=== PATIENT | female | born 1955 | race Caucasian/White ===

== ENCOUNTER 2016-12-01 09:25 | Inpatient (IN) | payer MEDICARE, MEDICAID, OTHER ==
[2016-12-01] MEDS ORDERED: Lactated Ringers 1,000 ML IV ONE ×2 (09:27→13:30)
--- NOTE | 2016-12-01 09:33 | EDM.PDOC ---
ED HISTORY OF PRESENT ILLNESS - General Chief Complaint: Respiratory Problem Stated Complaint: COPD/EMPHYSEMA Time Seen by Provider: 12/01/16 09:25 Source: Reports: EMS, RN notes reviewed History Limitations: Reports: Respiratory distress - History of Present Illness INITIAL COMMENTS - FREE TEXT/NARRATIVE: 61-year-old female brought in by EMS in respiratory distress with pending failure severely hypoxic report by EMS has a known history of chronic obstructive pulmonary disease has been hypoxic through most of the night, EMS services called to her home this morning initial evaluation showed she was hypoxic in the 80s did respond to nebulizer treatments and oxygen was transported to the ED for further evaluation she is somnolent but arousable I can only speak in single word sentences - Related Data Allergies/ADRs: Allergies Allergy/AdvReac Type Severity Reaction Status Date / Time No Known Allergies Allergy Verified 12/01/16 10:55 Home Meds: Home Meds Albuterol Sulfate [Proair Respiclick] 90 mcg IH Q4HR 12/01/16 [History] Budesonide/Formoterol [Symbicort 160-4.5 MCG] 2 puff INH BID 12/01/16 [History] Buprenorphine HCl [Buprenorphine] 12 mg SL ACBREAKFAST 12/01/16 [History] Citalopram [Celexa] 10 mg PO DAILY 12/01/16 [History] Ibuprofen 400 mg PO Q6HR PRN 12/01/16 [History] LORazepam 1 mg PO BEDTIME PRN 12/01/16 [History] Prednisone [IJD: Prednisone] 20 mg PO ASDIRECTED 12/01/16 [History] Pregabalin [Lyrica] 100 mg PO TID 12/01/16 [History] Pregabalin [Lyrica] 100 mg PO TID 12/01/16 [History] Simvastatin [Zocor] 80 mg PO BEDTIME 12/01/16 [History] Tiotropium [Spiriva] 1 puff INH DAILY 12/01/16 [History] metFORMIN [Glucophage] 1,000 mg PO BIDMEALS 12/01/16 [History] Past Medical History Cardiovascular History: Reports: High cholesterol, Hypertension Respiratory History: Reports: Asthma, COPD, Intubation, previous Musculoskeletal History: Reports: Back pain, chronic Psychiatric History: Reports: Depression Endocrine/Metabolic History: Reports: Diabetes, type II Social & Family History - Tobacco Use Smoking Status *Q: Current Every Day Smoker ED ROS GENERAL - Review of Systems Review Of Systems: Unable To Obtain (Respiratory distress) ED EXAM, GENERAL - Physical Exam Exam: See Below Exam Limited By: Respiratory distress General Appearance: obtunded, severe distress Head: atraumatic, normocephalic Neck: normal inspection, supple, non-tender, full range of motion Respiratory/Chest: respiratory distress, decreased breath sounds, rhonchi, wheezing Cardiovascular: regular rate, rhythm, no murmur GI/Abdominal: soft, non tender Course - Vital Signs Last Recorded V/S: Last Vital Signs Temp 98.8 F 12/01/16 09:57 Pulse 123 H 12/01/16 13:03 Resp 20 12/01/16 13:03 BP 109/66 12/01/16 13:03 Pulse Ox 97 12/01/16 13:03 - Orders/Labs/Meds Orders: Active Orders 24 hr Category Date Time Status EKG Documentation Completion [RC] ASDIRECTED Care 12/01/16 09:28 Active Ang Chest [CT] Stat Exams 12/01/16 10:30 Taken Chest 1V Frontal [CR] Urgent Exams 12/01/16 09:27 Taken CULTURE BLOOD [BC] Urgent Lab 12/01/16 09:35 Received CULTURE BLOOD [BC] Urgent Lab 12/01/16 09:45 Received CULTURE RESPIRATORY + SMEAR [RM] Urgent Lab 12/01/16 09:27 Uncollected Azithromycin [Zithromax] 500 mg Med 12/01/16 13:39 Ordered Sodium Chloride 0.9% [Normal Saline] 250 ml IV ONETIME Iopamidol [Isovue-370 (76%)] Med 12/01/16 10:45 Active 100 ml IV . DIRECTED Lactated Ringers [Ringers, Lactated] 1,000 ml Med 12/01/16 13:30 Active IV BOLUS cefTRIAXone [Rocephin] 2 gm Med 12/01/16 13:38 Ordered Sodium Chloride 0.9% [Normal Saline] 50 ml IV ONETIME Blood Culture x2 Reflex Set [OM.PC] Urgent Oth 12/01/16 09:29 Ordered EKG 12 Lead [EK] Urgent Ther 12/01/16 09:27 Ordered Medication Orders Lactated Ringer's (Ringers, Lactated) 1,000 mls @ 500 mls/hr IV BOLUS ONE Stop: 12/01/16 15:29 Last Admin: 12/01/16 13:36 Dose: 500 mls/hr Azithromycin 500 mg/ Sodium (Chloride) 250 mls @ 250 mls/hr IV ONETIME ONE Stop: 12/01/16 14:38 Ceftriaxone Sodium 2 gm/ (Sodium Chloride) 50 mls @ 100 mls/hr IV ONETIME ONE Stop: 12/01/16 14:07 Iopamidol (Isovue-370 (76%)) 100 ml IV . DIRECTED DALTON Last Admin: 12/01/16 12:56 Dose: 100 ml Labs: Laboratory Tests 12/01/16 12/01/16 12/01/16 Range/Units 09:26 09:45 09:45 WBC 11.6 H (4.5-11.0) K/uL RBC 3.79 (3.30-5.50) M/uL Hgb 11.6 L (12.0-15.0) g/dL Hct 37.7 (36.0-48.0) % MCV 100 H (80-98) fL MCH 31 (27-31) pg MCHC 31 L (32-36) % Plt Count 268 (150-400) K/uL Neut % (Auto) 85 H (36-66) % Lymph % (Auto) 7 L (24-44) % Elk % (Auto) 7 H (2-6) % Eos % (Auto) 0 L (2-4) % Baso % (Auto) 0 (0-1) % PT 10.1 (9.5-12.0) sec INR 0.95 (0.80-1.20) APTT 24.4 L (27.0-36.0) sec Puncture Site Rt radial ABG pH 7.159 L* (7.350-7.450) ABG pCO2 120.0 H* (35.0-42.0) mmHg ABG pO2 98.7 (75.0-100.0) mmHg ABG HCO3 40.9 H (22.0-26.0) mmol/L ABG Total CO2 39.6 H (21.0-25.0) mmol/L ABG O2 Saturation 95.8 (95.0-98.0) % ABG O2 Content 14.9 L (15.0-23.0) %vol ABG Base Excess 8.6 mm/L ABG Hemoglobin 11.3 L (12.0-16.0) g/dL ABG Oxyhemoglobin 92.8 % ABG Carboxyhemoglobin 2.4 H (0.0-1.6) % ABG Methemoglobin 0.7 % Srikanth Test Passed O2 Delivery Device Non rebr mask Oxygen Flow Rate L Sodium (140-148) mmol/L Potassium (3.6-5.2) mmol/L Chloride (100-108) mmol/L Carbon Dioxide (21-32) mmol/L Anion Gap (5.0-14.0) mmol/L BUN (7-18) mg/dL Creatinine (0.6-1.0) mg/dL Est Cr Clr Drug Dosing Estimated GFR (MDRD) (>60) Glucose (74-106) mg/dL Lactic Acid (0.4-2.0) mmol/L Calcium (8.5-10.1) mg/dL Total Bilirubin (0.2-1.0) mg/dL AST (15-37) U/L ALT (12-78) U/L Alkaline Phosphatase (46-116) U/L Troponin I (0.000-0.056) ng/mL Total Protein (6.4-8.2) g/dL Albumin (3.4-5.0) g/dL Globulin (2.3-3.5) g/dL Albumin/Globulin Ratio (1.2-2.2) Urine Color Urine Appearance Urine pH (4.5-8.0) Ur Specific [place] (1.008-1.030) Urine Protein (NEGATIVE) mg/dL Urine Glucose (UA) (NEGATIVE) mg/dL Urine Ketones (NEGATIVE) mg/dL Urine Occult Blood (NEGATIVE) Urine Nitrite (NEGATIVE) Urine Bilirubin (NEGATIVE) Urine Urobilinogen (NORMAL) mg/dL Ur Leukocyte Esterase (NEGATIVE) Urine RBC (0-5) Urine WBC (0-5) Ur Epithelial Cells Amorphous Sediment Urine Bacteria Urine Mucus Urine Opiates Screen (NEGATIVE) Ur Oxycodone Screen (NEGATIVE) Urine Methadone Screen (NEGATIVE) Ur Propoxyphene Screen (NEGATIVE) Ur Barbiturates Screen (NEGATIVE) Ur Tricyclics Screen (NEGATIVE) Ur Phencyclidine Scrn (NEGATIVE) Ur Amphetamine Screen (NEGATIVE) U Methamphetamines Scrn (NEGATIVE) Urine MDMA Screen (NEGATIVE) U Benzodiazepines Scrn (NEGATIVE) U Cocaine Metab Screen (NEGATIVE) U Marijuana (THC) Screen (NEGATIVE) 12/01/16 12/01/16 12/01/16 Range/Units 09:45 09:45 09:45 WBC (4.5-11.0) K/uL RBC (3.30-5.50) M/uL Hgb (12.0-15.0) g/dL Hct (36.0-48.0) % MCV (80-98) fL MCH (27-31) pg MCHC (32-36) % Plt Count (150-400) K/uL Neut % (Auto) (36-66) % Lymph % (Auto) (24-44) % Elk % (Auto) (2-6) % Eos % (Auto) (2-4) % Baso % (Auto) (0-1) % PT (9.5-12.0) sec INR (0.80-1.20) APTT (27.0-36.0) sec Puncture Site ABG pH (7.350-7.450) ABG pCO2 (35.0-42.0) mmHg ABG pO2 (75.0-100.0) mmHg ABG HCO3 (22.0-26.0) mmol/L ABG Total CO2 (21.0-25.0) mmol/L ABG O2 Saturation (95.0-98.0) % ABG O2 Content (15.0-23.0) %vol ABG Base Excess mm/L ABG Hemoglobin (12.0-16.0) g/dL ABG Oxyhemoglobin % ABG Carboxyhemoglobin (0.0-1.6) % ABG Methemoglobin % Srikanth Test O2 Delivery Device Oxygen Flow Rate L Sodium 142 (140-148) mmol/L Potassium 4.5 (3.6-5.2) mmol/L Chloride 98 L (100-108) mmol/L Carbon Dioxide 43 H (21-32) mmol/L Anion Gap 5.5 (5.0-14.0) mmol/L BUN 16 (7-18) mg/dL Creatinine 0.5 L (0.6-1.0) mg/dL Est Cr Clr Drug Dosing TNP Estimated GFR (MDRD) > 60 (>60) Glucose 295 H (74-106) mg/dL Lactic Acid 0.5 (0.4-2.0) mmol/L Calcium 8.6 (8.5-10.1) mg/dL Total Bilirubin 0.6 (0.2-1.0) mg/dL AST 35 (15-37) U/L ALT 35 (12-78) U/L Alkaline Phosphatase 95 (46-116) U/L Troponin I 0.051 (0.000-0.056) ng/mL Total Protein 6.7 (6.4-8.2) g/dL Albumin 3.0 L (3.4-5.0) g/dL Globulin 3.7 H (2.3-3.5) g/dL Albumin/Globulin Ratio 0.8 L (1.2-2.2) Urine Color Urine Appearance Urine pH (4.5-8.0) Ur Specific [place] (1.008-1.030) Urine Protein (NEGATIVE) mg/dL Urine Glucose (UA) (NEGATIVE) mg/dL Urine Ketones (NEGATIVE) mg/dL Urine Occult Blood (NEGATIVE) Urine Nitrite (NEGATIVE) Urine Bilirubin (NEGATIVE) Urine Urobilinogen (NORMAL) mg/dL Ur Leukocyte Esterase (NEGATIVE) Urine RBC (0-5) Urine WBC (0-5) Ur Epithelial Cells Amorphous Sediment Urine Bacteria Urine Mucus Urine Opiates Screen (NEGATIVE) Ur Oxycodone Screen (NEGATIVE) Urine Methadone Screen (NEGATIVE) Ur Propoxyphene Screen (NEGATIVE) Ur Barbiturates Screen (NEGATIVE) Ur Tricyclics Screen (NEGATIVE) Ur Phencyclidine Scrn (NEGATIVE) Ur Amphetamine Screen (NEGATIVE) U Methamphetamines Scrn (NEGATIVE) Urine MDMA Screen (NEGATIVE) U Benzodiazepines Scrn (NEGATIVE) U Cocaine Metab Screen (NEGATIVE) U Marijuana (THC) Screen (NEGATIVE) 12/01/16 12/01/16 12/01/16 Range/Units 10:30 10:30 12:07 WBC (4.5-11.0) K/uL RBC (3.30-5.50) M/uL Hgb (12.0-15.0) g/dL Hct (36.0-48.0) % MCV (80-98) fL MCH (27-31) pg MCHC (32-36) % Plt Count (150-400) K/uL Neut % (Auto) (36-66) % Lymph % (Auto) (24-44) % Elk % (Auto) (2-6) % Eos % (Auto) (2-4) % Baso % (Auto) (0-1) % PT (9.5-12.0) sec INR (0.80-1.20) APTT (27.0-36.0) sec Puncture Site Lt radial ABG pH 7.201 L* (7.350-7.450) ABG pCO2 110.0 H* (35.0-42.0) mmHg ABG pO2 62.5 L (75.0-100.0) mmHg ABG HCO3 41.5 H (22.0-26.0) mmol/L ABG Total CO2 40.2 H (21.0-25.0) mmol/L ABG O2 Saturation 87.3 L (95.0-98.0) % ABG O2 Content 12.5 L (15.0-23.0) %vol ABG Base Excess 10.6 mm/L ABG Hemoglobin 10.5 L (12.0-16.0) g/dL ABG Oxyhemoglobin 84.7 % ABG Carboxyhemoglobin 2.3 H (0.0-1.6) % ABG Methemoglobin 0.7 % Srikanth Test Passed O2 Delivery Device Bipap Oxygen Flow Rate L Sodium (140-148) mmol/L Potassium (3.6-5.2) mmol/L Chloride (100-108) mmol/L Carbon Dioxide (21-32) mmol/L Anion Gap (5.0-14.0) mmol/L BUN (7-18) mg/dL Creatinine (0.6-1.0) mg/dL Est Cr Clr Drug Dosing Estimated GFR (MDRD) (>60) Glucose (74-106) mg/dL Lactic Acid (0.4-2.0) mmol/L Calcium (8.5-10.1) mg/dL Total Bilirubin (0.2-1.0) mg/dL AST (15-37) U/L ALT (12-78) U/L Alkaline Phosphatase (46-116) U/L Troponin I (0.000-0.056) ng/mL Total Protein (6.4-8.2) g/dL Albumin (3.4-5.0) g/dL Globulin (2.3-3.5) g/dL Albumin/Globulin Ratio (1.2-2.2) Urine Color Yellow Urine Appearance Clear Urine pH 6.0 (4.5-8.0) Ur Specific [place] 1.025 (1.008-1.030) Urine Protein Negative (NEGATIVE) mg/dL Urine Glucose (UA) 1000 H (NEGATIVE) mg/dL Urine Ketones Negative (NEGATIVE) mg/dL Urine Occult Blood Negative (NEGATIVE) Urine Nitrite Negative (NEGATIVE) Urine Bilirubin Negative (NEGATIVE) Urine Urobilinogen Normal (NORMAL) mg/dL Ur Leukocyte Esterase Negative (NEGATIVE) Urine RBC 0-5 (0-5) Urine WBC 0-5 (0-5) Ur Epithelial Cells Rare Amorphous Sediment Not seen Urine Bacteria Not seen Urine Mucus Not seen Urine Opiates Screen Negative (NEGATIVE) Ur Oxycodone Screen Negative (NEGATIVE) Urine Methadone Screen Negative (NEGATIVE) Ur Propoxyphene Screen Negative (NEGATIVE) Ur Barbiturates Screen Negative (NEGATIVE) Ur Tricyclics Screen Negative (NEGATIVE) Ur Phencyclidine Scrn Negative (NEGATIVE) Ur Amphetamine Screen Negative (NEGATIVE) U Methamphetamines Scrn Negative (NEGATIVE) Urine MDMA Screen Negative (NEGATIVE) U Benzodiazepines Scrn Negative (NEGATIVE) U Cocaine Metab Screen Negative (NEGATIVE) U Marijuana (THC) Screen Negative (NEGATIVE) Meds: Medications Generic Name Dose Route Start Last Admin Trade Name Freq PRN Reason Stop Dose Admin Lactated Ringer's 1,000 mls @ 500 mls/hr 12/01/16 13:30 12/01/16 13:36 Ringers, Lactated IV 12/01/16 15:29 500 mls/hr BOLUS ONE Administration Azithromycin 500 mg/ Sodium 250 mls @ 250 mls/hr 12/01/16 13:39 Chloride IV 12/01/16 14:38 ONETIME ONE Ceftriaxone Sodium 2 gm/ 50 mls @ 100 mls/hr 12/01/16 13:38 Sodium Chloride IV 12/01/16 14:07 ONETIME ONE Iopamidol 100 ml 12/01/16 10:45 12/01/16 12:56 Isovue-370 (76%) IV 100 ml . DIRECTED DALTON Administration Discontinued Medications Generic Name Dose Route Start Last Admin Trade Name Freq PRN Reason Stop Dose Admin Lactated Ringer's 1,000 mls @ 500 mls/hr 12/01/16 09:27 12/01/16 10:30 Ringers, Lactated IV 12/01/16 11:26 500 mls/hr ASDIRECTED ONE Administration Sodium Chloride 70 mls @ 3 mls/sec 12/01/16 10:36 Normal Saline IV 12/01/16 10:37 ASDIRECTED ONE Methylprednisolone Sodium Succinate 125 mg 12/01/16 13:24 12/01/16 13:37 Solu-Medrol IVPUSH 12/01/16 13:25 125 mg ONETIME ONE Administration Sodium Chloride 10 ml 12/01/16 10:36 12/01/16 12:56 Saline Flush FLUSH 12/01/16 10:37 10 ml . DIRECTED PRN Administration [id number] EXAM Departure - Departure Time of Disposition: 13:46 Disposition: Admitted As Inpatient 64 Condition: poor Clinical Impression: Respiratory failure with hypoxia Qualifiers: Chronicity: acute on chronic Qualified Code(s): J96.21 - Acute and chronic respiratory failure with hypoxia Forms: ED Department Discharge - My Orders Last 24 Hours: My Active Orders 12/01/16 09:27 Chest 1V Frontal [CR] Urgent CULTURE RESPIRATORY + SMEAR [RM] Urgent EKG 12 Lead [EK] Urgent 12/01/16 09:28 EKG Documentation Completion [RC] ASDIRECTED 12/01/16 09:29 Blood Culture x2 Reflex Set [OM.PC] Urgent 12/01/16 09:35 CULTURE BLOOD [BC] Urgent 12/01/16 09:45 CULTURE BLOOD [BC] Urgent 12/01/16 10:30 Ang Chest [CT] Stat 12/01/16 10:45 Iopamidol [Isovue-370 (76%)] 100 ml IV . DIRECTED 12/01/16 13:30 Lactated Ringers [Ringers, Lactated] 1,000 ml IV BOLUS 12/01/16 13:38 cefTRIAXone [Rocephin] 2 gm Sodium Chloride 0.9% [Normal Saline] 50 ml IV ONETIME 12/01/16 13:39 Azithromycin [Zithromax] 500 mg Sodium Chloride 0.9% [Normal Saline] 250 ml IV ONETIME - Assessment/Plan Last 24 Hours: My Active Orders 12/01/16 09:27 Chest 1V Frontal [CR] Urgent CULTURE RESPIRATORY + SMEAR [RM] Urgent EKG 12 Lead [EK] Urgent 12/01/16 09:28 EKG Documentation Completion [RC] ASDIRECTED 12/01/16 09:29 Blood Culture x2 Reflex Set [OM.PC] Urgent 12/01/16 09:35 CULTURE BLOOD [BC] Urgent 12/01/16 09:45 CULTURE BLOOD [BC] Urgent 12/01/16 10:30 Ang Chest [CT] Stat 12/01/16 10:45 Iopamidol [Isovue-370 (76%)] 100 ml IV . DIRECTED 12/01/16 13:30 Lactated Ringers [Ringers, Lactated] 1,000 ml IV BOLUS 12/01/16 13:38 cefTRIAXone [Rocephin] 2 gm Sodium Chloride 0.9% [Normal Saline] 50 ml IV ONETIME 12/01/16 13:39 Azithromycin [Zithromax] 500 mg Sodium Chloride 0.9% [Normal Saline] 250 ml IV ONETIME Plan: Assessment Acuity = acute Site and laterality = respiratory failure secondary to chronic obstructive pulmonary disease Etiology = unclear etiology possible infectious Manifestations = hypoxic, somnolent and obtunded Location of injury = home Lab values = WBC elevated 1.6 consistent leukocytosis hemoglobin low at 0.6 this is the macro chromic anemia INR normal at 0.95 pH 7.15 PCO2 120 PO2 98.7 bicarbonate 40.9 consistent with a respiratory acidosis albumin low at 2.0 consistent hypoalbuminemia chest x-ray shows an infiltrative process on the left side CT scan is confirmatory Plan discuss case with hospitalist workers compensation analyst he agreed to come and evaluate the patient the ED for admission she was given IV Solu-Medrol, placed on BiPAP while in the ED and antibiotics Rocephin and azithromycin initiated This note was dictated using [employer] voice recognition software please call with any questions.
[2016-12-01] MEDS ORDERED: Sodium Chloride 0.9% 10 ML Syringe FLUSH PRN (10:36)
[2016-12-01] MEDS ORDERED: Iopamidol 755 Mg/ML 100 ML Bottle IV SCH (10:45)
[2016-12-01] MEDS ORDERED: methylPREDNISolone Sodium Succinate 125 MG/2 ML SDV IVPUSH ONE (13:24)
[2016-12-01] MEDS ORDERED: cefTRIAXone 2 GM in Sodium Chloride 0.9% 50 ML IV ONE (13:38)
[2016-12-01] MEDS ORDERED: Azithromycin 500 MG in Sodium Chloride 0.9% 250 ML IV ONE (13:39)
[2016-12-01] MEDS ORDERED: Heparin Sodium 5,000 UNITS in Sodium Chloride 0.9% 500 ML IV SCH (14:45)
--- NOTE | 2016-12-01 15:02 | PCM.HP ---
H&P History of Present Illness - General Date of Service: 12/01/16 Admit Problem/Dx: Admission Diagnosis/Problem Admission Diagnosis/Problem Pneumonia Source of Information: Provider. No: Patient History Limitations: Reports: Altered mental status (Obtunded) - History of Present Illness Initial Comments - Free Text/Narative: Una presents to the emergency room from her son's house with progressive respiratory decline. At this time she is obtunded and not able to provide any history. Per her son's report she was recently hospitalized in [facility] for bronchitis and COPD exacerbation. She had been discharged and had come up to visit him. She has been coughing and short of breath for several days with things getting worse. She has been weak and not getting around well. He is not sure she's been having any fevers. She hasn't been complaining of any chest pain that he recalls. Since arrival to the emergency room she has been started on noninvasive ventilation after blood gases revealed significant acidosis and CO2 retention. Chest x-ray was concerning for atypical pneumonia and a CT scan did confirm patchy diffuse bilateral interstitial infiltrates most likely infectious. She has been receiving IV fluids, cultures have been obtained and antibiotics have been initiated. She will be admitted to the intensive care unit for management of hypoxic and hypercapnic respiratory failure. - Related Data Allergies/Adverse Reactions: Allergies Allergy/AdvReac Type Severity Reaction Status Date / Time No Known Allergies Allergy Verified 12/01/16 10:55 Home Medications: Home Meds Albuterol Sulfate [Proair Respiclick] 90 mcg IH Q4HR 12/01/16 [History] Budesonide/Formoterol [Symbicort 160-4.5 MCG] 2 puff INH BID 12/01/16 [History] Buprenorphine HCl [Buprenorphine] 12 mg SL ACBREAKFAST 12/01/16 [History] Citalopram [Celexa] 10 mg PO DAILY 12/01/16 [History] Ibuprofen 400 mg PO Q6HR PRN 12/01/16 [History] LORazepam 1 mg PO BEDTIME PRN 12/01/16 [History] Prednisone [IJD: Prednisone] 20 mg PO ASDIRECTED 12/01/16 [History] Pregabalin [Lyrica] 100 mg PO TID 12/01/16 [History] Pregabalin [Lyrica] 100 mg PO TID 12/01/16 [History] Simvastatin [Zocor] 80 mg PO BEDTIME 12/01/16 [History] Tiotropium [Spiriva] 1 puff INH DAILY 12/01/16 [History] metFORMIN [Glucophage] 1,000 mg PO BIDMEALS 12/01/16 [History] Past Medical History Cardiovascular History: Reports: High cholesterol, Hypertension Other Cardiovascular History: enlarged right Respiratory History: Reports: Asthma, COPD, Intubation, previous Genitourinary History: Reports: UTI, recurrent SCI[employer] History: Reports: Musculoskeletal History: Reports: Back pain, chronic Other Musculoskeletal History: uses w/c at home and walker Psychiatric History: Reports: Depression Endocrine/Metabolic History: Reports: Diabetes, type II - Past Surgical History Female Surgical History: Reports: Hysterectomy Social & Family History - Family History Family Medical History: Unobtainable (Patient obtunded, family not available) - Tobacco Use Smoking Status *Q: Current Every Day Smoker Years of Tobacco use: 40 Packs/Tins Daily: 0.5 - Caffeine Use Caffeine Use: Reports: Coffee - Alcohol Use Alcohol Use History: No - Recreational Drug Use Recreational Drug Use: Yes Recreational Drug Type: Reports: Oxycodone H&P Review of Systems - Review of Systems: Review Of Systems: Unable To Obtain (Patient obtunded) Exam - Exam Exam: See Below - Vital Signs Vital Signs: Last Vital Signs Temp 37.1 C 12/01/16 09:57 Pulse 118 H 12/01/16 13:56 Resp 20 12/01/16 13:56 BP 116/66 12/01/16 13:56 Pulse Ox 93 L 12/01/16 13:56 Weight: 68.946 kg - Exam Quality Assessment: supplemental oxygen, urinary catheter General: obtunded. No: alert, mild distress HEENT: Conjunctiva clear, Pupils equal. No: Mucosa moist & pink (dry), Scleral icterus Neck: supple, trachea midline. No: lymphadenopathy, thyromegaly Lungs: Normal respiratory effort, Decreased breath sounds (Throughout), Crackles (Few left lung base), Wheezing (Significant expiratory wheezing throughout). No: Clear to auscultation Cardiovascular: regular rhythm, tachycardia. No: systolic murmur Abdomen: normal bowel sounds, soft. No: distention, tenderness Extremities: normal inspection. No: cyanosis, edema Peripheral Pulses: 2+: dorsalis pedis (L), dorsalis pedis (R) Skin: warm, dry, intact Neuro Extensive - Mental Status: withdraws to pain. No: alert, oriented x3 Neuro Extensive - Motor, Sensory, Reflexes: No: facial palsy (R), facial palsy ( L), tremor Psychiatric: No: alert, anxious, agitated - Patient Data Lab Results last 24 hrs: Laboratory Results - last 24 hr 12/01/16 12/01/16 12/01/16 Range/Units 09:26 09:45 09:45 WBC 11.6 H (4.5-11.0) K/uL RBC 3.79 (3.30-5.50) M/uL Hgb 11.6 L (12.0-15.0) g/dL Hct 37.7 (36.0-48.0) % MCV 100 H (80-98) fL MCH 31 (27-31) pg MCHC 31 L (32-36) % Plt Count 268 (150-400) K/uL Neut % (Auto) 85 H (36-66) % Lymph % (Auto) 7 L (24-44) % Hill % (Auto) 7 H (2-6) % Eos % (Auto) 0 L (2-4) % Baso % (Auto) 0 (0-1) % PT 10.1 (9.5-12.0) sec INR 0.95 (0.80-1.20) APTT 24.4 L (27.0-36.0) sec Puncture Site Rt radial ABG pH 7.159 L* (7.350-7.450) ABG pCO2 120.0 H* (35.0-42.0) mmHg ABG pO2 98.7 (75.0-100.0) mmHg ABG HCO3 40.9 H (22.0-26.0) mmol/L ABG Total CO2 39.6 H (21.0-25.0) mmol/L ABG O2 Saturation 95.8 (95.0-98.0) % ABG O2 Content 14.9 L (15.0-23.0) %vol ABG Base Excess 8.6 mm/L ABG Hemoglobin 11.3 L (12.0-16.0) g/dL ABG Oxyhemoglobin 92.8 % ABG Carboxyhemoglobin 2.4 H (0.0-1.6) % ABG Methemoglobin 0.7 % Srikanth Test Passed O2 Delivery Device Non rebr mask Oxygen Flow Rate L Sodium (140-148) mmol/L Potassium (3.6-5.2) mmol/L Chloride (100-108) mmol/L Carbon Dioxide (21-32) mmol/L Anion Gap (5.0-14.0) mmol/L BUN (7-18) mg/dL Creatinine (0.6-1.0) mg/dL Est Cr Clr Drug Dosing Estimated GFR (MDRD) (>60) Glucose (74-106) mg/dL Lactic Acid (0.4-2.0) mmol/L Calcium (8.5-10.1) mg/dL Total Bilirubin (0.2-1.0) mg/dL AST (15-37) U/L ALT (12-78) U/L Alkaline Phosphatase (46-116) U/L Troponin I (0.000-0.056) ng/mL Total Protein (6.4-8.2) g/dL Albumin (3.4-5.0) g/dL Globulin (2.3-3.5) g/dL Albumin/Globulin Ratio (1.2-2.2) Urine Color Urine Appearance Urine pH (4.5-8.0) Ur Specific Pinch (1.008-1.030) Urine Protein (NEGATIVE) mg/dL Urine Glucose (UA) (NEGATIVE) mg/dL Urine Ketones (NEGATIVE) mg/dL Urine Occult Blood (NEGATIVE) Urine Nitrite (NEGATIVE) Urine Bilirubin (NEGATIVE) Urine Urobilinogen (NORMAL) mg/dL Ur Leukocyte Esterase (NEGATIVE) Urine RBC (0-5) Urine WBC (0-5) Ur Epithelial Cells Amorphous Sediment Urine Bacteria Urine Mucus Urine Opiates Screen (NEGATIVE) Ur Oxycodone Screen (NEGATIVE) Urine Methadone Screen (NEGATIVE) Ur Propoxyphene Screen (NEGATIVE) Ur Barbiturates Screen (NEGATIVE) Ur Tricyclics Screen (NEGATIVE) Ur Phencyclidine Scrn (NEGATIVE) Ur Amphetamine Screen (NEGATIVE) U Methamphetamines Scrn (NEGATIVE) Urine MDMA Screen (NEGATIVE) U Benzodiazepines Scrn (NEGATIVE) U Cocaine Metab Screen (NEGATIVE) U Marijuana (THC) Screen (NEGATIVE) 12/01/16 12/01/16 12/01/16 Range/Units 09:45 09:45 09:45 WBC (4.5-11.0) K/uL RBC (3.30-5.50) M/uL Hgb (12.0-15.0) g/dL Hct (36.0-48.0) % MCV (80-98) fL MCH (27-31) pg MCHC (32-36) % Plt Count (150-400) K/uL Neut % (Auto) (36-66) % Lymph % (Auto) (24-44) % Hill % (Auto) (2-6) % Eos % (Auto) (2-4) % Baso % (Auto) (0-1) % PT (9.5-12.0) sec INR (0.80-1.20) APTT (27.0-36.0) sec Puncture Site ABG pH (7.350-7.450) ABG pCO2 (35.0-42.0) mmHg ABG pO2 (75.0-100.0) mmHg ABG HCO3 (22.0-26.0) mmol/L ABG Total CO2 (21.0-25.0) mmol/L ABG O2 Saturation (95.0-98.0) % ABG O2 Content (15.0-23.0) %vol ABG Base Excess mm/L ABG Hemoglobin (12.0-16.0) g/dL ABG Oxyhemoglobin % ABG Carboxyhemoglobin (0.0-1.6) % ABG Methemoglobin % Srikanth Test O2 Delivery Device Oxygen Flow Rate L Sodium 142 (140-148) mmol/L Potassium 4.5 (3.6-5.2) mmol/L Chloride 98 L (100-108) mmol/L Carbon Dioxide 43 H (21-32) mmol/L Anion Gap 5.5 (5.0-14.0) mmol/L BUN 16 (7-18) mg/dL Creatinine 0.5 L (0.6-1.0) mg/dL Est Cr Clr Drug Dosing TNP Estimated GFR (MDRD) > 60 (>60) Glucose 295 H (74-106) mg/dL Lactic Acid 0.5 (0.4-2.0) mmol/L Calcium 8.6 (8.5-10.1) mg/dL Total Bilirubin 0.6 (0.2-1.0) mg/dL AST 35 (15-37) U/L ALT 35 (12-78) U/L Alkaline Phosphatase 95 (46-116) U/L Troponin I 0.051 (0.000-0.056) ng/mL Total Protein 6.7 (6.4-8.2) g/dL Albumin 3.0 L (3.4-5.0) g/dL Globulin 3.7 H (2.3-3.5) g/dL Albumin/Globulin Ratio 0.8 L (1.2-2.2) Urine Color Urine Appearance Urine pH (4.5-8.0) Ur Specific Pinch (1.008-1.030) Urine Protein (NEGATIVE) mg/dL Urine Glucose (UA) (NEGATIVE) mg/dL Urine Ketones (NEGATIVE) mg/dL Urine Occult Blood (NEGATIVE) Urine Nitrite (NEGATIVE) Urine Bilirubin (NEGATIVE) Urine Urobilinogen (NORMAL) mg/dL Ur Leukocyte Esterase (NEGATIVE) Urine RBC (0-5) Urine WBC (0-5) Ur Epithelial Cells Amorphous Sediment Urine Bacteria Urine Mucus Urine Opiates Screen (NEGATIVE) Ur Oxycodone Screen (NEGATIVE) Urine Methadone Screen (NEGATIVE) Ur Propoxyphene Screen (NEGATIVE) Ur Barbiturates Screen (NEGATIVE) Ur Tricyclics Screen (NEGATIVE) Ur Phencyclidine Scrn (NEGATIVE) Ur Amphetamine Screen (NEGATIVE) U Methamphetamines Scrn (NEGATIVE) Urine MDMA Screen (NEGATIVE) U Benzodiazepines Scrn (NEGATIVE) U Cocaine Metab Screen (NEGATIVE) U Marijuana (THC) Screen (NEGATIVE) 12/01/16 12/01/16 12/01/16 Range/Units 10:30 10:30 12:07 WBC (4.5-11.0) K/uL RBC (3.30-5.50) M/uL Hgb (12.0-15.0) g/dL Hct (36.0-48.0) % MCV (80-98) fL MCH (27-31) pg MCHC (32-36) % Plt Count (150-400) K/uL Neut % (Auto) (36-66) % Lymph % (Auto) (24-44) % Hill % (Auto) (2-6) % Eos % (Auto) (2-4) % Baso % (Auto) (0-1) % PT (9.5-12.0) sec INR (0.80-1.20) APTT (27.0-36.0) sec Puncture Site Lt radial ABG pH 7.201 L* (7.350-7.450) ABG pCO2 110.0 H* (35.0-42.0) mmHg ABG pO2 62.5 L (75.0-100.0) mmHg ABG HCO3 41.5 H (22.0-26.0) mmol/L ABG Total CO2 40.2 H (21.0-25.0) mmol/L ABG O2 Saturation 87.3 L (95.0-98.0) % ABG O2 Content 12.5 L (15.0-23.0) %vol ABG Base Excess 10.6 mm/L ABG Hemoglobin 10.5 L (12.0-16.0) g/dL ABG Oxyhemoglobin 84.7 % ABG Carboxyhemoglobin 2.3 H (0.0-1.6) % ABG Methemoglobin 0.7 % Srikanth Test Passed O2 Delivery Device Bipap Oxygen Flow Rate L Sodium (140-148) mmol/L Potassium (3.6-5.2) mmol/L Chloride (100-108) mmol/L Carbon Dioxide (21-32) mmol/L Anion Gap (5.0-14.0) mmol/L BUN (7-18) mg/dL Creatinine (0.6-1.0) mg/dL Est Cr Clr Drug Dosing Estimated GFR (MDRD) (>60) Glucose (74-106) mg/dL Lactic Acid (0.4-2.0) mmol/L Calcium (8.5-10.1) mg/dL Total Bilirubin (0.2-1.0) mg/dL AST (15-37) U/L ALT (12-78) U/L Alkaline Phosphatase (46-116) U/L Troponin I (0.000-0.056) ng/mL Total Protein (6.4-8.2) g/dL Albumin (3.4-5.0) g/dL Globulin (2.3-3.5) g/dL Albumin/Globulin Ratio (1.2-2.2) Urine Color Yellow Urine Appearance Clear Urine pH 6.0 (4.5-8.0) Ur Specific Pinch 1.025 (1.008-1.030) Urine Protein Negative (NEGATIVE) mg/dL Urine Glucose (UA) 1000 H (NEGATIVE) mg/dL Urine Ketones Negative (NEGATIVE) mg/dL Urine Occult Blood Negative (NEGATIVE) Urine Nitrite Negative (NEGATIVE) Urine Bilirubin Negative (NEGATIVE) Urine Urobilinogen Normal (NORMAL) mg/dL Ur Leukocyte Esterase Negative (NEGATIVE) Urine RBC 0-5 (0-5) Urine WBC 0-5 (0-5) Ur Epithelial Cells Rare Amorphous Sediment Not seen Urine Bacteria Not seen Urine Mucus Not seen Urine Opiates Screen Negative (NEGATIVE) Ur Oxycodone Screen Negative (NEGATIVE) Urine Methadone Screen Negative (NEGATIVE) Ur Propoxyphene Screen Negative (NEGATIVE) Ur Barbiturates Screen Negative (NEGATIVE) Ur Tricyclics Screen Negative (NEGATIVE) Ur Phencyclidine Scrn Negative (NEGATIVE) Ur Amphetamine Screen Negative (NEGATIVE) U Methamphetamines Scrn Negative (NEGATIVE) Urine MDMA Screen Negative (NEGATIVE) U Benzodiazepines Scrn Negative (NEGATIVE) U Cocaine Metab Screen Negative (NEGATIVE) U Marijuana (THC) Screen Negative (NEGATIVE) Result Diagrams: 12/01/16 09:45 12/01/16 09:45 Alfonso Results last 24 hrs: Microbiology 12/01/16 10:11 Influenza Type A Antigen Screen - Final Nasopharyngeal Swab - Nare, Right NEGATIVE INFLUENZA A VIRUS AG Influenza Type B Antigen Screen - Final NEGATIVE INFLUENZA B VIRUS AG Imaging Impressions last 24 hrs: Chest x-ray - images personally reviewed - there appears to be a subtle left lung infiltrate near the left heart border. No definite mass. Heart size is normal. CT of the chest - images also personally reviewed - there are patchy groundglass opacities throughout both lungs that could be infectious or inflammatory. No evidence for pulmonary embolism or mass. *Q Meaningful Use (ADM) - VTE *Q VTE Criteria *Q: - Stroke *Q Stroke Criteria *Q: - AMI *Q AMI Criteria *Q: - Problem List (1) Bilateral pneumonia SNOMED Code(s): 909340406 ICD Code: J18.9 - PNEUMONIA, UNSPECIFIED ORGANISM Status: Acute Current Visit: Yes Qualifiers: Pneumonia type: due to unspecified organism Lung location: unspecified part of lung Qualified Code(s): J18.9 - Pneumonia, unspecified organism (2) Acute respiratory failure with hypoxia and hypercapnia SNOMED Code(s): 96700123, 956071795 ICD Code: J96.01 - ACUTE RESPIRATORY FAILURE WITH HYPOXIA; J96.02 - ACUTE RESPIRATORY FAILURE WITH HYPERCAPNIA Status: Acute Current Visit: Yes (3) Acute exacerbation of chronic obstructive pulmonary disease (COPD) SNOMED Code(s): 647656035 ICD Code: J44.1 - CHRONIC OBSTRUCTIVE PULMONARY DISEASE W (ACUTE) EXACERBATION Status: Acute Current Visit: Yes Problem List Initiated/Reviewed/Updated: Yes Orders Last 24hrs: Active Orders 24 hr Category Date Time Status Patient Status Manage Transfer [TRANSFER] Routine ADT 12/01/16 14:44 Ordered EKG Documentation Completion [RC] ASDIRECTED Care 12/01/16 09:28 Active Ang Chest [CT] Stat Exams 12/01/16 10:30 Taken Chest 1V Frontal [CR] Urgent Exams 12/01/16 09:27 Taken ABG [BLOOD GAS ARTERIAL] [BG] Timed Lab 12/01/16 15:00 Ordered CULTURE BLOOD [BC] Urgent Lab 12/01/16 09:35 Received CULTURE BLOOD [BC] Urgent Lab 12/01/16 09:45 Received CULTURE RESPIRATORY + SMEAR [RM] Urgent Lab 12/01/16 09:27 Uncollected Heparin Sodium 5,000 units Med 12/01/16 14:45 Active Sodium Chloride 0.9% [Normal Saline] 500 ml IV ASDIRECTED Iopamidol [Isovue-370 (76%)] Med 12/01/16 10:45 Active 100 ml IV . DIRECTED Lactated Ringers [Ringers, Lactated] 1,000 ml Med 12/01/16 13:30 Active IV BOLUS Blood Culture x2 Reflex Set [OM.PC] Urgent Oth 12/01/16 09:29 Ordered Resuscitation Status Routine Resus Stat 12/01/16 14:45 Ordered EKG 12 Lead [EK] Urgent Ther 12/01/16 09:27 Ordered Medication Orders Lactated Ringer's (Ringers, Lactated) 1,000 mls @ 500 mls/hr IV BOLUS ONE Stop: 12/01/16 15:29 Last Admin: 12/01/16 13:36 Dose: 500 mls/hr Heparin Sodium (Porcine) 5,000 (units/ Sodium Chloride) 501 mls @ 5 mls/sec IV ASDIRECTED [facility]ALTON Last Admin: 12/01/16 14:43 Dose: 5 mls/sec Iopamidol (Isovue-370 (76%)) 100 ml IV . DIRECTED [facility] Last Admin: 12/01/16 12:56 Dose: 100 ml Assessment/Plan Comment:: Assessment and plan - Bilateral pneumonia with acute hypoxic and hypercapnic respiratory failure - history of COPD and multiple hospitalizations for COPD exacerbations. Recent treatment with Bactrim for an upper respiratory tract infection and she had been on steroids as well. Chest x-ray shows atypical appearing bilateral pneumonia. She has impressive wheezing as well as a significant respiratory acidosis and CO2 retention. She does appear to be slowly improving with noninvasive ventilation. There is no evidence for pulmonary embolism. -Admit to the intensive care unit -Continue noninvasive ventilation -Serial blood gases to ensure improvement -Antibiotic coverage with ceftriaxone and azithromycin -Steroids -Sputum culture if able -Consider trial of intubation if condition does not continue to improve Acute exacerbation of COPD - Secondary to pneumonia as above. -Management as above -restart chronic management medications as able when mental status improves Chronic opiate dependence - Patient normally takes buprenorphine every day. This will be on hold until her mental status improves. -Pain control with IV medications for the night Maintenance issues - - DVT prophylaxis - SCDs - GI prophylaxis - PPI - Nutrition - n.p.o. for now - Dixon catheter - placed in the emergency room CODE STATUS - full code Admission justification - This patient will be admitted for inpatient services and is medically appropriate meeting medical necessity for inpatient admission as outlined in my documentation. I reasonably expect the patient will require inpatient services that span a period time over 2 midnights. I reasonably expect this patient to be discharged or transferred within 96 hours [facility] Disposition - anticipate discharge home after the hospital stay Primary care physician - no local primary care Donald Dominguez M.D.
[2016-12-01] MEDS ORDERED: LORazepam 2 MG/ML MDV IVPUSH PRN (15:35)
[2016-12-01] MEDS ORDERED: Acetaminophen 325 MG Tab PO PRN (15:35)
[2016-12-01] MEDS ORDERED: Acetaminophen 650 MG Supp RECTAL PRN (15:35)
[2016-12-01] MEDS ORDERED: Pantoprazole 40 MG Vial IV ONE (15:35)
[2016-12-01] MEDS ORDERED: Ondansetron 4 MG/2 ML SDV IV PRN (15:35)
[2016-12-01] MEDS ORDERED: Ondansetron 4 MG Tab.DIS PO PRN (15:35)
[2016-12-01] MEDS ORDERED: HYDROmorphone 0.5 MG/0.5 ML Syringe IVPUSH PRN (15:35)
[2016-12-01] MEDS ORDERED: Polyethylene Glycol 3350 Powder 17 GM Packet PO PRN (15:35)
[2016-12-01] MEDS: Sodium Chloride 0.9% 1,000 ML IV SCH ×2 (15:56→23:58)
[2016-12-01] MEDS: Albuterol/Ipratropium 3.0-0.5 MG/3 ML Neb Soln NEB SCH ×2 (16:35→22:29)
[2016-12-01] MEDS: Insulin Aspart 100 Units/ML 3 ML Pen SUBCUT SCH ×2 (16:36→22:29)
[2016-12-01] MEDS: Magnesium Sulfate/Water 2 GM in Premix Bag 1 BAG IV SCH ×2 (17:46→22:29)
[2016-12-01] MEDS: methylPREDNISolone Sodium Succinate 125 MG/2 ML SDV IVPUSH SCH (20:45)
--- NOTE | 2016-12-01 21:01 | ANES ---
DATE OF SERVICE: 12/01/2016 TIME: 1430. I was called to the emergency room department to evaluate Ms. Lauren for an arterial line. She is on the BiPAP and has severe COPD and has some acute respiratory depression/failure. I tried discussing with her the risks and benefits, but she did not quite understand. I found it would be prudent to go ahead and do the arterial line. I did put a 20-gauge radial art line into the right radial artery. I did prep her site with Betadine and used 1% lidocaine for skin local. The arterial line went in with ease and there was good waveform and blood return. It was then sutured with 2-0 Prolene. It was then secured with Tegaderm and tape. Trevor Gerardo CRNA /[id number]
[2016-12-02] MEDS: methylPREDNISolone Sodium Succinate 125 MG/2 ML SDV IVPUSH SCH ×4 (02:44→19:39)
[2016-12-02] MEDS: Insulin Aspart 100 Units/ML 3 ML Pen SUBCUT SCH ×4 (04:33→22:06)
[2016-12-02] MEDS: Albuterol/Ipratropium 3.0-0.5 MG/3 ML Neb Soln NEB SCH ×4 (05:36→22:05)
[2016-12-02] MEDS: Magnesium Sulfate/Water 2 GM in Premix Bag 1 BAG IV SCH ×3 (05:36→18:37)
[2016-12-02] MEDS: Sodium Chloride 0.9% 1,000 ML IV SCH (07:35)
--- NOTE | 2016-12-02 08:51 | PCM.PN ---
- General Info Date of Service: 12/02/16 Functional Status: Reports: pain controlled, urinating. Denies: ambulating - Review of Systems General: Reports: Weakness. Denies: Fever Pulmonary: Reports: shortness of breath Gastrointestinal: Denies: Abdominal pain Systems Review Comment:: No acute events overnight. Blood gases have shown some slow improvement throughout the night with decreasing PCO2 levels and slowly rising PTH. She is able to answer some questions this morning but falls back to sleep fairly quickly. She does report that she feels short of breath but does not endorse chest pain. No complaints of abdominal pain. She seems to be tolerating her current antibiotics as well as the steroids. Tolerating the noninvasive ventilation quite well. She has been dependent on the noninvasive ventilation since the time of emergency room presentation. Cultures are pending. - Patient Data Vitals - most recent: Last Vital Signs Temp 35.6 C 12/02/16 04:00 Pulse 102 H 12/02/16 07:16 Resp 18 12/02/16 07:16 BP 123/61 12/02/16 07:16 Pulse Ox 96 12/02/16 07:16 Weight - most recent: 71.577 kg I&O - last 24 hours: Intake & Output 12/01/16 12/02/16 12/02/16 22:59 06:59 14:59 Intake Total 3275 1593 Output Total 450 625 Balance 2825 968 Lab Results last 24 hrs: Laboratory Results - last 24 hr 12/01/16 12/01/16 12/01/16 Range/Units 15:35 18:00 23:00 WBC (4.5-11.0) K/uL RBC (3.30-5.50) M/uL Hgb (12.0-15.0) g/dL Hct (36.0-48.0) % MCV (80-98) fL MCH (27-31) pg MCHC (32-36) % Plt Count (150-400) K/uL Puncture Site Line A-line ABG pH 7.203 L* 7.200 L* (7.350-7.450) ABG pCO2 98.0 H* 105.0 H* (35.0-42.0) mmHg ABG pO2 71.3 L 85.8 (75.0-100.0) mmHg ABG HCO3 37.1 H 39.6 H (22.0-26.0) mmol/L ABG Total CO2 35.8 H 38.1 H (21.0-25.0) mmol/L ABG O2 Saturation 92.4 L 95.2 (95.0-98.0) % ABG O2 Content 13.6 L 14.4 L (15.0-23.0) %vol ABG Base Excess 6.7 8.7 mm/L ABG Hemoglobin 10.7 L 10.9 L (12.0-16.0) g/dL ABG Oxyhemoglobin 89.8 92.7 % ABG Carboxyhemoglobin 2.2 H 1.9 H (0.0-1.6) % ABG Methemoglobin 0.6 0.7 % Srikanth Test TNP A-line O2 Delivery Device Bipap Bipap Oxygen Flow Rate 50 L Sodium (140-148) mmol/L Potassium (3.6-5.2) mmol/L Chloride (100-108) mmol/L Carbon Dioxide (21-32) mmol/L Anion Gap (5.0-14.0) mmol/L BUN (7-18) mg/dL Creatinine (0.6-1.0) mg/dL Est Cr Clr Drug Dosing mL/min Estimated GFR (MDRD) (>60) Glucose (74-106) mg/dL Calcium (8.5-10.1) mg/dL Magnesium 1.1 L (1.8-2.4) mg/dL 12/02/16 12/02/16 12/02/16 Range/Units 01:30 05:15 05:15 WBC 4.7 (4.5-11.0) K/uL RBC 3.41 (3.30-5.50) M/uL Hgb 10.5 L (12.0-15.0) g/dL Hct 34.0 L (36.0-48.0) % MCV 100 H (80-98) fL MCH 31 (27-31) pg MCHC 31 L (32-36) % Plt Count 213 (150-400) K/uL Puncture Site A-line ABG pH 7.216 L (7.350-7.450) ABG pCO2 99.4 H* (35.0-42.0) mmHg ABG pO2 69.6 L (75.0-100.0) mmHg ABG HCO3 38.8 H (22.0-26.0) mmol/L ABG Total CO2 37.4 H (21.0-25.0) mmol/L ABG O2 Saturation 92.1 L (95.0-98.0) % ABG O2 Content 13.2 L (15.0-23.0) %vol ABG Base Excess 8.6 mm/L ABG Hemoglobin 10.4 L (12.0-16.0) g/dL ABG Oxyhemoglobin 89.7 % ABG Carboxyhemoglobin 2.1 H (0.0-1.6) % ABG Methemoglobin 0.5 % Srikanth Test A-line O2 Delivery Device Bipap Oxygen Flow Rate L Sodium 146 (140-148) mmol/L Potassium 4.0 (3.6-5.2) mmol/L Chloride 104 (100-108) mmol/L Carbon Dioxide 39 H (21-32) mmol/L Anion Gap 7.0 (5.0-14.0) mmol/L BUN 14 (7-18) mg/dL Creatinine 0.3 L (0.6-1.0) mg/dL Est Cr Clr Drug Dosing 150.49 mL/min Estimated GFR (MDRD) > 60 (>60) Glucose 177 H (74-106) mg/dL Calcium 7.6 L (8.5-10.1) mg/dL Magnesium (1.8-2.4) mg/dL 12/02/16 Range/Units 05:15 WBC (4.5-11.0) K/uL RBC (3.30-5.50) M/uL Hgb (12.0-15.0) g/dL Hct (36.0-48.0) % MCV (80-98) fL MCH (27-31) pg MCHC (32-36) % Plt Count (150-400) K/uL Puncture Site Edel ABG pH 7.276 L (7.350-7.450) ABG pCO2 80.5 H* (35.0-42.0) mmHg ABG pO2 75.8 (75.0-100.0) mmHg ABG HCO3 36.3 H (22.0-26.0) mmol/L ABG Total CO2 34.5 H (21.0-25.0) mmol/L ABG O2 Saturation 94.8 L (95.0-98.0) % ABG O2 Content 13.3 L (15.0-23.0) %vol ABG Base Excess 7.8 mm/L ABG Hemoglobin 10.3 L (12.0-16.0) g/dL ABG Oxyhemoglobin 91.5 % ABG Carboxyhemoglobin 2.8 H (0.0-1.6) % ABG Methemoglobin 0.7 % Srikanth Test A-line O2 Delivery Device Bipap Oxygen Flow Rate L Sodium (140-148) mmol/L Potassium (3.6-5.2) mmol/L Chloride (100-108) mmol/L Carbon Dioxide (21-32) mmol/L Anion Gap (5.0-14.0) mmol/L BUN (7-18) mg/dL Creatinine (0.6-1.0) mg/dL Est Cr Clr Drug Dosing mL/min Estimated GFR (MDRD) (>60) Glucose (74-106) mg/dL Calcium (8.5-10.1) mg/dL Magnesium (1.8-2.4) mg/dL Med Orders - Current: Current Medications Acetaminophen (Tylenol) 650 mg PO Q4H PRN PRN Reason: Pain (Mild 1-3)/fever Acetaminophen (Tylenol) 650 mg RECTAL Q4H PRN PRN Reason: Mild pain/fever Albuterol (Proventil Neb Soln) 2.5 mg NEB Q4H PRN PRN Reason: Shortness Of Breath/wheezing Albuterol/Ipratropium (Duoneb 3.0-0.5 Mg/3 Ml) 3 ml NEB QIDRT [facility] Hydromorphone HCl (Dilaudid) 0.5 - 1 mg IVPUSH Q2H PRN PRN Reason: Pain (severe 7-10) Heparin Sodium (Porcine) 5,000 (units/ Sodium Chloride) 501 mls @ 5 mls/sec IV ASDIRECTED [facility] Last Admin: 12/01/16 14:43 Dose: 5 mls/sec Sodium Chloride (Normal Saline) 1,000 mls @ 125 mls/hr IV ASDIRECTED [facility] Last Admin: 12/02/16 07:35 Dose: 125 mls/hr Ceftriaxone Sodium 2 gm/ (Sodium Chloride) 50 mls @ 100 mls/hr IV Q24H [facility] Magnesium Sulfate 2 gm/ Premix 50 mls @ 12.5 mls/hr IV Q6H [facility] Stop: 12/02/16 21:29 Last Admin: 12/02/16 05:36 Dose: 12.5 mls/hr Azithromycin 500 mg/ Sodium (Chloride) 250 mls @ 250 mls/hr IV Q24H [facility] Insulin Aspart (Novolog) 0 unit SUBCUT Q6H [facility] PRN Reason: Protocol Last Admin: 12/02/16 04:33 Dose: 2 units Lorazepam (Ativan) 0.5 - 1 mg IVPUSH Q4H PRN PRN Reason: Nausea/Vomiting Methylprednisolone Sodium Succinate (Solu-Medrol) 62.5 mg IVPUSH Q6H [facility] Last Admin: 12/02/16 08:18 Dose: 62.5 mg Ondansetron HCl (Zofran Odt) 4 mg PO Q6H PRN PRN Reason: Nausea able to take PO Ondansetron HCl (Zofran) 4 mg IV Q6H PRN PRN Reason: Nausea/Vomiting Polyethylene Glycol (Miralax) 17 gm PO DAILY PRN PRN Reason: Constipation Discontinued Medications Albuterol/Ipratropium (Duoneb 3.0-0.5 Mg/3 Ml) 3 ml NEB QID [facility] Last Admin: 12/02/16 05:36 Dose: 3 ml Lactated Ringer's (Ringers, Lactated) 1,000 mls @ 500 mls/hr IV ASDIRECTED ONE Stop: 12/01/16 11:26 Last Admin: 12/01/16 10:30 Dose: 500 mls/hr Sodium Chloride (Normal Saline) 70 mls @ 3 mls/sec IV ASDIRECTED ONE Stop: 12/01/16 10:37 Last Admin: 12/01/16 14:37 Dose: Not Given Lactated Ringer's (Ringers, Lactated) 1,000 mls @ 500 mls/hr IV BOLUS ONE Stop: 12/01/16 15:29 Last Admin: 12/01/16 13:36 Dose: 500 mls/hr Azithromycin 500 mg/ Sodium (Chloride) 250 mls @ 250 mls/hr IV ONETIME ONE Stop: 12/01/16 14:38 Last Admin: 12/01/16 14:26 Dose: 250 mls/hr Ceftriaxone Sodium 2 gm/ (Sodium Chloride) 50 mls @ 100 mls/hr IV ONETIME ONE Stop: 12/01/16 14:07 Last Admin: 12/01/16 14:22 Dose: 100 mls/hr Azithromycin 500 mg/ Sodium (Chloride) 250 mls @ 250 mls/hr IV Q24H [facility] Iopamidol (Isovue-370 (76%)) 100 ml IV . DIRECTED [facility] Last Admin: 12/01/16 12:56 Dose: 100 ml Methylprednisolone Sodium Succinate (Solu-Medrol) 125 mg IVPUSH ONETIME ONE Stop: 12/01/16 13:25 Last Admin: 12/01/16 13:37 Dose: 125 mg Pantoprazole Sodium (Protonix Iv) 40 mg IV ONETIME ONE Stop: 12/01/16 15:36 Last Admin: 12/01/16 16:35 Dose: 40 mg Sodium Chloride (Saline Flush) 10 ml FLUSH . DIRECTED PRN PRN Reason: [id number] EXAM Stop: 12/01/16 10:37 Last Admin: 12/01/16 12:56 Dose: 10 ml - Exam Quality Assessment: supplemental oxygen, urine catheter General: alert, cooperative, no acute distress Neck: supple Lungs: Normal respiratory effort, Wheezing (moderate exp wheezing). No: Crackles Cardiovascular: Regular Rate, Tachycardia Abdomen: bowel sounds present, soft, no tenderness, no distension Extremities: no cyanosis, edema (mild left ankle edema) Skin: warm, dry Psy/Mental Status: alert, normal affect - Problem List & Annotations (1) Bilateral pneumonia SNOMED Code(s): 732718883 Code(s): J18.9 - PNEUMONIA, UNSPECIFIED ORGANISM Status: Acute Current Visit: Yes Qualifiers: Pneumonia type: due to unspecified organism Lung location: unspecified part of lung Qualified Code(s): J18.9 - Pneumonia, unspecified organism (2) Acute respiratory failure with hypoxia and hypercapnia SNOMED Code(s): 42858890, 759660196 Code(s): J96.01 - ACUTE RESPIRATORY FAILURE WITH HYPOXIA; J96.02 - ACUTE RESPIRATORY FAILURE WITH HYPERCAPNIA Status: Acute Current Visit: Yes (3) Acute exacerbation of chronic obstructive pulmonary disease (COPD) SNOMED Code(s): 149473960 Code(s): J44.1 - CHRONIC OBSTRUCTIVE PULMONARY DISEASE W (ACUTE) EXACERBATION Status: Acute Current Visit: Yes - Problem List Review Problem List Initiated/Reviewed/Updated: Yes - My Orders Last 24 Hours: My Active Orders 12/01/16 17:30 Magnesium Sulfate/Water [Magnesium Sulfate 2 GM in Water 50 ML] 2 gm Premix Bag 1 bag IV Q6H 12/02/16 09:00 Buprenorphine [Subutex] 12 mg SL ACBREAKFAST Citalopram [Celexa] 10 mg PO DAILY Pregabalin [Lyrica] 100 mg PO TID Tiotropium [Spiriva HandiHaler] 1 puff INH DAILY 12/02/16 11:00 Albuterol/Ipratropium [DuoNeb 3.0-0.5 MG/3 ML] 3 ml NEB QIDRT 12/02/16 12:00 ABG [BLOOD GAS ARTERIAL] [BG] Timed 12/02/16 14:00 Azithromycin [Zithromax] 500 mg Sodium Chloride 0.9% [Normal Saline] 250 ml IV Q24H 12/02/16 Lunch Advance Diet Instructions [DIET] 12/03/16 05:00 BASIC METABOLIC PANEL,BMP [CHEM] Timed BLOOD GAS ARTERIAL [BG] Timed CBC W/O DIFF,HEMOGRAM [HEME] Timed (1) - Plan Plan:: Assessment and plan - Bilateral pneumonia with acute hypoxic and hypercapnic respiratory failure - history of COPD and multiple hospitalizations for COPD exacerbations. PH and PCO2 levels are slowly improving and increasing the pressure on the noninvasive ventilation seem to help. Still severe respiratory compromise but seems to be more alert and interactive today. Tolerating antibiotics and cultures are pending. -Continue noninvasive ventilation -Serial blood gases to ensure improvement -Antibiotic coverage with ceftriaxone and azithromycin -Steroids -Sputum culture if able -Consider trial of intubation if condition does not continue to improve Acute exacerbation of COPD - Secondary to pneumonia as above. -Management as above -restart chronic management medications as able when mental status improves Chronic opiate dependence - Patient normally takes buprenorphine every day. This will be on hold until her mental status improves. -Pain control with IV medications for the night -Restart Suboxone today Maintenance issues - - DVT prophylaxis - SCDs - GI prophylaxis - PPI - Nutrition - clear liquids, advance as tolerated - Dixon catheter - placed in the emergency room Disposition - anticipate discharge home after the hospital stay Doanld Dominguez M.D.
[2016-12-02] MEDS: BUPRENORPHINE PO SCH (09:38)
[2016-12-02] MEDS: Citalopram 10 MG Tab PO SCH (09:38)
[2016-12-02] MEDS: Pregabalin 100 MG Cap PO SCH ×4 (09:40→20:45)
[2016-12-02] MEDS: Tiotropium Inhaler 18 MCG Inhalation Powder Cap Kit of 5 INH SCH (11:25)
[2016-12-02] MEDS ORDERED: Azithromycin 500 MG in Sodium Chloride 0.9% 250 ML IV SCH (13:00)
[2016-12-02] MEDS: cefTRIAXone 2 GM in Sodium Chloride 0.9% 50 ML IV SCH (13:29)
[2016-12-02] MEDS: Azithromycin 500 MG in Sodium Chloride 0.9% 250 ML IV SCH (13:50)
[2016-12-02] MEDS ORDERED: Pregabalin 100 MG Cap ONE (14:30)
[2016-12-03] MEDS: Sodium Chloride 0.9% 1,000 ML IV SCH ×2 (00:10→07:39)
[2016-12-03] MEDS: methylPREDNISolone Sodium Succinate 125 MG/2 ML SDV IVPUSH SCH ×2 (01:37→07:34)
[2016-12-03] MEDS: Insulin Aspart 100 Units/ML 3 ML Pen SUBCUT SCH ×4 (04:10→22:00)
[2016-12-03] MEDS: Albuterol/Ipratropium 3.0-0.5 MG/3 ML Neb Soln NEB SCH ×4 (07:40→20:41)
[2016-12-03] MEDS: BUPRENORPHINE PO SCH ×2 (07:42→10:57)
[2016-12-03] MEDS: Tiotropium Inhaler 18 MCG Inhalation Powder Cap Kit of 5 INH SCH (08:04)
--- NOTE | 2016-12-03 09:00 | CR ---
Heart size upper limits of normal. Mild diffuse interstitial thickening. Correlate for mild intersti tial edema.
--- NOTE | 2016-12-03 09:44 | PCM.PN ---
- General Info Date of Service: 12/03/16 - Review of Systems General: Reports: Weakness. Denies: Fever, Chills Pulmonary: Reports: shortness of breath, cough, wheezing. Denies: sputum, hemoptysis Cardiovascular: Reports: Dyspnea on Exertion. Denies: Chest Pain, Palpitations , Orthopnea, PND, Edema Gastrointestinal: Reports: No symptoms Psychiatric: Reports: confusion Systems Review Comment:: This patient has improved over the past 2 days of hospitalization. Continues to require support with noninvasive ventilation to maintain adequate oxygen saturations. She has been relatively confused when the BiPAP was taken off, and saturations dropped significantly without the respiratory assistance. - Patient Data Vitals - most recent: Last Vital Signs Temp 95.9 F 12/03/16 08:00 Pulse 113 H 12/03/16 08:04 Resp 20 12/03/16 08:00 BP 110/58 L 12/03/16 08:00 Pulse Ox 89 L 12/03/16 08:04 Weight - most recent: 163 lb 11.2 oz I&O - last 24 hours: Intake & Output 12/02/16 12/03/16 12/03/16 22:59 06:59 14:59 Intake Total 1675 1722 Output Total 800 450 Balance 875 1272 Lab Results last 24 hrs: Laboratory Results - last 24 hr 12/02/16 12/02/16 12/03/16 Range/Units 12:00 21:00 00:15 WBC (4.5-11.0) K/uL RBC (3.30-5.50) M/uL Hgb (12.0-15.0) g/dL Hct (36.0-48.0) % MCV (80-98) fL MCH (27-31) pg MCHC (32-36) % Plt Count (150-400) K/uL Puncture Site A-line Line Line ABG pH 7.203 L* 7.162 L* 7.231 L (7.350-7.450) ABG pCO2 86.3 H* 93.6 H* 78.8 H* (35.0-42.0) mmHg ABG pO2 101.0 H 82.0 98.4 (75.0-100.0) mmHg ABG HCO3 32.6 H 32.2 H 31.9 H (22.0-26.0) mmol/L ABG Total CO2 31.7 H 31.5 H 30.9 H (21.0-25.0) mmol/L ABG O2 Saturation 97.0 94.1 L 97.5 (95.0-98.0) % ABG O2 Content 13.8 L 13.5 L 12.8 L (15.0-23.0) %vol ABG Base Excess 3.1 1.8 3.3 mm/L ABG Hemoglobin 10.2 L 10.4 L 9.5 L (12.0-16.0) g/dL ABG Oxyhemoglobin 95.1 92.1 94.5 % ABG Carboxyhemoglobin 1.5 1.4 2.5 H (0.0-1.6) % ABG Methemoglobin 0.5 0.7 0.6 % Srikanth Test A-line TNP O2 Delivery Device Bipap Bipap Bipap Oxygen Flow Rate 40 L Sodium (140-148) mmol/L Potassium (3.6-5.2) mmol/L Chloride (100-108) mmol/L Carbon Dioxide (21-32) mmol/L Anion Gap (5.0-14.0) mmol/L BUN (7-18) mg/dL Creatinine (0.6-1.0) mg/dL Est Cr Clr Drug Dosing mL/min Estimated GFR (MDRD) (>60) Glucose (74-106) mg/dL Calcium (8.5-10.1) mg/dL 12/03/16 12/03/16 12/03/16 Range/Units 05:40 05:40 05:40 WBC 4.5 (4.5-11.0) K/uL RBC 3.10 L (3.30-5.50) M/uL Hgb 9.1 L (12.0-15.0) g/dL Hct 30.8 L (36.0-48.0) % MCV 99 H (80-98) fL MCH 29 (27-31) pg MCHC 30 L (32-36) % Plt Count 246 (150-400) K/uL Puncture Site Line ABG pH 7.294 L (7.350-7.450) ABG pCO2 70.6 H* (35.0-42.0) mmHg ABG pO2 111.0 H (75.0-100.0) mmHg ABG HCO3 33.2 H (22.0-26.0) mmol/L ABG Total CO2 31.8 H (21.0-25.0) mmol/L ABG O2 Saturation 98.5 H (95.0-98.0) % ABG O2 Content 12.7 L (15.0-23.0) %vol ABG Base Excess 5.8 mm/L ABG Hemoglobin 9.3 L (12.0-16.0) g/dL ABG Oxyhemoglobin 95.2 % ABG Carboxyhemoglobin 2.8 H (0.0-1.6) % ABG Methemoglobin 0.6 % Srikanth Test O2 Delivery Device Bipap Oxygen Flow Rate L Sodium 146 (140-148) mmol/L Potassium 3.6 (3.6-5.2) mmol/L Chloride 106 (100-108) mmol/L Carbon Dioxide 35 H (21-32) mmol/L Anion Gap 8.6 (5.0-14.0) mmol/L BUN 14 (7-18) mg/dL Creatinine 0.4 L (0.6-1.0) mg/dL Est Cr Clr Drug Dosing 112.87 mL/min Estimated GFR (MDRD) > 60 (>60) Glucose 157 H (74-106) mg/dL Calcium 7.0 L (8.5-10.1) mg/dL Med Orders - Current: Current Medications Acetaminophen (Tylenol) 650 mg PO Q4H PRN PRN Reason: Pain (Mild 1-3)/fever Acetaminophen (Tylenol) 650 mg RECTAL Q4H PRN PRN Reason: Mild pain/fever Albuterol (Proventil Neb Soln) 2.5 mg NEB Q4H PRN PRN Reason: Shortness Of Breath/wheezing Albuterol/Ipratropium (Duoneb 3.0-0.5 Mg/3 Ml) 3 ml NEB QIDRT [facility] Last Admin: 12/03/16 07:40 Dose: 3 ml Citalopram Hydrobromide (Celexa) 10 mg PO DAILY [facility] Last Admin: 12/02/16 09:38 Dose: 10 mg Hydromorphone HCl (Dilaudid) 0.5 - 1 mg IVPUSH Q2H PRN PRN Reason: Pain (severe 7-10) Heparin Sodium (Porcine) 5,000 (units/ Sodium Chloride) 501 mls @ 5 mls/sec IV ASDIRECTED [facility] Last Admin: 12/01/16 14:43 Dose: 5 mls/sec Ceftriaxone Sodium 2 gm/ (Sodium Chloride) 50 mls @ 100 mls/hr IV Q24H [facility] Last Admin: 12/02/16 13:29 Dose: 100 mls/hr Azithromycin 500 mg/ Sodium (Chloride) 250 mls @ 250 mls/hr IV Q24H [facility] Last Admin: 12/02/16 13:50 Dose: 250 mls/hr Sodium Chloride (Normal Saline) 1,000 mls @ 50 mls/hr IV ASDIRECTED [facility] Insulin Aspart (Novolog) 0 unit SUBCUT Q6H [facility] PRN Reason: Protocol Last Admin: 12/03/16 04:10 Dose: 2 units Lorazepam (Ativan) 0.5 - 1 mg IVPUSH Q4H PRN PRN Reason: Nausea/Vomiting Last Admin: 12/02/16 20:20 Dose: 1 mg Methylprednisolone Sodium Succinate (Solu-Medrol) 40 mg IVPUSH Q8H [facility] Ondansetron HCl (Zofran Odt) 4 mg PO Q6H PRN PRN Reason: Nausea able to take PO Ondansetron HCl (Zofran) 4 mg IV Q6H PRN PRN Reason: Nausea/Vomiting Buprenorphine 12mg ( 2 X 2mg + 1 X 8mg) Pom 0 each PO ACBREAKFAST [facility] Last Admin: 12/02/16 09:38 Dose: 1 each Polyethylene Glycol (Miralax) 17 gm PO DAILY PRN PRN Reason: Constipation Pregabalin (Lyrica) 100 mg PO TID [facility] Last Admin: 12/02/16 20:45 Dose: Not Given Tiotropium [place] (Spiriva Handihaler) 18 mcg INH DAILY [facility] Last Admin: 12/03/16 08:04 Dose: 18 mcg Discontinued Medications Albuterol/Ipratropium (Duoneb 3.0-0.5 Mg/3 Ml) 3 ml NEB QID [facility] Last Admin: 12/02/16 05:36 Dose: 3 ml Lactated Ringer's (Ringers, Lactated) 1,000 mls @ 500 mls/hr IV ASDIRECTED ONE Stop: 12/01/16 11:26 Last Admin: 12/01/16 10:30 Dose: 500 mls/hr Sodium Chloride (Normal Saline) 70 mls @ 3 mls/sec IV ASDIRECTED ONE Stop: 12/01/16 10:37 Last Admin: 12/01/16 14:37 Dose: Not Given Lactated Ringer's (Ringers, Lactated) 1,000 mls @ 500 mls/hr IV BOLUS ONE Stop: 12/01/16 15:29 Last Admin: 12/01/16 13:36 Dose: 500 mls/hr Azithromycin 500 mg/ Sodium (Chloride) 250 mls @ 250 mls/hr IV ONETIME ONE Stop: 12/01/16 14:38 Last Admin: 12/01/16 14:26 Dose: 250 mls/hr Ceftriaxone Sodium 2 gm/ (Sodium Chloride) 50 mls @ 100 mls/hr IV ONETIME ONE Stop: 12/01/16 14:07 Last Admin: 12/01/16 14:22 Dose: 100 mls/hr Azithromycin 500 mg/ Sodium (Chloride) 250 mls @ 250 mls/hr IV Q24H [facility] Sodium Chloride (Normal Saline) 1,000 mls @ 125 mls/hr IV ASDIRECTED [facility] Last Admin: 12/03/16 07:39 Dose: 125 mls/hr Magnesium Sulfate 2 gm/ Premix 50 mls @ 12.5 mls/hr IV Q6H [facility] Stop: 12/02/16 21:29 Last Admin: 12/02/16 18:37 Dose: 12.5 mls/hr Iopamidol (Isovue-370 (76%)) 100 ml IV . DIRECTED [facility] Last Admin: 12/01/16 12:56 Dose: 100 ml Methylprednisolone Sodium Succinate (Solu-Medrol) 125 mg IVPUSH ONETIME ONE Stop: 12/01/16 13:25 Last Admin: 12/01/16 13:37 Dose: 125 mg Methylprednisolone Sodium Succinate (Solu-Medrol) 62.5 mg IVPUSH Q6H [facility] Last Admin: 12/03/16 07:34 Dose: 62.5 mg Pantoprazole Sodium (Protonix Iv) 40 mg IV ONETIME ONE Stop: 12/01/16 15:36 Last Admin: 12/01/16 16:35 Dose: 40 mg Pregabalin (Lyrica) Confirm Administered Dose 100 mg .ROUTE .STK-MED ONE Stop: 12/02/16 14:31 Last Admin: 12/02/16 15:02 Dose: Not Given Sodium Chloride (Saline Flush) 10 ml FLUSH . DIRECTED PRN PRN Reason: [id number] EXAM Stop: 12/01/16 10:37 Last Admin: 12/01/16 12:56 Dose: 10 ml - Exam Lungs: Normal respiratory effort, Decreased breath sounds, Wheezing. No: Rales , Rhonchi Cardiovascular: Regular Rhythm, Tachycardia Abdomen: bowel sounds present, soft, no tenderness, no distension Extremities: no edema Skin: warm, dry, intact - Problem List Review Problem List Initiated/Reviewed/Updated: Yes - My Orders Last 24 Hours: My Active Orders 12/03/16 09:45 Sodium Chloride 0.9% @ 50 MLS/HR(1000ml) Sodium Chloride 0.9% [Normal Saline] 1 ,000 ml IV ASDIRECTED methylPREDNISolone Sod Succ [Solu-MEDROL] 40 mg IVPUSH Q8H 12/04/16 05:00 BASIC METABOLIC PANEL,BMP [CHEM] Timed BLOOD GAS ARTERIAL [BG] Timed CBC WITH AUTO DIFF [HEME] Timed - Plan Plan:: Assessment and plan - Bilateral pneumonia with acute hypoxic and hypercapnic respiratory failure - history of COPD and multiple hospitalizations for COPD exacerbations. PH and PCO2 levels are slowly improving and increasing the pressure on the noninvasive ventilation seem to help. Respiratory status has improved but she continues to require use of the noninvasive ventilation to maintain adequate saturations. More confused today than she has been over the past few days. -Continue noninvasive ventilation -Serial blood gases to ensure improvement -Antibiotic coverage with ceftriaxone and azithromycin -Steroids -Sputum culture if able -Consider trial of intubation if condition does not continue to improve Acute exacerbation of COPD - Secondary to pneumonia as above. -Management as above -restart chronic management medications as able when mental status improves Chronic opiate dependence - Patient normally takes buprenorphine every day. This will be on hold until her mental status improves. -Pain control with IV medications for the night -Restart Suboxone today Maintenance issues - - DVT prophylaxis - SCDs - GI prophylaxis - PPI - Nutrition - clear liquids, advance as tolerated - Dixon catheter - placed in the emergency room Disposition - anticipate discharge home after the hospital stay
[2016-12-03] MEDS ORDERED: Sodium Chloride 0.9% 1,000 ML IV SCH (09:45)
[2016-12-03] MEDS ORDERED: methylPREDNISolone Sodium Succinate 125 MG/2 ML SDV IVPUSH SCH (09:45)
[2016-12-03] MEDS: Citalopram 10 MG Tab PO SCH (10:58)
[2016-12-03] MEDS: Pregabalin 100 MG Cap PO SCH ×3 (10:58→20:41)
[2016-12-03] MEDS: cefTRIAXone 2 GM in Sodium Chloride 0.9% 50 ML IV SCH (13:06)
[2016-12-03] MEDS: Azithromycin 500 MG in Sodium Chloride 0.9% 250 ML IV SCH (13:07)
[2016-12-03] MEDS: methylPREDNISolone Sodium Succinate 40 MG/1 ML SDV IVPUSH SCH (16:56)
[2016-12-03] MEDS: Melatonin 3 MG Tab PO SCH (20:41)
[2016-12-04] MEDS: methylPREDNISolone Sodium Succinate 40 MG/1 ML SDV IVPUSH SCH ×4 (00:14→23:30)
[2016-12-04] MEDS: Albuterol 0.083% 2.5 MG/3 ML Neb Soln NEB PRN (03:10)
[2016-12-04] MEDS: Insulin Aspart 100 Units/ML 3 ML Pen SUBCUT SCH ×5 (03:47→20:38)
[2016-12-04] MEDS: Albuterol/Ipratropium 3.0-0.5 MG/3 ML Neb Soln NEB SCH ×4 (07:11→20:24)
[2016-12-04] MEDS: Tiotropium Inhaler 18 MCG Inhalation Powder Cap Kit of 5 INH SCH (08:17)
[2016-12-04] MEDS: Pregabalin 100 MG Cap PO SCH ×3 (08:46→20:23)
[2016-12-04] MEDS: Citalopram 10 MG Tab PO SCH (08:46)
[2016-12-04] MEDS: BUPRENORPHINE PO SCH (08:46)
--- NOTE | 2016-12-04 11:15 | PCM.PN ---
- General Info Date of Service: 12/04/16 - Review of Systems General: Reports: Weakness. Denies: Fever, Chills Pulmonary: Reports: shortness of breath, cough, wheezing. Denies: pleuritic chest pain, sputum, hemoptysis Cardiovascular: Reports: Dyspnea on Exertion. Denies: Chest Pain, Palpitations , Orthopnea, PND, Edema, Lightheadedness Gastrointestinal: Reports: No symptoms Systems Review Comment:: This patient has improved significantly over the past 24 hours, hypercapnia has improved further and oxygenation is better, she is now off of BiPAP. Vital signs have been stable and she has remained afebrile. - Patient Data Vitals - most recent: Last Vital Signs Temp 100.4 F 12/04/16 08:00 Pulse 118 H 12/04/16 11:02 Resp 20 12/04/16 10:00 BP 146/69 H 12/04/16 10:00 Pulse Ox 94 L 12/04/16 10:00 Weight - most recent: 172 lb 1.6 oz I&O - last 24 hours: Intake & Output 12/03/16 12/04/16 12/04/16 22:59 06:59 14:59 Intake Total 1120 847 200 Output Total 300 650 Balance 820 197 200 Lab Results last 24 hrs: Laboratory Results - last 24 hr 12/04/16 12/04/16 12/04/16 Range/Units 04:30 04:54 05:00 WBC 6.5 (4.5-11.0) K/uL RBC 3.35 (3.30-5.50) M/uL Hgb 10.1 L (12.0-15.0) g/dL Hct 32.9 L (36.0-48.0) % MCV 98 (80-98) fL MCH 30 (27-31) pg MCHC 31 L (32-36) % Plt Count 281 (150-400) K/uL Neut % (Auto) 83 H (36-66) % Lymph % (Auto) 10 L (24-44) % [place] % (Auto) 5 (2-6) % Eos % (Auto) 0 L (2-4) % Baso % (Auto) 2 H (0-1) % Puncture Site Line ABG pH 7.341 L (7.350-7.450) ABG pCO2 61.3 H (35.0-42.0) mmHg ABG pO2 85.5 (75.0-100.0) mmHg ABG HCO3 32.2 H (22.0-26.0) mmol/L ABG Total CO2 30.3 H (21.0-25.0) mmol/L ABG O2 Saturation 97.0 (95.0-98.0) % ABG O2 Content 13.5 L (15.0-23.0) %vol ABG Base Excess 5.7 mm/L ABG Hemoglobin 10.1 L (12.0-16.0) g/dL ABG Oxyhemoglobin 94.0 % ABG Carboxyhemoglobin 2.4 H (0.0-1.6) % ABG Methemoglobin 0.7 % O2 Delivery Device Bipap Oxygen Flow Rate 2 L Sodium 146 (140-148) mmol/L Potassium 3.6 (3.6-5.2) mmol/L Chloride 105 (100-108) mmol/L Carbon Dioxide 35 H (21-32) mmol/L Anion Gap 9.6 (5.0-14.0) mmol/L BUN 16 (7-18) mg/dL Creatinine 0.5 L (0.6-1.0) mg/dL Est Cr Clr Drug Dosing 91.08 mL/min Estimated GFR (MDRD) > 60 (>60) Glucose 212 H (74-106) mg/dL Calcium 7.6 L (8.5-10.1) mg/dL Med Orders - Current: Current Medications Acetaminophen (Tylenol) 650 mg PO Q4H PRN PRN Reason: Pain (Mild 1-3)/fever Acetaminophen (Tylenol) 650 mg RECTAL Q4H PRN PRN Reason: Mild pain/fever Albuterol (Proventil Neb Soln) 2.5 mg NEB Q4H PRN PRN Reason: Shortness Of Breath/wheezing Last Admin: 12/04/16 03:10 Dose: 2.5 mg Albuterol/Ipratropium (Duoneb 3.0-0.5 Mg/3 Ml) 3 ml NEB QIDRT [facility] Last Admin: 12/04/16 11:01 Dose: 3 ml Citalopram Hydrobromide (Celexa) 10 mg PO DAILY [facility] Last Admin: 12/04/16 08:46 Dose: 10 mg Hydromorphone HCl (Dilaudid) 0.5 - 1 mg IVPUSH Q2H PRN PRN Reason: Pain (severe 7-10) Ceftriaxone Sodium 2 gm/ (Sodium Chloride) 50 mls @ 100 mls/hr IV Q24H [facility] Last Admin: 12/03/16 13:06 Dose: 100 mls/hr Azithromycin 500 mg/ Sodium (Chloride) 250 mls @ 250 mls/hr IV Q24H [facility] Last Admin: 12/03/16 13:07 Dose: 250 mls/hr Insulin Aspart (Novolog) 0 unit SUBCUT WITHMEALSANDBED [facility] PRN Reason: Protocol Lorazepam (Ativan) 0.5 - 1 mg IVPUSH Q4H PRN PRN Reason: Nausea/Vomiting Last Admin: 12/02/16 20:20 Dose: 1 mg Melatonin (Melatonin) 9 mg PO BEDTIME [facility] Last Admin: 12/03/16 20:41 Dose: 9 mg Methylprednisolone Sodium Succinate (Solu-Medrol) 40 mg IVPUSH Q8H [facility] Last Admin: 12/04/16 08:46 Dose: 40 mg Ondansetron HCl (Zofran Odt) 4 mg PO Q6H PRN PRN Reason: Nausea able to take PO Ondansetron HCl (Zofran) 4 mg IV Q6H PRN PRN Reason: Nausea/Vomiting Buprenorphine 12mg ( 2 X 2mg + 1 X 8mg) Pom 0 each PO ACBREAKFAST [facility] Last Admin: 12/04/16 08:46 Dose: 1 each Polyethylene Glycol (Miralax) 17 gm PO DAILY PRN PRN Reason: Constipation Pregabalin (Lyrica) 100 mg PO TID [facility] Last Admin: 12/04/16 08:46 Dose: 100 mg Tiotropium [place] (Spiriva Handihaler) 18 mcg INH DAILY [facility] Last Admin: 12/04/16 08:17 Dose: 18 mcg Discontinued Medications Albuterol/Ipratropium (Duoneb 3.0-0.5 Mg/3 Ml) 3 ml NEB QID [facility] Last Admin: 12/02/16 05:36 Dose: 3 ml Lactated Ringer's (Ringers, Lactated) 1,000 mls @ 500 mls/hr IV ASDIRECTED ONE Stop: 12/01/16 11:26 Last Admin: 12/01/16 10:30 Dose: 500 mls/hr Sodium Chloride (Normal Saline) 70 mls @ 3 mls/sec IV ASDIRECTED ONE Stop: 12/01/16 10:37 Last Admin: 12/01/16 14:37 Dose: Not Given Lactated Ringer's (Ringers, Lactated) 1,000 mls @ 500 mls/hr IV BOLUS ONE Stop: 12/01/16 15:29 Last Admin: 12/01/16 13:36 Dose: 500 mls/hr Azithromycin 500 mg/ Sodium (Chloride) 250 mls @ 250 mls/hr IV ONETIME ONE Stop: 12/01/16 14:38 Last Admin: 12/01/16 14:26 Dose: 250 mls/hr Ceftriaxone Sodium 2 gm/ (Sodium Chloride) 50 mls @ 100 mls/hr IV ONETIME ONE Stop: 12/01/16 14:07 Last Admin: 12/01/16 14:22 Dose: 100 mls/hr Heparin Sodium (Porcine) 5,000 (units/ Sodium Chloride) 501 mls @ 5 mls/sec IV ASDIRECTED [facility] Last Admin: 12/01/16 14:43 Dose: 5 mls/sec Azithromycin 500 mg/ Sodium (Chloride) 250 mls @ 250 mls/hr IV Q24H [facility] Sodium Chloride (Normal Saline) 1,000 mls @ 125 mls/hr IV ASDIRECTED [facility] Last Admin: 12/03/16 07:39 Dose: 125 mls/hr Magnesium Sulfate 2 gm/ Premix 50 mls @ 12.5 mls/hr IV Q6H [facility] Stop: 12/02/16 21:29 Last Admin: 12/02/16 18:37 Dose: 12.5 mls/hr Sodium Chloride (Normal Saline) 1,000 mls @ 50 mls/hr IV ASDIRECTED [facility] Last Admin: 12/04/16 00:18 Dose: 50 mls/hr Insulin Aspart (Novolog) 0 unit SUBCUT Q6H [facility] PRN Reason: Protocol Last Admin: 12/04/16 09:01 Dose: 2 units Iopamidol (Isovue-370 (76%)) 100 ml IV . DIRECTED [facility] Last Admin: 12/01/16 12:56 Dose: 100 ml Methylprednisolone Sodium Succinate (Solu-Medrol) 125 mg IVPUSH ONETIME ONE Stop: 12/01/16 13:25 Last Admin: 12/01/16 13:37 Dose: 125 mg Methylprednisolone Sodium Succinate (Solu-Medrol) 62.5 mg IVPUSH Q6H [facility] Last Admin: 12/03/16 07:34 Dose: 62.5 mg Pantoprazole Sodium (Protonix Iv) 40 mg IV ONETIME ONE Stop: 12/01/16 15:36 Last Admin: 12/01/16 16:35 Dose: 40 mg Pregabalin (Lyrica) Confirm Administered Dose 100 mg .ROUTE .STK-MED ONE Stop: 12/02/16 14:31 Last Admin: 12/02/16 15:02 Dose: Not Given Sodium Chloride (Saline Flush) 10 ml FLUSH . DIRECTED PRN PRN Reason: [id number] EXAM Stop: 12/01/16 10:37 Last Admin: 12/01/16 12:56 Dose: 10 ml - Exam Quality Assessment: supplemental oxygen, DVT prophylaxis General: alert, oriented, cooperative, no acute distress Lungs: Decreased breath sounds, Wheezing. No: Crackles, Rales, Rhonchi, Rub, Stridor Cardiovascular: Regular Rate, Regular Rhythm, No Murmurs Abdomen: bowel sounds present, soft, no tenderness, no distension Extremities: no edema Skin: warm, dry, intact - Problem List Review Problem List Initiated/Reviewed/Updated: Yes - My Orders Last 24 Hours: My Active Orders 12/03/16 16:00 methylPREDNISolone Sod Succ [Solu-MEDROL] 40 mg IVPUSH Q8H 12/03/16 21:00 Melatonin 9 mg PO BEDTIME 12/04/16 10:59 Convert IV to Saline Lock [OM.PC] Routine 12/04/16 11:12 Vital Signs [RC] Q4H 12/04/16 Breakfast Regular Diet [DIET] 12/05/16 05:00 BASIC METABOLIC PANEL,BMP [CHEM] Timed - Plan Plan:: Assessment and plan - Bilateral pneumonia with acute hypoxic and hypercapnic respiratory failure - history of COPD and multiple hospitalizations for COPD exacerbations. Clinically improved over the past 24 hours, no longer requiring use of BiPAP to maintain adequate saturations. Hypercapnia has improved from yesterday and she is more alert and interactive -Supplemental oxygen as needed -Antibiotic coverage with ceftriaxone and azithromycin -Steroids Acute exacerbation of COPD - Secondary to pneumonia as above. -Management as above -restart chronic management medications as able when mental status improves Chronic opiate dependence - Patient normally takes buprenorphine every day. -Restart Suboxone today Maintenance issues - - DVT prophylaxis - SCDs - GI prophylaxis - PPI - Nutrition - clear liquids, advance as tolerated - Dixon catheter - placed in the emergency room Disposition - anticipate discharge home after the hospital stay
[2016-12-04] MEDS: cefTRIAXone 2 GM in Sodium Chloride 0.9% 50 ML IV SCH (12:57)
[2016-12-04] MEDS: Azithromycin 500 MG in Sodium Chloride 0.9% 250 ML IV SCH (13:42)
[2016-12-04] MEDS ORDERED: Furosemide 40 MG/4 ML VIAL IVPUSH ONE (20:16)
[2016-12-04] MEDS: Melatonin 3 MG Tab PO SCH (20:23)
[2016-12-05] MEDS: Albuterol 0.083% 2.5 MG/3 ML Neb Soln NEB PRN (02:33)
[2016-12-05] MEDS: Albuterol/Ipratropium 3.0-0.5 MG/3 ML Neb Soln NEB SCH ×4 (07:03→20:35)
[2016-12-05] MEDS: methylPREDNISolone Sodium Succinate 40 MG/1 ML SDV IVPUSH SCH (07:34)
[2016-12-05] MEDS: BUPRENORPHINE PO SCH (07:40)
[2016-12-05] MEDS: Insulin Aspart 100 Units/ML 3 ML Pen SUBCUT SCH ×4 (07:46→21:25)
[2016-12-05] MEDS: Tiotropium Inhaler 18 MCG Inhalation Powder Cap Kit of 5 INH SCH (08:17)
[2016-12-05] MEDS ORDERED: Potassium Chloride 20 MEQ Tab.ER PO ONE (09:00)
--- NOTE | 2016-12-05 09:27 | PCM.PN ---
- General Info Date of Service: 12/05/16 - Review of Systems General: Reports: Weakness. Denies: Fever, Chills Pulmonary: Reports: shortness of breath, wheezing. Denies: pleuritic chest pain , cough, sputum, hemoptysis Cardiovascular: Reports: Dyspnea on Exertion. Denies: Chest Pain, Palpitations , Orthopnea, PND, Edema, Lightheadedness Gastrointestinal: Reports: No symptoms Systems Review Comment:: This patient is improved over the past 24 hours with less shortness of breath. She did develop lower oxygen levels last night but it appeared to be secondary to fluid overload and improved significantly after she received IV Lasix. Vital signs have been stable and she has remained afebrile. - Patient Data Vitals - most recent: Last Vital Signs Temp 98.7 F 12/05/16 08:00 Pulse 88 12/05/16 08:00 Resp 19 12/05/16 08:00 BP 132/54 L 12/05/16 08:00 Pulse Ox 92 L 12/05/16 08:00 Weight - most recent: 166 lb 3.2 oz I&O - last 24 hours: Intake & Output 12/04/16 12/05/16 12/05/16 22:59 06:59 14:59 Intake Total 1880 Output Total 2500 1700 200 Balance -620 -1700 -200 Lab Results last 24 hrs: Laboratory Results - last 24 hr 12/05/16 Range/Units 04:30 Sodium 145 (140-148) mmol/L Potassium 3.5 L (3.6-5.2) mmol/L Chloride 100 (100-108) mmol/L Carbon Dioxide 45 H (21-32) mmol/L Anion Gap 3.5 L (5.0-14.0) mmol/L BUN 13 (7-18) mg/dL Creatinine 0.5 L (0.6-1.0) mg/dL Est Cr Clr Drug Dosing 91.08 mL/min Estimated GFR (MDRD) > 60 (>60) Glucose 287 H (74-106) mg/dL Calcium 8.0 L (8.5-10.1) mg/dL Med Orders - Current: Current Medications Acetaminophen (Tylenol) 650 mg PO Q4H PRN PRN Reason: Pain (Mild 1-3)/fever Acetaminophen (Tylenol) 650 mg RECTAL Q4H PRN PRN Reason: Mild pain/fever Albuterol (Proventil Neb Soln) 2.5 mg NEB Q4H PRN PRN Reason: Shortness Of Breath/wheezing Last Admin: 12/05/16 02:33 Dose: 2.5 mg Albuterol/Ipratropium (Duoneb 3.0-0.5 Mg/3 Ml) 3 ml NEB QIDRT [facility] Last Admin: 12/05/16 07:03 Dose: 3 ml Citalopram Hydrobromide (Celexa) 10 mg PO DAILY [facility] Last Admin: 12/04/16 08:46 Dose: 10 mg Ceftriaxone Sodium 2 gm/ (Sodium Chloride) 50 mls @ 100 mls/hr IV Q24H [facility] Last Admin: 12/04/16 12:57 Dose: 100 mls/hr Azithromycin 500 mg/ Sodium (Chloride) 250 mls @ 250 mls/hr IV Q24H [facility] Last Admin: 12/04/16 13:42 Dose: 250 mls/hr Insulin Aspart (Novolog) 0 unit SUBCUT WITHMEALSANDBED [facility] PRN Reason: Protocol Last Admin: 12/05/16 07:46 Dose: 6 units Lorazepam (Ativan) 0.5 - 1 mg IVPUSH Q4H PRN PRN Reason: Nausea/Vomiting Last Admin: 12/02/16 20:20 Dose: 1 mg Melatonin (Melatonin) 9 mg PO BEDTIME [facility] Last Admin: 12/04/16 20:23 Dose: 9 mg Ondansetron HCl (Zofran Odt) 4 mg PO Q6H PRN PRN Reason: Nausea able to take PO Ondansetron HCl (Zofran) 4 mg IV Q6H PRN PRN Reason: Nausea/Vomiting Buprenorphine 12mg ( 2 X 2mg + 1 X 8mg) Pom 0 each PO ACBREAKFAST [facility] Last Admin: 12/05/16 07:40 Dose: 1 each Polyethylene Glycol (Miralax) 17 gm PO DAILY PRN PRN Reason: Constipation Prednisone (Prednisone) 40 mg PO WITHBREAKFAST [facility] Pregabalin (Lyrica) 100 mg PO TID [facility] Last Admin: 12/04/16 20:23 Dose: 100 mg Tiotropium [place] (Spiriva Handihaler) 18 mcg INH DAILY [facility] Last Admin: 12/05/16 08:17 Dose: 18 mcg Discontinued Medications Albuterol/Ipratropium (Duoneb 3.0-0.5 Mg/3 Ml) 3 ml NEB QID [facility] Last Admin: 12/02/16 05:36 Dose: 3 ml Furosemide (Lasix) 40 mg IVPUSH ONETIME ONE Stop: 12/04/16 20:17 Last Admin: 12/04/16 20:36 Dose: 40 mg Hydromorphone HCl (Dilaudid) 0.5 - 1 mg IVPUSH Q2H PRN PRN Reason: Pain (severe 7-10) Lactated Ringer's (Ringers, Lactated) 1,000 mls @ 500 mls/hr IV ASDIRECTED ONE Stop: 12/01/16 11:26 Last Admin: 12/01/16 10:30 Dose: 500 mls/hr Sodium Chloride (Normal Saline) 70 mls @ 3 mls/sec IV ASDIRECTED ONE Stop: 12/01/16 10:37 Last Admin: 12/01/16 14:37 Dose: Not Given Lactated Ringer's (Ringers, Lactated) 1,000 mls @ 500 mls/hr IV BOLUS ONE Stop: 12/01/16 15:29 Last Admin: 12/01/16 13:36 Dose: 500 mls/hr Azithromycin 500 mg/ Sodium (Chloride) 250 mls @ 250 mls/hr IV ONETIME ONE Stop: 12/01/16 14:38 Last Admin: 12/01/16 14:26 Dose: 250 mls/hr Ceftriaxone Sodium 2 gm/ (Sodium Chloride) 50 mls @ 100 mls/hr IV ONETIME ONE Stop: 12/01/16 14:07 Last Admin: 12/01/16 14:22 Dose: 100 mls/hr Heparin Sodium (Porcine) 5,000 (units/ Sodium Chloride) 501 mls @ 5 mls/sec IV ASDIRECTED [facility] Last Admin: 12/01/16 14:43 Dose: 5 mls/sec Azithromycin 500 mg/ Sodium (Chloride) 250 mls @ 250 mls/hr IV Q24H [facility] Sodium Chloride (Normal Saline) 1,000 mls @ 125 mls/hr IV ASDIRECTED [facility] Last Admin: 12/03/16 07:39 Dose: 125 mls/hr Magnesium Sulfate 2 gm/ Premix 50 mls @ 12.5 mls/hr IV Q6H [facility] Stop: 12/02/16 21:29 Last Admin: 12/02/16 18:37 Dose: 12.5 mls/hr Sodium Chloride (Normal Saline) 1,000 mls @ 50 mls/hr IV ASDIRECTED [facility] Last Admin: 12/04/16 00:18 Dose: 50 mls/hr Insulin Aspart (Novolog) 0 unit SUBCUT Q6H [facility] PRN Reason: Protocol Last Admin: 12/04/16 09:01 Dose: 2 units Iopamidol (Isovue-370 (76%)) 100 ml IV . DIRECTED [facility] Last Admin: 12/01/16 12:56 Dose: 100 ml Methylprednisolone Sodium Succinate (Solu-Medrol) 125 mg IVPUSH ONETIME ONE Stop: 12/01/16 13:25 Last Admin: 12/01/16 13:37 Dose: 125 mg Methylprednisolone Sodium Succinate (Solu-Medrol) 62.5 mg IVPUSH Q6H [facility] Last Admin: 12/03/16 07:34 Dose: 62.5 mg Methylprednisolone Sodium Succinate (Solu-Medrol) 40 mg IVPUSH Q8H [facility] Last Admin: 12/05/16 07:34 Dose: 40 mg Pantoprazole Sodium (Protonix Iv) 40 mg IV ONETIME ONE Stop: 12/01/16 15:36 Last Admin: 12/01/16 16:35 Dose: 40 mg Potassium Chloride (Klor-Con M20) 40 meq PO ONETIME ONE Stop: 12/05/16 09:01 Pregabalin (Lyrica) Confirm Administered Dose 100 mg .ROUTE .STK-MED ONE Stop: 12/02/16 14:31 Last Admin: 12/02/16 15:02 Dose: Not Given Sodium Chloride (Saline Flush) 10 ml FLUSH . DIRECTED PRN PRN Reason: [id number] EXAM Stop: 12/01/16 10:37 Last Admin: 12/01/16 12:56 Dose: 10 ml - Exam Quality Assessment: supplemental oxygen, DVT prophylaxis General: alert, cooperative, no acute distress Lungs: Decreased breath sounds, Rhonchi, Wheezing. No: Crackles, Rales, Rub, Stridor Cardiovascular: Regular Rate, Regular Rhythm, No Murmurs Abdomen: bowel sounds present, soft, no tenderness, no distension Extremities: no edema Skin: warm, dry, intact - Problem List Review Problem List Initiated/Reviewed/Updated: Yes - My Orders Last 24 Hours: My Active Orders 12/04/16 10:59 Convert IV to Saline Lock [OM.PC] Routine 12/04/16 11:12 Vital Signs [RC] Q4H 12/05/16 09:22 Ambulate [RC] QID 12/06/16 05:00 BASIC METABOLIC PANEL,BMP [CHEM] Timed 12/06/16 08:00 predniSONE 40 mg PO WITHBREAKFAST - Plan Plan:: Assessment and plan - Bilateral pneumonia with acute hypoxic and hypercapnic respiratory failure - history of COPD and multiple hospitalizations for COPD exacerbations. Continues to improve with less shortness of breath. -Supplemental oxygen as needed -Antibiotic coverage with ceftriaxone and azithromycin -Prednisone 40 mg by mouth daily Acute exacerbation of COPD - Secondary to pneumonia as above. -Management as above Chronic opiate dependence - Patient normally takes buprenorphine every day. -Restart Suboxone today Maintenance issues - - DVT prophylaxis - SCDs - GI prophylaxis - PPI - Nutrition - clear liquids, advance as tolerated - Dixon catheter - placed in the emergency room Disposition - anticipate discharge home after the hospital stay
[2016-12-05] MEDS: Pregabalin 100 MG Cap PO SCH ×3 (09:38→20:35)
[2016-12-05] MEDS: Citalopram 10 MG Tab PO SCH (09:38)
[2016-12-05] MEDS ORDERED: Furosemide 20 MG/2 ML VIAL IVPUSH ONE (09:45)
[2016-12-05] MEDS ORDERED: Formoterol/Mometasone 200-5 MCG 8.8 GM Inhaler IH SCH ×2 (09:45→21:00)
[2016-12-05] MEDS: Formoterol/Mometasone 200-5 MCG 8.8 GM Inhaler IH SCH ×2 (11:26→20:33)
[2016-12-05] MEDS ORDERED: Insulin Aspart 100 Units/ML 3 ML Pen SUBCUT ONE ×2 (11:39→17:46)
[2016-12-05] MEDS: cefTRIAXone 2 GM in Sodium Chloride 0.9% 50 ML IV SCH (13:15)
[2016-12-05] MEDS: Azithromycin 500 MG in Sodium Chloride 0.9% 250 ML IV SCH (13:51)
[2016-12-05] MEDS: metFORMIN 500 MG Tab PO SCH (18:05)
[2016-12-05] MEDS: Melatonin 3 MG Tab PO SCH (20:34)
[2016-12-05] MEDS: Simvastatin 20 MG Tab PO SCH (20:34)
[2016-12-06] MEDS: Albuterol/Ipratropium 3.0-0.5 MG/3 ML Neb Soln NEB SCH ×4 (07:21→21:15)
[2016-12-06] MEDS: Formoterol/Mometasone 200-5 MCG 8.8 GM Inhaler IH SCH ×2 (07:21→21:15)
[2016-12-06] MEDS: BUPRENORPHINE PO SCH (08:42)
[2016-12-06] MEDS ORDERED: Potassium Chloride 20 MEQ Tab.ER PO ONE (09:00)
[2016-12-06] MEDS: Tiotropium Inhaler 18 MCG Inhalation Powder Cap Kit of 5 INH SCH (09:08)
[2016-12-06] MEDS: metFORMIN 500 MG Tab PO SCH ×2 (09:20→18:14)
[2016-12-06] MEDS: Citalopram 10 MG Tab PO SCH (09:20)
[2016-12-06] MEDS: predniSONE 20 MG Tab PO SCH (09:20)
[2016-12-06] MEDS: acetaZOLAMIDE 250 MG Tab PO SCH ×2 (09:21→21:15)
[2016-12-06] MEDS: Pregabalin 100 MG Cap PO SCH ×3 (09:26→21:16)
[2016-12-06] MEDS: Insulin Aspart 100 Units/ML 3 ML Pen SUBCUT SCH ×4 (09:29→21:14)
[2016-12-06] MEDS: Azithromycin 500 MG in Sodium Chloride 0.9% 250 ML IV SCH ×2 (14:16→15:59)
[2016-12-06] MEDS: cefTRIAXone 2 GM in Sodium Chloride 0.9% 50 ML IV SCH ×2 (14:16→15:23)
--- NOTE | 2016-12-06 15:22 | PCM.PN ---
- General Info Date of Service: 12/06/16 Functional Status: Reports: pain controlled, tolerating diet - Review of Systems General: Reports: Weakness. Denies: Fever, Chills Pulmonary: Reports: shortness of breath, cough. Denies: pleuritic chest pain, sputum, hemoptysis Cardiovascular: Reports: Dyspnea on Exertion. Denies: Chest Pain, Palpitations , Orthopnea, PND, Edema, Lightheadedness Gastrointestinal: Reports: No symptoms Systems Review Comment:: This patient is beginning to feel like her respiratory status is almost back to baseline. She remains very weak even to the point that she is having difficulty with ambulation. Vital signs have been stable and she has remained afebrile. - Patient Data Vitals - most recent: Last Vital Signs Temp 98.5 F 12/06/16 11:50 Pulse 120 H 12/06/16 14:43 Resp 18 12/06/16 11:50 BP 148/83 H 12/06/16 11:50 Pulse Ox 94 L 12/06/16 14:43 Weight - most recent: 161 lb I&O - last 24 hours: Intake & Output 12/06/16 12/06/16 12/06/16 06:59 14:59 22:59 Intake Total 200 Output Total 600 Balance -400 Lab Results last 24 hrs: Laboratory Results - last 24 hr 12/06/16 Range/Units 05:00 Sodium 146 (140-148) mmol/L Potassium 3.4 L (3.6-5.2) mmol/L Chloride 100 (100-108) mmol/L Carbon Dioxide 48 H (21-32) mmol/L Anion Gap 1.4 L (5.0-14.0) mmol/L BUN 15 (7-18) mg/dL Creatinine 0.4 L (0.6-1.0) mg/dL Est Cr Clr Drug Dosing 112.87 mL/min Estimated GFR (MDRD) > 60 (>60) Glucose 120 H (74-106) mg/dL Calcium 8.4 L (8.5-10.1) mg/dL Med Orders - Current: Current Medications Acetaminophen (Tylenol) 650 mg PO Q4H PRN PRN Reason: Pain (Mild 1-3)/fever Acetaminophen (Tylenol) 650 mg RECTAL Q4H PRN PRN Reason: Mild pain/fever Acetazolamide (Diamox) 250 mg PO BID [facility] Stop: 12/06/16 21:01 Last Admin: 12/06/16 09:21 Dose: 250 mg Albuterol (Proventil Neb Soln) 2.5 mg NEB Q4H PRN PRN Reason: Shortness Of Breath/wheezing Last Admin: 12/05/16 02:33 Dose: 2.5 mg Albuterol/Ipratropium (Duoneb 3.0-0.5 Mg/3 Ml) 3 ml NEB QIDRT [facility] Last Admin: 12/06/16 14:42 Dose: 3 ml Citalopram Hydrobromide (Celexa) 10 mg PO DAILY [facility] Last Admin: 12/06/16 09:20 Dose: 10 mg Ceftriaxone Sodium 2 gm/ (Sodium Chloride) 50 mls @ 100 mls/hr IV Q24H [facility] Last Admin: 12/06/16 14:16 Dose: Not Given Azithromycin 500 mg/ Sodium (Chloride) 250 mls @ 250 mls/hr IV Q24H [facility] Last Admin: 12/06/16 14:16 Dose: Not Given Insulin Aspart (Novolog) 0 unit SUBCUT WITHMEALSANDBED [facility] PRN Reason: Protocol Last Admin: 12/06/16 14:18 Dose: 4 units Lorazepam (Ativan) 0.5 - 1 mg IVPUSH Q4H PRN PRN Reason: Nausea/Vomiting Last Admin: 12/02/16 20:20 Dose: 1 mg Melatonin (Melatonin) 9 mg PO BEDTIME [facility] Last Admin: 12/05/16 20:34 Dose: 9 mg Metformin HCl (Glucophage) 1,000 mg PO BIDMEALS [facility] Last Admin: 12/06/16 09:20 Dose: 1,000 mg Mometasone Furoate/Formoterol Fumar (Dulera 200-5 Mcg) 0 puff IH BIDRT [facility] Last Admin: 12/06/16 07:21 Dose: 2 puff Ondansetron HCl (Zofran Odt) 4 mg PO Q6H PRN PRN Reason: Nausea able to take PO Ondansetron HCl (Zofran) 4 mg IV Q6H PRN PRN Reason: Nausea/Vomiting Buprenorphine 12mg ( 2 X 2mg + 1 X 8mg) Pom 0 each PO ACBREAKFAST [facility] Last Admin: 12/06/16 08:42 Dose: 1 each Polyethylene Glycol (Miralax) 17 gm PO DAILY PRN PRN Reason: Constipation Last Admin: 12/06/16 05:40 Dose: 17 gm Prednisone (Prednisone) 40 mg PO WITHBREAKFAST [facility] Last Admin: 12/06/16 09:20 Dose: 40 mg Pregabalin (Lyrica) 100 mg PO TID [facility] Last Admin: 12/06/16 14:21 Dose: 100 mg Simvastatin (Zocor) 80 mg PO BEDTIME [facility] Last Admin: 12/05/16 20:34 Dose: 80 mg Tiotropium [place] (Spiriva Handihaler) 18 mcg INH DAILY [facility] Last Admin: 12/06/16 09:08 Dose: 18 mcg Discontinued Medications Albuterol/Ipratropium (Duoneb 3.0-0.5 Mg/3 Ml) 3 ml NEB QID [facility] Last Admin: 12/02/16 05:36 Dose: 3 ml Furosemide (Lasix) 40 mg IVPUSH ONETIME ONE Stop: 12/04/16 20:17 Last Admin: 12/04/16 20:36 Dose: 40 mg Furosemide (Lasix) 20 mg IVPUSH ONETIME ONE Stop: 12/05/16 09:46 Last Admin: 12/05/16 10:53 Dose: 20 mg Hydromorphone HCl (Dilaudid) 0.5 - 1 mg IVPUSH Q2H PRN PRN Reason: Pain (severe 7-10) Lactated Ringer's (Ringers, Lactated) 1,000 mls @ 500 mls/hr IV ASDIRECTED ONE Stop: 12/01/16 11:26 Last Admin: 12/01/16 10:30 Dose: 500 mls/hr Sodium Chloride (Normal Saline) 70 mls @ 3 mls/sec IV ASDIRECTED ONE Stop: 12/01/16 10:37 Last Admin: 12/01/16 14:37 Dose: Not Given Lactated Ringer's (Ringers, Lactated) 1,000 mls @ 500 mls/hr IV BOLUS ONE Stop: 12/01/16 15:29 Last Admin: 12/01/16 13:36 Dose: 500 mls/hr Azithromycin 500 mg/ Sodium (Chloride) 250 mls @ 250 mls/hr IV ONETIME ONE Stop: 12/01/16 14:38 Last Admin: 12/01/16 14:26 Dose: 250 mls/hr Ceftriaxone Sodium 2 gm/ (Sodium Chloride) 50 mls @ 100 mls/hr IV ONETIME ONE Stop: 12/01/16 14:07 Last Admin: 12/01/16 14:22 Dose: 100 mls/hr Heparin Sodium (Porcine) 5,000 (units/ Sodium Chloride) 501 mls @ 5 mls/sec IV ASDIRECTED [facility] Last Admin: 12/01/16 14:43 Dose: 5 mls/sec Azithromycin 500 mg/ Sodium (Chloride) 250 mls @ 250 mls/hr IV Q24H [facility] Sodium Chloride (Normal Saline) 1,000 mls @ 125 mls/hr IV ASDIRECTED [facility] Last Admin: 12/03/16 07:39 Dose: 125 mls/hr Magnesium Sulfate 2 gm/ Premix 50 mls @ 12.5 mls/hr IV Q6H [facility] Stop: 12/02/16 21:29 Last Admin: 12/02/16 18:37 Dose: 12.5 mls/hr Sodium Chloride (Normal Saline) 1,000 mls @ 50 mls/hr IV ASDIRECTED [facility] Last Admin: 12/04/16 00:18 Dose: 50 mls/hr Insulin Aspart (Novolog) 0 unit SUBCUT Q6H [facility] PRN Reason: Protocol Last Admin: 12/04/16 09:01 Dose: 2 units Insulin Aspart (Novolog) 12 unit SUBCUT ONETIME ONE PRN Reason: Protocol Stop: 12/05/16 11:40 Last Admin: 12/05/16 11:47 Dose: 12 units Insulin Aspart (Novolog) 12 unit SUBCUT ONETIME ONE Stop: 12/05/16 17:47 Last Admin: 12/05/16 18:05 Dose: 12 units Iopamidol (Isovue-370 (76%)) 100 ml IV . DIRECTED [facility] Last Admin: 12/01/16 12:56 Dose: 100 ml Methylprednisolone Sodium Succinate (Solu-Medrol) 125 mg IVPUSH ONETIME ONE Stop: 12/01/16 13:25 Last Admin: 12/01/16 13:37 Dose: 125 mg Methylprednisolone Sodium Succinate (Solu-Medrol) 62.5 mg IVPUSH Q6H [facility] Last Admin: 12/03/16 07:34 Dose: 62.5 mg Methylprednisolone Sodium Succinate (Solu-Medrol) 40 mg IVPUSH Q8H [facility] Last Admin: 12/05/16 07:34 Dose: 40 mg Pantoprazole Sodium (Protonix Iv) 40 mg IV ONETIME ONE Stop: 12/01/16 15:36 Last Admin: 12/01/16 16:35 Dose: 40 mg Potassium Chloride (Klor-Con M20) 40 meq PO ONETIME ONE Stop: 12/05/16 09:01 Last Admin: 12/05/16 09:38 Dose: 40 meq Potassium Chloride (Klor-Con M20) 40 meq PO ONETIME ONE Stop: 12/06/16 09:01 Last Admin: 12/06/16 09:21 Dose: 40 meq Pregabalin (Lyrica) Confirm Administered Dose 100 mg .ROUTE .STK-MED ONE Stop: 12/02/16 14:31 Last Admin: 12/02/16 15:02 Dose: Not Given Sodium Chloride (Saline Flush) 10 ml FLUSH . DIRECTED PRN PRN Reason: [id number] EXAM Stop: 12/01/16 10:37 Last Admin: 12/01/16 12:56 Dose: 10 ml - Exam General: alert, oriented, cooperative Lungs: Normal respiratory effort, Decreased breath sounds, Wheezing. No: Crackles, Rales, Rhonchi, Rub, Stridor Cardiovascular: Regular Rate, Regular Rhythm, No Murmurs Abdomen: bowel sounds present, soft, no tenderness, no distension Extremities: no edema Skin: warm, dry, intact - Problem List Review Problem List Initiated/Reviewed/Updated: Yes - My Orders Last 24 Hours: My Active Orders 12/05/16 17:00 metFORMIN [Glucophage] 1,000 mg PO BIDMEALS 12/05/16 21:00 Simvastatin [Zocor] 80 mg PO BEDTIME 12/06/16 08:00 predniSONE 40 mg PO WITHBREAKFAST 12/06/16 09:00 acetaZOLAMIDE [Diamox] 250 mg PO BID 12/06/16 15:19 POTASSIUM,K [CHEM] Timed 12/06/16 16:30 GLUCOSE POC LAB TO COLLECT [POC] QIDACANDBED 12/06/16 21:00 GLUCOSE POC LAB TO COLLECT [POC] QIDACANDBED 12/07/16 07:30 GLUCOSE POC LAB TO COLLECT [POC] QIDACANDBED 12/07/16 11:30 GLUCOSE POC LAB TO COLLECT [POC] QIDACANDBED 12/07/16 16:30 GLUCOSE POC LAB TO COLLECT [POC] QIDACANDBED 12/07/16 21:00 GLUCOSE POC LAB TO COLLECT [POC] QIDACANDBED 12/08/16 07:30 GLUCOSE POC LAB TO COLLECT [POC] QIDACANDBED 12/08/16 11:30 GLUCOSE POC LAB TO COLLECT [POC] QIDACANDBED 12/08/16 16:30 GLUCOSE POC LAB TO COLLECT [POC] QIDACANDBED 12/08/16 21:00 GLUCOSE POC LAB TO COLLECT [POC] QIDACANDBED - Plan Plan:: Assessment and plan - Bilateral pneumonia with acute hypoxic and hypercapnic respiratory failure - history of COPD and multiple hospitalizations for COPD exacerbations. Continues to improve with less shortness of breath. Remains very weak and has had significant difficulty with ambulation -Physical therapy consult -Supplemental oxygen as needed -Antibiotic coverage with ceftriaxone and azithromycin -Prednisone 40 mg by mouth daily Acute exacerbation of COPD - Secondary to pneumonia as above. -Management as above Chronic opiate dependence - Patient normally takes buprenorphine every day. -Continue Suboxone Maintenance issues - - DVT prophylaxis - SCDs - GI prophylaxis - PPI - Nutrition - clear liquids, advance as tolerated - Dixon catheter - placed in the emergency room Disposition - anticipate discharge home after the hospital stay
[2016-12-06] MEDS ORDERED: Polyethylene Glycol 3350 Powder 17 GM Packet PO ONE (18:28)
[2016-12-06] MEDS ORDERED: Insulin Aspart 100 Units/ML 3 ML Pen SUBCUT ONE (21:15)
[2016-12-06] MEDS: Simvastatin 20 MG Tab PO SCH (21:15)
[2016-12-06] MEDS: Melatonin 3 MG Tab PO SCH (21:18)
[2016-12-07] MEDS ORDERED: BUPRENORPHINE HCL 2 MG PO SCH
[2016-12-07] MEDS: Albuterol/Ipratropium 3.0-0.5 MG/3 ML Neb Soln NEB SCH ×2 (07:13→11:03)
[2016-12-07] MEDS: Formoterol/Mometasone 200-5 MCG 8.8 GM Inhaler IH SCH (07:14)
[2016-12-07] MEDS: metFORMIN 500 MG Tab PO SCH (07:42)
[2016-12-07] MEDS: predniSONE 20 MG Tab PO SCH (07:43)
[2016-12-07] MEDS: Insulin Aspart 100 Units/ML 3 ML Pen SUBCUT SCH ×2 (07:44→11:46)
[2016-12-07] MEDS ORDERED: BUPRENORPHINE HCL 2 MG SL SCH (08:00)
[2016-12-07] MEDS: Tiotropium Inhaler 18 MCG Inhalation Powder Cap Kit of 5 INH SCH (08:39)
[2016-12-07] MEDS: Citalopram 10 MG Tab PO SCH (08:52)
[2016-12-07] MEDS: Pregabalin 100 MG Cap PO SCH (08:55)
[2016-12-07 11:40] VITALS: BP 133/83
--- NOTE | 2016-12-07 11:42 | PCM.DCSUM1 ---
Discharge Summary - Hospital Course Brief History: This patient is a 61-year-old woman who was admitted through the emergency department with acute on chronic hypoxic and hypercapnic respiratory failure secondary to COPD exacerbation and bilateral pneumonia. - Discharge Data Discharge Date: 12/07/16 Discharge Disposition: Home, Self-Care 01 Condition: Fair - Discharge Diagnosis/Problem(s) (1) Bilateral pneumonia SNOMED Code(s): 536896018 ICD Code: J18.9 - PNEUMONIA, UNSPECIFIED ORGANISM Status: Acute Current Visit: Yes Qualifiers: Pneumonia type: due to unspecified organism Lung location: unspecified part of lung Qualified Code(s): J18.9 - Pneumonia, unspecified organism (2) Acute respiratory failure with hypoxia and hypercapnia SNOMED Code(s): 42572238, 958452036 ICD Code: J96.01 - ACUTE RESPIRATORY FAILURE WITH HYPOXIA; J96.02 - ACUTE RESPIRATORY FAILURE WITH HYPERCAPNIA Status: Acute Current Visit: Yes (3) Acute exacerbation of chronic obstructive pulmonary disease (COPD) SNOMED Code(s): 106264291 ICD Code: J44.1 - CHRONIC OBSTRUCTIVE PULMONARY DISEASE W (ACUTE) EXACERBATION Status: Acute Current Visit: Yes - Patient Summary/Data Consults: Consultations 12/06/16 15:22 Consult to Physical Therapy [PT Evaluation and Treatment] [CONS] Routine Please Evaluate and Treat. PT Reason for Consult: Ambulation This query below is only for informational purposes and is not editable. Admission Diagnosis/Problem: Pneumonia Hospital Course: This patient has a known history of severe oxygen-dependent COPD. She has had recurrent exacerbations secondary to underlying pulmonary infections requiring hospitalization. She was up in this area visiting her son when she developed increased shortness of breath and a productive cough. On evaluation emergency room department was noted to have bilateral pulmonary infiltrates consistent with pneumonia as well as significant hypoxia and hypercapnia. Blood cultures were obtained and she was admitted to the hospital with IV fluids and IV antibiotic therapy including Rocephin and azithromycin. Because of her significant respiratory compromise she was treated with noninvasive ventilation with BiPAP. And was also given nebulizer therapy as well as IV Solu-Medrol. Over the next few days her respiratory status improved and she was able to get off of the BiPAP and breath using only supplemental oxygen. By the time of discharge she felt her respiratory status was close to baseline. Blood cultures remained negative throughout her hospital stay. She also has a known history of type 2 diabetes mellitus, but sugars were monitored 4 times daily during hospitalization and she was continued on her usual dose of insulins in addition to sliding scale NovoLog. At the time of discharge we'll be placed back on her usual therapy with metformin. She will be discharged home with additional 4 days of antibiotic therapy with levofloxacin. Higher dose of prednisone will be continued for 2 days and then she'll resume her usual dose of prednisone. She was seen daily by physical therapy during her hospital stay , was noted to be very weak, but family felt that they would be able to care for her adequately at home. Patient and family were offered senior care placement which she refused. Activity will be as tolerated and she will resume her usual diet. Followup appointment will be scheduled with her primary care provider within one week. - Patient Instructions Diet: Diabetic Diet Activity: As Tolerated Other/Special Instructions: Please schedule followup appointment with primary care provider within one week. - Discharge Plan Prescriptions/Med Rec: Levofloxacin [Levaquin] 500 mg PO Q24H #4 tablet Prednisone [IJD: predniSONE] 40 mg PO WITHBREAKFAST #4 tablet Home Medications: Home Meds Albuterol Sulfate [Proair Respiclick] 90 mcg IH Q4HR 12/01/16 [History] Budesonide/Formoterol [Symbicort 160-4.5 MCG] 2 puff INH BID 12/01/16 [History] Buprenorphine HCl [Buprenorphine] 12 mg SL ACBREAKFAST 12/01/16 [History] Citalopram [Citalopram HBr] 10 mg PO DAILY 12/01/16 [History] Ibuprofen 400 mg PO Q6HR PRN 12/01/16 [History] LORazepam 1 mg PO BEDTIME PRN 12/01/16 [History] Prednisone [IJD: Prednisone] 20 mg PO ASDIRECTED 12/01/16 [History] Pregabalin [Lyrica] 100 mg PO TID 12/01/16 [History] Pregabalin [Lyrica] 100 mg PO TID 12/01/16 [History] Simvastatin [Zocor] 80 mg PO BEDTIME 12/01/16 [History] Tiotropium [Spiriva Handihaler] 1 puff INH DAILY 12/01/16 [History] metFORMIN [Glucophage] 1,000 mg PO BIDMEALS 12/01/16 [History] Levofloxacin [Levaquin] 500 mg PO Q24H #4 tablet 12/07/16 [Rx] Prednisone [IJD: predniSONE] 40 mg PO WITHBREAKFAST #4 tablet 12/07/16 [Rx] Referrals: BUDDY GAMA DO [Other] - Patient Data Vitals - Most Recent: Last Vital Signs Temp 97.5 F 12/07/16 07:47 Pulse 100 12/07/16 11:04 Resp 16 12/07/16 07:47 BP 124/77 12/07/16 07:47 Pulse Ox 97 12/07/16 07:47 Weight - Most Recent: 161 lb I&O - Last 24 hours: Intake & Output 12/06/16 12/07/16 12/07/16 22:59 06:59 14:59 Intake Total 400 Output Total 550 1000 Balance -550 -600 Lab Results - Last 24 hrs: Laboratory Results - last 24 hr 12/06/16 Range/Units 15:35 Potassium 4.3 (3.6-5.2) mmol/L Med Orders - Current: Current Medications Acetaminophen (Tylenol) 650 mg PO Q4H PRN PRN Reason: Pain (Mild 1-3)/fever Acetaminophen (Tylenol) 650 mg RECTAL Q4H PRN PRN Reason: Mild pain/fever Albuterol (Proventil Neb Soln) 2.5 mg NEB Q4H PRN PRN Reason: Shortness Of Breath/wheezing Last Admin: 12/05/16 02:33 Dose: 2.5 mg Albuterol/Ipratropium (Duoneb 3.0-0.5 Mg/3 Ml) 3 ml NEB QIDRT [facility] Last Admin: 12/07/16 11:03 Dose: 3 ml Buprenorphine HCl (Buprenorphine Hcl) 12 mg SL ACBREAKFAST [facility] Last Admin: 12/07/16 08:28 Dose: 12 mg Citalopram Hydrobromide (Celexa) 10 mg PO DAILY [facility] Last Admin: 12/07/16 08:52 Dose: 10 mg Ceftriaxone Sodium 2 gm/ (Sodium Chloride) 50 mls @ 100 mls/hr IV Q24H [facility] Last Admin: 12/06/16 15:23 Dose: 100 mls/hr Azithromycin 500 mg/ Sodium (Chloride) 250 mls @ 250 mls/hr IV Q24H [facility] Last Admin: 12/06/16 15:59 Dose: 250 mls/hr Insulin Aspart (Novolog) 0 unit SUBCUT WITHMEALSANDBED [facility] PRN Reason: Protocol Last Admin: 12/07/16 07:44 Dose: 2 units Lorazepam (Ativan) 0.5 - 1 mg IVPUSH Q4H PRN PRN Reason: Nausea/Vomiting Last Admin: 12/02/16 20:20 Dose: 1 mg Melatonin (Melatonin) 9 mg PO BEDTIME [facility] Last Admin: 12/06/16 21:18 Dose: Not Given Metformin HCl (Glucophage) 1,000 mg PO BIDMEALS [facility] Last Admin: 12/07/16 07:42 Dose: 1,000 mg Mometasone Furoate/Formoterol Fumar (Dulera 200-5 Mcg) 0 puff IH BIDRT [facility] Last Admin: 12/07/16 07:14 Dose: 2 puff Ondansetron HCl (Zofran Odt) 4 mg PO Q6H PRN PRN Reason: Nausea able to take PO Ondansetron HCl (Zofran) 4 mg IV Q6H PRN PRN Reason: Nausea/Vomiting Polyethylene Glycol (Miralax) 17 gm PO DAILY PRN PRN Reason: Constipation Last Admin: 12/06/16 05:40 Dose: 17 gm Prednisone (Prednisone) 40 mg PO WITHBREAKFAST [facility] Last Admin: 12/07/16 07:43 Dose: 40 mg Pregabalin (Lyrica) 100 mg PO TID [facility] Last Admin: 12/07/16 08:55 Dose: 100 mg Simvastatin (Zocor) 80 mg PO BEDTIME [facility] Last Admin: 12/06/16 21:15 Dose: 80 mg Tiotropium [place] (Spiriva Handihaler) 18 mcg INH DAILYRT [facility] Discontinued Medications Acetazolamide (Diamox) 250 mg PO BID [facility] Stop: 12/06/16 21:01 Last Admin: 12/06/16 21:15 Dose: 250 mg Albuterol/Ipratropium (Duoneb 3.0-0.5 Mg/3 Ml) 3 ml NEB QID [facility] Last Admin: 12/02/16 05:36 Dose: 3 ml Furosemide (Lasix) 40 mg IVPUSH ONETIME ONE Stop: 12/04/16 20:17 Last Admin: 12/04/16 20:36 Dose: 40 mg Furosemide (Lasix) 20 mg IVPUSH ONETIME ONE Stop: 12/05/16 09:46 Last Admin: 12/05/16 10:53 Dose: 20 mg Hydromorphone HCl (Dilaudid) 0.5 - 1 mg IVPUSH Q2H PRN PRN Reason: Pain (severe 7-10) Lactated Ringer's (Ringers, Lactated) 1,000 mls @ 500 mls/hr IV ASDIRECTED [facility] Stop: 12/01/16 11:26 Last Admin: 12/01/16 10:30 Dose: 500 mls/hr Sodium Chloride (Normal Saline) 70 mls @ 3 mls/sec IV ASDIRECTED ONE Stop: 12/01/16 10:37 Last Admin: 12/01/16 14:37 Dose: Not Given Lactated Ringer's (Ringers, Lactated) 1,000 mls @ 500 mls/hr IV BOLUS ONE Stop: 12/01/16 15:29 Last Admin: 12/01/16 13:36 Dose: 500 mls/hr Azithromycin 500 mg/ Sodium (Chloride) 250 mls @ 250 mls/hr IV ONETIME ONE Stop: 12/01/16 14:38 Last Admin: 12/01/16 14:26 Dose: 250 mls/hr Ceftriaxone Sodium 2 gm/ (Sodium Chloride) 50 mls @ 100 mls/hr IV ONETIME ONE Stop: 12/01/16 14:07 Last Admin: 12/01/16 14:22 Dose: 100 mls/hr Heparin Sodium (Porcine) 5,000 (units/ Sodium Chloride) 501 mls @ 5 mls/sec IV ASDIRECTED [facility] Last Admin: 12/01/16 14:43 Dose: 5 mls/sec Azithromycin 500 mg/ Sodium (Chloride) 250 mls @ 250 mls/hr IV Q24H [facility] Sodium Chloride (Normal Saline) 1,000 mls @ 125 mls/hr IV ASDIRECTED [facility] Last Admin: 12/03/16 07:39 Dose: 125 mls/hr Magnesium Sulfate 2 gm/ Premix 50 mls @ 12.5 mls/hr IV Q6H [facility] Stop: 12/02/16 21:29 Last Admin: 12/02/16 18:37 Dose: 12.5 mls/hr Sodium Chloride (Normal Saline) 1,000 mls @ 50 mls/hr IV ASDIRECTED [facility] Last Admin: 12/04/16 00:18 Dose: 50 mls/hr Insulin Aspart (Novolog) 0 unit SUBCUT Q6H [facility] PRN Reason: Protocol Last Admin: 12/04/16 09:01 Dose: 2 units Insulin Aspart (Novolog) 12 unit SUBCUT ONETIME ONE PRN Reason: Protocol Stop: 12/05/16 11:40 Last Admin: 12/05/16 11:47 Dose: 12 units Insulin Aspart (Novolog) 12 unit SUBCUT ONETIME ONE Stop: 12/05/16 17:47 Last Admin: 12/05/16 18:05 Dose: 12 units Insulin Aspart (Novolog) 12 unit SUBCUT ONETIME ONE Stop: 12/06/16 18:37 Last Admin: 12/06/16 18:52 Dose: 12 units Insulin Aspart (Novolog) 10 unit SUBCUT ONETIME ONE Stop: 12/06/16 21:16 Last Admin: 12/06/16 21:18 Dose: Not Given Iopamidol (Isovue-370 (76%)) 100 ml IV . DIRECTED [facility] Last Admin: 12/01/16 12:56 Dose: 100 ml Methylprednisolone Sodium Succinate (Solu-Medrol) 125 mg IVPUSH ONETIME ONE Stop: 12/01/16 13:25 Last Admin: 12/01/16 13:37 Dose: 125 mg Methylprednisolone Sodium Succinate (Solu-Medrol) 62.5 mg IVPUSH Q6H [facility] Last Admin: 12/03/16 07:34 Dose: 62.5 mg Methylprednisolone Sodium Succinate (Solu-Medrol) 40 mg IVPUSH Q8H [facility] Last Admin: 12/05/16 07:34 Dose: 40 mg Pantoprazole Sodium (Protonix Iv) 40 mg IV ONETIME ONE Stop: 12/01/16 15:36 Last Admin: 12/01/16 16:35 Dose: 40 mg Buprenorphine 12mg ( 2 X 2mg + 1 X 8mg) Pom 0 each PO ACBREAKFAST [facility] Last Admin: 12/06/16 08:42 Dose: 1 each Polyethylene Glycol (Miralax) 17 gm PO ONETIME ONE Stop: 12/06/16 18:29 Last Admin: 12/06/16 18:42 Dose: 17 gm Potassium Chloride (Klor-Con M20) 40 meq PO ONETIME ONE Stop: 12/05/16 09:01 Last Admin: 12/05/16 09:38 Dose: 40 meq Potassium Chloride (Klor-Con M20) 40 meq PO ONETIME ONE Stop: 12/06/16 09:01 Last Admin: 12/06/16 09:21 Dose: 40 meq Pregabalin (Lyrica) Confirm Administered Dose 100 mg .ROUTE .STK-MED ONE Stop: 12/02/16 14:31 Last Admin: 12/02/16 15:02 Dose: Not Given Sodium Chloride (Saline Flush) 10 ml FLUSH . DIRECTED PRN PRN Reason: [id number] EXAM Stop: 12/01/16 10:37 Last Admin: 12/01/16 12:56 Dose: 10 ml Tiotropium [place] (Spiriva Handihaler) 18 mcg INH DAILY [facility] Stop: 12/07/16 12:00 Last Admin: 12/07/16 08:39 Dose: 18 mcg *Q Meaningful Use (DIS) - VTE *Q VTE Criteria *Q: - Stroke *Q Stroke Criteria *Q: - AMI *Q AMI Criteria *Q:
[2016-12-08] MEDS ORDERED: Tiotropium Inhaler 18 MCG Inhalation Powder Cap Kit of 5 INH SCH (07:00)
== END 2016-12-07 14:00 | disposition home or self-care (01) | DRG 193 ==
LOC: JP.ED 09:25 → JP.ICU 15:12 → JP.MS 12-05 11:02
PROVIDERS: ADMIT Internal Medicine; ATTEND Hospitalist
PROC: 03HC03Z Insertion of Infusion Device into Left Radial Artery, Open Approach (ICD-10-PCS; principal; 2016-12-01)
DX: J18.9 Pneumonia, unspecified organism (principal); J96.21 Acute and chronic respiratory failure with hypoxia; J96.22 Acute and chronic respiratory failure with hypercapnia; J44.1 Chronic obstructive pulmonary disease with (acute) exacerbation; F11.20 Opioid dependence, uncomplicated; I10 Essential (primary) hypertension; E11.9 Type 2 diabetes mellitus without complications; Z79.84 Long term (current) use of oral hypoglycemic drugs; F17.210 Nicotine dependence, cigarettes, uncomplicated; F32.9 Major depressive disorder, single episode, unspecified; M54.9 Dorsalgia, unspecified; G89.29 Other chronic pain; E78.00 Pure hypercholesterolemia, unspecified; Z87.440 Personal history of urinary (tract) infections; Z79.52 Long term (current) use of systemic steroids; Z99.81 Dependence on supplemental oxygen
CPT/HCPCS: 36415; 36600 ×3; 71010 ×2; 71275; 80053; 80305; 81001; 82803 ×3; 83605; 84484; 85025; 85610; 85730; 87040 ×2; 87804 ×2; 93005; 94660; 96361; 96365; 96367; 96375; 99285 ×2; J0456; J0696; J1644; J2930; J7040; J7050 ×3; J7120 ×2; Q9967; 80048; 82962; 83735; 84132; 85027; 94640-76; 94664; 97162-GP; A9270-GY; C9113; J0571; J1940; J2060; J2920; J3475; J7620

== ENCOUNTER 2017-01-10 06:07 | Inpatient (IN) | payer MEDICARE, MEDICAID, OTHER ==
[2017-01-10] MEDS ORDERED: Sodium Chloride 0.9% 10 ML Syringe FLUSH PRN (06:53)
[2017-01-10] MEDS ORDERED: fentaNYL 100 MCG/2 ML SDV IVPUSH ONE (06:53)
[2017-01-10] MEDS ORDERED: Albuterol/Ipratropium 3.0-0.5 MG/3 ML Neb Soln NEB ONE (06:53)
--- NOTE | 2017-01-10 07:02 | EDM.PDOC ---
ED HPI GENERAL MEDICAL PROBLEM - General Chief Complaint: Respiratory Problem Stated Complaint: [facility] Time Seen by Provider: 01/10/17 06:40 Source of Information: Reports: Patient, Old Records, RN Notes Reviewed History Limitations: Reports: No Limitations - History of Present Illness INITIAL COMMENTS - FREE TEXT/NARRATIVE: EMS arrival Chief complaint: Falls, chest pain, short of breath HPI: 61-year-old female who states her temporarily, history COPD and diabetes Increasing shortness in breath and weakness last 2 days. Today in particular her legs are giving way under her when she tried to walk to the bathroom. She did hit the back of her head but has no pain or swelling Her son his arms around her encircling her chest to help her to the bathroom but this caused significant pain and she felt sudden onset of pain in the ribs on both sides the chest. She thinks he might have broken her rib. Recently hospitalized in [place] for 3 days, 3 weeks ago, for COPD exacerbation. She takes oxygen continuously bilateral upper ribs Pain Score (Numeric/FACES): 7 - Related Data Allergies Allergy/AdvReac Type Severity Reaction Status Date / Time No Known Allergies Allergy Verified 01/10/17 06:10 Home Meds: Home Meds Albuterol Sulfate [Proair Respiclick] 90 mcg IH Q4HR 12/01/16 [History] Budesonide/Formoterol [Symbicort 160-4.5 MCG] 2 puff INH BID 12/01/16 [History] Buprenorphine HCl [Buprenorphine] 12 mg SL ACBREAKFAST 12/01/16 [History] Citalopram [Citalopram HBr] 10 mg PO DAILY 12/01/16 [History] Ibuprofen 400 mg PO Q6HR PRN 12/01/16 [History] LORazepam 1 mg PO BEDTIME PRN 12/01/16 [History] Prednisone [IJD: Prednisone] 20 mg PO ASDIRECTED 12/01/16 [History] Pregabalin [Lyrica] 100 mg PO TID 12/01/16 [History] Pregabalin [Lyrica] 100 mg PO TID 12/01/16 [History] Simvastatin [Zocor] 80 mg PO BEDTIME 12/01/16 [History] Tiotropium [Spiriva Handihaler] 1 puff INH DAILY 12/01/16 [History] metFORMIN [Glucophage] 1,000 mg PO BIDMEALS 12/01/16 [History] Levofloxacin [Levaquin] 500 mg PO Q24H #4 tablet 12/07/16 [Rx] Prednisone [IJD: predniSONE] 40 mg PO WITHBREAKFAST #4 tablet 12/07/16 [Rx] Past Medical History Cardiovascular History: Reports: High Cholesterol, Hypertension Other Cardiovascular History: enlarged right Respiratory History: Reports: Asthma, COPD, Intubation, Previous Genitourinary History: Reports: UTI, 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: Musculoskeletal History: Reports: Back Pain, Chronic Other Musculoskeletal History: uses w/c at home and walker Psychiatric History: Reports: Depression Endocrine/Metabolic History: Reports: Diabetes, Type II - Past Surgical History Female Surgical History: Reports: Hysterectomy Social & Family History - Family History Family Medical History: Unobtainable - Tobacco Use Smoking Status *Q: Current Every Day Smoker Years of Tobacco use: 50 Packs/Tins Daily: 0.5 - Caffeine Use Caffeine Use: Reports: Coffee - Recreational Drug Use Recreational Drug Use: No Recreational Drug Type: Reports: Oxycodone ED ROS GENERAL - Review of Systems Review Of Systems: See Below Constitutional: Reports: Weakness, Fatigue. Denies: Fever, Chills, Diaphoresis HEENT: Reports: No Symptoms Respiratory: Reports: Shortness of Breath, Wheezing, Cough Cardiovascular: Reports: Chest Pain, Dyspnea on Exertion. Denies: Palpitations , Syncope GI/Abdominal: Reports: No Symptoms Musculoskeletal: Reports: Other (I bruising of arms from falls) Skin: Reports: Wound (Skin care right forearm) Neurological: Reports: Difficulty Walking, Weakness (Legs giving way and), Gait Disturbance Psychiatric: Reports: No Symptoms ED EXAM, GENERAL - Physical Exam Exam: See Below Exam Limited By: Other (difficulty breathing because of the pain in her chest makes it hard to talk) General Appearance: Alert, Moderate Distress, Other (Saturation 95% currently on 2 L per minute, blood pressure 119/74, pulse 103; winces in pain and with breaths occasionally) Eye Exam: Bilateral Eye: Normal Inspection Ears: Normal External Exam, Hearing Grossly Normal, Normal TMs Nose: Normal Inspection, Normal Mucosa Throat/Mouth: Normal Inspection, Normal Oropharynx, Normal Voice Head: Atraumatic, Normocephalic Neck: Normal Inspection, Supple Respiratory/Chest: Decreased Breath Sounds, Rhonchi, Wheezing, Accessory Muscle Use, Splinting Cardiovascular: Normal Peripheral Pulses, Regular Rate, Rhythm, Tachycardia ( Mild) GI/Abdominal: Normal Bowel Sounds, Soft, Non-Tender Back Exam: Normal Inspection Extremities: Pedal Edema (Very mild), Other (Skin tear volar aspect right distal forearm) Neurological: Alert, Normal Cognition, No Motor/Sensory Deficits Psychiatric: Anxious Skin Exam: Warm, Dry, Intact, Normal Color Lymphatic: No Adenopathy Course - Orders/Labs/Meds Orders: Active Orders 24 hr Category Date Time Status Insert Urinary Catheter [OM.PC] Q24H Care 01/10/17 07:00 Ordered RT Aerosol Therapy [RC] ASDIRECTED Care 01/10/17 06:54 Ordered Supplemental O2 [Oxygen Therapy, ED] [RC] ASDIRECTED Care 01/10/17 06:53 Ordered Urinary Catheter Assessment [RC] ASDIRECTED Care 01/10/17 06:54 Ordered Chest 1V Frontal [CR] Stat Exams 01/10/17 06:53 Ordered CBC W/O DIFF,HEMOGRAM [HEME] Stat Lab 01/10/17 06:52 Ordered COMPREHENSIVE METABOLIC PN,CMP [CHEM] Stat Lab 01/10/17 06:52 Ordered Sodium Chloride 0.9% [Saline Flush] Med 01/10/17 06:53 Ordered 10 ml FLUSH ASDIRECTED PRN Saline Lock Insert [OM.PC] Stat Oth 01/10/17 06:52 Ordered Medication Orders Sodium Chloride (Saline Flush) 10 ml FLUSH ASDIRECTED PRN PRN Reason: Keep Vein Open Meds: Medications Generic Name Dose Route Start Last Admin Trade Name Freq PRN Reason Stop Dose Admin Sodium Chloride 10 ml 01/10/17 06:53 Saline Flush FLUSH ASDIRECTED PRN Keep Vein Open Discontinued Medications Generic Name Dose Route Start Last Admin Trade Name Freq PRN Reason Stop Dose Admin Albuterol/Ipratropium 3 ml 01/10/17 06:53 Duoneb 3.0-0.5 Mg/3 Ml NEB 01/10/17 06:54 ONETIME ONE Fentanyl 50 mcg 01/10/17 06:53 Sublimaze IVPUSH 01/10/17 06:54 ONETIME ONE - Re-Assessments/Exams Free Text/Narrative Re-Assessment/Exam: 01/10/17 07:07 61-year-old female with COPD, increasing shortness of breath, weakness, legs giving way, 3 falls this morning, laceration to right arm, the pain from her son trying to lift her by encircling his arms around her chest, chest wall injury, possible fracture. Saline lock, fentanyl 50 mcg IV for pain Duo neb X-rays and labs ordered, oxygen 2 L per minute Dressing to right elbow Transfer to care of Dr. Britton Departure - Departure Time of Disposition: 07:00 Disposition: Still A Patient 30 Clinical Impression: Acute exacerbation of chronic obstructive pulmonary disease (COPD), Generalized weakness, Chest wall pain Laceration of right forearm without complication Qualifiers: Encounter type: initial encounter Qualified Code(s): S51.811A - Laceration without foreign body of right forearm, initial encounter - Discharge Information - My Orders Last 24 Hours: My Active Orders 01/10/17 06:52 CBC W/O DIFF,HEMOGRAM [HEME] Stat COMPREHENSIVE METABOLIC PN,CMP [CHEM] Stat Saline Lock Insert [OM.PC] Stat 01/10/17 06:53 Supplemental O2 [Oxygen Therapy, ED] [RC] ASDIRECTED Chest 1V Frontal [CR] Stat Sodium Chloride 0.9% [Saline Flush] 10 ml FLUSH ASDIRECTED PRN 01/10/17 06:54 RT Aerosol Therapy [RC] ASDIRECTED Urinary Catheter Assessment [RC] ASDIRECTED 01/10/17 07:00 Insert Urinary Catheter [OM.PC] Q24H - Assessment/Plan Last 24 Hours: My Active Orders 01/10/17 06:52 CBC W/O DIFF,HEMOGRAM [HEME] Stat COMPREHENSIVE METABOLIC PN,CMP [CHEM] Stat Saline Lock Insert [OM.PC] Stat 01/10/17 06:53 Supplemental O2 [Oxygen Therapy, ED] [RC] ASDIRECTED Chest 1V Frontal [CR] Stat Sodium Chloride 0.9% [Saline Flush] 10 ml FLUSH ASDIRECTED PRN 01/10/17 06:54 RT Aerosol Therapy [RC] ASDIRECTED Urinary Catheter Assessment [RC] ASDIRECTED 01/10/17 07:00 Insert Urinary Catheter [OM.PC] Q24H
[2017-01-10] MEDS ORDERED: Potassium Chloride 20 MEQ in Premix Bag 1 BAG IV ONE (07:41)
[2017-01-10] MEDS ORDERED: Albuterol 0.083% 2.5 MG/3 ML Neb Soln NEB ONE (07:57)
--- NOTE | 2017-01-10 09:09 | CR ---
Heart size within normal limits. Pulmonary vasculature within normal limits. Emphysematous change. N o focal consolidation.
[2017-01-10] MEDS ORDERED: Albuterol 0.083% 2.5 MG/3 ML Neb Soln NEB PRN (10:20)
--- NOTE | 2017-01-10 10:37 | PCM.HP ---
H&P History of Present Illness - General Date of Service: 01/10/17 Admit Problem/Dx: Admission Diagnosis/Problem Admission Diagnosis/Problem Acute bronchitis Source of Information: Family. No: Patient History Limitations: Reports: Altered Mental Status - History of Present Illness Initial Comments - Free Text/Narative: Una presents to the emergency room today with cough shortness of breath and weakness. She is currently very lethargic and history is gathered from her son. He reports that she was doing well through the day yesterday but last night became very weak. She had an increase in her shortness of breath. She had 3 falls and required assistance to get up each time. This morning she was very short of breath and starting to be lethargic and have episodes of twitching so he brought her in for evaluation. She did mention that the emergency room physician that she has been coughing and producing yellow sputum. Her son is not aware of any fevers. Is not aware of any change in her bowel habits. Appetite has been okay. She has been on both antibiotics and steroids within the past month but none for at least a couple of weeks. No obvious sick contacts or travel. Workup in the emergency room revealed significant lethargy with acute respiratory failure including hypoxia and hypercapnia. Bronchitis is suspected as a cause for her COPD exacerbation. She will be admitted to the intensive care unit with noninvasive ventilation. bilateral upper ribs Pain Score (Numeric/FACES): 7 - Related Data Allergies/Adverse Reactions: Allergies Allergy/AdvReac Type Severity Reaction Status Date / Time No Known Allergies Allergy Verified 01/10/17 06:10 Home Medications: Home Meds Albuterol Sulfate [Proair Respiclick] 90 mcg IH Q4HR 12/01/16 [History] Budesonide/Formoterol [Symbicort 160-4.5 MCG] 2 puff INH BID 12/01/16 [History] Buprenorphine HCl [Buprenorphine] 12 mg SL ACBREAKFAST 12/01/16 [History] Citalopram [Citalopram HBr] 10 mg PO DAILY 12/01/16 [History] Ibuprofen 400 mg PO Q6HR PRN 12/01/16 [History] LORazepam 1 mg PO BEDTIME PRN 12/01/16 [History] Prednisone [IJD: Prednisone] 20 mg PO ASDIRECTED 12/01/16 [History] Pregabalin [Lyrica] 100 mg PO TID 12/01/16 [History] Simvastatin [Zocor] 80 mg PO BEDTIME 12/01/16 [History] Tiotropium [Spiriva Handihaler] 1 puff INH DAILY 12/01/16 [History] metFORMIN [Glucophage] 1,000 mg PO BIDMEALS 12/01/16 [History] Levofloxacin [Levaquin] 500 mg PO Q24H #4 tablet 12/07/16 [Rx] Prednisone [IJD: predniSONE] 20 mg PO WITHBREAKFAST 01/10/17 [History] Past Medical History Cardiovascular History: Reports: High Cholesterol, Hypertension Other Cardiovascular History: enlarged right Respiratory History: Reports: Asthma, COPD, Intubation, Previous Genitourinary History: Reports: UTI, 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: Musculoskeletal History: Reports: Back Pain, Chronic Other Musculoskeletal History: uses w/c at home and walker Psychiatric History: Reports: Depression Endocrine/Metabolic History: Reports: Diabetes, Type II - Past Surgical History Female Surgical History: Reports: Hysterectomy Social & Family History - Family History Family Medical History: Unobtainable - Tobacco Use Smoking Status *Q: Current Every Day Smoker Years of Tobacco use: 50 Packs/Tins Daily: 0.5 - Caffeine Use Caffeine Use: Reports: Coffee - Alcohol Use Alcohol Use History: No - Recreational Drug Use Recreational Drug Use: No Recreational Drug Type: Reports: Oxycodone H&P Review of Systems - Review of Systems: Review Of Systems: Unable To Obtain (Patient is very lethargic and unable to respond to questions) Exam - Exam Exam: See Below - Vital Signs Vital Signs: Last Vital Signs Temp 35.9 C 01/10/17 09:06 Pulse 101 H 01/10/17 09:06 Resp 16 01/10/17 09:06 BP 117/66 01/10/17 09:06 Pulse Ox 89 L 01/10/17 09:06 Weight: 65.771 kg - Exam Quality Assessment: Supplemental Oxygen, Urinary Catheter General: Mild Distress. No: Alert, Oriented HEENT: Pupils Equal. No: Mucosa Moist & [place] (dry), Scleral Icterus Neck: Supple, Trachea Midline. No: Lymphadenopathy, JVD Lungs: Wheezing (mild diffuse exp wheezing), Other (poor air movement). No: Normal Respiratory Effort (increased work of breathing ), Rales Cardiovascular: Regular Rhythm, Tachycardia, Systolic Murmur Abdomen: Normal Bowel Sounds, Soft, Tenderness (mild LUQ). No: Distention Back Exam: Paraspinal Tenderness. No: Full Range of Motion Extremities: Edema (pitting edema left leg from foot to thigh). No: Increased Warmth Skin: Warm, Dry, Intact Neuro Extensive - Mental Status: Slow Response to Commands. No: Alert, Oriented x3 Neuro Extensive - Motor, Sensory, Reflexes: No: Abnormal Motor, Tremor Psychiatric: Other (lethargic ). No: Alert, Anxious - Patient Data Lab Results last 24 hrs: Laboratory Results - last 24 hr 01/10/17 01/10/17 01/10/17 Range/Units 07:04 07:04 07:40 WBC 18.0 H (4.5-11.0) K/uL RBC 3.83 (3.30-5.50) M/uL Hgb 11.1 L (12.0-15.0) g/dL Hct 37.4 (36.0-48.0) % MCV 98 (80-98) fL MCH 29 (27-31) pg MCHC 30 L (32-36) % Plt Count 324 (150-400) K/uL Puncture Site Lt radial ABG pH 7.452 H (7.350-7.450) ABG pCO2 75.7 H* (35.0-42.0) mmHg ABG pO2 74.4 L (75.0-100.0) mmHg ABG HCO3 52.1 H (22.0-26.0) mmol/L ABG Total CO2 47.2 H (21.0-25.0) mmol/L ABG O2 Saturation 95.7 (95.0-98.0) % ABG O2 Content 13.9 L (15.0-23.0) %vol ABG Base Excess 23.7 mm/L ABG Hemoglobin 11.1 L (12.0-16.0) g/dL ABG Oxyhemoglobin 88.7 % ABG Carboxyhemoglobin 6.6 H (0.0-1.6) % ABG Methemoglobin 0.7 % Srikanth Test Passed O2 Delivery Device Nasal cannula Oxygen Flow Rate 2 L Sodium 140 (140-148) mmol/L Potassium 2.5 L* (3.6-5.2) mmol/L Chloride 91 L (100-108) mmol/L Carbon Dioxide 50 H (21-32) mmol/L Anion Gap 1.5 L (5.0-14.0) mmol/L BUN 6 L D (7-18) mg/dL Creatinine 0.5 L (0.6-1.0) mg/dL Est Cr Clr Drug Dosing 91.08 mL/min Estimated GFR (MDRD) > 60 (>60) Glucose 109 H (74-106) mg/dL Calcium 7.3 L (8.5-10.1) mg/dL Total Bilirubin 0.4 (0.2-1.0) mg/dL AST 18 (15-37) U/L ALT 13 (12-78) U/L Alkaline Phosphatase 87 (46-116) U/L Jal-H-Gqjibrffauw Pept (5-125) pg/mL Total Protein 5.1 L (6.4-8.2) g/dL Albumin 2.3 L (3.4-5.0) g/dL Globulin 2.8 (2.3-3.5) g/dL Albumin/Globulin Ratio 0.8 L (1.2-2.2) Urine Color Urine Appearance Urine pH (4.5-8.0) Ur Specific [place] (1.008-1.030) Urine Protein (NEGATIVE) mg/dL Urine Glucose (UA) (NEGATIVE) mg/dL Urine Ketones (NEGATIVE) mg/dL Urine Occult Blood (NEGATIVE) Urine Nitrite (NEGATIVE) Urine Bilirubin (NEGATIVE) Urine Urobilinogen (NORMAL) mg/dL Ur Leukocyte Esterase (NEGATIVE) Urine RBC (0-5) Urine WBC (0-5) Ur Epithelial Cells Amorphous Sediment Urine Bacteria Urine Mucus 01/10/17 01/10/17 Range/Units 07:49 07:51 WBC (4.5-11.0) K/uL RBC (3.30-5.50) M/uL Hgb (12.0-15.0) g/dL Hct (36.0-48.0) % MCV (80-98) fL MCH (27-31) pg MCHC (32-36) % Plt Count (150-400) K/uL Puncture Site ABG pH (7.350-7.450) ABG pCO2 (35.0-42.0) mmHg ABG pO2 (75.0-100.0) mmHg ABG HCO3 (22.0-26.0) mmol/L ABG Total CO2 (21.0-25.0) mmol/L ABG O2 Saturation (95.0-98.0) % ABG O2 Content (15.0-23.0) %vol ABG Base Excess mm/L ABG Hemoglobin (12.0-16.0) g/dL ABG Oxyhemoglobin % ABG Carboxyhemoglobin (0.0-1.6) % ABG Methemoglobin % Srikanth Test O2 Delivery Device Oxygen Flow Rate L Sodium (140-148) mmol/L Potassium (3.6-5.2) mmol/L Chloride (100-108) mmol/L Carbon Dioxide (21-32) mmol/L Anion Gap (5.0-14.0) mmol/L BUN (7-18) mg/dL Creatinine (0.6-1.0) mg/dL Est Cr Clr Drug Dosing mL/min Estimated GFR (MDRD) (>60) Glucose (74-106) mg/dL Calcium (8.5-10.1) mg/dL Total Bilirubin (0.2-1.0) mg/dL AST (15-37) U/L ALT (12-78) U/L Alkaline Phosphatase (46-116) U/L Xen-U-Qdttoclvchx Pept 685 H (5-125) pg/mL Total Protein (6.4-8.2) g/dL Albumin (3.4-5.0) g/dL Globulin (2.3-3.5) g/dL Albumin/Globulin Ratio (1.2-2.2) Urine Color Yellow Urine Appearance Clear Urine pH 8.0 (4.5-8.0) Ur Specific [place] 1.010 (1.008-1.030) Urine Protein Negative (NEGATIVE) mg/dL Urine Glucose (UA) Normal (NEGATIVE) mg/dL Urine Ketones Negative (NEGATIVE) mg/dL Urine Occult Blood Negative (NEGATIVE) Urine Nitrite Negative (NEGATIVE) Urine Bilirubin Negative (NEGATIVE) Urine Urobilinogen Normal (NORMAL) mg/dL Ur Leukocyte Esterase Negative (NEGATIVE) Urine RBC Not seen (0-5) Urine WBC Not seen (0-5) Ur Epithelial Cells Rare Amorphous Sediment Rare Urine Bacteria Not seen Urine Mucus Not seen Result Diagrams: 01/10/17 07:04 01/10/17 07:04 Imaging Impressions last 24 hrs: CXR - images personally reviewed - copd, no mass, infiltrate, chf or effusion *Q Meaningful Use (ADM) - VTE *Q VTE Criteria *Q: - VTE Risk Assess *Q Each Risk Factor Represents 1 Point: Serious Lung Disease Including Pneumonia, Less than 1 Month Total Score 1 Point Risk Factors: 1 Each Risk Factor Represents 2 Points: Age 60 - 74 Years Total Score 2 Point Risk Factors: 2 Each Risk Factor Represents 3 Points: None Total Score 3 Point Risk Factors: 0 Each Risk Factor Represents 5 Points: None Total Score 5 Point Risk Factors: 0 Venous Thromboembolism Risk Factor Score *Q: 3 - Stroke *Q Stroke Criteria *Q: - AMI *Q AMI Criteria *Q: - Problem List (1) Acute bronchitis SNOMED Code(s): 81503902 ICD Code: J20.9 - ACUTE BRONCHITIS, UNSPECIFIED Status: Acute Current Visit: Yes Qualifiers: Bronchitis organism: unspecified organism Qualified Code(s): J20.9 - Acute bronchitis, unspecified (2) Acute respiratory failure with hypoxia and hypercapnia SNOMED Code(s): 06917736, 679007964 ICD Code: J96.01 - ACUTE RESPIRATORY FAILURE WITH HYPOXIA; J96.02 - ACUTE RESPIRATORY FAILURE WITH HYPERCAPNIA Status: Acute Current Visit: No (3) Acute exacerbation of chronic obstructive pulmonary disease (COPD) SNOMED Code(s): 087332776 ICD Code: J44.1 - CHRONIC OBSTRUCTIVE PULMONARY DISEASE W (ACUTE) EXACERBATION Status: Acute Current Visit: No Problem List Initiated/Reviewed/Updated: Yes Orders Last 24hrs: Active Orders 24 hr Category Date Time Status BIPAP Adult [RT BiPAP/CPAP] [RC] ASDIRECTED Care 01/10/17 08:01 Active Insert Urinary Catheter [OM.PC] Q24H Care 01/10/17 07:00 Ordered RT Aerosol Therapy [RC] ASDIRECTED Care 01/10/17 06:54 Active RT Aerosol Therapy [RC] ASDIRECTED Care 01/10/17 07:57 Active RT Aerosol Therapy [RC] ASDIRECTED Care 01/10/17 10:21 Active Supplemental O2 [Oxygen Therapy, ED] [RC] ASDIRECTED Care 01/10/17 06:53 Active Urinary Catheter Assessment [RC] ASDIRECTED Care 01/10/17 06:54 Active VL Duplex Lwr Ext Veins Ltd Lt [US] Urgent Exams 01/10/17 10:21 Ordered CULTURE BLOOD [BC] Stat Lab 01/10/17 08:15 Received CULTURE BLOOD [BC] Stat Lab 01/10/17 08:30 Received CULTURE RESPIRATORY + SMEAR [RM] Stat Lab 01/10/17 08:12 Uncollected Albuterol [Proventil Neb Soln] Med 01/10/17 10:20 Active 2.5 mg NEB Q2H PRN Doxycycline [Vibramycin] 100 mg Med 01/10/17 10:30 Active Sodium Chloride 0.9% [Normal Saline] 100 ml IV Q12H Sodium Chloride 0.9% [Normal Saline] 1,000 ml Med 01/10/17 10:30 Active IV ASDIRECTED Sodium Chloride 0.9% [Saline Flush] Med 01/10/17 06:53 Active 10 ml FLUSH ASDIRECTED PRN Saline Lock Insert [OM.PC] Stat Oth 01/10/17 06:52 Ordered Resuscitation Status Routine Resus Stat 01/10/17 10:25 Ordered Medication Orders Albuterol (Proventil Neb Soln) 2.5 mg NEB Q2H PRN PRN Reason: Wheezing Doxycycline Hyclate 100 mg/ (Sodium Chloride) 100 mls @ 100 mls/hr IV Q12H [place] Sodium Chloride (Normal Saline) 1,000 mls @ 125 mls/hr IV ASDIRECTED [place] Sodium Chloride (Saline Flush) 10 ml FLUSH ASDIRECTED PRN PRN Reason: Keep Vein Open Last Admin: 01/10/17 07:19 Dose: 10 ml Assessment/Plan Comment:: Assessment and plan - Acute bronchitis with acute COPD exacerbation - complicated by respiratory failure with hypoxia and hypercapnia. Significant respiratory compromise requiring noninvasive ventilation. She's not currently febrile. Oxygenation is borderline with the noninvasive ventilation. Poor air movement and significant wheezing. Recent antibiotics and steroids. -Continue noninvasive ventilation -Doxycycline and Pip/Tazo -IV fluids -Scheduled and as needed nebulizers -Steroids -Sputum culture if able -Supplemental oxygen Chronic opiate dependence - she is on outpatient management with Suboxone. -Continue home medications Maintenance issues - - DVT prophylaxis - enoxaparin - GI prophylaxis - PPI - Nutrition - NPO until she wakes up - Dixon catheter - placed in the ER CODE STATUS - full code Admission justification - This patient will be admitted for inpatient services and is medically appropriate meeting medical necessity for inpatient admission as outlined in my documentation. I reasonably expect the patient will require inpatient services that span a period time over 2 midnights. I reasonably expect this patient to be discharged or transferred within 96 hours after admission to the [facility]. Disposition - Pending, anticipate discharge home but maybe to the alf Primary care physician - no local primary care Donald Dominguez M.D.
[2017-01-10] MEDS: Doxycycline 100 MG in Sodium Chloride 0.9% 100 ML IV SCH ×2 (10:51→22:11)
[2017-01-10] MEDS: Sodium Chloride 0.9% 1,000 ML IV SCH ×2 (10:56→20:31)
--- NOTE | 2017-01-10 11:51 | US ---
VL Duplex Lwr Ext Veins Ltd Lt FINDINGS: Ultrasound examination of the left lower extremity using Doppler and compressive technique demonstrates that the common femoral, femoral, and popliteal veins are patent, and negative for thr ombus. The calf veins were segmentally visualized and are negative where seen. Islas's cyst measuring 3.8 x 0.9 x 2.2 cm IMPRESSION: Lower extremity negative for deep venous thrombosis.
[2017-01-10] MEDS ORDERED: Acetaminophen 650 MG Supp RECTAL PRN (17:12)
[2017-01-10] MEDS ORDERED: Ondansetron 4 MG Tab.DIS PO PRN (17:12)
[2017-01-10] MEDS ORDERED: LORazepam 2 MG/ML MDV IVPUSH PRN (17:12)
[2017-01-10] MEDS ORDERED: Ibuprofen 400 MG Tab PO PRN (17:12)
[2017-01-10] MEDS ORDERED: Ondansetron 4 MG/2 ML SDV IV PRN (17:12)
[2017-01-10] MEDS ORDERED: Acetaminophen 325 MG Tab PO PRN (17:12)
[2017-01-10] MEDS ORDERED: LORazepam 1 MG Tab PO PRN (17:12)
[2017-01-10] MEDS ORDERED: Morphine 2 MG/ML Syringe IVPUSH PRN (17:12)
[2017-01-10] MEDS ORDERED: Polyethylene Glycol 3350 Powder 17 GM Packet PO PRN (17:12)
[2017-01-10] MEDS ORDERED: methylPREDNISolone Sodium Succinate 125 MG/2 ML SDV IVPUSH ONE (17:12)
[2017-01-10] MEDS: Potassium Chloride 20 MEQ, Lidocaine 1% 2 ML in Sodium Chloride 0.9% 100 ML IV SCH ×2 (18:04→20:28)
[2017-01-10] MEDS: Piperacillin/Tazobactam/Dext 3.375 GM in Premix Bag 1 BAG IV SCH (18:05)
[2017-01-10] MEDS: Pantoprazole 40 MG Vial IV SCH (18:10)
[2017-01-10] MEDS: Pregabalin 100 MG Cap PO SCH ×2 (18:11→22:09)
[2017-01-10] MEDS: Albuterol/Ipratropium 3.0-0.5 MG/3 ML Neb Soln NEB SCH ×2 (18:13→22:10)
[2017-01-10] MEDS: methylPREDNISolone Sodium Succinate 125 MG/2 ML SDV IVPUSH SCH (22:10)
[2017-01-11] MEDS: Piperacillin/Tazobactam/Dext 3.375 GM in Premix Bag 1 BAG IV SCH ×4 (00:16→17:09)
[2017-01-11] MEDS: methylPREDNISolone Sodium Succinate 125 MG/2 ML SDV IVPUSH SCH ×4 (04:34→21:58)
[2017-01-11] MEDS ORDERED: Calcium Gluconate 2 GM in Sodium Chloride 0.9% 100 ML IV ONE (06:00)
[2017-01-11] MEDS: Sodium Chloride 0.9% 1,000 ML IV SCH (06:27)
[2017-01-11] MEDS: Albuterol/Ipratropium 3.0-0.5 MG/3 ML Neb Soln NEB SCH ×4 (07:25→21:59)
[2017-01-11] MEDS: BUPRENORPHINE HCL 2 MG SL SCH ×2 (08:48→10:13)
[2017-01-11] MEDS: Enoxaparin 40 MG/0.4 ML Syringe SUBCUT SCH (08:48)
[2017-01-11] MEDS: Tiotropium Inhaler 18 MCG Inhalation Powder Cap Kit of 5 INH SCH (09:08)
[2017-01-11] MEDS ORDERED: Non-Formulary Medication 1 Each (Budesonide/Formoterol [Symbicort 160-4.5 Mcg] 2 PUFF) INH SCH (10:00)
[2017-01-11] MEDS: Pregabalin 100 MG Cap PO SCH ×3 (10:12→21:56)
[2017-01-11] MEDS: Citalopram 10 MG Tab PO SCH (10:12)
[2017-01-11] MEDS: Doxycycline 100 MG in Sodium Chloride 0.9% 100 ML IV SCH ×2 (10:29→22:02)
--- NOTE | 2017-01-11 10:48 | PCM.PN ---
- General Info Date of Service: 01/11/17 Functional Status: Reports: pain controlled - Review of Systems General: Reports: Weakness. Denies: Fever, Chills Pulmonary: Reports: shortness of breath, wheezing. Denies: pleuritic chest pain , cough, sputum Cardiovascular: Reports: Dyspnea on Exertion. Denies: Chest Pain, Palpitations , Orthopnea, PND, Edema Gastrointestinal: Reports: No symptoms Systems Review Comment:: This patient has improved modestly since admission, respiratory status has stabilized with regular use of the BiPAP. Vital signs have been stable and she has remained afebrile. - Patient Data Vitals - most recent: Last Vital Signs Temp 208.6 F H 01/11/17 08:00 Pulse 94 01/11/17 10:00 Resp 16 01/11/17 10:00 BP 93/50 L 01/11/17 08:00 Pulse Ox 85 L 01/11/17 10:00 Weight - most recent: 145 lb 0.004 oz I&O - last 24 hours: Intake & Output 01/10/17 01/11/17 01/11/17 22:59 06:59 14:59 Intake Total 869 1519 Output Total 400 525 Balance 469 994 Lab Results last 24 hrs: Laboratory Results - last 24 hr 01/10/17 01/10/17 01/10/17 Range/Units 17:12 17:12 17:12 WBC (4.5-11.0) K/uL RBC (3.30-5.50) M/uL Hgb (12.0-15.0) g/dL Hct (36.0-48.0) % MCV (80-98) fL MCH (27-31) pg MCHC (32-36) % Plt Count (150-400) K/uL Puncture Site Rt.radial ABG pH 7.361 (7.350-7.450) ABG pCO2 92.2 H* (35.0-42.0) mmHg ABG pO2 72.1 L (75.0-100.0) mmHg ABG HCO3 50.9 H (22.0-26.0) mmol/L ABG Total CO2 47.6 H (21.0-25.0) mmol/L ABG O2 Saturation 94.1 L (95.0-98.0) % ABG O2 Content 13.0 L (15.0-23.0) %vol ABG Base Excess 21.7 mm/L ABG Hemoglobin 10.3 L (12.0-16.0) g/dL ABG Oxyhemoglobin 89.3 % ABG Carboxyhemoglobin 4.4 H (0.0-1.6) % ABG Methemoglobin 0.7 % Srikanth Test Passed O2 Delivery Device Bipap Sodium (140-148) mmol/L Potassium 2.7 L* (3.6-5.2) mmol/L Chloride (100-108) mmol/L Carbon Dioxide (21-32) mmol/L Anion Gap (5.0-14.0) mmol/L BUN (7-18) mg/dL Creatinine (0.6-1.0) mg/dL Est Cr Clr Drug Dosing mL/min Estimated GFR (MDRD) (>60) Glucose (74-106) mg/dL Calcium (8.5-10.1) mg/dL POC WB Ioniz Calcium (1.12-1.32) mmol/L Magnesium 1.1 L (1.8-2.4) mg/dL 01/11/17 01/11/17 01/11/17 Range/Units 05:00 05:00 05:55 WBC 15.4 H (4.5-11.0) K/uL RBC 3.56 (3.30-5.50) M/uL Hgb 10.4 L (12.0-15.0) g/dL Hct 34.9 L (36.0-48.0) % MCV 98 (80-98) fL MCH 29 (27-31) pg MCHC 30 L (32-36) % Plt Count 290 (150-400) K/uL Puncture Site Rt radial ABG pH 7.331 L (7.350-7.450) ABG pCO2 76.4 H* (35.0-42.0) mmHg ABG pO2 86.7 (75.0-100.0) mmHg ABG HCO3 39.3 H (22.0-26.0) mmol/L ABG Total CO2 36.9 H (21.0-25.0) mmol/L ABG O2 Saturation 95.8 (95.0-98.0) % ABG O2 Content 13.5 L (15.0-23.0) %vol ABG Base Excess 11.4 mm/L ABG Hemoglobin 10.2 L (12.0-16.0) g/dL ABG Oxyhemoglobin 92.9 % ABG Carboxyhemoglobin 2.2 H (0.0-1.6) % ABG Methemoglobin 0.8 % Srikanth Test Passed O2 Delivery Device Bipap Sodium 143 (140-148) mmol/L Potassium 3.9 (3.6-5.2) mmol/L Chloride 97 L (100-108) mmol/L Carbon Dioxide 41 H (21-32) mmol/L Anion Gap 8.9 (5.0-14.0) mmol/L BUN 10 D (7-18) mg/dL Creatinine 0.5 L (0.6-1.0) mg/dL Est Cr Clr Drug Dosing 90.29 mL/min Estimated GFR (MDRD) > 60 (>60) Glucose 173 H (74-106) mg/dL Calcium 6.6 L* (8.5-10.1) mg/dL POC WB Ioniz Calcium (1.12-1.32) mmol/L Magnesium (1.8-2.4) mg/dL 01/11/17 Range/Units 08:36 WBC (4.5-11.0) K/uL RBC (3.30-5.50) M/uL Hgb (12.0-15.0) g/dL Hct (36.0-48.0) % MCV (80-98) fL MCH (27-31) pg MCHC (32-36) % Plt Count (150-400) K/uL Puncture Site ABG pH (7.350-7.450) ABG pCO2 (35.0-42.0) mmHg ABG pO2 (75.0-100.0) mmHg ABG HCO3 (22.0-26.0) mmol/L ABG Total CO2 (21.0-25.0) mmol/L ABG O2 Saturation (95.0-98.0) % ABG O2 Content (15.0-23.0) %vol ABG Base Excess mm/L ABG Hemoglobin (12.0-16.0) g/dL ABG Oxyhemoglobin % ABG Carboxyhemoglobin (0.0-1.6) % ABG Methemoglobin % Srikanth Test O2 Delivery Device Sodium (140-148) mmol/L Potassium (3.6-5.2) mmol/L Chloride (100-108) mmol/L Carbon Dioxide (21-32) mmol/L Anion Gap (5.0-14.0) mmol/L BUN (7-18) mg/dL Creatinine (0.6-1.0) mg/dL Est Cr Clr Drug Dosing mL/min Estimated GFR (MDRD) (>60) Glucose (74-106) mg/dL Calcium (8.5-10.1) mg/dL POC WB Ioniz Calcium 0.99 L* (1.12-1.32) mmol/L Magnesium (1.8-2.4) mg/dL Med Orders - Current: Current Medications Acetaminophen (Tylenol) 650 mg PO Q4H PRN PRN Reason: Pain (Mild 1-3)/fever Acetaminophen (Tylenol) 650 mg RECTAL Q4H PRN PRN Reason: Mild pain/fever Albuterol (Proventil Neb Soln) 2.5 mg NEB Q2H PRN PRN Reason: Wheezing Last Admin: 01/10/17 14:51 Dose: 2.5 mg Albuterol/Ipratropium (Duoneb 3.0-0.5 Mg/3 Ml) 3 ml NEB QIDRT [facility] Last Admin: 01/11/17 07:25 Dose: 3 ml Buprenorphine HCl (Buprenorphine Hcl) 12 mg SL ACBREAKFAST [facility] Last Admin: 01/11/17 10:13 Dose: 12 mg Citalopram Hydrobromide (Celexa) 10 mg PO DAILY [facility] Last Admin: 01/11/17 10:12 Dose: 10 mg Enoxaparin Sodium (Lovenox) 40 mg SUBCUT DAILY [facility] Last Admin: 01/11/17 08:48 Dose: 40 mg Doxycycline Hyclate 100 mg/ (Sodium Chloride) 100 mls @ 100 mls/hr IV Q12H [facility] Last Admin: 01/11/17 10:29 Dose: 100 mls/hr Piperacillin/Tazobactam/ (Dextrose 3.375 gm/ Premix) 50 mls @ 100 mls/hr IV Q6H [facility] Last Admin: 01/11/17 05:45 Dose: 100 mls/hr Ibuprofen (Motrin) 400 mg PO Q6H PRN PRN Reason: Pain Lorazepam (Ativan) 1 mg PO BEDTIME PRN PRN Reason: Sleep Last Admin: 01/10/17 22:10 Dose: 1 mg Lorazepam (Ativan) 0.5 - 1 mg IVPUSH Q2H PRN PRN Reason: Nausea/Vomiting Methylprednisolone Sodium Succinate (Solu-Medrol) 62.5 mg IVPUSH Q6H [facility] Last Admin: 01/11/17 10:15 Dose: 62.5 mg Mometasone Furoate/Formoterol Fumar (Dulera 200-5 Mcg) 2 puff IH BIDRT [facility] Morphine Sulfate (Morphine) 2 - 4 mg IVPUSH Q2H PRN PRN Reason: Pain (severe 7-10) Ondansetron HCl (Zofran Odt) 4 mg PO Q6H PRN PRN Reason: Nausea able to take PO Ondansetron HCl (Zofran) 4 mg IV Q6H PRN PRN Reason: Nausea/Vomiting Pantoprazole Sodium (Protonix Iv) 40 mg IV Q24H [facility] Last Admin: 01/10/17 18:10 Dose: 40 mg Polyethylene Glycol (Miralax) 17 gm PO DAILY PRN PRN Reason: Constipation Pregabalin (Lyrica) 100 mg PO TID [facility] Last Admin: 01/11/17 10:12 Dose: 100 mg Senna/Docusate Sodium (Senna Plus) 1 tab PO BID PRN PRN Reason: Constipation Simvastatin (Zocor) 80 mg PO BEDTIME [facility] Sodium Chloride (Saline Flush) 10 ml FLUSH ASDIRECTED PRN PRN Reason: Keep Vein Open Last Admin: 01/10/17 07:19 Dose: 10 ml Tiotropium [place] (Spiriva Handihaler) 0 mcg INH DAILY [facility] Last Admin: 01/11/17 09:08 Dose: 18 mcg Discontinued Medications Albuterol (Proventil Neb Soln) 2.5 mg NEB ONETIME ONE Stop: 01/10/17 07:58 Last Admin: 01/10/17 08:19 Dose: 2.5 mg Albuterol/Ipratropium (Duoneb 3.0-0.5 Mg/3 Ml) 3 ml NEB ONETIME ONE Stop: 01/10/17 06:54 Last Admin: 01/10/17 07:06 Dose: 3 ml Fentanyl (Sublimaze) 50 mcg IVPUSH ONETIME ONE Stop: 01/10/17 06:54 Last Admin: 01/10/17 07:16 Dose: 50 mcg Potassium Chloride 20 meq/ (Premix) 100 mls @ 50 mls/hr IV ONETIME ONE Stop: 01/10/17 09:40 Last Admin: 01/10/17 08:57 Dose: 50 mls/hr Sodium Chloride (Normal Saline) 1,000 mls @ 125 mls/hr IV ASDIRECTED [facility] Last Admin: 01/11/17 06:27 Dose: 125 mls/hr Potassium Chloride 20 meq/Lidocaine HCl 2 ml/ Sodium Chloride 112 mls @ 50 mls/ hr IV Q2H [facility] Stop: 01/10/17 21:29 Last Admin: 01/10/17 20:28 Dose: 50 mls/hr Calcium Gluconate 2 gm/ Sodium (Chloride) 120 mls @ 100 mls/hr IV ONETIME ONE Stop: 01/11/17 07:11 Last Admin: 01/11/17 06:48 Dose: 100 mls/hr Methylprednisolone Sodium Succinate (Solu-Medrol) 125 mg IVPUSH ONETIME ONE Stop: 01/10/17 17:13 Last Admin: 01/10/17 18:08 Dose: 125 mg - Exam Quality Assessment: supplemental oxygen, DVT prophylaxis General: alert, oriented, cooperative, mild distress Lungs: Normal respiratory effort, Decreased breath sounds, Wheezing. No: Crackles, Rales, Rhonchi, Rub, Stridor Cardiovascular: Regular Rate, Regular Rhythm, No Murmurs Abdomen: bowel sounds present, soft, no tenderness, no distension Extremities: edema Skin: warm, dry, intact - Problem List Review Problem List Initiated/Reviewed/Updated: Yes - My Orders Last 24 Hours: My Active Orders 01/11/17 09:53 Convert IV to Saline Lock [OM.PC] Routine 01/11/17 10:30 Mometasone/Formoterol [Dulera 200-5 MCG] 2 puff IH BIDRT 01/11/17 21:00 Simvastatin [Zocor] 80 mg PO BEDTIME 01/11/17 Breakfast 2 Gram Sodium Diet [DIET] 01/12/17 05:00 BASIC METABOLIC PANEL,BMP [CHEM] Timed CBC WITH AUTO DIFF [HEME] Timed - Plan Plan:: Assessment and plan - Acute bronchitis with acute COPD exacerbation - complicated by respiratory failure with hypoxia and hypercapnia. Significant respiratory compromise requiring noninvasive ventilation. She's not currently febrile. Oxygenation is borderline with the noninvasive ventilation. Respiratory status has improved since admission but is not yet back to baseline -Continue noninvasive ventilation -Doxycycline and Pip/Tazo -Saline lock IV -Scheduled and as needed nebulizers -Steroids -Sputum culture if able -Supplemental oxygen Chronic opiate dependence - she is on outpatient management with Suboxone. -Continue home medications Maintenance issues - - DVT prophylaxis - enoxaparin - GI prophylaxis - PPI - Nutrition - NPO until she wakes up - Dixon catheter - placed in the ER CODE STATUS - full code Admission justification - This patient will be admitted for inpatient services and is medically appropriate meeting medical necessity for inpatient admission as outlined in my documentation. I reasonably expect the patient will require inpatient services that span a period time over 2 midnights. I reasonably expect this patient to be discharged or transferred within 96 hours [facility] Disposition - Pending, anticipate discharge home but maybe to the jail Primary care physician - no local primary care
[2017-01-11] MEDS: Formoterol/Mometasone 200-5 MCG 8.8 GM Inhaler IH SCH ×2 (10:54→21:56)
[2017-01-11] MEDS: Pantoprazole 40 MG Vial IV SCH (16:38)
[2017-01-11] MEDS: Magnesium Sulfate/Water 2 GM in Premix Bag 1 BAG IV SCH (17:35)
[2017-01-11] MEDS ORDERED: Non-Formulary Medication 1 Each (Simvastatin [Zocor] 80 MG) PO SCH (21:00)
[2017-01-11] MEDS: Simvastatin 20 MG Tab PO SCH (21:56)
[2017-01-12] MEDS: Magnesium Sulfate/Water 2 GM in Premix Bag 1 BAG IV SCH ×2 (00:15→05:02)
[2017-01-12] MEDS: Piperacillin/Tazobactam/Dext 3.375 GM in Premix Bag 1 BAG IV SCH ×2 (00:15→05:02)
[2017-01-12] MEDS: methylPREDNISolone Sodium Succinate 125 MG/2 ML SDV IVPUSH SCH (05:02)
[2017-01-12] MEDS ORDERED: Calcium Gluconate 2 GM in Sodium Chloride 0.9% 100 ML IV ONE (06:00)
[2017-01-12] MEDS ORDERED: Insulin Aspart 100 Units/ML 3 ML Pen SUBCUT ONE (06:00)
[2017-01-12] MEDS: Albuterol/Ipratropium 3.0-0.5 MG/3 ML Neb Soln NEB SCH ×4 (07:04→21:24)
[2017-01-12] MEDS: Formoterol/Mometasone 200-5 MCG 8.8 GM Inhaler IH SCH ×2 (07:04→21:14)
[2017-01-12] MEDS ORDERED: 50% Dextrose in Water 50 ML Syringe IV PRN (08:13)
[2017-01-12] MEDS ORDERED: Glucose Gel 15 GM in 37.5 GM Tube PO PRN (08:13)
[2017-01-12] MEDS: Tiotropium Inhaler 18 MCG Inhalation Powder Cap Kit of 5 INH SCH (08:17)
[2017-01-12] MEDS: BUPRENORPHINE HCL 2 MG SL SCH (08:59)
[2017-01-12] MEDS: metFORMIN 500 MG Tab PO SCH ×2 (09:01→17:26)
[2017-01-12] MEDS: Citalopram 10 MG Tab PO SCH (09:02)
[2017-01-12] MEDS: Enoxaparin 40 MG/0.4 ML Syringe SUBCUT SCH (09:02)
[2017-01-12] MEDS: Pregabalin 100 MG Cap PO SCH ×3 (09:05→21:24)
--- NOTE | 2017-01-12 09:28 | PCM.PN ---
- General Info Date of Service: 01/12/17 Functional Status: Reports: tolerating diet, ambulating - Review of Systems General: Reports: Weakness. Denies: Fever, Chills Pulmonary: Reports: shortness of breath, wheezing. Denies: pleuritic chest pain , cough, sputum, hemoptysis Cardiovascular: Reports: Dyspnea on Exertion. Denies: Chest Pain, Palpitations , Orthopnea, PND, Edema Gastrointestinal: Reports: No symptoms Systems Review Comment:: This patient has significantly improved since yesterday, she feels her respiratory status is almost back to baseline. She has been afebrile and has not required use of her BiPAP since yesterday morning. Vital signs have been stable and oxygen saturations have been within her usual range. - Patient Data Vitals - most recent: Last Vital Signs Temp 98.8 F 01/12/17 02:00 Pulse 94 01/12/17 09:17 Resp 20 01/12/17 09:17 BP 98/41 L 01/12/17 08:00 Pulse Ox 86 L 01/12/17 09:17 Weight - most recent: 145 lb 0.004 oz I&O - last 24 hours: Intake & Output 01/11/17 01/12/17 01/12/17 22:59 06:59 14:59 Intake Total 900 1280 120 Output Total 450 875 Balance 450 405 120 Lab Results last 24 hrs: Laboratory Results - last 24 hr 01/12/17 01/12/17 Range/Units 05:00 05:25 WBC 9.0 (4.5-11.0) K/uL RBC 3.20 L (3.30-5.50) M/uL Hgb 9.6 L (12.0-15.0) g/dL Hct 30.0 L (36.0-48.0) % MCV 94 (80-98) fL MCH 30 (27-31) pg MCHC 32 (32-36) % Plt Count 281 (150-400) K/uL Neut % (Auto) 91 H (36-66) % Lymph % (Auto) 5 L (24-44) % [place] % (Auto) 4 (2-6) % Eos % (Auto) 0 L (2-4) % Baso % (Auto) 0 (0-1) % Sodium 137 L (140-148) mmol/L Potassium 3.9 (3.6-5.2) mmol/L Chloride 94 L (100-108) mmol/L Carbon Dioxide 40 H (21-32) mmol/L Anion Gap 6.9 (5.0-14.0) mmol/L BUN 16 D (7-18) mg/dL Creatinine 0.8 D (0.6-1.0) mg/dL Est Cr Clr Drug Dosing 56.43 mL/min Estimated GFR (MDRD) > 60 (>60) Glucose 478 H* (74-106) mg/dL Calcium 6.7 L* (8.5-10.1) mg/dL Magnesium 1.5 L (1.8-2.4) mg/dL Med Orders - Current: Current Medications Acetaminophen (Tylenol) 650 mg PO Q4H PRN PRN Reason: Pain (Mild 1-3)/fever Last Admin: 01/11/17 22:23 Dose: 650 mg Acetaminophen (Tylenol) 650 mg RECTAL Q4H PRN PRN Reason: Mild pain/fever Albuterol (Proventil Neb Soln) 2.5 mg NEB Q2H PRN PRN Reason: Wheezing Last Admin: 01/10/17 14:51 Dose: 2.5 mg Albuterol/Ipratropium (Duoneb 3.0-0.5 Mg/3 Ml) 3 ml NEB QIDRT [facility] Last Admin: 01/12/17 07:04 Dose: 3 ml Buprenorphine HCl (Buprenorphine Hcl) 12 mg SL ACBREAKFAST [facility] [place] Last Admin: 01/12/17 08:59 Dose: 12 mg Calcium Carbonate (Caltrate 600+D 1500 Mg-400 Units) 1 tab PO BID [facility] [place] Citalopram Hydrobromide (Celexa) 10 mg PO DAILY [facility] [place] Last Admin: 01/12/17 09:02 Dose: 10 mg Dextrose (Glutose 15) 15 gm PO ONETIME PRN PRN Reason: Hypoglycemia Dextrose/Water (Dextrose 50% In Water) 50 ml IV ONETIME PRN PRN Reason: Hypoglycemia Enoxaparin Sodium (Lovenox) 40 mg SUBCUT DAILY [facility] [place] Last Admin: 01/12/17 09:02 Dose: 40 mg Doxycycline Hyclate 100 mg/ (Sodium Chloride) 100 mls @ 100 mls/hr IV Q12H [facility] [place] Last Admin: 01/11/17 22:02 Dose: 100 mls/hr Piperacillin/Tazobactam/ (Dextrose 3.375 gm/ Premix) 50 mls @ 100 mls/hr IV Q6H [facility] [place] Last Admin: 01/12/17 05:02 Dose: 100 mls/hr Ibuprofen (Motrin) 400 mg PO Q6H PRN PRN Reason: Pain Insulin Aspart (Novolog) 0 unit SUBCUT ASDIRECTED [facility] [place] PRN Reason: Protocol Lorazepam (Ativan) 1 mg PO BEDTIME PRN PRN Reason: Sleep Last Admin: 01/10/17 22:10 Dose: 1 mg Magnesium Oxide (Magnesium Oxide) 400 mg PO BID [facility] Metformin HCl (Glucophage) 1,000 mg PO BIDMEALS [facility] [place] Last Admin: 01/12/17 09:01 Dose: 1,000 mg Methylprednisolone Sodium Succinate (Solu-Medrol) 40 mg IVPUSH Q12H [facility] [place] Mometasone Furoate/Formoterol Fumar (Dulera 200-5 Mcg) 2 puff IH BIDRT [facility] [place] Last Admin: 01/12/17 07:04 Dose: 2 puff Ondansetron HCl (Zofran Odt) 4 mg PO Q6H PRN PRN Reason: Nausea able to take PO Polyethylene Glycol (Miralax) 17 gm PO DAILY PRN PRN Reason: Constipation Pregabalin (Lyrica) 100 mg PO TID [facility] [place] Last Admin: 01/12/17 09:05 Dose: 100 mg Senna/Docusate Sodium (Senna Plus) 1 tab PO BID PRN PRN Reason: Constipation Simvastatin (Zocor) 80 mg PO BEDTIME [facility] [place] Last Admin: 01/11/17 21:56 Dose: 80 mg Sodium Chloride (Saline Flush) 10 ml FLUSH ASDIRECTED PRN PRN Reason: Keep Vein Open Last Admin: 01/10/17 07:19 Dose: 10 ml Tiotropium [place] (Spiriva Handihaler) 0 mcg INH DAILY [facility] [place] Last Admin: 01/12/17 08:17 Dose: 18 mcg Discontinued Medications Albuterol (Proventil Neb Soln) 2.5 mg NEB ONETIME ONE Stop: 01/10/17 07:58 Last Admin: 01/10/17 08:19 Dose: 2.5 mg Albuterol/Ipratropium (Duoneb 3.0-0.5 Mg/3 Ml) 3 ml NEB ONETIME ONE Stop: 01/10/17 06:54 Last Admin: 01/10/17 07:06 Dose: 3 ml Fentanyl (Sublimaze) 50 mcg IVPUSH ONETIME ONE Stop: 01/10/17 06:54 Last Admin: 01/10/17 07:16 Dose: 50 mcg Potassium Chloride 20 meq/ (Premix) 100 mls @ 50 mls/hr IV ONETIME ONE Stop: 01/10/17 09:40 Last Admin: 01/10/17 08:57 Dose: 50 mls/hr Sodium Chloride (Normal Saline) 1,000 mls @ 125 mls/hr IV ASDIRECTED [facility] [place] Last Admin: 01/11/17 06:27 Dose: 125 mls/hr Potassium Chloride 20 meq/Lidocaine HCl 2 ml/ Sodium Chloride 112 mls @ 50 mls/ hr IV Q2H [facility] [place] Stop: 01/10/17 21:29 Last Admin: 01/10/17 20:28 Dose: 50 mls/hr Calcium Gluconate 2 gm/ Sodium (Chloride) 120 mls @ 100 mls/hr IV ONETIME ONE Stop: 01/11/17 07:11 Last Admin: 01/11/17 06:48 Dose: 100 mls/hr Magnesium Sulfate 2 gm/ Premix 50 mls @ 25 mls/hr IV Q6H [facility] [place] Stop: 01/12/17 07:59 Last Admin: 01/12/17 05:02 Dose: 25 mls/hr Calcium Gluconate 2 gm/ Sodium (Chloride) 120 mls @ 100 mls/hr IV ONETIME ONE Stop: 01/12/17 07:11 Last Admin: 01/12/17 06:12 Dose: 100 mls/hr Insulin Aspart (Novolog) 10 unit SUBCUT ONETIME ONE Stop: 01/12/17 06:01 Last Admin: 01/12/17 06:13 Dose: 10 unit Lorazepam (Ativan) 0.5 - 1 mg IVPUSH Q2H PRN PRN Reason: Nausea/Vomiting Methylprednisolone Sodium Succinate (Solu-Medrol) 125 mg IVPUSH ONETIME ONE Stop: 01/10/17 17:13 Last Admin: 01/10/17 18:08 Dose: 125 mg Methylprednisolone Sodium Succinate (Solu-Medrol) 62.5 mg IVPUSH Q6H [facility] [place] Last Admin: 01/12/17 05:02 Dose: 62.5 mg Morphine Sulfate (Morphine) 2 - 4 mg IVPUSH Q2H PRN PRN Reason: Pain (severe 7-10) Ondansetron HCl (Zofran) 4 mg IV Q6H PRN PRN Reason: Nausea/Vomiting Pantoprazole Sodium (Protonix Iv) 40 mg IV Q24H [facility] Last Admin: 01/11/17 16:38 Dose: 40 mg - Exam Quality Assessment: supplemental oxygen, DVT prophylaxis General: alert, oriented, cooperative, no acute distress Lungs: Decreased breath sounds, Wheezing. No: Crackles, Rales, Rhonchi, Rub, Stridor Cardiovascular: Regular Rate, Regular Rhythm, No Murmurs Abdomen: bowel sounds present, soft, no tenderness, no distension Extremities: no edema Skin: warm, dry, intact - Problem List Review Problem List Initiated/Reviewed/Updated: Yes - My Orders Last 24 Hours: My Active Orders 01/11/17 09:53 Convert IV to Saline Lock [OM.PC] Routine 01/11/17 10:30 Mometasone/Formoterol [Dulera 200-5 MCG] 2 puff IH BIDRT 01/11/17 21:00 Simvastatin [Zocor] 80 mg PO BEDTIME 01/12/17 08:13 Blood Glucose Check, Bedside [RC] QIDACANDBED Diabetes Education [RC] Click to Edit Notify Provider [RC] PRN Dextrose 50% in Water 50 ml IV ONETIME PRN Dextrose [Glutose 15] 15 gm PO ONETIME PRN 01/12/17 08:14 Communication Order [RC] ASDIRECTED 01/12/17 08:15 Insulin Aspart [NovoLOG] See Protocol SUBCUT ASDIRECTED 01/12/17 08:30 metFORMIN [Glucophage] 1,000 mg PO BIDMEALS 01/12/17 09:23 Remove Dixon Catheter [Urinary Catheter Removal] [RC] Per Unit Routine Vital Signs [RC] Q4H 01/12/17 09:30 Calcium Carbonate/Vitamin D3 [Caltrate 600+D 1500 MG-400 Units] 1 tab PO BID Magnesium Oxide 400 mg PO BID 01/12/17 11:30 GLUCOSE POC LAB TO COLLECT [POC] QIDACANDBED 01/12/17 16:30 GLUCOSE POC LAB TO COLLECT [POC] QIDACANDBED 01/12/17 17:00 methylPREDNISolone Sod Succ [Solu-MEDROL] 40 mg IVPUSH Q12H 01/12/17 21:00 GLUCOSE POC LAB TO COLLECT [POC] QIDACANDBED 01/13/17 05:00 BASIC METABOLIC PANEL,BMP [CHEM] Timed MAGNESIUM [CHEM] Timed 01/13/17 07:30 GLUCOSE POC LAB TO COLLECT [POC] QIDACANDBED 01/13/17 11:30 GLUCOSE POC LAB TO COLLECT [POC] QIDACANDBED 01/13/17 16:30 GLUCOSE POC LAB TO COLLECT [POC] QIDACANDBED 01/13/17 21:00 GLUCOSE POC LAB TO COLLECT [POC] QIDACANDBED 01/14/17 07:30 GLUCOSE POC LAB TO COLLECT [POC] QIDACANDBED 01/14/17 11:30 GLUCOSE POC LAB TO COLLECT [POC] QIDACANDBED 01/14/17 16:30 GLUCOSE POC LAB TO COLLECT [POC] QIDACANDBED 01/14/17 21:00 GLUCOSE POC LAB TO COLLECT [POC] QIDACANDBED 01/15/17 07:30 GLUCOSE POC LAB TO COLLECT [POC] QIDACANDBED 01/15/17 11:30 GLUCOSE POC LAB TO COLLECT [POC] QIDACANDBED 01/15/17 16:30 GLUCOSE POC LAB TO COLLECT [POC] QIDACANDBED 01/15/17 21:00 GLUCOSE POC LAB TO COLLECT [POC] QIDACANDBED 01/16/17 07:30 GLUCOSE POC LAB TO COLLECT [POC] QIDACANDBED 01/16/17 11:30 GLUCOSE POC LAB TO COLLECT [POC] QIDACANDBED 01/16/17 16:30 GLUCOSE POC LAB TO COLLECT [POC] QIDACANDBED 01/16/17 21:00 GLUCOSE POC LAB TO COLLECT [POC] QIDACANDBED 01/17/17 07:30 GLUCOSE POC LAB TO COLLECT [POC] QIDACANDBED 01/17/17 11:30 GLUCOSE POC LAB TO COLLECT [POC] QIDACANDBED 01/17/17 16:30 GLUCOSE POC LAB TO COLLECT [POC] QIDACANDBED 01/17/17 21:00 GLUCOSE POC LAB TO COLLECT [POC] QIDACANDBED 01/18/17 07:30 GLUCOSE POC LAB TO COLLECT [POC] QIDACANDBED 01/18/17 11:30 GLUCOSE POC LAB TO COLLECT [POC] QIDACANDBED 01/18/17 16:30 GLUCOSE POC LAB TO COLLECT [POC] QIDACANDBED 01/18/17 21:00 GLUCOSE POC LAB TO COLLECT [POC] QIDACANDBED 01/19/17 07:30 GLUCOSE POC LAB TO COLLECT [POC] QIDACANDBED 01/19/17 11:30 GLUCOSE POC LAB TO COLLECT [POC] QIDACANDBED 01/19/17 16:30 GLUCOSE POC LAB TO COLLECT [POC] QIDACANDBED 01/19/17 21:00 GLUCOSE POC LAB TO COLLECT [POC] QIDACANDBED 01/20/17 07:30 GLUCOSE POC LAB TO COLLECT [POC] QIDACANDBED 01/20/17 11:30 GLUCOSE POC LAB TO COLLECT [POC] QIDACANDBED 01/20/17 16:30 GLUCOSE POC LAB TO COLLECT [POC] QIDACANDBED 01/20/17 21:00 GLUCOSE POC LAB TO COLLECT [POC] QIDACANDBED 01/21/17 07:30 GLUCOSE POC LAB TO COLLECT [POC] QIDACANDBED 01/21/17 11:30 GLUCOSE POC LAB TO COLLECT [POC] QIDACANDBED 01/21/17 16:30 GLUCOSE POC LAB TO COLLECT [POC] QIDACANDBED 01/21/17 21:00 GLUCOSE POC LAB TO COLLECT [POC] QIDACANDBED 01/22/17 07:30 GLUCOSE POC LAB TO COLLECT [POC] QIDACANDBED 01/22/17 11:30 GLUCOSE POC LAB TO COLLECT [POC] QIDACANDBED 01/22/17 16:30 GLUCOSE POC LAB TO COLLECT [POC] QIDACANDBED 01/22/17 21:00 GLUCOSE POC LAB TO COLLECT [POC] QIDACANDBED 01/23/17 07:30 GLUCOSE POC LAB TO COLLECT [POC] QIDACANDBED - Plan Plan:: Assessment and plan - Acute bronchitis with acute COPD exacerbation - complicated by respiratory failure with hypoxia and hypercapnia. Improvement since yesterday, no longer requiring use of BiPAP and feels as though she is close to baseline as far as her breathing -Continue noninvasive ventilation -Doxycycline and Pip/Tazo -Saline lock IV -Scheduled and as needed nebulizers -Steroids, decrease Solu-Medrol to 40 mg IV every 12 hours -Sputum culture if able -Supplemental oxygen Type 2 diabetes mellitus-glucose levels elevated likely secondary to current glucocorticoid therapy -4 times a day glucometers -Resume therapy with metformin -Moderate dose sliding scale NovoLog Chronic opiate dependence - she is on outpatient management with Suboxone. -Continue home medications Maintenance issues - - DVT prophylaxis - enoxaparin - GI prophylaxis - PPI - Nutrition - NPO until she wakes up - Dixon catheter - placed in the ER CODE STATUS - full code Admission justification - This patient will be admitted for inpatient services and is medically appropriate meeting medical necessity for inpatient admission as outlined in my documentation. I reasonably expect the patient will require inpatient services that span a period time over 2 midnights. I reasonably expect this patient to be discharged or transferred within 96 hours [facility]. Disposition - Pending, anticipate discharge home tomorrow Primary care physician - no local primary care
[2017-01-12] MEDS ORDERED: Doxycycline 100 MG Cap PO SCH (11:00)
[2017-01-12] MEDS: Magnesium Oxide 400 MG Tab PO SCH ×2 (11:17→21:14)
[2017-01-12] MEDS: Calcium Carbonate/Vitamin D3 1500 MG-400 Units Tab PO SCH ×2 (11:17→21:14)
[2017-01-12] MEDS: Insulin Aspart 100 Units/ML 3 ML Pen SUBCUT SCH ×3 (11:35→21:19)
[2017-01-12] MEDS ORDERED: methylPREDNISolone Sodium Succinate 40 MG/1 ML SDV IVPUSH SCH (17:00)
[2017-01-12] MEDS: Doxycycline 100 MG Cap PO SCH (17:26)
[2017-01-12] MEDS: Simvastatin 20 MG Tab PO SCH (21:17)
[2017-01-13] MEDS: Doxycycline 100 MG Cap PO SCH (07:08)
[2017-01-13] MEDS: Albuterol/Ipratropium 3.0-0.5 MG/3 ML Neb Soln NEB SCH ×3 (07:23→15:03)
[2017-01-13] MEDS: Formoterol/Mometasone 200-5 MCG 8.8 GM Inhaler IH SCH (07:23)
[2017-01-13] MEDS ORDERED: predniSONE 20 MG Tab PO SCH (08:00)
[2017-01-13] MEDS: metFORMIN 500 MG Tab PO SCH (08:15)
[2017-01-13] MEDS: Enoxaparin 40 MG/0.4 ML Syringe SUBCUT SCH (08:16)
[2017-01-13] MEDS: Pregabalin 100 MG Cap PO SCH ×2 (08:16→14:45)
[2017-01-13] MEDS: Citalopram 10 MG Tab PO SCH (08:16)
[2017-01-13] MEDS: Calcium Carbonate/Vitamin D3 1500 MG-400 Units Tab PO SCH (08:16)
[2017-01-13] MEDS: Magnesium Oxide 400 MG Tab PO SCH (08:17)
[2017-01-13] MEDS: BUPRENORPHINE HCL 2 MG SL SCH (08:30)
[2017-01-13] MEDS: Tiotropium Inhaler 18 MCG Inhalation Powder Cap Kit of 5 INH SCH (08:35)
[2017-01-13] MEDS ORDERED: Potassium Chloride 20 MEQ Tab.ER PO ONE (09:00)
[2017-01-13] MEDS ORDERED: Magnesium Oxide 400 MG Tab PO ONE (09:00)
--- NOTE | 2017-01-13 11:14 | PCM.DCSUM1 ---
Discharge Summary - Hospital Course Brief History: This patient is a 61-year-old woman who was admitted through the emergency department with hypoxic and hypercapnic respiratory failure secondary to COPD exacerbation and underlying bronchitis. - Discharge Data Discharge Date: 01/13/17 Discharge Disposition: Home, Self-Care 01 Condition: Stable - Discharge Diagnosis/Problem(s) (1) Acute exacerbation of chronic obstructive pulmonary disease (COPD) SNOMED Code(s): 606544864 ICD Code: J44.1 - CHRONIC OBSTRUCTIVE PULMONARY DISEASE W (ACUTE) EXACERBATION Status: Acute Current Visit: Yes (2) Acute bronchitis SNOMED Code(s): 99291456 ICD Code: J20.9 - ACUTE BRONCHITIS, UNSPECIFIED Status: Acute Current Visit: Yes Qualifiers: Bronchitis organism: unspecified organism Qualified Code(s): J20.9 - Acute bronchitis, unspecified (3) Acute respiratory failure with hypoxia and hypercapnia SNOMED Code(s): 55749253, 021757113 ICD Code: J96.01 - ACUTE RESPIRATORY FAILURE WITH HYPOXIA; J96.02 - ACUTE RESPIRATORY FAILURE WITH HYPERCAPNIA Status: Acute Current Visit: No - Patient Summary/Data Hospital Course: Ms. Lauren is a 61-year-old woman with a known history of oxygen-dependent COPD. Over the past few months has had recurrent episodes of COPD exacerbation related to pulmonary infection and requiring hospitalization. She developed increased shortness of breath associated with a cough. On initial assessment in the emergency department was found to have significant hypoxia and hypercapnia. Chest x-ray showed no obvious infiltrates and she was felt to have underlying bronchitis causing COPD exacerbation. She was admitted to the hospital and started on IV antibiotic therapy as well as IV Solu-Medrol. For management of her respiratory compromise she was placed on noninvasive ventilation. With this management she improved significantly over the first 24 hours and by the following morning was able to get off of BiPAP and just remain on supplemental oxygen. By the time of discharge was feeling back to baseline. She's encouraged to use her home ventilator on a regular basis. Will be treated with oral antibiotic therapy for an additional week and increase dose of prednisone for the next 4 days. Activity will be as tolerated and she will resume her usual diet. Followup appointment with primary care provider will be scheduled within one week. - Patient Instructions Diet: Usual Diet as Tolerated Activity: As Tolerated Other/Special Instructions: Schedule followup appointment with primary care provider within one week. - Discharge Plan Prescriptions/Med Rec: Doxycycline Calcium [IMW: Doxycycline] 100 mg PO Q12H #14 capsule Prednisone [IJD: predniSONE] 40 mg PO WITHBREAKFAST #8 tablet Home Medications: Home Meds Albuterol Sulfate [Proair Respiclick] 90 mcg IH Q4HR 12/01/16 [History] Budesonide/Formoterol [Symbicort 160-4.5 MCG] 2 puff INH BID 12/01/16 [History] Buprenorphine HCl [Buprenorphine] 12 mg SL ACBREAKFAST 12/01/16 [History] Citalopram [Citalopram HBr] 10 mg PO DAILY 12/01/16 [History] Ibuprofen 400 mg PO Q6HR PRN 12/01/16 [History] LORazepam 1 mg PO BEDTIME PRN 12/01/16 [History] Pregabalin [Lyrica] 100 mg PO TID 12/01/16 [History] Simvastatin [Zocor] 80 mg PO BEDTIME 12/01/16 [History] Tiotropium [Spiriva Handihaler] 1 puff INH DAILY 12/01/16 [History] metFORMIN [Glucophage] 1,000 mg PO BIDMEALS 12/01/16 [History] Levofloxacin [Levaquin] 500 mg PO Q24H #4 tablet 12/07/16 [Rx] Prednisone [IJD: predniSONE] 20 mg PO WITHBREAKFAST 01/10/17 [History] Doxycycline Calcium [IMW: Doxycycline] 100 mg PO Q12H #14 capsule 01/13/17 [Rx] Prednisone [IJD: predniSONE] 40 mg PO WITHBREAKFAST #8 tablet 01/13/17 [Rx] Referrals: PCP,None [Primary Care Provider] - - Patient Data Vitals - Most Recent: Last Vital Signs Temp 97.0 F 01/13/17 07:32 Pulse 93 01/13/17 07:32 Resp 18 01/13/17 07:32 BP 117/69 01/13/17 07:32 Pulse Ox 93 L 01/13/17 07:32 Weight - Most Recent: 145 lb 0.004 oz I&O - Last 24 hours: Intake & Output 01/12/17 01/13/17 01/13/17 22:59 06:59 14:59 Intake Total 1160 Output Total 300 Balance 860 Lab Results - Last 24 hrs: Laboratory Results - last 24 hr 01/13/17 Range/Units 05:39 Sodium 141 (140-148) mmol/L Potassium 3.4 L (3.6-5.2) mmol/L Chloride 99 L (100-108) mmol/L Carbon Dioxide 42 H (21-32) mmol/L Anion Gap 3.4 L (5.0-14.0) mmol/L BUN 19 H (7-18) mg/dL Creatinine 0.5 L (0.6-1.0) mg/dL Est Cr Clr Drug Dosing 90.29 mL/min Estimated GFR (MDRD) > 60 (>60) Glucose 155 H (74-106) mg/dL Calcium 7.4 L (8.5-10.1) mg/dL Magnesium 1.7 L (1.8-2.4) mg/dL Med Orders - Current: Current Medications Acetaminophen (Tylenol) 650 mg PO Q4H PRN PRN Reason: Pain (Mild 1-3)/fever Last Admin: 01/11/17 22:23 Dose: 650 mg Acetaminophen (Tylenol) 650 mg RECTAL Q4H PRN PRN Reason: Mild pain/fever Albuterol (Proventil Neb Soln) 2.5 mg NEB Q2H PRN PRN Reason: Wheezing Last Admin: 01/10/17 14:51 Dose: 2.5 mg Albuterol/Ipratropium (Duoneb 3.0-0.5 Mg/3 Ml) 3 ml NEB QIDRT [facility] Last Admin: 01/13/17 10:58 Dose: 3 ml Buprenorphine HCl (Buprenorphine Hcl) 12 mg SL ACBREAKFAST [facility] Last Admin: 01/13/17 08:30 Dose: 12 mg Calcium Carbonate (Caltrate 600+D 1500 Mg-400 Units) 1 tab PO BID [facility] Last Admin: 01/13/17 08:16 Dose: 1 tab Citalopram Hydrobromide (Celexa) 10 mg PO DAILY [facility] Last Admin: 01/13/17 08:16 Dose: 10 mg Dextrose (Glutose 15) 15 gm PO ONETIME PRN PRN Reason: Hypoglycemia Doxycycline Hyclate (Vibramycin) 100 mg PO Q12H [facility] Last Admin: 01/13/17 07:08 Dose: 100 mg Enoxaparin Sodium (Lovenox) 40 mg SUBCUT DAILY [facility] Last Admin: 01/13/17 08:16 Dose: 40 mg Ibuprofen (Motrin) 400 mg PO Q6H PRN PRN Reason: Pain Insulin Aspart (Novolog) 0 unit SUBCUT ASDIRECTED [facility] PRN Reason: Protocol Last Admin: 01/12/17 21:19 Dose: 2 units Lorazepam (Ativan) 1 mg PO BEDTIME PRN PRN Reason: Sleep Last Admin: 01/10/17 22:10 Dose: 1 mg Magnesium Oxide (Magnesium Oxide) 400 mg PO BID [facility] Last Admin: 01/13/17 08:17 Dose: 400 mg Metformin HCl (Glucophage) 1,000 mg PO BIDMEALS [facility] Last Admin: 01/13/17 08:15 Dose: 1,000 mg Mometasone Furoate/Formoterol Fumar (Dulera 200-5 Mcg) 2 puff IH BIDRT [facility] Last Admin: 01/13/17 07:23 Dose: 2 puff Ondansetron HCl (Zofran Odt) 4 mg PO Q6H PRN PRN Reason: Nausea able to take PO Polyethylene Glycol (Miralax) 17 gm PO DAILY PRN PRN Reason: Constipation Prednisone (Prednisone) 40 mg PO WITHBREAKFAST [facility] Last Admin: 01/13/17 08:16 Dose: 40 mg Pregabalin (Lyrica) 100 mg PO TID [facility] Last Admin: 01/13/17 08:16 Dose: 100 mg Senna/Docusate Sodium (Senna Plus) 1 tab PO BID PRN PRN Reason: Constipation Simvastatin (Zocor) 80 mg PO BEDTIME [facility] Last Admin: 01/12/17 21:17 Dose: 80 mg Sodium Chloride (Saline Flush) 10 ml FLUSH ASDIRECTED PRN PRN Reason: Keep Vein Open Last Admin: 01/10/17 07:19 Dose: 10 ml Tiotropium [place] (Spiriva Handihaler) 0 mcg INH DAILY [facility] Last Admin: 01/13/17 08:35 Dose: 18 mcg Discontinued Medications Albuterol (Proventil Neb Soln) 2.5 mg NEB ONETIME ONE Stop: 01/10/17 07:58 Last Admin: 01/10/17 08:19 Dose: 2.5 mg Albuterol/Ipratropium (Duoneb 3.0-0.5 Mg/3 Ml) 3 ml NEB ONETIME ONE Stop: 01/10/17 06:54 Last Admin: 01/10/17 07:06 Dose: 3 ml Dextrose/Water (Dextrose 50% In Water) 50 ml IV ONETIME PRN PRN Reason: Hypoglycemia Doxycycline Hyclate (Vibramycin) 100 mg PO BID [facility] Stop: 01/12/17 11:30 Last Admin: 01/12/17 11:37 Dose: 100 mg Fentanyl (Sublimaze) 50 mcg IVPUSH ONETIME ONE Stop: 01/10/17 06:54 Last Admin: 01/10/17 07:16 Dose: 50 mcg Potassium Chloride 20 meq/ (Premix) 100 mls @ 50 mls/hr IV ONETIME ONE Stop: 01/10/17 09:40 Last Admin: 01/10/17 08:57 Dose: 50 mls/hr Doxycycline Hyclate 100 mg/ (Sodium Chloride) 100 mls @ 100 mls/hr IV Q12H [facility] Last Admin: 01/11/17 22:02 Dose: 100 mls/hr Sodium Chloride (Normal Saline) 1,000 mls @ 125 mls/hr IV ASDIRECTED [facility] Last Admin: 01/11/17 06:27 Dose: 125 mls/hr Piperacillin/Tazobactam/ (Dextrose 3.375 gm/ Premix) 50 mls @ 100 mls/hr IV Q6H [facility] Last Admin: 01/12/17 05:02 Dose: 100 mls/hr Potassium Chloride 20 meq/Lidocaine HCl 2 ml/ Sodium Chloride 112 mls @ 50 mls/ hr IV Q2H [facility] Stop: 01/10/17 21:29 Last Admin: 01/10/17 20:28 Dose: 50 mls/hr Calcium Gluconate 2 gm/ Sodium (Chloride) 120 mls @ 100 mls/hr IV ONETIME ONE Stop: 01/11/17 07:11 Last Admin: 01/11/17 06:48 Dose: 100 mls/hr Magnesium Sulfate 2 gm/ Premix 50 mls @ 25 mls/hr IV Q6H [facility] Stop: 01/12/17 07:59 Last Admin: 01/12/17 05:02 Dose: 25 mls/hr Calcium Gluconate 2 gm/ Sodium (Chloride) 120 mls @ 100 mls/hr IV ONETIME ONE Stop: 01/12/17 07:11 Last Admin: 01/12/17 06:12 Dose: 100 mls/hr Insulin Aspart (Novolog) 10 unit SUBCUT ONETIME ONE Stop: 01/12/17 06:01 Last Admin: 01/12/17 06:13 Dose: 10 unit Lorazepam (Ativan) 0.5 - 1 mg IVPUSH Q2H PRN PRN Reason: Nausea/Vomiting Magnesium Oxide (Magnesium Oxide) 800 mg PO ONETIME ONE Stop: 01/13/17 09:01 Last Admin: 01/13/17 08:50 Dose: 800 mg Methylprednisolone Sodium Succinate (Solu-Medrol) 125 mg IVPUSH ONETIME ONE Stop: 01/10/17 17:13 Last Admin: 01/10/17 18:08 Dose: 125 mg Methylprednisolone Sodium Succinate (Solu-Medrol) 62.5 mg IVPUSH Q6H [facility] Last Admin: 01/12/17 05:02 Dose: 62.5 mg Methylprednisolone Sodium Succinate (Solu-Medrol) 40 mg IVPUSH Q12H [facility] Morphine Sulfate (Morphine) 2 - 4 mg IVPUSH Q2H PRN PRN Reason: Pain (severe 7-10) Ondansetron HCl (Zofran) 4 mg IV Q6H PRN PRN Reason: Nausea/Vomiting Pantoprazole Sodium (Protonix Iv) 40 mg IV Q24H [facility] Last Admin: 01/11/17 16:38 Dose: 40 mg Potassium Chloride (Klor-Con M20) 40 meq PO ONETIME ONE Stop: 01/13/17 09:01 Last Admin: 01/13/17 08:51 Dose: 40 meq *Q Meaningful Use (DIS) - VTE *Q VTE Criteria *Q: - Stroke *Q Stroke Criteria *Q: - AMI *Q AMI Criteria *Q:
[2017-01-13] MEDS: Insulin Aspart 100 Units/ML 3 ML Pen SUBCUT SCH (12:15)
[2017-01-13 14:59] VITALS: BP 123/78
== END 2017-01-13 16:15 | disposition home or self-care (01) | DRG 190 ==
LOC: JP.ED 06:07 → JP.ICU 10:22 → JP.MS 01-12 11:02
PROVIDERS: ADMIT Internal Medicine; ATTEND Hospitalist
DX: J44.0 Chronic obstructive pulmonary disease with (acute) lower respiratory infection (principal); J96.01 Acute respiratory failure with hypoxia; J96.02 Acute respiratory failure with hypercapnia; J20.9 Acute bronchitis, unspecified; J44.1 Chronic obstructive pulmonary disease with (acute) exacerbation; F17.210 Nicotine dependence, cigarettes, uncomplicated; S51.811A Laceration without foreign body of right forearm, initial encounter; W19.XXXA Unspecified fall, initial encounter; Y93.89 Activity, other specified; Y92.009 Unspecified place in unspecified non-institutional (private) residence as the place of occurrence of the external cause; Z91.81 History of falling; Z79.891 Long term (current) use of opiate analgesic; E11.9 Type 2 diabetes mellitus without complications; Z79.84 Long term (current) use of oral hypoglycemic drugs; E78.00 Pure hypercholesterolemia, unspecified; Z87.440 Personal history of urinary (tract) infections; M54.9 Dorsalgia, unspecified; G89.29 Other chronic pain; F32.9 Major depressive disorder, single episode, unspecified; R53.1 Weakness; Z99.81 Dependence on supplemental oxygen; Z79.82 Long term (current) use of aspirin; M79.89 Other specified soft tissue disorders; R07.89 Other chest pain
CPT/HCPCS: 36415; 36600; 71010; 71010-26; 80048; 80053; 81001; 82330; 82803; 82962; 83735; 83880; 84132; 85025; 85027; 87040; 93971-26-LT; 93971-LT; 94640; 94640-76; 94660; 94664; 96361; 96374; 99285; 99285-25; A9270-GY; C9113; J0571; J0610; J1650; J2543; J2930; J3010; J3475; J3480; J7030; J7040; J7050; J7620

== ENCOUNTER 2017-01-28 16:10 | Inpatient (IN) | payer MEDICARE, MEDICAID, OTHER ==
[2017-01-28] MEDS ORDERED: Sodium Chloride 0.9% 1,000 ML IV SCH (16:15)
--- NOTE | 2017-01-28 16:17 | EDM.PDOC ---
ED HPI GENERAL MEDICAL PROBLEM - General Chief Complaint: Respiratory Problem Stated Complaint: SOB Time Seen by Provider: 01/28/17 16:12 Source of Information: Reports: Patient, EMS History Limitations: Reports: No Limitations - History of Present Illness INITIAL COMMENTS - FREE TEXT/NARRATIVE: 61-year-old female, chronic COPD who according to the patient her doctor likes to keep her oxygen level "around 90". She continues to smoke. Over the past several days she's become more short of breath and anxious. Intermittent chest pressure or pain which occurs when her COPD is exacerbated. On arrival EMS found her to have O2 sats in the high 70s and low 80s, increased her oxygen from 2-4 L nasal cannula and her O2 went into the low 90s. She is not significantly short of breath over baseline and is not having problems conversing but looks fatigued and is falling asleep. No fever or chills. Cough is nonproductive. Her last cigarette was "this afternoon". She also has increased lower extremity edema. Onset: Gradual (Over the past several days she's had exacerbation of chronic dyspnea) Severity: Moderate Associated Symptoms: Reports: Cough, Shortness of Breath, Weakness. Denies: Fever/Chills, Headaches Chest Pain Score (Numeric/FACES): 0 - Related Data Allergies Allergy/AdvReac Type Severity Reaction Status Date / Time No Known Allergies Allergy Verified 01/28/17 16:14 Home Meds: Home Meds Albuterol Sulfate [Proair Respiclick] 90 mcg IH Q4HR 12/01/16 [History] Budesonide/Formoterol [Symbicort 160-4.5 MCG] 2 puff INH BID 12/01/16 [History] Buprenorphine HCl [Buprenorphine] 12 mg SL ACBREAKFAST 12/01/16 [History] Citalopram [Citalopram HBr] 10 mg PO DAILY 12/01/16 [History] Ibuprofen 400 mg PO Q6HR PRN 12/01/16 [History] LORazepam 1 mg PO BEDTIME PRN 12/01/16 [History] Pregabalin [Lyrica] 100 mg PO TID 12/01/16 [History] Simvastatin [Zocor] 80 mg PO BEDTIME 12/01/16 [History] Tiotropium [Spiriva Handihaler] 1 puff INH DAILY 12/01/16 [History] metFORMIN [Glucophage] 1,000 mg PO BIDMEALS 12/01/16 [History] Levofloxacin [Levaquin] 500 mg PO Q24H #4 tablet 12/07/16 [Rx] Prednisone [IJD: predniSONE] 20 mg PO WITHBREAKFAST 01/10/17 [History] Doxycycline Calcium [IMW: Doxycycline] 100 mg PO Q12H #14 capsule 01/13/17 [Rx] Prednisone [IJD: predniSONE] 40 mg PO WITHBREAKFAST #8 tablet 01/13/17 [Rx] Past Medical History Cardiovascular History: Reports: High Cholesterol, Hypertension Other Cardiovascular History: enlarged right Respiratory History: Reports: Asthma, COPD, Intubation, Previous Genitourinary History: Reports: UTI, Recurrent [employer] History: Reports: Musculoskeletal History: Reports: Back Pain, Chronic Other Musculoskeletal History: uses w/c at home and walker Psychiatric History: Reports: Depression Endocrine/Metabolic History: Reports: Diabetes, Type II - Past Surgical History Female Surgical History: Reports: Hysterectomy Social & Family History - Family History Family Medical History: Unobtainable - Tobacco Use Smoking Status *Q: Current Every Day Smoker Years of Tobacco use: 50 Packs/Tins Daily: 0.5 - Caffeine Use Caffeine Use: Reports: Coffee - Recreational Drug Use Recreational Drug Use: No Recreational Drug Type: Reports: Oxycodone ED ROS GENERAL - Review of Systems Review Of Systems: See Below Constitutional: Reports: Malaise, Weakness. Denies: Fever, Chills HEENT: Reports: No Symptoms Respiratory: Reports: Shortness of Breath, Cough. Denies: Sputum Cardiovascular: Reports: Chest Pain Endocrine: Reports: Fatigue GI/Abdominal: Denies: Abdominal Pain, Nausea, Vomiting Skin: Reports: Pallor Neurological: Reports: Dizziness. Denies: Headache ED EXAM, GENERAL - Physical Exam Exam: See Below Exam Limited By: Altered Mental Status General Appearance: Alert (Patient is not lethargic but is very tired and is dozing) Head: Atraumatic Respiratory/Chest: No Respiratory Distress, Other (Diffuse decreased breath sounds with a few scattered expiratory wheezes) Cardiovascular: Regular Rate, Rhythm, Tachycardia GI/Abdominal: Soft, Non-Tender Extremities: Pedal Edema (Symmetric 1+ pedal edema bilaterally) Neurological: Alert, Inattentive, Slow to Respond Psychiatric: Depressed Mood, Flat Affect Skin Exam: Warm, Dry Course - Vital Signs Last Recorded V/S: Last Vital Signs Temp 96 F 01/28/17 18:39 Pulse 70 01/29/17 07:17 Resp 16 01/29/17 05:32 BP 97/52 L 01/29/17 05:32 Pulse Ox 85 L 01/29/17 07:17 - Orders/Labs/Meds Orders: Medication Orders Acetaminophen (Tylenol) 650 mg PO Q4H PRN PRN Reason: Pain (Mild 1-3)/fever Albuterol (Proventil Neb Soln) 2.5 mg NEB Q4H PRN PRN Reason: Shortness Of Breath/wheezing Albuterol/Ipratropium (Duoneb 3.0-0.5 Mg/3 Ml) 3 ml NEB QIDRT [facility] Last Admin: 01/29/17 07:16 Dose: 3 ml Admin: 01/28/17 21:44 Dose: 3 ml Buprenorphine HCl (Buprenorphine Hcl) 12 mg SL ACBREAKFAST [facility] Last Admin: 01/29/17 08:05 Dose: 12 mg Citalopram Hydrobromide (Celexa) 10 mg PO DAILY [facility] Last Admin: 01/29/17 08:05 Dose: 10 mg Dextrose (Glutose 15) 15 gm PO ONETIME PRN PRN Reason: Hypoglycemia Dextrose/Water (Dextrose 50% In Water) 50 ml IV ONETIME PRN PRN Reason: Hypoglycemia Docusate Sodium (Colace) 100 mg PO BID PRN PRN Reason: Constipation Enoxaparin Sodium (Lovenox) 40 mg SUBCUT Q24H [facility] Ibuprofen (Motrin) 400 mg PO Q6HR PRN PRN Reason: Pain Insulin Aspart (Novolog) 0 unit SUBCUT QIDPCANDBED [facility] PRN Reason: Protocol Last Admin: 01/29/17 08:12 Dose: 1 units Admin: 01/28/17 21:45 Dose: 1 units Admin: 01/28/17 21:43 Dose: Magnesium Hydroxide (Milk Of Magnesia) 30 ml PO Q12H PRN PRN Reason: Constipation Methylprednisolone Sodium Succinate (Solu-Medrol) 40 mg IVPUSH Q8H [facility] Mometasone Furoate/Formoterol Fumar (Dulera 200-5 Mcg) 2 puff IH BIDRT [facility] Ondansetron HCl (Zofran) 4 mg IV Q4H PRN PRN Reason: Nausea/Vomiting Polyethylene Glycol (Miralax) 17 gm PO DAILY PRN PRN Reason: Constipation Pregabalin (Lyrica) 100 mg PO TID [facility] Last Admin: 01/29/17 08:05 Dose: 100 mg Admin: 01/28/17 21:44 Dose: 100 mg Simvastatin (Zocor) 80 mg PO BEDTIME [facility] Last Admin: 01/28/17 22:07 Dose: Sodium Chloride (Saline Flush) 10 ml FLUSH ASDIRECTED PRN PRN Reason: Keep Vein Open Tiotropium [place] (Spiriva Handihaler) 18 mcg INH DAILYRT [facility] Labs: Laboratory Tests 01/28/17 01/28/17 01/28/17 Range/Units 16:33 16:33 16:33 WBC 6.4 (4.5-11.0) K/uL RBC 3.33 (3.30-5.50) M/uL Hgb 9.9 L (12.0-15.0) g/dL Hct 33.8 L (36.0-48.0) % MCV 102 H (80-98) fL MCH 30 (27-31) pg MCHC 29 L (32-36) % Plt Count 270 (150-400) K/uL Neut % (Auto) 70 H (36-66) % Lymph % (Auto) 17 L (24-44) % [place] % (Auto) 10 H (2-6) % Eos % (Auto) 2 (2-4) % Baso % (Auto) 1 (0-1) % Puncture Site Rt radial ABG pH 7.225 L (7.350-7.450) ABG pCO2 109.0 H* (35.0-42.0) mmHg ABG pO2 60.7 L (75.0-100.0) mmHg ABG HCO3 43.3 H (22.0-26.0) mmol/L ABG Total CO2 42.2 H (21.0-25.0) mmol/L ABG O2 Saturation 87.7 L (95.0-98.0) % ABG O2 Content 10.9 L (15.0-23.0) %vol ABG Base Excess 13.1 mm/L ABG Hemoglobin 9.5 L (12.0-16.0) g/dL ABG Oxyhemoglobin 81.1 % ABG Carboxyhemoglobin 6.8 H (0.0-1.6) % ABG Methemoglobin 0.7 % Srikanth Test Pass O2 Delivery Device Nasal cannula Oxygen Flow Rate 2 L Sodium 145 (140-148) mmol/L Potassium 3.7 (3.6-5.2) mmol/L Chloride 103 (100-108) mmol/L Carbon Dioxide 43 H (21-32) mmol/L Anion Gap 2.7 L (5.0-14.0) mmol/L BUN 9 D (7-18) mg/dL Creatinine 0.4 L (0.6-1.0) mg/dL Est Cr Clr Drug Dosing 113.85 mL/min Estimated GFR (MDRD) > 60 (>60) Glucose 198 H (74-106) mg/dL Calcium 8.2 L (8.5-10.1) mg/dL Total Bilirubin 0.2 (0.2-1.0) mg/dL AST 13 L (15-37) U/L ALT 10 L (12-78) U/L Alkaline Phosphatase 124 H (46-116) U/L Troponin I 0.030 (0.000-0.056) ng/mL Total Protein 5.7 L (6.4-8.2) g/dL Albumin 2.4 L (3.4-5.0) g/dL Globulin 3.3 (2.3-3.5) g/dL Albumin/Globulin Ratio 0.7 L (1.2-2.2) Meds: Medications Generic Name Dose Route Start Last Admin Trade Name Freq PRN Reason Stop Dose Admin Acetaminophen 650 mg 01/28/17 18:15 Tylenol PO Q4H PRN Pain (Mild 1-3)/fever Albuterol 2.5 mg 01/28/17 18:15 Proventil Neb Soln NEB Q4H PRN Shortness Of Breath/wheezing Albuterol/Ipratropium 3 ml 01/28/17 21:00 01/29/17 07:16 Duoneb 3.0-0.5 Mg/3 Ml NEB 3 ml QIDRT [facility] Administration Buprenorphine HCl 12 mg 01/29/17 07:30 01/29/17 08:05 Buprenorphine Hcl SL 12 mg ACBREAKFAST [facility] Administration Citalopram Hydrobromide 10 mg 01/29/17 09:00 01/29/17 08:05 Celexa PO 10 mg DAILY [facility] Administration Dextrose 15 gm 01/28/17 18:15 Glutose 15 PO ONETIME PRN Hypoglycemia Dextrose/Water 50 ml 01/28/17 18:15 Dextrose 50% In Water IV ONETIME PRN Hypoglycemia Docusate Sodium 100 mg 01/28/17 18:15 Colace PO BID PRN Constipation Enoxaparin Sodium 40 mg 01/29/17 17:00 Lovenox SUBCUT Q24H [facility] Ibuprofen 400 mg 01/28/17 18:15 Motrin PO Q6HR PRN Pain Insulin Aspart 0 unit 01/28/17 18:15 01/29/17 08:12 Novolog SUBCUT 1 units QIDPCANDBED [facility] Administration Protocol Magnesium Hydroxide 30 ml 01/28/17 18:15 Milk Of Magnesia PO Q12H PRN Constipation Methylprednisolone Sodium Succinate 40 mg 01/29/17 10:00 Solu-Medrol IVPUSH Q8H [facility] Mometasone Furoate/Formoterol Fumar 2 puff 01/29/17 07:45 Dulera 200-5 Mcg IH BIDRT [facility] Ondansetron HCl 4 mg 01/28/17 18:15 Zofran IV Q4H PRN Nausea/Vomiting Polyethylene Glycol 17 gm 01/28/17 18:15 Miralax PO DAILY PRN Constipation Pregabalin 100 mg 01/28/17 21:00 01/29/17 08:05 Lyrica PO 100 mg TID [facility] Administration Simvastatin 80 mg 01/28/17 21:00 01/28/17 22:07 Zocor PO Not Given BEDTIME [facility] Sodium Chloride 10 ml 01/28/17 18:15 Saline Flush FLUSH ASDIRECTED PRN Keep Vein Open Tiotropium [place] 18 mcg 01/29/17 08:00 Spiriva Handihaler INH DAILYRT [facility] Discontinued Medications Generic Name Dose Route Start Last Admin Trade Name Freq PRN Reason Stop Dose Admin Enoxaparin Sodium 40 mg 01/28/17 18:15 01/28/17 19:26 Lovenox SUBCUT 40 mg DAILY [facility] Administration Furosemide 20 mg 01/28/17 18:15 01/28/17 18:30 Lasix IVPUSH 01/28/17 18:16 20 mg NOW ONE Administration Furosemide 20 mg 01/29/17 07:00 01/29/17 07:50 Lasix IVPUSH 01/29/17 07:01 20 mg NOW ONE Administration Sodium Chloride 1,000 mls @ 100 mls/hr 01/28/17 16:15 01/28/17 16:33 Normal Saline IV 100 mls/hr ASDIRECTED [facility] Administration Methylprednisolone Sodium Succinate 40 mg 01/28/17 18:15 01/29/17 01:36 Solu-Medrol IVPUSH 40 mg Q8H [facility] Administration Mometasone Furoate/Formoterol Fumar 2 puff 01/28/17 21:00 01/28/17 21:44 Dulera 200-5 Mcg IH Not Given BID [facility] - Re-Assessments/Exams Free Text/Narrative Re-Assessment/Exam: 01/28/17 16:46 Blood gases show hypercapnia with a CO2 of 109 and a pH of 7.225. 01/28/17 16:47 White count is normal, hemoglobin is 9.9. BiPAP will be initiated and Dr. Fisher was consulted to see the patient for admission to the hospitalist service for exacerbation of chronic respiratory failure. Departure - Departure Time of Disposition: 17:35 Disposition: Admitted As Inpatient 64 Condition: poor Clinical Impression: Acute exacerbation of chronic obstructive pulmonary disease (COPD), Acute respiratory failure with hypoxia and hypercapnia - Discharge Information
--- NOTE | 2017-01-28 17:26 | PCM.HP ---
H&P History of Present Illness - General Date of Service: 01/28/17 Admit Problem/Dx: Admission Diagnosis/Problem Admission Diagnosis/Problem COPD, Severe chronic obstructive pulmonary disease Source of Information: Patient, Old Records, Provider, RN Notes Reviewed History Limitations: Reports: Altered Mental Status (lethargic and somnolent secondary to CO2 narcosis) - History of Present Illness Other HPI/Comments: Ms. Lauren is a 61-year-old woman with severe oxygen dependent COPD. Over the past few months has had recurrent admissions with COPD exacerbation resulting in hypoxic and hypercapnic respiratory failure. Today became more sleepy and lethargic and was brought in for evaluation. She continues to smoke and has not been using her Trilogy home ventilator system. She denies recent cough and shortness of breath is only mildly worse from baseline. There've been no fevers chills or sweats and her white blood cell count is within normal range. On arrival in the emergency department was significantly hypoxic and on blood gases found to have marked hypercapnia. Chest x-ray shows no obvious infiltrates. Chest Pain Score (Numeric/FACES): 0 - Related Data Allergies/Adverse Reactions: Allergies Allergy/AdvReac Type Severity Reaction Status Date / Time No Known Allergies Allergy Verified 01/28/17 16:14 Home Medications: Home Meds Albuterol Sulfate [Proair Respiclick] 90 mcg IH Q4HR 12/01/16 [History] Budesonide/Formoterol [Symbicort 160-4.5 MCG] 2 puff INH BID 12/01/16 [History] Buprenorphine HCl [Buprenorphine] 12 mg SL ACBREAKFAST 12/01/16 [History] Citalopram [Citalopram HBr] 10 mg PO DAILY 12/01/16 [History] Ibuprofen 400 mg PO Q6HR PRN 12/01/16 [History] LORazepam 1 mg PO BEDTIME PRN 12/01/16 [History] Pregabalin [Lyrica] 100 mg PO TID 12/01/16 [History] Simvastatin [Zocor] 80 mg PO BEDTIME 12/01/16 [History] Tiotropium [Spiriva Handihaler] 1 puff INH DAILY 12/01/16 [History] metFORMIN [Glucophage] 1,000 mg PO BIDMEALS 12/01/16 [History] Levofloxacin [Levaquin] 500 mg PO Q24H #4 tablet 12/07/16 [Rx] Prednisone [IJD: predniSONE] 20 mg PO WITHBREAKFAST 01/10/17 [History] Doxycycline Calcium [IMW: Doxycycline] 100 mg PO Q12H #14 capsule 01/13/17 [Rx] Prednisone [IJD: predniSONE] 40 mg PO WITHBREAKFAST #8 tablet 01/13/17 [Rx] Past Medical History Cardiovascular History: Reports: High Cholesterol, Hypertension Other Cardiovascular History: enlarged right Respiratory History: Reports: Asthma, COPD, Intubation, Previous Genitourinary History: Reports: UTI, 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: Musculoskeletal History: Reports: Back Pain, Chronic Other Musculoskeletal History: uses w/c at home and walker Psychiatric History: Reports: Depression Endocrine/Metabolic History: Reports: Diabetes, Type II - Past Surgical History Female Surgical History: Reports: Hysterectomy Social & Family History - Family History Family Medical History: Unobtainable - Tobacco Use Smoking Status *Q: Current Every Day Smoker Years of Tobacco use: 50 Packs/Tins Daily: 0.5 - Caffeine Use Caffeine Use: Reports: Coffee - Recreational Drug Use Recreational Drug Use: No Recreational Drug Type: Reports: Oxycodone H&P Review of Systems - Review of Systems: Review Of Systems: Unable To Obtain General: Reports: ROS unobtainable (secondary to CO2 narcosis) Exam - Exam Exam: See Below - Vital Signs Vital Signs: Last Vital Signs Temp 97.9 F 01/28/17 16:10 Pulse 113 H 01/28/17 16:50 Resp 22 H 01/28/17 16:10 BP 110/44 L 01/28/17 16:50 Pulse Ox 93 L 01/28/17 16:50 Weight: 150 lb - Exam Quality Assessment: DVT Prophylaxis General: Lethargic HEENT: Conjunctiva Clear, Hearing Intact, Mucosa Moist & [place], Normal Nasal Septum, Posterior Pharynx Clear, Pupils Equal, Pupils Reactive Neck: Supple, Trachea Midline, +2 Carotid Pulse wo Bruit Lungs: Decreased Breath Sounds, Wheezing. No: Crackles, Rales, Rhonchi, Rub, Stridor Cardiovascular: Regular Rhythm, Normal S1, Normal S2, Tachycardia. No: Irregular Rhythm, Bradycardia, Systolic Murmur, Diastolic Murmur Abdomen: Normal Bowel Sounds, Soft Back Exam: Normal Inspection, Full Range of Motion, NT Extremities: Edema (3+ both ankles and extending into the lower legs) Skin: Warm, Dry, Intact Neurological: Cranial Nerves Intact, Strength Equal Bilateral, Normal Speech, Normal Tone, Sensation Intact. No: Focal Deficit Neuro Extensive - Mental Status: Normal Cognition, Memory Intact - Patient Data Lab Results last 24 hrs: Laboratory Results - last 24 hr 01/28/17 01/28/17 01/28/17 Range/Units 16:33 16:33 16:33 WBC 6.4 (4.5-11.0) K/uL RBC 3.33 (3.30-5.50) M/uL Hgb 9.9 L (12.0-15.0) g/dL Hct 33.8 L (36.0-48.0) % MCV 102 H (80-98) fL MCH 30 (27-31) pg MCHC 29 L (32-36) % Plt Count 270 (150-400) K/uL Neut % (Auto) 70 H (36-66) % Lymph % (Auto) 17 L (24-44) % [place] % (Auto) 10 H (2-6) % Eos % (Auto) 2 (2-4) % Baso % (Auto) 1 (0-1) % Puncture Site Rt radial ABG pH 7.225 L (7.350-7.450) ABG pCO2 109.0 H* (35.0-42.0) mmHg ABG pO2 60.7 L (75.0-100.0) mmHg ABG HCO3 43.3 H (22.0-26.0) mmol/L ABG Total CO2 42.2 H (21.0-25.0) mmol/L ABG O2 Saturation 87.7 L (95.0-98.0) % ABG O2 Content 10.9 L (15.0-23.0) %vol ABG Base Excess 13.1 mm/L ABG Hemoglobin 9.5 L (12.0-16.0) g/dL ABG Oxyhemoglobin 81.1 % ABG Carboxyhemoglobin 6.8 H (0.0-1.6) % ABG Methemoglobin 0.7 % Srikanth Test Pass O2 Delivery Device Nasal cannula Oxygen Flow Rate 2 L Sodium 145 (140-148) mmol/L Potassium 3.7 (3.6-5.2) mmol/L Chloride 103 (100-108) mmol/L Carbon Dioxide 43 H (21-32) mmol/L Anion Gap 2.7 L (5.0-14.0) mmol/L BUN 9 D (7-18) mg/dL Creatinine 0.4 L (0.6-1.0) mg/dL Est Cr Clr Drug Dosing 113.85 mL/min Estimated GFR (MDRD) > 60 (>60) Glucose 198 H (74-106) mg/dL Calcium 8.2 L (8.5-10.1) mg/dL Total Bilirubin 0.2 (0.2-1.0) mg/dL AST 13 L (15-37) U/L ALT 10 L (12-78) U/L Alkaline Phosphatase 124 H (46-116) U/L Troponin I 0.030 (0.000-0.056) ng/mL Total Protein 5.7 L (6.4-8.2) g/dL Albumin 2.4 L (3.4-5.0) g/dL Globulin 3.3 (2.3-3.5) g/dL Albumin/Globulin Ratio 0.7 L (1.2-2.2) Result Diagrams: 01/28/17 16:33 01/28/17 16:33 *Q Meaningful Use (ADM) - VTE *Q VTE Criteria *Q: - VTE Risk Assess *Q Each Risk Factor Represents 1 Point: Abnormal Pulmonary Function (COPD) Total Score 1 Point Risk Factors: 1 Each Risk Factor Represents 2 Points: Age 60 - 74 Years Total Score 2 Point Risk Factors: 2 Each Risk Factor Represents 3 Points: None Total Score 3 Point Risk Factors: 0 Each Risk Factor Represents 5 Points: None Total Score 5 Point Risk Factors: 0 Venous Thromboembolism Risk Factor Score *Q: 3 - Stroke *Q Stroke Criteria *Q: - AMI *Q AMI Criteria *Q: Problem List Initiated/Reviewed/Updated: Yes Orders Last 24hrs: Active Orders 24 hr Category Date Time Status Patient Status Manage Transfer [TRANSFER] Routine ADT 01/28/17 17:00 Active Cardiac Monitoring [RC] .As Directed Care 01/28/17 17:00 Active Chest 1V Frontal [CR] Stat Exams 01/28/17 16:14 Taken Sodium Chloride 0.9% [Normal Saline] 1,000 ml Med 06/12/17 16:15 Active IV ASDIRECTED Resuscitation Status Routine Resus Stat 01/28/17 17:03 Ordered Medication Orders Sodium Chloride (Normal Saline) 1,000 mls @ 100 mls/hr IV ASDIRECTED [facility] Last Admin: 01/28/17 16:33 Dose: 100 mls/hr Assessment/Plan Comment:: ASSESSMENT AND PLAN Hypoxic and hypercapnic respiratory failure secondary to COPD exacerbation-this patient has a history of severe COPD requiring continuous oxygen at home. She has had recurrent admissions over the past few months for COPD exacerbation with respiratory failure and often underlying respiratory infection. She denies recent fever or significant cough, chest x-ray shows no obvious infiltrate and her white blood cell count is within normal range. She had become progressively more weak and lethargic today, on initial assessment was found to have significant hypoxia with a oxygen saturation in the range of 70% and severe hypercapnia. -BiPAP -Nebulized albuterol and DuoNeb nebs -Solu-Medrol 40 mg IV every 8 hours -Maintain oxygen saturations in the upper 80s to avoid further CO2 retention -Hold on antibiotic therapy -Encouraged regular use of her Trilogy home ventilator, to avoid further hospitalizations Type 2 diabetes mellitus -Hold metformin -4 times a day glucometers -Low-dose sliding scale NovoLog Peripheral edema-likely secondary to right sided heart failure -Lasix 20 mg IV now and in a.m. MAINTENANCE ISSUES -DVT prophylaxis;Lovenox 40 mg subcutaneous daily -GI prophylaxis;not indicated -Dixon catheter;not indicated -Nutrition;consistent carb diet, 2 g sodium diet -Nicotine dependence;not required CODE STATUS-full code ADMISSION STATUS-patient will be admitted to inpatient status, expect at least a 2 night hospital stay for evaluation and management of problems as outlined above. At the time of this admission I do not reasonably expected evaluation and management of this problem will require more than a 96 hour hospital stay. DISPOSITION-anticipate discharge to home after the hospital stay. PRIMARY CARE PROVIDER-primary care provider is in the [facility]
[2017-01-28] MEDS ORDERED: Sodium Chloride 0.9% 10 ML Syringe FLUSH PRN (18:15)
[2017-01-28] MEDS ORDERED: Furosemide 20 MG/2 ML VIAL IVPUSH ONE (18:15)
[2017-01-28] MEDS ORDERED: Docusate Sodium 100 MG Cap PO PRN (18:15)
[2017-01-28] MEDS ORDERED: Magnesium Hydroxide 400 MG/5 ML Susp 30 ML Cup PO PRN (18:15)
[2017-01-28] MEDS ORDERED: 50% Dextrose in Water 50 ML Syringe IV PRN (18:15)
[2017-01-28] MEDS ORDERED: Glucose Gel 15 GM in 37.5 GM Tube PO PRN (18:15)
[2017-01-28] MEDS ORDERED: Enoxaparin 40 MG/0.4 ML Syringe SUBCUT SCH (18:15)
[2017-01-28] MEDS ORDERED: Polyethylene Glycol 3350 Powder 17 GM Packet PO PRN (18:15)
[2017-01-28] MEDS ORDERED: Ibuprofen 400 MG Tab PO PRN (18:15)
[2017-01-28] MEDS ORDERED: Acetaminophen 325 MG Tab PO PRN (18:15)
[2017-01-28] MEDS ORDERED: Albuterol 0.083% 2.5 MG/3 ML Neb Soln NEB PRN (18:15)
[2017-01-28] MEDS ORDERED: Ondansetron 4 MG/2 ML SDV IV PRN (18:15)
[2017-01-28] MEDS: methylPREDNISolone Sodium Succinate 40 MG/1 ML SDV IVPUSH SCH (18:35)
[2017-01-28] MEDS ORDERED: Formoterol/Mometasone 200-5 MCG 8.8 GM Inhaler IH SCH (21:00)
--- NOTE | 2017-01-28 21:34 | PCM.SN ---
- Free Text/Narrative Note: time; 20:07 call from ICU Nursing; request Dixon cath for Mrs. Lauren's care a; ICU critical care patient p; insert Dixon Cather per protocol. continue present plan of care.
[2017-01-28] MEDS: Insulin Aspart 100 Units/ML 3 ML Pen SUBCUT SCH ×2 (21:43→21:45)
[2017-01-28] MEDS: Pregabalin 100 MG Cap PO SCH (21:44)
[2017-01-28] MEDS: Albuterol/Ipratropium 3.0-0.5 MG/3 ML Neb Soln NEB SCH (21:44)
[2017-01-28] MEDS: Simvastatin 20 MG Tab PO SCH (22:07)
[2017-01-29] MEDS: methylPREDNISolone Sodium Succinate 40 MG/1 ML SDV IVPUSH SCH ×3 (01:36→17:22)
[2017-01-29] MEDS ORDERED: Furosemide 20 MG/2 ML VIAL IVPUSH ONE (07:00)
[2017-01-29] MEDS: Albuterol/Ipratropium 3.0-0.5 MG/3 ML Neb Soln NEB SCH ×4 (07:16→20:29)
[2017-01-29] MEDS: BUPRENORPHINE HCL 2 MG SL SCH (08:05)
[2017-01-29] MEDS: Pregabalin 100 MG Cap PO SCH ×3 (08:05→20:31)
[2017-01-29] MEDS: Citalopram 10 MG Tab PO SCH (08:05)
[2017-01-29] MEDS: Insulin Aspart 100 Units/ML 3 ML Pen SUBCUT SCH ×4 (08:12→20:27)
--- NOTE | 2017-01-29 08:19 | CR ---
Chest 1V Frontal INDICATION: dyspnea, hypoxia, fatigue FINDINGS: Comparison 01/10/2017. Heart size is accentuated by portable AP technique. Mild interstitia l densities in the left lung base, unchanged. No focal consolidation. Mild osteopenia.
[2017-01-29] MEDS ORDERED: Tiotropium Inhaler 18 MCG Inhalation Powder Cap Kit of 5 INH SCH (09:00)
[2017-01-29] MEDS: Formoterol/Mometasone 200-5 MCG 8.8 GM Inhaler IH SCH ×2 (09:03→20:28)
[2017-01-29] MEDS: Tiotropium Inhaler 18 MCG Inhalation Powder Cap Kit of 5 INH SCH (09:09)
--- NOTE | 2017-01-29 09:58 | PCM.PN ---
- General Info Date of Service: 01/29/17 Functional Status: Reports: tolerating diet, urinating - Review of Systems General: Reports: Weakness. Denies: Fever, Chills Pulmonary: Reports: shortness of breath, wheezing. Denies: pleuritic chest pain , cough, sputum, hemoptysis Cardiovascular: Reports: Dyspnea on Exertion, Edema. Denies: Chest Pain, Palpitations, Orthopnea, PND, Lightheadedness Gastrointestinal: Reports: No symptoms Systems Review Comment:: Ms. Lauren is a 61-year-old woman who was admitted last night with hypoxic and hypercapnic respiratory failure secondary to COPD exacerbation. There is been no evidence of significant underlying infection at the present time and she has been afebrile and otherwise hemodynamically stable. With use of BiPAP overnight her CO2 retention has improved and is likely close to baseline at the present time. - Patient Data Vitals - most recent: Last Vital Signs Temp 96 F 01/28/17 18:39 Pulse 70 01/29/17 07:17 Resp 16 01/29/17 05:32 BP 97/52 L 01/29/17 05:32 Pulse Ox 85 L 01/29/17 07:17 Weight - most recent: 162 lb 11.218 oz I&O - last 24 hours: Intake & Output 01/28/17 01/29/17 01/29/17 22:59 06:59 14:59 Output Total 1400 Balance -1400 Lab Results last 24 hrs: Laboratory Results - last 24 hr 01/28/17 01/29/17 01/29/17 Range/Units 18:55 05:00 05:27 WBC 2.7 L (4.5-11.0) K/uL RBC 3.10 L (3.30-5.50) M/uL Hgb 9.0 L (12.0-15.0) g/dL Hct 30.9 L (36.0-48.0) % MCV 100 H (80-98) fL MCH 29 (27-31) pg MCHC 29 L (32-36) % Plt Count 232 (150-400) K/uL Neut % (Auto) 83 H (36-66) % Lymph % (Auto) 16 L (24-44) % [place] % (Auto) 0 L (2-6) % Eos % (Auto) 0 L (2-4) % Baso % (Auto) 0 (0-1) % Puncture Site Lt radial Lt radial ABG pH 7.244 L 7.382 (7.350-7.450) ABG pCO2 106.0 H* 77.6 H* (35.0-42.0) mmHg ABG pO2 53.2 L 79.0 (75.0-100.0) mmHg ABG HCO3 44.2 H 45.0 H (22.0-26.0) mmol/L ABG Total CO2 43.0 H 42.5 H (21.0-25.0) mmol/L ABG O2 Saturation 84.2 L 96.5 (95.0-98.0) % ABG O2 Content 10.2 L 11.7 L (15.0-23.0) %vol ABG Base Excess 14.4 17.4 mm/L ABG Hemoglobin 9.2 L 9.1 L (12.0-16.0) g/dL ABG Oxyhemoglobin 78.1 90.2 % ABG Carboxyhemoglobin 6.4 H 5.9 H (0.0-1.6) % ABG Methemoglobin 0.8 0.6 % Srikanth Test Pass Passed O2 Delivery Device Bipap Bipap Oxygen Flow Rate L Sodium (140-148) mmol/L Potassium (3.6-5.2) mmol/L Chloride (100-108) mmol/L Carbon Dioxide (21-32) mmol/L Anion Gap (5.0-14.0) mmol/L BUN (7-18) mg/dL Creatinine (0.6-1.0) mg/dL Est Cr Clr Drug Dosing mL/min Estimated GFR (MDRD) (>60) Glucose (74-106) mg/dL Calcium (8.5-10.1) mg/dL 01/29/17 Range/Units 05:27 WBC (4.5-11.0) K/uL RBC (3.30-5.50) M/uL Hgb (12.0-15.0) g/dL Hct (36.0-48.0) % MCV (80-98) fL MCH (27-31) pg MCHC (32-36) % Plt Count (150-400) K/uL Neut % (Auto) (36-66) % Lymph % (Auto) (24-44) % [place] % (Auto) (2-6) % Eos % (Auto) (2-4) % Baso % (Auto) (0-1) % Puncture Site ABG pH (7.350-7.450) ABG pCO2 (35.0-42.0) mmHg ABG pO2 (75.0-100.0) mmHg ABG HCO3 (22.0-26.0) mmol/L ABG Total CO2 (21.0-25.0) mmol/L ABG O2 Saturation (95.0-98.0) % ABG O2 Content (15.0-23.0) %vol ABG Base Excess mm/L ABG Hemoglobin (12.0-16.0) g/dL ABG Oxyhemoglobin % ABG Carboxyhemoglobin (0.0-1.6) % ABG Methemoglobin % Srikanth Test O2 Delivery Device Oxygen Flow Rate L Sodium 144 (140-148) mmol/L Potassium 3.9 (3.6-5.2) mmol/L Chloride 101 (100-108) mmol/L Carbon Dioxide 43 H (21-32) mmol/L Anion Gap 3.9 L (5.0-14.0) mmol/L BUN 7 (7-18) mg/dL Creatinine 0.3 L (0.6-1.0) mg/dL Est Cr Clr Drug Dosing 172.71 mL/min Estimated GFR (MDRD) > 60 (>60) Glucose 202 H (74-106) mg/dL Calcium 7.9 L (8.5-10.1) mg/dL Med Orders - Current: Current Medications Acetaminophen (Tylenol) 650 mg PO Q4H PRN PRN Reason: Pain (Mild 1-3)/fever Albuterol (Proventil Neb Soln) 2.5 mg NEB Q4H PRN PRN Reason: Shortness Of Breath/wheezing Albuterol/Ipratropium (Duoneb 3.0-0.5 Mg/3 Ml) 3 ml NEB QIDRT [facility] Last Admin: 01/29/17 07:16 Dose: 3 ml Buprenorphine HCl (Buprenorphine Hcl) 12 mg SL ACBREAKFAST [facility] Last Admin: 01/29/17 08:05 Dose: 12 mg Citalopram Hydrobromide (Celexa) 10 mg PO DAILY [facility] Last Admin: 01/29/17 08:05 Dose: 10 mg Dextrose (Glutose 15) 15 gm PO ONETIME PRN PRN Reason: Hypoglycemia Dextrose/Water (Dextrose 50% In Water) 50 ml IV ONETIME PRN PRN Reason: Hypoglycemia Docusate Sodium (Colace) 100 mg PO BID PRN PRN Reason: Constipation Enoxaparin Sodium (Lovenox) 40 mg SUBCUT Q24H [place] Furosemide (Lasix) 20 mg IVPUSH NOW ONE Stop: 01/30/17 07:01 Ibuprofen (Motrin) 400 mg PO Q6HR PRN PRN Reason: Pain Insulin Aspart (Novolog) 0 unit SUBCUT QIDPCANDBED [facility] PRN Reason: Protocol Last Admin: 01/29/17 08:12 Dose: 1 units Magnesium Hydroxide (Milk Of Magnesia) 30 ml PO Q12H PRN PRN Reason: Constipation Methylprednisolone Sodium Succinate (Solu-Medrol) 40 mg IVPUSH Q8H [facility] Mometasone Furoate/Formoterol Fumar (Dulera 200-5 Mcg) 2 puff IH BIDRT [facility] Last Admin: 01/29/17 09:03 Dose: 2 puff Ondansetron HCl (Zofran) 4 mg IV Q4H PRN PRN Reason: Nausea/Vomiting Polyethylene Glycol (Miralax) 17 gm PO DAILY PRN PRN Reason: Constipation Pregabalin (Lyrica) 100 mg PO TID [facility] Last Admin: 01/29/17 08:05 Dose: 100 mg Simvastatin (Zocor) 80 mg PO BEDTIME [facility] Last Admin: 01/28/17 22:07 Dose: Not Given Sodium Chloride (Saline Flush) 10 ml FLUSH ASDIRECTED PRN PRN Reason: Keep Vein Open Tiotropium [place] (Spiriva Handihaler) 18 mcg INH DAILYRT [facility] Last Admin: 01/29/17 09:09 Dose: 18 mcg Discontinued Medications Enoxaparin Sodium (Lovenox) 40 mg SUBCUT DAILY [facility] Last Admin: 01/28/17 19:26 Dose: 40 mg Furosemide (Lasix) 20 mg IVPUSH NOW ONE Stop: 01/28/17 18:16 Last Admin: 01/28/17 18:30 Dose: 20 mg Furosemide (Lasix) 20 mg IVPUSH NOW ONE Stop: 01/29/17 07:01 Last Admin: 01/29/17 07:50 Dose: 20 mg Sodium Chloride (Normal Saline) 1,000 mls @ 100 mls/hr IV ASDIRECTED [facility] Last Admin: 01/28/17 16:33 Dose: 100 mls/hr Methylprednisolone Sodium Succinate (Solu-Medrol) 40 mg IVPUSH Q8H [facility] Last Admin: 01/29/17 01:36 Dose: 40 mg Mometasone Furoate/Formoterol Fumar (Dulera 200-5 Mcg) 2 puff IH BID [facility] Last Admin: 01/28/17 21:44 Dose: Not Given - Exam Quality Assessment: supplemental oxygen, DVT prophylaxis General: alert, oriented, cooperative, no acute distress Lungs: Decreased breath sounds, Wheezing. No: Crackles, Rales, Rhonchi, Rub, Stridor Cardiovascular: Regular Rate, Regular Rhythm, No Murmurs Abdomen: bowel sounds present, soft, no tenderness, no distension Extremities: edema Skin: warm, dry, intact - Problem List Review Problem List Initiated/Reviewed/Updated: Yes - My Orders Last 24 Hours: My Active Orders 01/28/17 17:03 Resuscitation Status Routine 01/28/17 18:15 Patient Status [ADT] Routine BIPAP Adult [RT BiPAP/CPAP] [RC] ASDIRECTED Blood Glucose Check, Bedside [RC] QIDACANDBED Communication Order [RC] ASDIRECTED Diabetes Education [RC] Click to Edit Intake and Output [RC] QSHIFT Notify Provider Vital Signs [RC] ASDIRECTED Notify Provider [RC] PRN Oxygen Therapy [RC] PRN RT Aerosol Therapy [RC] ASDIRECTED Up With Assistance [RC] ASDIRECTED VTE/DVT Education [RC] Per Unit Routine Vital Signs [RC] Q4H Acetaminophen [Tylenol] 650 mg PO Q4H PRN Albuterol [Proventil Neb Soln] 2.5 mg NEB Q4H PRN Dextrose 50% in Water 50 ml IV ONETIME PRN Dextrose [Glutose 15] 15 gm PO ONETIME PRN Docusate Sodium [Colace] 100 mg PO BID PRN Insulin Aspart [NovoLOG] See Protocol SUBCUT QIDPCANDBED Magnesium Hydroxide [Milk of Magnesia] 30 ml PO Q12H PRN Ondansetron [Zofran] 4 mg IV Q4H PRN Polyethylene Glycol 3350 [MiraLAX] 17 gm PO DAILY PRN Sodium Chloride 0.9% [Saline Flush] 10 ml FLUSH ASDIRECTED PRN Saline Lock Insert [OM.PC] Routine 01/28/17 21:00 Albuterol/Ipratropium [DuoNeb 3.0-0.5 MG/3 ML] 3 ml NEB QIDRT 01/28/17 Dinner 2 Gram Sodium Diet [DIET] Consistent Carbohydrate Diet [DIET] 01/29/17 07:45 Mometasone/Formoterol [Dulera 200-5 MCG] 2 puff IH BIDRT 01/29/17 08:00 Tiotropium [Spiriva HandiHaler] 18 mcg INH DAILYRT 01/29/17 10:00 methylPREDNISolone Sod Succ [Solu-MEDROL] 40 mg IVPUSH Q8H 01/29/17 17:00 Enoxaparin [Lovenox] 40 mg SUBCUT Q24H 01/30/17 05:00 BASIC METABOLIC PANEL,BMP [CHEM] Timed CBC WITH AUTO DIFF [HEME] Timed 01/30/17 07:00 Furosemide [Lasix] 20 mg IVPUSH NOW ONE 01/30/17 07:30 GLUCOSE POC LAB TO COLLECT [POC] QIDACANDBED 01/30/17 11:30 GLUCOSE POC LAB TO COLLECT [POC] QIDACANDBED 01/30/17 16:30 GLUCOSE POC LAB TO COLLECT [POC] QIDACANDBED 01/30/17 21:00 GLUCOSE POC LAB TO COLLECT [POC] QIDACANDBED 01/31/17 07:30 GLUCOSE POC LAB TO COLLECT [POC] QIDACANDBED 01/31/17 11:30 GLUCOSE POC LAB TO COLLECT [POC] QIDACANDBED 01/31/17 16:30 GLUCOSE POC LAB TO COLLECT [POC] QIDACANDBED 01/31/17 21:00 GLUCOSE POC LAB TO COLLECT [POC] QIDACANDBED 02/01/17 07:30 GLUCOSE POC LAB TO COLLECT [POC] QIDACANDBED 02/01/17 11:30 GLUCOSE POC LAB TO COLLECT [POC] QIDACANDBED 02/01/17 16:30 GLUCOSE POC LAB TO COLLECT [POC] QIDACANDBED 02/01/17 21:00 GLUCOSE POC LAB TO COLLECT [POC] QIDACANDBED 02/02/17 07:30 GLUCOSE POC LAB TO COLLECT [POC] QIDACANDBED 02/02/17 11:30 GLUCOSE POC LAB TO COLLECT [POC] QIDACANDBED 02/02/17 16:30 GLUCOSE POC LAB TO COLLECT [POC] QIDACANDBED 02/02/17 21:00 GLUCOSE POC LAB TO COLLECT [POC] QIDACANDBED 02/03/17 07:30 GLUCOSE POC LAB TO COLLECT [POC] QIDACANDBED 02/03/17 11:30 GLUCOSE POC LAB TO COLLECT [POC] QIDACANDBED 02/03/17 16:30 GLUCOSE POC LAB TO COLLECT [POC] QIDACANDBED 02/03/17 21:00 GLUCOSE POC LAB TO COLLECT [POC] QIDACANDBED 02/04/17 07:30 GLUCOSE POC LAB TO COLLECT [POC] QIDACANDBED 02/04/17 11:30 GLUCOSE POC LAB TO COLLECT [POC] QIDACANDBED 02/04/17 16:30 GLUCOSE POC LAB TO COLLECT [POC] QIDACANDBED 02/04/17 21:00 GLUCOSE POC LAB TO COLLECT [POC] QIDACANDBED 02/05/17 07:30 GLUCOSE POC LAB TO COLLECT [POC] QIDACANDBED 02/05/17 11:30 GLUCOSE POC LAB TO COLLECT [POC] QIDACANDBED 02/05/17 16:30 GLUCOSE POC LAB TO COLLECT [POC] QIDACANDBED 02/05/17 21:00 GLUCOSE POC LAB TO COLLECT [POC] QIDACANDBED 02/06/17 07:30 GLUCOSE POC LAB TO COLLECT [POC] QIDACANDBED 02/06/17 11:30 GLUCOSE POC LAB TO COLLECT [POC] QIDACANDBED 02/06/17 16:30 GLUCOSE POC LAB TO COLLECT [POC] QIDACANDBED 02/06/17 21:00 GLUCOSE POC LAB TO COLLECT [POC] QIDACANDBED 02/07/17 07:30 GLUCOSE POC LAB TO COLLECT [POC] QIDACANDBED 02/07/17 11:30 GLUCOSE POC LAB TO COLLECT [POC] QIDACANDBED 02/07/17 16:30 GLUCOSE POC LAB TO COLLECT [POC] QIDACANDBED 02/07/17 21:00 GLUCOSE POC LAB TO COLLECT [POC] QIDACANDBED 02/08/17 07:30 GLUCOSE POC LAB TO COLLECT [POC] QIDACANDBED 02/08/17 11:30 GLUCOSE POC LAB TO COLLECT [POC] QIDACANDBED 02/08/17 16:30 GLUCOSE POC LAB TO COLLECT [POC] QIDACANDBED - Plan Plan:: ASSESSMENT AND PLAN Hypoxic and hypercapnic respiratory failure secondary to COPD exacerbation-this patient has a history of severe COPD requiring continuous oxygen at home. She has had recurrent admissions over the past few months for COPD exacerbation with respiratory failure and often underlying respiratory infection. She has been stable since admission with good improvement in her CO2 retention. -BiPAP as needed and while sleeping -Nebulized albuterol and DuoNeb nebs -Solu-Medrol 40 mg IV every 8 hours -Maintain oxygen saturations in the upper 80s to avoid further CO2 retention -Hold on antibiotic therapy -Encouraged regular use of her Trilogy home ventilator, to avoid further hospitalizations Type 2 diabetes mellitus -Hold metformin -4 times a day glucometers -Low-dose sliding scale NovoLog Peripheral edema-likely secondary to right sided heart failure -Lasix 20 mg IV now and in a.m. MAINTENANCE ISSUES -DVT prophylaxis;Lovenox 40 mg subcutaneous daily -GI prophylaxis;not indicated -Dixon catheter;not indicated -Nutrition;consistent carb diet, 2 g sodium diet -Nicotine dependence;not required CODE STATUS-full code ADMISSION STATUS-patient will be admitted to inpatient status, expect at least a 2 night hospital stay for evaluation and management of problems as outlined above. At the time of this admission I do not reasonably expected evaluation and management of this problem will require more than a 96 hour hospital stay. DISPOSITION-anticipate discharge to home after the hospital stay. PRIMARY CARE PROVIDER-primary care provider is in the [facility]
[2017-01-29] MEDS ORDERED: Enoxaparin 40 MG/0.4 ML Syringe SUBCUT SCH (17:00)
[2017-01-29] MEDS: Simvastatin 20 MG Tab PO SCH (20:32)
[2017-01-29] MEDS ORDERED: LORazepam 0.5 MG Tab PO PRN (22:03)
[2017-01-30] MEDS: methylPREDNISolone Sodium Succinate 40 MG/1 ML SDV IVPUSH SCH ×2 (01:11→10:05)
[2017-01-30] MEDS ORDERED: Furosemide 20 MG/2 ML VIAL IV ONE (06:45)
[2017-01-30] MEDS ORDERED: Furosemide 40 MG/4 ML VIAL IVPUSH ONE (07:00)
[2017-01-30] MEDS: Tiotropium Inhaler 18 MCG Inhalation Powder Cap Kit of 5 INH SCH (07:12)
[2017-01-30] MEDS: Albuterol/Ipratropium 3.0-0.5 MG/3 ML Neb Soln NEB SCH ×2 (07:12→10:56)
[2017-01-30] MEDS: Formoterol/Mometasone 200-5 MCG 8.8 GM Inhaler IH SCH (07:12)
[2017-01-30] MEDS: BUPRENORPHINE HCL 2 MG SL SCH (07:34)
[2017-01-30] MEDS: Insulin Aspart 100 Units/ML 3 ML Pen SUBCUT SCH (08:10)
[2017-01-30] MEDS: Citalopram 10 MG Tab PO SCH (08:13)
[2017-01-30] MEDS: Pregabalin 100 MG Cap PO SCH (08:14)
--- NOTE | 2017-01-30 09:58 | PCM.DCSUM1 ---
Discharge Summary - Hospital Course Brief History: Ms. mccallum is a 61-year-old woman with known severe oxygen dependent COPD. She was admitted through the emergency department with COPD exacerbation and associated hypoxic and hypercapnic respiratory failure. - Discharge Data Discharge Date: 01/30/17 Discharge Disposition: Home, W Home Health Agency 06 Condition: Poor - Discharge Diagnosis/Problem(s) (1) Acute exacerbation of chronic obstructive pulmonary disease (COPD) SNOMED Code(s): 198707621 ICD Code: J44.1 - CHRONIC OBSTRUCTIVE PULMONARY DISEASE W (ACUTE) EXACERBATION Status: Acute Current Visit: Yes (2) Acute respiratory failure with hypoxia and hypercapnia SNOMED Code(s): 58251520, 287161403 ICD Code: J96.01 - ACUTE RESPIRATORY FAILURE WITH HYPOXIA; J96.02 - ACUTE RESPIRATORY FAILURE WITH HYPERCAPNIA Status: Acute Current Visit: Yes - Patient Summary/Data Hospital Course: Ms. Islas is a 61-year-old woman with known severe oxygen dependent COPD. She developed increased shortness of breath at home on the day of admission and on initial assessment in the emergency department was noted be significantly hypoxic with associated hypercapnia. She was placed on BiPAP and given IV Solu- Medrol in addition to nebulizer therapy. There was no evidence of underlying pulmonary infection on evaluation or during hospitalization. She improved significantly with this management and will be discharged home with home BiPAP as well as oral prednisone and ongoing inhaler therapy. She will continue her usual supplemental oxygen. We did discuss the progressive nature of her disease and the fact that she is likely approaching end stage of the disease. She does not want to consider hospice or comfort cares at the present time. Activity will be as tolerated and she will resume her usual diet. Appointment will be made for her to establish primary care with Dr. Young. - Patient Instructions Diet: Usual Diet as Tolerated Activity: As Tolerated Other/Special Instructions: Discharged home with BiPAP home ventilator system. Please schedule appointment with Dr. Young at [facility] in [place]. Home care with home physical therapy and occupational therapy - Discharge Plan Prescriptions/Med Rec: Prednisone [IJD: predniSONE] 40 mg PO WITHBREAKFAST #20 tablet Home Medications: Home Meds Albuterol Sulfate [Proair Respiclick] 90 mcg IH Q4HR 12/01/16 [History] Budesonide/Formoterol [Symbicort 160-4.5 MCG] 2 puff INH BID 12/01/16 [History] Buprenorphine HCl [Buprenorphine] 12 mg SL ACBREAKFAST 12/01/16 [History] Citalopram [Citalopram HBr] 10 mg PO DAILY 12/01/16 [History] Ibuprofen 400 mg PO Q6HR PRN 12/01/16 [History] LORazepam 1 mg PO BEDTIME PRN 12/01/16 [History] Pregabalin [Lyrica] 100 mg PO TID 12/01/16 [History] Simvastatin [Zocor] 80 mg PO BEDTIME 12/01/16 [History] Tiotropium [Spiriva Handihaler] 1 puff INH DAILY 12/01/16 [History] metFORMIN [Glucophage] 1,000 mg PO BIDMEALS 12/01/16 [History] Prednisone [IJD: predniSONE] 20 mg PO WITHBREAKFAST 01/10/17 [History] Prednisone [IJD: predniSONE] 40 mg PO WITHBREAKFAST #20 tablet 01/30/17 [Rx] Referrals: Maycol Young MD [Ordering Only Provider] - - Patient Data Vitals - Most Recent: Last Vital Signs Temp 97.3 F 01/30/17 07:37 Pulse 70 01/30/17 07:37 Resp 17 01/30/17 07:37 BP 108/48 L 01/30/17 07:37 Pulse Ox 93 L 01/30/17 07:37 Weight - Most Recent: 162 lb 11.218 oz I&O - Last 24 hours: Intake & Output 01/29/17 01/30/17 01/30/17 22:59 06:59 14:59 Intake Total 240 Output Total 140 350 350 Balance -140 -110 -350 Lab Results - Last 24 hrs: Laboratory Results - last 24 hr 01/30/17 01/30/17 Range/Units 05:39 05:39 WBC 2.7 L (4.5-11.0) K/uL RBC 3.06 L (3.30-5.50) M/uL Hgb 9.0 L (12.0-15.0) g/dL Hct 29.6 L (36.0-48.0) % MCV 97 (80-98) fL MCH 29 (27-31) pg MCHC 30 L (32-36) % Plt Count 253 (150-400) K/uL Neut % (Auto) 77 H (36-66) % Lymph % (Auto) 20 L (24-44) % [place] % (Auto) 3 (2-6) % Eos % (Auto) 0 L (2-4) % Baso % (Auto) 0 (0-1) % Sodium 143 (140-148) mmol/L Potassium 3.8 (3.6-5.2) mmol/L Chloride 99 L (100-108) mmol/L Carbon Dioxide 47 H (21-32) mmol/L Anion Gap 0.8 L (5.0-14.0) mmol/L BUN 12 D (7-18) mg/dL Creatinine 0.4 L (0.6-1.0) mg/dL Est Cr Clr Drug Dosing 129.33 mL/min Estimated GFR (MDRD) > 60 (>60) Glucose 265 H (74-106) mg/dL Calcium 8.0 L (8.5-10.1) mg/dL Med Orders - Current: Current Medications Acetaminophen (Tylenol) 650 mg PO Q4H PRN PRN Reason: Pain (Mild 1-3)/fever Albuterol (Proventil Neb Soln) 2.5 mg NEB Q4H PRN PRN Reason: Shortness Of Breath/wheezing Albuterol/Ipratropium (Duoneb 3.0-0.5 Mg/3 Ml) 3 ml NEB QIDRT [facility] Last Admin: 01/30/17 07:12 Dose: 3 ml Buprenorphine HCl (Buprenorphine Hcl) 12 mg SL ACBREAKFAST [facility] Last Admin: 01/30/17 07:34 Dose: 12 mg Citalopram Hydrobromide (Celexa) 10 mg PO DAILY [facility] Last Admin: 01/30/17 08:13 Dose: 10 mg Dextrose (Glutose 15) 15 gm PO ONETIME PRN PRN Reason: Hypoglycemia Dextrose/Water (Dextrose 50% In Water) 50 ml IV ONETIME PRN PRN Reason: Hypoglycemia Docusate Sodium (Colace) 100 mg PO BID PRN PRN Reason: Constipation Enoxaparin Sodium (Lovenox) 40 mg SUBCUT Q24H [facility] Last Admin: 01/29/17 16:44 Dose: 40 mg Ibuprofen (Motrin) 400 mg PO Q6HR PRN PRN Reason: Pain Insulin Aspart (Novolog) 0 unit SUBCUT QIDPCANDBED [facility] PRN Reason: Protocol Last Admin: 01/30/17 08:10 Dose: 3 units Lorazepam (Ativan) 0.5 mg PO Q4H PRN PRN Reason: Anxiety Last Admin: 01/29/17 22:13 Dose: 0.5 mg Magnesium Hydroxide (Milk Of Magnesia) 30 ml PO Q12H PRN PRN Reason: Constipation Methylprednisolone Sodium Succinate (Solu-Medrol) 40 mg IVPUSH Q8H [facility] Last Admin: 01/30/17 01:11 Dose: 40 mg Mometasone Furoate/Formoterol Fumar (Dulera 200-5 Mcg) 2 puff IH BIDRT [facility] Last Admin: 01/30/17 07:12 Dose: 2 puff Ondansetron HCl (Zofran) 4 mg IV Q4H PRN PRN Reason: Nausea/Vomiting Polyethylene Glycol (Miralax) 17 gm PO DAILY PRN PRN Reason: Constipation Pregabalin (Lyrica) 100 mg PO TID [facility] Last Admin: 01/30/17 08:14 Dose: 100 mg Simvastatin (Zocor) 80 mg PO BEDTIME [facility] Last Admin: 01/29/17 20:32 Dose: 80 mg Sodium Chloride (Saline Flush) 10 ml FLUSH ASDIRECTED PRN PRN Reason: Keep Vein Open Tiotropium [place] (Spiriva Handihaler) 18 mcg INH DAILYRT [facility] Last Admin: 01/30/17 07:12 Dose: 18 mcg Discontinued Medications Enoxaparin Sodium (Lovenox) 40 mg SUBCUT DAILY [facility] Last Admin: 01/28/17 19:26 Dose: 40 mg Furosemide (Lasix) 20 mg IVPUSH NOW ONE Stop: 01/28/17 18:16 Last Admin: 01/28/17 18:30 Dose: 20 mg Furosemide (Lasix) 20 mg IVPUSH NOW ONE Stop: 01/29/17 07:01 Last Admin: 01/29/17 07:50 Dose: 20 mg Furosemide (Lasix) 20 mg IV ONETIME ONE Stop: 01/30/17 06:46 Last Admin: 01/30/17 05:55 Dose: 20 mg Sodium Chloride (Normal Saline) 1,000 mls @ 100 mls/hr IV ASDIRECTED [facility] Last Admin: 01/28/17 16:33 Dose: 100 mls/hr Methylprednisolone Sodium Succinate (Solu-Medrol) 40 mg IVPUSH Q8H [facility] Last Admin: 01/29/17 01:36 Dose: 40 mg Mometasone Furoate/Formoterol Fumar (Dulera 200-5 Mcg) 2 puff IH BID [facility] Last Admin: 01/28/17 21:44 Dose: Not Given *Q Meaningful Use (DIS) - VTE *Q VTE Criteria *Q: - Stroke *Q Stroke Criteria *Q: - AMI *Q AMI Criteria *Q:
[2017-01-30 10:11] VITALS: BP 110/52
== END 2017-01-30 12:12 | disposition home health service (06) | DRG 190 ==
LOC: JP.ED 16:10 → JP.ICU 17:00
PROVIDERS: ADMIT Hospitalist; ATTEND Hospitalist
DX: J44.1 Chronic obstructive pulmonary disease with (acute) exacerbation (principal); J96.01 Acute respiratory failure with hypoxia; J96.02 Acute respiratory failure with hypercapnia; E11.9 Type 2 diabetes mellitus without complications; Z79.84 Long term (current) use of oral hypoglycemic drugs; E78.00 Pure hypercholesterolemia, unspecified; F17.210 Nicotine dependence, cigarettes, uncomplicated; Z87.440 Personal history of urinary (tract) infections; M54.9 Dorsalgia, unspecified; G89.29 Other chronic pain; F32.9 Major depressive disorder, single episode, unspecified; Z99.81 Dependence on supplemental oxygen; Z79.52 Long term (current) use of systemic steroids
CPT/HCPCS: 36600 ×2; 71010 ×2; 80053; 82803; 84484; 85025; 96361; 99285; J7040; 36415; 80048; 82962; 94640; 94640-76; 94660; 94664; 96374; 99284; A9270-GY; J0571; J1650; J1940; J2920; J7620

== ENCOUNTER 2017-02-16 21:14 | Inpatient (IN) | payer MEDICARE, MEDICAID, OTHER ==
[2017-02-16] MEDS ORDERED: Albuterol 0.083% 2.5 MG/3 ML Neb Soln NEB ONE (21:27)
--- NOTE | 2017-02-16 21:28 | EDM.PDOC ---
[id number]: MEDICAL Time Seen by Provider: 02/16/17 21:28 Source of Information: Reports: Patient, EMS Notes Reviewed, Family History Limitations: Reports: No Limitations - History of Present Illness INITIAL COMMENTS - FREE TEXT/NARRATIVE: pt arrived very obtunded and labored breathing. She was found in this obtunded state and her son didn,t know if she might have taken extra meds. Onset: Gradual Duration: Hour(s):, Other (pt became more and more sleepy today. She was recently hospitalization. ) Location: Reports: Chest Associated Symptoms: Reports: Shortness of Breath - Related Data Allergies Allergy/AdvReac Type Severity Reaction Status Date / Time No Known Allergies Allergy Verified 01/28/17 16:14 Home Meds: Home Meds Albuterol Sulfate [Proair Respiclick] 90 mcg IH Q4HR 12/01/16 [History] Budesonide/Formoterol [Symbicort 160-4.5 MCG] 2 puff INH BID 12/01/16 [History] Buprenorphine HCl [Buprenorphine] 12 mg SL ACBREAKFAST 12/01/16 [History] Citalopram [Citalopram HBr] 10 mg PO DAILY 12/01/16 [History] Ibuprofen 400 mg PO Q6HR PRN 12/01/16 [History] LORazepam 1 mg PO BEDTIME PRN 12/01/16 [History] Pregabalin [Lyrica] 100 mg PO TID 12/01/16 [History] Simvastatin [Zocor] 80 mg PO BEDTIME 12/01/16 [History] Tiotropium [Spiriva Handihaler] 1 puff INH DAILY 12/01/16 [History] metFORMIN [Glucophage] 1,000 mg PO BIDMEALS 12/01/16 [History] Prednisone [IJD: predniSONE] 20 mg PO WITHBREAKFAST 01/10/17 [History] Prednisone [IJD: predniSONE] 40 mg PO WITHBREAKFAST #20 tablet 01/30/17 [Rx] Past Medical History Cardiovascular History: Reports: High Cholesterol, Hypertension Other Cardiovascular History: enlarged right Respiratory History: Reports: Asthma, COPD, Intubation, Previous Genitourinary History: Reports: UTI, 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: Musculoskeletal History: Reports: Back Pain, Chronic Other Musculoskeletal History: uses w/c at home and walker Psychiatric History: Reports: Depression Endocrine/Metabolic History: Reports: Diabetes, Type II - Past Surgical History Female Surgical History: Reports: Hysterectomy Social & Family History - Family History Family Medical History: Unobtainable - Tobacco Use Smoking Status *Q: Current Every Day Smoker Years of Tobacco use: 50 Packs/Tins Daily: 0.5 - Caffeine Use Caffeine Use: Reports: Coffee - Recreational Drug Use Recreational Drug Use: No Recreational Drug Type: Reports: Oxycodone ED ROS GENERAL - Review of Systems Review Of Systems: See Below Constitutional: Reports: No Symptoms HEENT: Reports: No Symptoms Respiratory: Reports: Shortness of Breath, Cough Cardiovascular: Reports: No Symptoms Endocrine: Reports: No Symptoms GI/Abdominal: Reports: No Symptoms : Reports: No Symptoms Musculoskeletal: Reports: No Symptoms Skin: Reports: No Symptoms Neurological: Reports: No Symptoms, Other (bearly reponsive. ) Psychiatric: Reports: No Symptoms ED EXAM, GENERAL - Physical Exam Exam: See Below Free Text/Narrative:: pt arrived sob and very obtunded. Her o2 sats were in the 70-80 range. Exam Limited By: Respiratory Distress General Appearance: Alert, Severe Distress Ears: Normal TMs Nose: Normal Inspection Throat/Mouth: Normal Inspection Head: Atraumatic Neck: Normal Inspection Respiratory/Chest: Decreased Breath Sounds, Wheezing Cardiovascular: Regular Rate, Rhythm, Tachycardia GI/Abdominal: Soft, Non-Tender (Female) Exam: Deferred Rectal (Female) Exam: Deferred Back Exam: Normal Inspection Extremities: Pedal Edema, Other (pt has a trace of pedal edema. ) Course - Vital Signs Last Recorded V/S: Last Vital Signs Temp 37.9 C 02/18/17 08:00 Pulse 102 H 02/18/17 08:00 Resp 25 H 02/18/17 08:00 BP 145/64 H 02/18/17 08:00 Pulse Ox 88 L 02/18/17 08:00 - Orders/Labs/Meds Orders: Active Orders 24 hr Category Date Time Status GLUCOSE POC LAB TO COLLECT [POC] QIDACANDBED Lab 02/19/17 07:30 Ordered GLUCOSE POC LAB TO COLLECT [POC] QIDACANDBED Lab 02/19/17 11:30 Ordered GLUCOSE POC LAB TO COLLECT [POC] QIDACANDBED Lab 02/19/17 16:30 Ordered GLUCOSE POC LAB TO COLLECT [POC] QIDACANDBED Lab 02/19/17 21:00 Ordered GLUCOSE POC LAB TO COLLECT [POC] QIDACANDBED Lab 02/20/17 07:30 Ordered GLUCOSE POC LAB TO COLLECT [POC] QIDACANDBED Lab 02/20/17 11:30 Ordered GLUCOSE POC LAB TO COLLECT [POC] QIDACANDBED Lab 02/20/17 16:30 Ordered GLUCOSE POC LAB TO COLLECT [POC] QIDACANDBED Lab 02/20/17 21:00 Ordered GLUCOSE POC LAB TO COLLECT [POC] QIDACANDBED Lab 02/21/17 07:30 Ordered GLUCOSE POC LAB TO COLLECT [POC] QIDACANDBED Lab 02/21/17 11:30 Ordered GLUCOSE POC LAB TO COLLECT [POC] QIDACANDBED Lab 02/21/17 16:30 Ordered GLUCOSE POC LAB TO COLLECT [POC] QIDACANDBED Lab 02/21/17 21:00 Ordered GLUCOSE POC LAB TO COLLECT [POC] QIDACANDBED Lab 02/22/17 07:30 Ordered GLUCOSE POC LAB TO COLLECT [POC] QIDACANDBED Lab 02/22/17 11:30 Ordered GLUCOSE POC LAB TO COLLECT [POC] QIDACANDBED Lab 02/22/17 16:30 Ordered GLUCOSE POC LAB TO COLLECT [POC] QIDACANDBED Lab 02/22/17 21:00 Ordered GLUCOSE POC LAB TO COLLECT [POC] QIDACANDBED Lab 02/23/17 07:30 Ordered GLUCOSE POC LAB TO COLLECT [POC] QIDACANDBED Lab 02/23/17 11:30 Ordered GLUCOSE POC LAB TO COLLECT [POC] QIDACANDBED Lab 02/23/17 16:30 Ordered GLUCOSE POC LAB TO COLLECT [POC] QIDACANDBED Lab 02/23/17 21:00 Ordered GLUCOSE POC LAB TO COLLECT [POC] QIDACANDBED Lab 02/24/17 07:30 Ordered GLUCOSE POC LAB TO COLLECT [POC] QIDACANDBED Lab 02/24/17 11:30 Ordered GLUCOSE POC LAB TO COLLECT [POC] QIDACANDBED Lab 02/24/17 16:30 Ordered GLUCOSE POC LAB TO COLLECT [POC] QIDACANDBED Lab 02/24/17 21:00 Ordered GLUCOSE POC LAB TO COLLECT [POC] QIDACANDBED Lab 02/25/17 07:30 Ordered GLUCOSE POC LAB TO COLLECT [POC] QIDACANDBED Lab 02/25/17 11:30 Ordered GLUCOSE POC LAB TO COLLECT [POC] QIDACANDBED Lab 02/25/17 16:30 Ordered GLUCOSE POC LAB TO COLLECT [POC] QIDACANDBED Lab 02/25/17 21:00 Ordered GLUCOSE POC LAB TO COLLECT [POC] QIDACANDBED Lab 02/26/17 07:30 Ordered GLUCOSE POC LAB TO COLLECT [POC] QIDACANDBED Lab 02/26/17 11:30 Ordered GLUCOSE POC LAB TO COLLECT [POC] QIDACANDBED Lab 02/26/17 16:30 Ordered GLUCOSE POC LAB TO COLLECT [POC] QIDACANDBED Lab 02/26/17 21:00 Ordered GLUCOSE POC LAB TO COLLECT [POC] QIDACANDBED Lab 02/27/17 07:30 Ordered GLUCOSE POC LAB TO COLLECT [POC] QIDACANDBED Lab 02/27/17 11:30 Ordered GLUCOSE POC LAB TO COLLECT [POC] QIDACANDBED Lab 02/27/17 16:30 Ordered GLUCOSE POC LAB TO COLLECT [POC] QIDACANDBED Lab 02/27/17 21:00 Ordered Citalopram [Celexa] Med 02/17/17 09:00 Active 10 mg PO DAILY Pregabalin [Lyrica] Med 02/17/17 09:00 Active 100 mg PO TID Simvastatin [Zocor] Med 02/17/17 21:00 Active 80 mg PO BEDTIME Medication Orders Acetaminophen (Tylenol) 650 mg PO Q4H PRN PRN Reason: Pain (Mild 1-3)/fever Last Admin: 02/17/17 21:15 Dose: 650 mg Albuterol (Proventil Neb Soln) 2.5 mg NEB Q4H PRN PRN Reason: Shortness Of Breath/wheezing Albuterol/Ipratropium (Duoneb 3.0-0.5 Mg/3 Ml) 3 ml NEB QIDRT [facility] Last Admin: 02/18/17 07:09 Dose: 3 ml Admin: 02/17/17 22:15 Dose: 3 ml Admin: 02/17/17 14:42 Dose: Not Given Admin: 02/17/17 10:56 Dose: 3 ml Buprenorphine HCl (Buprenorphine Hcl) 12 mg SL ACBREAKFAST [facility] Last Admin: 02/18/17 08:33 Dose: 12 mg Admin: 02/17/17 10:36 Dose: Not Given Citalopram Hydrobromide (Celexa) 10 mg PO DAILY [facility] Last Admin: 02/17/17 10:36 Dose: Not Given Dextrose (Glutose 15) 15 gm PO ONETIME PRN PRN Reason: Hypoglycemia Dextrose/Water (Dextrose 50% In Water) 50 ml IV ONETIME PRN PRN Reason: Hypoglycemia Dimethicone/Zinc Oxide (Rash Relief-Zinc Oxide Ellis) 0 gm TOP QID [facility] Last Admin: 02/18/17 05:33 Dose: Not Given Admin: 02/17/17 21:13 Dose: 1 applic Admin: 02/17/17 16:37 Dose: 1 applic Admin: 02/17/17 10:42 Dose: 1 applic Docusate Sodium (Colace) 100 mg PO BID PRN PRN Reason: Constipation Enoxaparin Sodium (Lovenox) 40 mg SUBCUT BEDTIME [facility] Last Admin: 02/17/17 20:17 Dose: 40 mg Insulin Aspart (Novolog) 0 unit SUBCUT ASDIRECTED [facility] PRN Reason: Protocol Last Admin: 02/18/17 08:35 Dose: 3 units Admin: 02/17/17 20:48 Dose: 2 units Admin: 02/17/17 16:44 Dose: 2 units Admin: 02/17/17 11:23 Dose: 2 units Admin: 02/17/17 08:13 Dose: 3 units Magnesium Hydroxide (Milk Of Magnesia) 30 ml PO Q12H PRN PRN Reason: Constipation Methylprednisolone Sodium Succinate (Solu-Medrol) 40 mg IVPUSH Q8H [facility] Last Admin: 02/18/17 05:34 Dose: 40 mg Admin: 02/17/17 21:13 Dose: 40 mg Admin: 02/17/17 13:42 Dose: 40 mg Admin: 02/17/17 06:05 Dose: 40 mg Mometasone Furoate/Formoterol Fumar (Dulera 200-5 Mcg) 2 puff IH BIDRT [facility] Last Admin: 02/18/17 07:09 Dose: 2 puff Admin: 02/17/17 20:18 Dose: 2 puff Admin: 02/17/17 08:56 Dose: 2 puff Nystatin (Nystop) 0 gm TOP QID [facility] Last Admin: 02/18/17 05:32 Dose: Not Given Admin: 02/17/17 21:12 Dose: 1 applic Admin: 02/17/17 16:37 Dose: 1 applic Admin: 02/17/17 10:41 Dose: 1 applic Ondansetron HCl (Zofran) 4 mg IV Q4H PRN PRN Reason: Nausea/Vomiting Oxycodone HCl (Oxycodone) 5 mg PO Q4H PRN PRN Reason: Pain (moderate 4-6) Last Admin: 02/18/17 00:01 Dose: 5 mg Polyethylene Glycol (Miralax) 17 gm PO DAILY PRN PRN Reason: Constipation Pregabalin (Lyrica) 100 mg PO TID [facility] Last Admin: 02/17/17 20:16 Dose: 100 mg Admin: 02/17/17 14:56 Dose: Admin: 02/17/17 10:37 Dose: Not Given Simvastatin (Zocor) 80 mg PO BEDTIME [facility] Last Admin: 02/17/17 20:16 Dose: 80 mg Sodium Chloride (Saline Flush) 10 ml FLUSH ASDIRECTED PRN PRN Reason: Keep Vein Open Tiotropium [place] (Spiriva Handihaler) 18 mcg INH DAILY@0700 [facility] Last Admin: 02/18/17 07:10 Dose: 1 cap Admin: 02/17/17 08:56 Dose: 1 cap Labs: Laboratory Tests 02/16/17 02/16/17 02/16/17 Range/Units 21:26 21:36 21:36 WBC 16.7 H (4.5-11.0) K/uL RBC 4.40 (3.30-5.50) M/uL Hgb 13.0 D (12.0-15.0) g/dL Hct 43.7 (36.0-48.0) % MCV 99 H (80-98) fL MCH 30 (27-31) pg MCHC 30 L (32-36) % Plt Count 242 (150-400) K/uL Neut % (Auto) 89 H (36-66) % Lymph % (Auto) 6 L (24-44) % [place] % (Auto) 4 (2-6) % Eos % (Auto) 1 L (2-4) % Baso % (Auto) 0 (0-1) % Puncture Site Rt radial ABG pH 7.192 L* (7.350-7.450) ABG pCO2 124.0 H* (35.0-42.0) mmHg ABG pO2 50.6 L (75.0-100.0) mmHg ABG HCO3 45.8 H (22.0-26.0) mmol/L ABG Total CO2 43.6 H (21.0-25.0) mmol/L ABG O2 Saturation 80.8 L (95.0-98.0) % ABG O2 Content 13.3 L (15.0-23.0) %vol ABG Base Excess 12.9 mm/L ABG Hemoglobin 12.5 (12.0-16.0) g/dL ABG Oxyhemoglobin 75.5 % ABG Carboxyhemoglobin 6.0 H (0.0-1.6) % ABG Methemoglobin 0.5 % Srikanth Test Passed O2 Delivery Device Nasal cannula Sodium 144 (140-148) mmol/L Potassium 2.8 L* (3.6-5.2) mmol/L Chloride 96 L (100-108) mmol/L Carbon Dioxide 47 H (21-32) mmol/L Anion Gap 3.8 L (5.0-14.0) mmol/L BUN 17 (7-18) mg/dL Creatinine 0.5 L (0.6-1.0) mg/dL Est Cr Clr Drug Dosing TNP Estimated GFR (MDRD) > 60 (>60) Glucose 267 H (74-106) mg/dL Calcium 8.3 L (8.5-10.1) mg/dL Total Bilirubin 0.5 D (0.2-1.0) mg/dL AST 12 L (15-37) U/L ALT 12 (12-78) U/L Alkaline Phosphatase 120 H (46-116) U/L Bol-C-Knrlryapine Pept (5-125) pg/mL Total Protein 6.0 L (6.4-8.2) g/dL Albumin 3.0 L (3.4-5.0) g/dL Globulin 3.0 (2.3-3.5) g/dL Albumin/Globulin Ratio 1.0 L (1.2-2.2) 02/16/17 Range/Units 21:54 WBC (4.5-11.0) K/uL RBC (3.30-5.50) M/uL Hgb (12.0-15.0) g/dL Hct (36.0-48.0) % MCV (80-98) fL MCH (27-31) pg MCHC (32-36) % Plt Count (150-400) K/uL Neut % (Auto) (36-66) % Lymph % (Auto) (24-44) % [place] % (Auto) (2-6) % Eos % (Auto) (2-4) % Baso % (Auto) (0-1) % Puncture Site ABG pH (7.350-7.450) ABG pCO2 (35.0-42.0) mmHg ABG pO2 (75.0-100.0) mmHg ABG HCO3 (22.0-26.0) mmol/L ABG Total CO2 (21.0-25.0) mmol/L ABG O2 Saturation (95.0-98.0) % ABG O2 Content (15.0-23.0) %vol ABG Base Excess mm/L ABG Hemoglobin (12.0-16.0) g/dL ABG Oxyhemoglobin % ABG Carboxyhemoglobin (0.0-1.6) % ABG Methemoglobin % Srikanth Test O2 Delivery Device Sodium (140-148) mmol/L Potassium (3.6-5.2) mmol/L Chloride (100-108) mmol/L Carbon Dioxide (21-32) mmol/L Anion Gap (5.0-14.0) mmol/L BUN (7-18) mg/dL Creatinine (0.6-1.0) mg/dL Est Cr Clr Drug Dosing Estimated GFR (MDRD) (>60) Glucose (74-106) mg/dL Calcium (8.5-10.1) mg/dL Total Bilirubin (0.2-1.0) mg/dL AST (15-37) U/L ALT (12-78) U/L Alkaline Phosphatase (46-116) U/L [id number] Pept 1096 H (5-125) pg/mL Total Protein (6.4-8.2) g/dL Albumin (3.4-5.0) g/dL Globulin (2.3-3.5) g/dL Albumin/Globulin Ratio (1.2-2.2) Meds: Medications Generic Name Dose Route Start Last Admin Trade Name Freq PRN Reason Stop Dose Admin Acetaminophen 650 mg 02/16/17 23:09 02/17/17 21:15 Tylenol PO 650 mg Q4H PRN Administration Pain (Mild 1-3)/fever Albuterol 2.5 mg 02/16/17 23:09 Proventil Neb Soln NEB Q4H PRN Shortness Of Breath/wheezing Albuterol/Ipratropium 3 ml 02/17/17 11:00 02/18/17 07:09 Duoneb 3.0-0.5 Mg/3 Ml NEB 3 ml QIDRT [facility] Administration Buprenorphine HCl 12 mg 02/17/17 07:30 02/18/17 08:33 Buprenorphine Hcl SL 12 mg ACBREAKFAST [facility] Administration Citalopram Hydrobromide 10 mg 02/17/17 09:00 02/17/17 10:36 Celexa PO Not Given DAILY [facility] Dextrose 15 gm 02/16/17 23:09 Glutose 15 PO ONETIME PRN Hypoglycemia Dextrose/Water 50 ml 02/16/17 23:09 Dextrose 50% In Water IV ONETIME PRN Hypoglycemia Dimethicone/Zinc Oxide 0 gm 02/17/17 10:00 02/18/17 05:33 Rash Relief-Zinc Oxide Ellis TOP Not Given QID [facility] Docusate Sodium 100 mg 02/16/17 23:09 Colace PO BID PRN Constipation Enoxaparin Sodium 40 mg 02/17/17 21:00 02/17/17 20:17 Lovenox SUBCUT 40 mg BEDTIME [facility] Administration Insulin Aspart 0 unit 02/16/17 23:09 02/18/17 08:35 Novolog SUBCUT 3 units ASDIRECTED [facility] Administration Protocol Magnesium Hydroxide 30 ml 02/16/17 23:09 Milk Of Magnesia PO Q12H PRN Constipation Methylprednisolone Sodium Succinate 40 mg 02/17/17 06:00 02/18/17 05:34 Solu-Medrol IVPUSH 40 mg Q8H [facility] Administration Mometasone Furoate/Formoterol Fumar 2 puff 02/17/17 08:00 02/18/17 07:09 Dulera 200-5 Mcg IH 2 puff BIDRT [facility] Administration Nystatin 0 gm 02/17/17 10:00 02/18/17 05:32 Nystop TOP Not Given QID [facility] Ondansetron HCl 4 mg 02/16/17 23:09 Zofran IV Q4H PRN Nausea/Vomiting Oxycodone HCl 5 mg 02/16/17 23:09 02/18/17 00:01 Oxycodone PO 5 mg Q4H PRN Administration Pain (moderate 4-6) Polyethylene Glycol 17 gm 02/16/17 23:09 Miralax PO DAILY PRN Constipation Pregabalin 100 mg 02/17/17 09:00 02/17/17 20:16 Lyrica PO 100 mg TID [facility] Administration Simvastatin 80 mg 02/17/17 21:00 02/17/17 20:16 Zocor PO 80 mg BEDTIME [facility] Administration Sodium Chloride 10 ml 02/16/17 23:09 Saline Flush FLUSH ASDIRECTED PRN Keep Vein Open Tiotropium [place] 18 mcg 02/17/17 08:00 02/18/17 07:10 Spiriva Handihaler INH 1 cap DAILY@0700 [facility] Administration Discontinued Medications Generic Name Dose Route Start Last Admin Trade Name Freq PRN Reason Stop Dose Admin Albuterol 2.5 mg 02/16/17 21:27 02/16/17 22:06 Proventil Neb Soln NEB 02/16/17 21:28 2.5 mg ONETIME ONE Administration Albuterol/Ipratropium 3 ml 02/16/17 23:09 02/17/17 07:17 Duoneb 3.0-0.5 Mg/3 Ml NEB 3 ml QID [facility] Administration Dimethicone/Zinc Oxide 1 gm 02/17/17 00:00 02/17/17 08:10 Rash Relief-Zinc Oxide Ellis TOP Not Given QID [facility] Enoxaparin Sodium 40 mg 02/16/17 23:09 02/17/17 01:01 Lovenox SUBCUT 40 mg DAILY [facility] Administration Furosemide 20 mg 02/16/17 23:09 02/17/17 00:34 Lasix IVPUSH 02/16/17 23:10 20 mg NOW ONE Administration Furosemide 20 mg 02/17/17 09:00 02/17/17 08:44 Lasix IVPUSH 02/17/17 09:01 20 mg NOW ONE Administration Furosemide 20 mg 02/18/17 07:00 02/18/17 06:28 Lasix IVPUSH 02/18/17 07:01 20 mg NOW ONE Administration Potassium Chloride 20 meq/ 100 mls @ 50 mls/hr 02/16/17 22:01 02/16/17 22:12 Premix IV 02/17/17 00:00 50 mls/hr ONETIME ONE Administration Potassium Chloride 40 meq/ 100 mls @ 25 mls/hr 02/16/17 23:09 02/17/17 00:28 Premix IV 02/17/17 03:08 25 mls/hr ONETIME ONE Administration Potassium Chloride Confirm 02/17/17 00:19 02/17/17 00:57 Kcl 20 Meq In Water 100 Ml Administered 02/17/17 00:20 Not Given Dose 200 mls @ as directed .ROUTE .STK-MED ONE Magnesium Sulfate 2 gm/ Premix 50 mls @ 25 mls/hr 02/17/17 09:00 02/17/17 14: 51 IV 02/17/17 16:59 25 mls/hr Q6H [facility] Administration Lidocaine HCl Confirm 02/16/17 22:04 02/16/17 22:26 Xylocaine-Mpf 1% Administered 02/16/17 22:05 Not Given Dose 5 ml .ROUTE .STK-MED ONE Lidocaine HCl 2 ml 02/16/17 22:09 02/16/17 22:57 Xylocaine-Mpf 1% INJECT 02/16/17 22:10 2 ml ONETIME ONE Administration Lidocaine HCl Confirm 02/17/17 00:17 02/17/17 00:57 Xylocaine-Mpf 1% Administered 02/17/17 00:18 Not Given Dose 5 ml .ROUTE .STK-MED ONE Lidocaine HCl 2 ml 02/17/17 00:15 02/17/17 21:22 Xylocaine 1% INJECT 02/17/17 02:15 2 ml Q2H [facility] Administration Methylprednisolone Sodium Succinate 125 mg 02/16/17 21:52 02/16/17 22:12 Solu-Medrol IVPUSH 02/16/17 21:53 125 mg ONETIME ONE Administration Methylprednisolone Sodium Succinate 40 mg 02/16/17 23:09 02/17/17 08:10 Solu-Medrol IVPUSH Not Given Q8H [facility] Mometasone Furoate/Formoterol Fumar 2 puff 02/16/17 23:30 02/17/17 00:56 Dulera 200-5 Mcg IH Not Given BID [facility] Nystatin Confirm 02/17/17 00:58 02/17/17 06:05 Nystop Administered 02/17/17 00:59 1 applic Dose Administration 15 gm .ROUTE .STK-MED ONE Potassium Chloride 40 meq 02/17/17 02:00 02/17/17 06:11 Klor-Con M20 PO 02/17/17 02:01 40 meq ONETIME ONE Administration Potassium Chloride Confirm 02/17/17 06:10 02/17/17 07:19 Klor-Con M20 Administered 02/17/17 06:11 Not Given Dose 40 meq .ROUTE .STK-MED ONE - Re-Assessments/Exams Free Text/Narrative Re-Assessment/Exam: 02/16/17 21:58 pt had o2 sats in the 70-80 range. She is afebrile. Pt was recently hospitalized. with a similar episode of resp problems. 02/16/17 22:00 02/16/17 22:01 her wbc is 16,000 but she has been on predisone. She is very lethargic and is stating that she does not want to be intubated. She was placed on bipap and her sats were up in the 90s. This was disscussed with Dr lerner and he stated that she usually looked alot better with an hour or 2 of bipap. Departure - Departure Time of Disposition: 08:00 Disposition: Admitted As Inpatient 64 Condition: Fair Clinical Impression: Respiratory failure, COPD (chronic obstructive pulmonary disease), Hypokalemia - Discharge Information
[2017-02-16] MEDS ORDERED: methylPREDNISolone Sodium Succinate 125 MG/2 ML SDV IVPUSH ONE (21:52)
[2017-02-16] MEDS ORDERED: Potassium Chloride 20 MEQ in Premix Bag 1 BAG IV ONE (22:01)
[2017-02-16] MEDS ORDERED: Lidocaine 1% PF 2 ML SDV INJECT ONE (22:09)
--- NOTE | 2017-02-16 22:45 | PCM.HP ---
H&P History of Present Illness - General Admit Problem/Dx: Source of Information: Old Records, Provider, RN Notes Reviewed History Limitations: Reports: Altered Mental Status (CO2 narcosis) - History of Present Illness Initial Comments - Free Text/Narative: Ms. Lauren is a 61-year-old woman with severe oxygen dependent COPD. Over the past few months has had recurrent admissions with COPD exacerbation resulting in hypoxic and hypercapnic respiratory failure. Today became more sleepy and lethargic and was brought in for evaluation. She continues to smoke. She is very obtunded on evaluation today secondary to CO2 narcosis and is unable to provide significant history concerning recent symptoms or events. On arrival in the emergency department was significantly hypoxic and on blood gases found to have marked hypercapnia. Chest x-ray shows no obvious infiltrates. - Related Data Allergies/Adverse Reactions: Allergies Allergy/AdvReac Type Severity Reaction Status Date / Time No Known Allergies Allergy Verified 01/28/17 16:14 Home Medications: Home Meds Albuterol Sulfate [Proair Respiclick] 90 mcg IH Q4HR 12/01/16 [History] Budesonide/Formoterol [Symbicort 160-4.5 MCG] 2 puff INH BID 12/01/16 [History] Buprenorphine HCl [Buprenorphine] 12 mg SL ACBREAKFAST 12/01/16 [History] Citalopram [Citalopram HBr] 10 mg PO DAILY 12/01/16 [History] Ibuprofen 400 mg PO Q6HR PRN 12/01/16 [History] LORazepam 1 mg PO BEDTIME PRN 12/01/16 [History] Pregabalin [Lyrica] 100 mg PO TID 12/01/16 [History] Simvastatin [Zocor] 80 mg PO BEDTIME 12/01/16 [History] Tiotropium [Spiriva Handihaler] 1 puff INH DAILY 12/01/16 [History] metFORMIN [Glucophage] 1,000 mg PO BIDMEALS 12/01/16 [History] Prednisone [IJD: predniSONE] 20 mg PO WITHBREAKFAST 01/10/17 [History] Prednisone [IJD: predniSONE] 40 mg PO WITHBREAKFAST #20 tablet 01/30/17 [Rx] Past Medical History Cardiovascular History: Reports: High Cholesterol, Hypertension Other Cardiovascular History: enlarged right Respiratory History: Reports: Asthma, COPD, Intubation, Previous Genitourinary History: Reports: UTI, Recurrent 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: Musculoskeletal History: Reports: Back Pain, Chronic Other Musculoskeletal History: uses w/c at home and walker Psychiatric History: Reports: Depression Endocrine/Metabolic History: Reports: Diabetes, Type II - Past Surgical History Female Surgical History: Reports: Hysterectomy Social & Family History - Family History Family Medical History: Unobtainable - Tobacco Use Smoking Status *Q: Current Every Day Smoker Years of Tobacco use: 50 Packs/Tins Daily: 0.5 Second Hand Smoke Exposure: Yes - Caffeine Use Caffeine Use: Reports: Coffee - Recreational Drug Use Recreational Drug Use: No Recreational Drug Type: Reports: Oxycodone H&P Review of Systems - Review of Systems: Review Of Systems: Unable To Obtain General: Reports: ROS unobtainable (Marked lethargy secondary to CO2 narcosis) Exam - Exam Exam: See Below - Vital Signs Vital Signs: Last Vital Signs Temp 97.5 F 02/16/17 21:19 Pulse 100 02/16/17 22:14 Resp 20 02/16/17 21:48 BP 127/56 L 02/16/17 21:48 Pulse Ox 95 02/16/17 22:14 Weight: 162 lb 11.218 oz - Exam Quality Assessment: DVT Prophylaxis General: Lethargic, Obtunded HEENT: Conjunctiva Clear, Mucosa Moist & [place], Posterior Pharynx Clear, Pupils Equal, Pupils Reactive Neck: Supple, Trachea Midline, +2 Carotid Pulse wo Bruit Lungs: Decreased Breath Sounds, Wheezing. No: Crackles, Rales, Rhonchi, Rub, Stridor Cardiovascular: Regular Rate, Regular Rhythm, Normal S1, Normal S2. No: Irregular Rhythm, Bradycardia, Tachycardia, Systolic Murmur, Diastolic Murmur Abdomen: Normal Bowel Sounds, Soft Back Exam: Normal Inspection, Full Range of Motion, NT Extremities: Edema Skin: Warm, Dry, Intact Neuro Extensive - Mental Status: Opens Eyes to Commands, Slow Response to Commands - Patient Data Lab Results Last 24 hrs: Laboratory Results - last 24 hr 02/16/17 02/16/17 02/16/17 Range/Units 21:26 21:36 21:36 WBC 16.7 H (4.5-11.0) K/uL RBC 4.40 (3.30-5.50) M/uL Hgb 13.0 D (12.0-15.0) g/dL Hct 43.7 (36.0-48.0) % MCV 99 H (80-98) fL MCH 30 (27-31) pg MCHC 30 L (32-36) % Plt Count 242 (150-400) K/uL Neut % (Auto) 89 H (36-66) % Lymph % (Auto) 6 L (24-44) % [place] % (Auto) 4 (2-6) % Eos % (Auto) 1 L (2-4) % Baso % (Auto) 0 (0-1) % Puncture Site Rt radial ABG pH 7.192 L* (7.350-7.450) ABG pCO2 124.0 H* (35.0-42.0) mmHg ABG pO2 50.6 L (75.0-100.0) mmHg ABG HCO3 45.8 H (22.0-26.0) mmol/L ABG Total CO2 43.6 H (21.0-25.0) mmol/L ABG O2 Saturation 80.8 L (95.0-98.0) % ABG O2 Content 13.3 L (15.0-23.0) %vol ABG Base Excess 12.9 mm/L ABG Hemoglobin 12.5 (12.0-16.0) g/dL ABG Oxyhemoglobin 75.5 % ABG Carboxyhemoglobin 6.0 H (0.0-1.6) % ABG Methemoglobin 0.5 % Srikanth Test Passed O2 Delivery Device Nasal cannula Sodium 144 (140-148) mmol/L Potassium 2.8 L* (3.6-5.2) mmol/L Chloride 96 L (100-108) mmol/L Carbon Dioxide 47 H (21-32) mmol/L Anion Gap 3.8 L (5.0-14.0) mmol/L BUN 17 (7-18) mg/dL Creatinine 0.5 L (0.6-1.0) mg/dL Est Cr Clr Drug Dosing TNP Estimated GFR (MDRD) > 60 (>60) Glucose 267 H (74-106) mg/dL Calcium 8.3 L (8.5-10.1) mg/dL Total Bilirubin 0.5 D (0.2-1.0) mg/dL AST 12 L (15-37) U/L ALT 12 (12-78) U/L Alkaline Phosphatase 120 H (46-116) U/L [id number] Pept (5-125) pg/mL Total Protein 6.0 L (6.4-8.2) g/dL Albumin 3.0 L (3.4-5.0) g/dL Globulin 3.0 (2.3-3.5) g/dL Albumin/Globulin Ratio 1.0 L (1.2-2.2) 02/16/17 Range/Units 21:54 WBC (4.5-11.0) K/uL RBC (3.30-5.50) M/uL Hgb (12.0-15.0) g/dL Hct (36.0-48.0) % MCV (80-98) fL MCH (27-31) pg MCHC (32-36) % Plt Count (150-400) K/uL Neut % (Auto) (36-66) % Lymph % (Auto) (24-44) % [place] % (Auto) (2-6) % Eos % (Auto) (2-4) % Baso % (Auto) (0-1) % Puncture Site ABG pH (7.350-7.450) ABG pCO2 (35.0-42.0) mmHg ABG pO2 (75.0-100.0) mmHg ABG HCO3 (22.0-26.0) mmol/L ABG Total CO2 (21.0-25.0) mmol/L ABG O2 Saturation (95.0-98.0) % ABG O2 Content (15.0-23.0) %vol ABG Base Excess mm/L ABG Hemoglobin (12.0-16.0) g/dL ABG Oxyhemoglobin % ABG Carboxyhemoglobin (0.0-1.6) % ABG Methemoglobin % Srikanth Test O2 Delivery Device Sodium (140-148) mmol/L Potassium (3.6-5.2) mmol/L Chloride (100-108) mmol/L Carbon Dioxide (21-32) mmol/L Anion Gap (5.0-14.0) mmol/L BUN (7-18) mg/dL Creatinine (0.6-1.0) mg/dL Est Cr Clr Drug Dosing Estimated GFR (MDRD) (>60) Glucose (74-106) mg/dL Calcium (8.5-10.1) mg/dL Total Bilirubin (0.2-1.0) mg/dL AST (15-37) U/L ALT (12-78) U/L Alkaline Phosphatase (46-116) U/L [id number] Pept 1096 H (5-125) pg/mL Total Protein (6.4-8.2) g/dL Albumin (3.4-5.0) g/dL Globulin (2.3-3.5) g/dL Albumin/Globulin Ratio (1.2-2.2) Result Diagrams: 02/16/17 21:36 02/16/17 21:36 *Q Meaningful Use (ADM) - VTE *Q VTE Criteria *Q: - VTE Risk Assess *Q Each Risk Factor Represents 1 Point: Swollen Legs, Current, Abnormal Pulmonary Function (COPD) Total Score 1 Point Risk Factors: 2 Each Risk Factor Represents 2 Points: Age 60 - 74 Years Total Score 2 Point Risk Factors: 2 Each Risk Factor Represents 3 Points: None Total Score 3 Point Risk Factors: 0 Each Risk Factor Represents 5 Points: None Total Score 5 Point Risk Factors: 0 Venous Thromboembolism Risk Factor Score *Q: 4 - Stroke *Q Stroke Criteria *Q: - AMI *Q AMI Criteria *Q: Problem List Initiated/Reviewed/Updated: Yes Orders Last 24hrs: Active Orders 24 hr Category Date Time Status Patient Status Manage Transfer [TRANSFER] Routine ADT 02/16/17 21:56 Active Cardiac Monitoring [RC] .As Directed Care 02/16/17 21:56 Active RT Aerosol Therapy [RC] ASDIRECTED Care 02/16/17 21:27 Active Chest 1V Frontal [CR] Stat Exams 02/16/17 21:28 Taken UA W/MICROSCOPIC [URIN] Urgent Lab 02/16/17 21:26 Uncollected Potassium Chloride [KCL 20 MEQ in Water 100 ML] 20 meq Med 02/16/17 22:01 Active Premix Bag 1 bag IV ONETIME Potassium Chloride [Klor-Con M20] Med 02/17/17 02:00 Once 40 meq PO ONETIME ONE Resuscitation Status Routine Resus Stat 02/16/17 21:59 Ordered Medication Orders Potassium Chloride 20 meq/ (Premix) 100 mls @ 50 mls/hr IV ONETIME ONE Stop: 02/17/17 00:00 Last Admin: 02/16/17 22:12 Dose: 50 mls/hr Potassium Chloride (Klor-Con M20) 40 meq PO ONETIME ONE Stop: 02/17/17 02:01 Assessment/Plan Comment:: ASSESSMENT AND PLAN HYPOXIC AND HYPERCAPNIC RESPIRATORY FAILURE SECONDARY TO COPD EXACERBATION-this patient has a history of severe COPD requiring continuous oxygen at home. She has had recurrent admissions over the past few months for COPD exacerbation with respiratory failure and often underlying respiratory infection. Chest x- ray shows no obvious infiltrate and her white blood cell count is within normal range. She had become progressively more weak and lethargic today, on initial assessment was found to have significant hypoxia with a oxygen saturation in the range of 70% and severe hypercapnia. -BiPAP -Nebulized albuterol and DuoNeb nebs -Solu-Medrol 40 mg IV every 8 hours -Maintain oxygen saturations in the upper 80s to avoid further CO2 retention -Hold on antibiotic therapy -Encouraged regular use of her Trilogy home ventilator, to avoid further hospitalizations TYPE 2 DIABETES MELLITUS -Hold metformin -4 times a day glucometers -Low-dose sliding scale NovoLog PERIPHERAL EDEMA-likely secondary to right sided heart failure -Lasix 20 mg IV now and in a.m. MAINTENANCE ISSUES -DVT prophylaxis;Lovenox 40 mg subcutaneous daily -GI prophylaxis;not indicated -Dixon catheter;not indicated -Nutrition;consistent carb diet, 2 g sodium diet -Nicotine dependence;not required CODE STATUS-full code ADMISSION STATUS-patient will be admitted to inpatient status, expect at least a 2 night hospital stay for evaluation and management of problems as outlined above. At the time of this admission I do not reasonably expected evaluation and management of this problem will require more than a 96 hour hospital stay. DISPOSITION-anticipate discharge to home after the hospital stay. PRIMARY CARE PROVIDER-primary care provider is in the [facility]
[2017-02-16] MEDS ORDERED: 50% Dextrose in Water 50 ML Syringe IV PRN (23:09)
[2017-02-16] MEDS ORDERED: Enoxaparin 40 MG/0.4 ML Syringe SUBCUT SCH (23:09)
[2017-02-16] MEDS ORDERED: methylPREDNISolone Sodium Succinate 40 MG/1 ML SDV IVPUSH SCH (23:09)
[2017-02-16] MEDS ORDERED: Ondansetron 4 MG/2 ML SDV IV PRN (23:09)
[2017-02-16] MEDS ORDERED: Furosemide 40 MG/4 ML VIAL IVPUSH ONE (23:09)
[2017-02-16] MEDS ORDERED: Potassium Chloride 40 MEQ in Premix Bag 1 BAG IV ONE (23:09)
[2017-02-16] MEDS ORDERED: Glucose Gel 15 GM in 37.5 GM Tube PO PRN (23:09)
[2017-02-16] MEDS ORDERED: Albuterol 0.083% 2.5 MG/3 ML Neb Soln NEB PRN (23:09)
[2017-02-16] MEDS ORDERED: Docusate Sodium 100 MG Cap PO PRN (23:09)
[2017-02-16] MEDS ORDERED: Sodium Chloride 0.9% 10 ML Syringe FLUSH PRN (23:09)
[2017-02-16] MEDS ORDERED: Formoterol/Mometasone 200-5 MCG 8.8 GM Inhaler IH SCH (23:30)
[2017-02-17] MEDS: Albuterol/Ipratropium 3.0-0.5 MG/3 ML Neb Soln NEB SCH ×5 (00:33→22:15)
[2017-02-17] MEDS ORDERED: Nystatin Topical Powder 15 GM Bottle ONE (00:58)
[2017-02-17] MEDS: Dimethicone 20%/Zinc Oxide 25% 56 GM Spray Bottle TOP SCH ×5 (01:01→21:13)
[2017-02-17] MEDS ORDERED: Potassium Chloride 20 MEQ Tab.ER PO ONE (02:00)
[2017-02-17] MEDS ORDERED: Nystatin Topical Powder 15 GM Bottle TOP SCH (06:00)
[2017-02-17] MEDS: methylPREDNISolone Sodium Succinate 40 MG/1 ML SDV IVPUSH SCH ×3 (06:05→21:13)
[2017-02-17] MEDS ORDERED: Potassium Chloride 20 MEQ Tab.ER ONE (06:10)
[2017-02-17] MEDS: Insulin Aspart 100 Units/ML 3 ML Pen SUBCUT SCH ×4 (08:13→20:48)
[2017-02-17] MEDS: Magnesium Sulfate/Water 2 GM in Premix Bag 1 BAG IV SCH ×2 (08:44→14:51)
[2017-02-17] MEDS: Formoterol/Mometasone 200-5 MCG 8.8 GM Inhaler IH SCH ×2 (08:56→20:18)
[2017-02-17] MEDS: Tiotropium Inhaler 18 MCG Inhalation Powder Cap Kit of 5 INH SCH (08:56)
[2017-02-17] MEDS ORDERED: Tiotropium Inhaler 18 MCG Inhalation Powder Cap Kit of 5 INH SCH (09:00)
[2017-02-17] MEDS ORDERED: Furosemide 20 MG/2 ML VIAL IVPUSH ONE (09:00)
--- NOTE | 2017-02-17 09:34 | PCM.PN ---
- General Info Date of Service: 02/17/17 - Review of Systems General: Reports: Weakness. Denies: Fever, Chills Pulmonary: Reports: shortness of breath, cough, wheezing. Denies: sputum Cardiovascular: Reports: Dyspnea on Exertion. Denies: Chest Pain, Palpitations , Orthopnea, PND, Edema Gastrointestinal: Reports: No symptoms Systems Review Comment:: Ms. Lauren has improved since admission, CO2 narcosis has resolved, she has persistent CO2 elevation but not as high as on admission and she appears to be back to baseline with a normal pH. She remains fairly sleepy but does arouse easily to voice. Vital signs have remained stable and she has been afebrile. White blood cell count further elevated but this is likely secondary to current glucocorticoid therapy, no evidence of underlying infection. - Patient Data Vitals - most recent: Last Vital Signs Temp 97.7 F 02/17/17 07:00 Pulse 102 H 02/17/17 08:47 Resp 20 02/17/17 08:47 BP 110/72 02/17/17 08:47 Pulse Ox 94 L 02/17/17 08:47 Weight - most recent: 148 lb 9.465 oz I&O - last 24 hours: Intake & Output 02/16/17 02/17/17 02/17/17 22:59 06:59 14:59 Intake Total 300 50 Output Total 1350 Balance -1050 50 Lab Results last 24 hrs: Laboratory Results - last 24 hr 02/16/17 02/17/17 02/17/17 Range/Units 23:09 05:00 06:04 WBC 20.1 H (4.5-11.0) K/uL RBC 4.12 (3.30-5.50) M/uL Hgb 12.2 (12.0-15.0) g/dL Hct 40.7 (36.0-48.0) % MCV 99 H (80-98) fL MCH 30 (27-31) pg MCHC 30 L (32-36) % Plt Count 220 (150-400) K/uL Neut % (Auto) 98 H (36-66) % Lymph % (Auto) 1 L (24-44) % [place] % (Auto) 1 L (2-6) % Eos % (Auto) 0 L (2-4) % Baso % (Auto) 0 (0-1) % Puncture Site R radial R radial ABG pH 7.208 L* 7.349 L (7.350-7.450) ABG pCO2 121.0 H* 82.3 H* (35.0-42.0) mmHg ABG pO2 63.7 L 64.0 L (75.0-100.0) mmHg ABG HCO3 46.3 H 44.2 H (22.0-26.0) mmol/L ABG Total CO2 43.9 H 40.4 H (21.0-25.0) mmol/L ABG O2 Saturation 90.3 L 93.0 L (95.0-98.0) % ABG O2 Content 14.5 L 14.9 L (15.0-23.0) %vol ABG Base Excess 14.0 15.2 mm/L ABG Hemoglobin 12.1 12.1 (12.0-16.0) g/dL ABG Oxyhemoglobin 84.6 87.1 % ABG Carboxyhemoglobin 5.7 H 5.6 H (0.0-1.6) % ABG Methemoglobin 0.6 0.7 % Srikanth Test [facility] O2 Delivery Device Bipap Bipap Oxygen Flow Rate L Sodium (140-148) mmol/L Potassium (3.6-5.2) mmol/L Chloride (100-108) mmol/L Carbon Dioxide (21-32) mmol/L Anion Gap (5.0-14.0) mmol/L BUN (7-18) mg/dL Creatinine (0.6-1.0) mg/dL Est Cr Clr Drug Dosing mL/min Estimated GFR (MDRD) (>60) Glucose (74-106) mg/dL Calcium (8.5-10.1) mg/dL Magnesium (1.8-2.4) mg/dL 02/17/17 Range/Units 06:04 WBC (4.5-11.0) K/uL RBC (3.30-5.50) M/uL Hgb (12.0-15.0) g/dL Hct (36.0-48.0) % MCV (80-98) fL MCH (27-31) pg MCHC (32-36) % Plt Count (150-400) K/uL Neut % (Auto) (36-66) % Lymph % (Auto) (24-44) % [place] % (Auto) (2-6) % Eos % (Auto) (2-4) % Baso % (Auto) (0-1) % Puncture Site ABG pH (7.350-7.450) ABG pCO2 (35.0-42.0) mmHg ABG pO2 (75.0-100.0) mmHg ABG HCO3 (22.0-26.0) mmol/L ABG Total CO2 (21.0-25.0) mmol/L ABG O2 Saturation (95.0-98.0) % ABG O2 Content (15.0-23.0) %vol ABG Base Excess mm/L ABG Hemoglobin (12.0-16.0) g/dL ABG Oxyhemoglobin % ABG Carboxyhemoglobin (0.0-1.6) % ABG Methemoglobin % Srikanth Test O2 Delivery Device Oxygen Flow Rate L Sodium 143 (140-148) mmol/L Potassium 4.2 (3.6-5.2) mmol/L Chloride 97 L (100-108) mmol/L Carbon Dioxide 46 H (21-32) mmol/L Anion Gap 4.2 L (5.0-14.0) mmol/L BUN 16 (7-18) mg/dL Creatinine 0.3 L (0.6-1.0) mg/dL Est Cr Clr Drug Dosing 172.44 mL/min Estimated GFR (MDRD) > 60 (>60) Glucose 268 H (74-106) mg/dL Calcium 8.4 L (8.5-10.1) mg/dL Magnesium 1.0 L D (1.8-2.4) mg/dL Med Orders - Current: Current Medications Acetaminophen (Tylenol) 650 mg PO Q4H PRN PRN Reason: Pain (Mild 1-3)/fever Albuterol (Proventil Neb Soln) 2.5 mg NEB Q4H PRN PRN Reason: Shortness Of Breath/wheezing Albuterol/Ipratropium (Duoneb 3.0-0.5 Mg/3 Ml) 3 ml NEB QIDRT [facility] Buprenorphine HCl (Buprenorphine Hcl) 12 mg SL ACBREAKFAST [facility] Citalopram Hydrobromide (Celexa) 10 mg PO DAILY [facility] Dextrose (Glutose 15) 15 gm PO ONETIME PRN PRN Reason: Hypoglycemia Dextrose/Water (Dextrose 50% In Water) 50 ml IV ONETIME PRN PRN Reason: Hypoglycemia Dimethicone/Zinc Oxide (Rash Relief-Zinc Oxide [place]) 0 gm TOP QID [facility] Docusate Sodium (Colace) 100 mg PO BID PRN PRN Reason: Constipation Enoxaparin Sodium (Lovenox) 40 mg SUBCUT BEDTIME [facility] Furosemide (Lasix) 20 mg IVPUSH NOW ONE Stop: 02/18/17 07:01 Magnesium Sulfate 2 gm/ Premix 50 mls @ 25 mls/hr IV Q6H [facility] Stop: 02/17/17 16:59 Last Admin: 02/17/17 08:44 Dose: 25 mls/hr Insulin Aspart (Novolog) 0 unit SUBCUT ASDIRECTED [facility] PRN Reason: Protocol Last Admin: 02/17/17 08:13 Dose: 3 units Magnesium Hydroxide (Milk Of Magnesia) 30 ml PO Q12H PRN PRN Reason: Constipation Methylprednisolone Sodium Succinate (Solu-Medrol) 40 mg IVPUSH Q8H [facility] Last Admin: 02/17/17 06:05 Dose: 40 mg Mometasone Furoate/Formoterol Fumar (Dulera 200-5 Mcg) 2 puff IH BIDRT [facility] Last Admin: 02/17/17 08:56 Dose: 2 puff Nystatin (Nystop) 0 gm TOP QID [facility] Ondansetron HCl (Zofran) 4 mg IV Q4H PRN PRN Reason: Nausea/Vomiting Oxycodone HCl (Oxycodone) 5 mg PO Q4H PRN PRN Reason: Pain (moderate 4-6) Polyethylene Glycol (Miralax) 17 gm PO DAILY PRN PRN Reason: Constipation Pregabalin (Lyrica) 100 mg PO TID [facility] Simvastatin (Zocor) 80 mg PO BEDTIME [facility] Sodium Chloride (Saline Flush) 10 ml FLUSH ASDIRECTED PRN PRN Reason: Keep Vein Open Tiotropium [place] (Spiriva Handihaler) 18 mcg INH DAILY@0700 [facility] Last Admin: 02/17/17 08:56 Dose: 1 cap Discontinued Medications Albuterol (Proventil Neb Soln) 2.5 mg NEB ONETIME ONE Stop: 02/16/17 21:28 Last Admin: 02/16/17 22:06 Dose: 2.5 mg Albuterol/Ipratropium (Duoneb 3.0-0.5 Mg/3 Ml) 3 ml NEB QID [facility] Last Admin: 02/17/17 07:17 Dose: 3 ml Dimethicone/Zinc Oxide (Rash Relief-Zinc Oxide [place]) 1 gm TOP QID [facility] Last Admin: 02/17/17 08:10 Dose: Not Given Enoxaparin Sodium (Lovenox) 40 mg SUBCUT DAILY [facility] Last Admin: 02/17/17 01:01 Dose: 40 mg Furosemide (Lasix) 20 mg IVPUSH NOW ONE Stop: 02/16/17 23:10 Last Admin: 02/17/17 00:34 Dose: 20 mg Furosemide (Lasix) 20 mg IVPUSH NOW ONE Stop: 02/17/17 09:01 Last Admin: 02/17/17 08:44 Dose: 20 mg Potassium Chloride 20 meq/ (Premix) 100 mls @ 50 mls/hr IV ONETIME ONE Stop: 02/17/17 00:00 Last Admin: 02/16/17 22:12 Dose: 50 mls/hr Potassium Chloride 40 meq/ (Premix) 100 mls @ 25 mls/hr IV ONETIME ONE Stop: 02/17/17 03:08 Last Admin: 02/17/17 00:28 Dose: 25 mls/hr Potassium Chloride (Kcl 20 Meq In Water 100 Ml) Confirm Administered Dose 200 mls @ as directed .ROUTE .STK-MED ONE Stop: 02/17/17 00:20 Last Admin: 02/17/17 00:57 Dose: Not Given Lidocaine HCl (Xylocaine-Mpf 1%) Confirm Administered Dose 5 ml .ROUTE .STK-MED ONE Stop: 02/16/17 22:05 Last Admin: 02/16/17 22:26 Dose: Not Given Lidocaine HCl (Xylocaine-Mpf 1%) 2 ml INJECT ONETIME ONE Stop: 02/16/17 22:10 Last Admin: 02/16/17 22:57 Dose: 2 ml Lidocaine HCl (Xylocaine-Mpf 1%) Confirm Administered Dose 5 ml .ROUTE .STK-MED ONE Stop: 02/17/17 00:18 Last Admin: 02/17/17 00:57 Dose: Not Given Methylprednisolone Sodium Succinate (Solu-Medrol) 125 mg IVPUSH ONETIME ONE Stop: 02/16/17 21:53 Last Admin: 02/16/17 22:12 Dose: 125 mg Methylprednisolone Sodium Succinate (Solu-Medrol) 40 mg IVPUSH Q8H [facility] Last Admin: 02/17/17 08:10 Dose: Not Given Mometasone Furoate/Formoterol Fumar (Dulera 200-5 Mcg) 2 puff IH BID [facility] Last Admin: 02/17/17 00:56 Dose: Not Given Nystatin (Nystop) Confirm Administered Dose 15 gm .ROUTE .STK-MED ONE Stop: 02/17/17 00:59 Last Admin: 02/17/17 06:05 Dose: 1 applic Potassium Chloride (Klor-Con M20) 40 meq PO ONETIME ONE Stop: 02/17/17 02:01 Last Admin: 02/17/17 06:11 Dose: 40 meq Potassium Chloride (Klor-Con M20) Confirm Administered Dose 40 meq .ROUTE .STK- MED ONE Stop: 02/17/17 06:11 Last Admin: 02/17/17 07:19 Dose: Not Given - Exam Quality Assessment: supplemental oxygen, urine catheter, DVT prophylaxis General: lethargic Lungs: Normal respiratory effort, Decreased breath sounds, Wheezing. No: Rales , Rhonchi, Rub, Stridor Cardiovascular: Regular Rate, Regular Rhythm, No Murmurs Abdomen: bowel sounds present, soft, no tenderness, no distension Extremities: no edema Skin: warm, dry, intact - Problem List Review Problem List Initiated/Reviewed/Updated: Yes - My Orders Last 24 Hours: My Active Orders 02/16/17 23:42 Urinary Catheter Assessment [RC] Q12H 02/16/17 23:45 [place] Catheter Insertion [Insert Urinary Catheter] [OM.PC] Q24H 02/17/17 06:00 methylPREDNISolone Sod Succ [Solu-MEDROL] 40 mg IVPUSH Q8H 02/17/17 08:00 Mometasone/Formoterol [Dulera 200-5 MCG] 2 puff IH BIDRT Tiotropium [Spiriva HandiHaler] 18 mcg INH DAILY@0700 02/17/17 09:00 Magnesium Sulfate/Water [Magnesium Sulfate 2 GM in Water 50 ML] 2 gm Premix Bag 1 bag IV Q6H 02/17/17 09:28 Consult to Physical Therapy [PT Evaluation and Treatment] [CONS] Routine 02/17/17 10:00 Dimethicone/Zinc Oxide [Rash Relief-Zinc Oxide [place]] 0 gm TOP QID Nystatin [Nystop] 0 gm TOP QID 02/17/17 11:00 Albuterol/Ipratropium [DuoNeb 3.0-0.5 MG/3 ML] 3 ml NEB QIDRT 02/17/17 21:00 Enoxaparin [Lovenox] 40 mg SUBCUT BEDTIME 02/18/17 05:00 BASIC METABOLIC PANEL,BMP [CHEM] Timed CBC WITH AUTO DIFF [HEME] Timed MAGNESIUM [CHEM] Timed 02/18/17 07:00 Furosemide [Lasix] 20 mg IVPUSH NOW ONE - Plan Plan:: ASSESSMENT AND PLAN HYPOXIC AND HYPERCAPNIC RESPIRATORY FAILURE SECONDARY TO COPD EXACERBATION-this patient has a history of severe COPD requiring continuous oxygen at home. She has had recurrent admissions over the past few months for COPD exacerbation with respiratory failure. Chest x-ray shows no obvious infiltrate and her white blood cell count is within normal range. Improved since admission with resolution of CO2 narcosis. She continues to show evidence of CO2 retention but appears to be back to baseline with a normal pH -BiPAP as needed -Nebulized albuterol and DuoNeb nebs -Solu-Medrol 40 mg IV every 8 hours -Maintain oxygen saturations in the upper 80s to avoid further CO2 retention -Hold on antibiotic therapy -Encouraged regular use of her Trilogy home ventilator, to avoid further hospitalizations TYPE 2 DIABETES MELLITUS -Hold metformin until she is more alert and eating -4 times a day glucometers -Low-dose sliding scale NovoLog PERIPHERAL EDEMA-likely secondary to right sided heart failure -Lasix 20 mg IV now and in a.m. MAINTENANCE ISSUES -DVT prophylaxis;Lovenox 40 mg subcutaneous daily -GI prophylaxis;not indicated -Dixon catheter;not indicated -Nutrition;consistent carb diet, 2 g sodium diet -Nicotine dependence;not required CODE STATUS-full code ADMISSION STATUS-patient will be admitted to inpatient status, expect at least a 2 night hospital stay for evaluation and management of problems as outlined above. At the time of this admission I do not reasonably expected evaluation and management of this problem will require more than a 96 hour hospital stay. DISPOSITION-anticipate discharge to home after the hospital stay. PRIMARY CARE PROVIDER-primary care provider is in the [facility]
[2017-02-17] MEDS: BUPRENORPHINE HCL 2 MG SL SCH (10:36)
[2017-02-17] MEDS: Citalopram 10 MG Tab PO SCH (10:36)
[2017-02-17] MEDS: Pregabalin 100 MG Cap PO SCH ×3 (10:37→20:16)
[2017-02-17] MEDS: Nystatin Topical Powder 15 GM Bottle TOP SCH ×3 (10:41→21:12)
[2017-02-17] MEDS: Simvastatin 20 MG Tab PO SCH (20:16)
[2017-02-17] MEDS: Enoxaparin 40 MG/0.4 ML Syringe SUBCUT SCH (20:17)
[2017-02-17] MEDS: Acetaminophen 325 MG Tab PO PRN (21:15)
[2017-02-17] MEDS: Lidocaine 1% 50 ML MDV INJECT SCH (21:22)
[2017-02-18] MEDS: oxyCODONE 5 MG Tab PO PRN (00:01)
[2017-02-18] MEDS: Nystatin Topical Powder 15 GM Bottle TOP SCH ×4 (05:32→21:20)
[2017-02-18] MEDS: Dimethicone 20%/Zinc Oxide 25% 56 GM Spray Bottle TOP SCH ×4 (05:33→21:20)
[2017-02-18] MEDS: methylPREDNISolone Sodium Succinate 40 MG/1 ML SDV IVPUSH SCH ×3 (05:34→21:19)
[2017-02-18] MEDS ORDERED: Furosemide 20 MG/2 ML VIAL IVPUSH ONE (07:00)
[2017-02-18] MEDS: Albuterol/Ipratropium 3.0-0.5 MG/3 ML Neb Soln NEB SCH ×4 (07:09→21:19)
[2017-02-18] MEDS: Formoterol/Mometasone 200-5 MCG 8.8 GM Inhaler IH SCH ×2 (07:09→21:19)
[2017-02-18] MEDS: Tiotropium Inhaler 18 MCG Inhalation Powder Cap Kit of 5 INH SCH (07:10)
[2017-02-18] MEDS: BUPRENORPHINE HCL 2 MG SL SCH (08:33)
[2017-02-18] MEDS: Insulin Aspart 100 Units/ML 3 ML Pen SUBCUT SCH ×4 (08:35→21:16)
--- NOTE | 2017-02-18 09:13 | CR ---
Heart size within normal limits. Diffuse interstitial thickening can be seen in pulmonary interstiti al edema. No focal consolidation. Difficult to exclude a pulmonary nodule within the right lower lob e overlying the right rib. Recommend nonurgent noncontrast chest CT .
[2017-02-18] MEDS: Pregabalin 100 MG Cap PO SCH (09:29)
[2017-02-18] MEDS: Citalopram 10 MG Tab PO SCH (09:29)
--- NOTE | 2017-02-18 09:35 | PCM.PN ---
- General Info Date of Service: 02/18/17 Functional Status: Reports: pain controlled, tolerating diet - Review of Systems General: Reports: Weakness Pulmonary: Reports: shortness of breath, cough Gastrointestinal: Reports: Abdominal pain Systems Review Comment:: No acute events overnight. She is fairly lethargic but does respond to most of my questions. Seems a little bit disoriented and answers most of my questions with it seems a little better. She feels like her breathing is a little better than yesterday. Thinks her cough is maybe a little bit worse than usual. She did have a temperature elevation this morning. No complaints of chest pain or abdominal Pain. Slept throughout the night. Client used the noninvasive ventilation. Tolerating current treatment otherwise. Very weak and has not been out of bed. - Patient Data Vitals - most recent: Last Vital Signs Temp 37.9 C 02/18/17 08:00 Pulse 102 H 02/18/17 08:00 Resp 25 H 02/18/17 08:00 BP 145/64 H 02/18/17 08:00 Pulse Ox 88 L 02/18/17 08:00 Weight - most recent: 67.4 kg I&O - last 24 hours: Intake & Output 02/17/17 02/18/17 02/18/17 22:59 06:59 14:59 Intake Total 600 360 Output Total 150 100 800 Balance 450 260 -800 Lab Results last 24 hrs: Laboratory Results - last 24 hr 02/18/17 02/18/17 Range/Units 06:01 06:01 WBC 16.5 H (4.5-11.0) K/uL RBC 3.88 (3.30-5.50) M/uL Hgb 11.2 L (12.0-15.0) g/dL Hct 37.9 (36.0-48.0) % MCV 98 (80-98) fL MCH 29 (27-31) pg MCHC 30 L (32-36) % Plt Count 226 (150-400) K/uL Neut % (Auto) 90 H (36-66) % Lymph % (Auto) 4 L (24-44) % [place] % (Auto) 6 (2-6) % Eos % (Auto) 0 L (2-4) % Baso % (Auto) 0 (0-1) % Sodium 140 (140-148) mmol/L Potassium 3.6 (3.6-5.2) mmol/L Chloride 94 L (100-108) mmol/L Carbon Dioxide 51 H (21-32) mmol/L Anion Gap -1.4 L (5.0-14.0) mmol/L BUN 18 (7-18) mg/dL Creatinine 0.4 L (0.6-1.0) mg/dL Est Cr Clr Drug Dosing 129.33 mL/min Estimated GFR (MDRD) > 60 (>60) Glucose 260 H (74-106) mg/dL Calcium 8.5 (8.5-10.1) mg/dL Magnesium 1.6 L D (1.8-2.4) mg/dL Med Orders - Current: Current Medications Acetaminophen (Tylenol) 650 mg PO Q4H PRN PRN Reason: Pain (Mild 1-3)/fever Last Admin: 02/17/17 21:15 Dose: 650 mg Albuterol (Proventil Neb Soln) 2.5 mg NEB Q4H PRN PRN Reason: Shortness Of Breath/wheezing Albuterol/Ipratropium (Duoneb 3.0-0.5 Mg/3 Ml) 3 ml NEB QIDRT [facility] Last Admin: 02/18/17 07:09 Dose: 3 ml Buprenorphine HCl (Buprenorphine Hcl) 12 mg SL ACBREAKFAST [facility] Last Admin: 02/18/17 08:33 Dose: 12 mg Citalopram Hydrobromide (Celexa) 10 mg PO DAILY [facility] Last Admin: 02/18/17 09:29 Dose: 10 mg Dextrose (Glutose 15) 15 gm PO ONETIME PRN PRN Reason: Hypoglycemia Dextrose/Water (Dextrose 50% In Water) 50 ml IV ONETIME PRN PRN Reason: Hypoglycemia Dimethicone/Zinc Oxide (Rash Relief-Zinc Oxide [place]) 0 gm TOP QID [facility] Last Admin: 02/18/17 09:30 Dose: 1 applic Docusate Sodium (Colace) 100 mg PO BID PRN PRN Reason: Constipation Enoxaparin Sodium (Lovenox) 40 mg SUBCUT BEDTIME [facility] Last Admin: 02/17/17 20:17 Dose: 40 mg Insulin Aspart (Novolog) 0 unit SUBCUT ASDIRECTED [facility] PRN Reason: Protocol Last Admin: 02/18/17 08:35 Dose: 3 units Magnesium Hydroxide (Milk Of Magnesia) 30 ml PO Q12H PRN PRN Reason: Constipation Methylprednisolone Sodium Succinate (Solu-Medrol) 40 mg IVPUSH Q8H [facility] Last Admin: 02/18/17 05:34 Dose: 40 mg Mometasone Furoate/Formoterol Fumar (Dulera 200-5 Mcg) 2 puff IH BIDRT [facility] Last Admin: 02/18/17 07:09 Dose: 2 puff Nystatin (Nystop) 0 gm TOP QID [facility] Last Admin: 02/18/17 09:30 Dose: 1 applic Ondansetron HCl (Zofran) 4 mg IV Q4H PRN PRN Reason: Nausea/Vomiting Oxycodone HCl (Oxycodone) 5 mg PO Q4H PRN PRN Reason: Pain (moderate 4-6) Last Admin: 02/18/17 00:01 Dose: 5 mg Polyethylene Glycol (Miralax) 17 gm PO DAILY PRN PRN Reason: Constipation Pregabalin (Lyrica) 100 mg PO TID [facility] Last Admin: 02/18/17 09:29 Dose: Not Given Simvastatin (Zocor) 80 mg PO BEDTIME [facility] Last Admin: 02/17/17 20:16 Dose: 80 mg Sodium Chloride (Saline Flush) 10 ml FLUSH ASDIRECTED PRN PRN Reason: Keep Vein Open Tiotropium [place] (Spiriva Handihaler) 18 mcg INH DAILY@0700 [facility] Last Admin: 02/18/17 07:10 Dose: 1 cap Discontinued Medications Albuterol (Proventil Neb Soln) 2.5 mg NEB ONETIME ONE Stop: 02/16/17 21:28 Last Admin: 02/16/17 22:06 Dose: 2.5 mg Albuterol/Ipratropium (Duoneb 3.0-0.5 Mg/3 Ml) 3 ml NEB QID [facility] Last Admin: 02/17/17 07:17 Dose: 3 ml Dimethicone/Zinc Oxide (Rash Relief-Zinc Oxide [place]) 1 gm TOP QID [facility] Last Admin: 02/17/17 08:10 Dose: Not Given Enoxaparin Sodium (Lovenox) 40 mg SUBCUT DAILY [facility] Last Admin: 02/17/17 01:01 Dose: 40 mg Furosemide (Lasix) 20 mg IVPUSH NOW ONE Stop: 02/16/17 23:10 Last Admin: 02/17/17 00:34 Dose: 20 mg Furosemide (Lasix) 20 mg IVPUSH NOW ONE Stop: 02/17/17 09:01 Last Admin: 02/17/17 08:44 Dose: 20 mg Furosemide (Lasix) 20 mg IVPUSH NOW ONE Stop: 02/18/17 07:01 Last Admin: 02/18/17 06:28 Dose: 20 mg Potassium Chloride 20 meq/ (Premix) 100 mls @ 50 mls/hr IV ONETIME ONE Stop: 02/17/17 00:00 Last Admin: 02/16/17 22:12 Dose: 50 mls/hr Potassium Chloride 40 meq/ (Premix) 100 mls @ 25 mls/hr IV ONETIME ONE Stop: 02/17/17 03:08 Last Admin: 02/17/17 00:28 Dose: 25 mls/hr Potassium Chloride (Kcl 20 Meq In Water 100 Ml) Confirm Administered Dose 200 mls @ as directed .ROUTE .STK-MED ONE Stop: 02/17/17 00:20 Last Admin: 02/17/17 00:57 Dose: Not Given Magnesium Sulfate 2 gm/ Premix 50 mls @ 25 mls/hr IV Q6H [facility] Stop: 02/17/17 16:59 Last Admin: 02/17/17 14:51 Dose: 25 mls/hr Lidocaine HCl (Xylocaine-Mpf 1%) Confirm Administered Dose 5 ml .ROUTE .STK-MED ONE Stop: 02/16/17 22:05 Last Admin: 02/16/17 22:26 Dose: Not Given Lidocaine HCl (Xylocaine-Mpf 1%) 2 ml INJECT ONETIME ONE Stop: 02/16/17 22:10 Last Admin: 02/16/17 22:57 Dose: 2 ml Lidocaine HCl (Xylocaine-Mpf 1%) Confirm Administered Dose 5 ml .ROUTE .STK-MED ONE Stop: 02/17/17 00:18 Last Admin: 02/17/17 00:57 Dose: Not Given Lidocaine HCl (Xylocaine 1%) 2 ml INJECT Q2H [facility] Stop: 02/17/17 02:15 Last Admin: 02/17/17 21:22 Dose: 2 ml Methylprednisolone Sodium Succinate (Solu-Medrol) 125 mg IVPUSH ONETIME ONE Stop: 02/16/17 21:53 Last Admin: 02/16/17 22:12 Dose: 125 mg Methylprednisolone Sodium Succinate (Solu-Medrol) 40 mg IVPUSH Q8H [facility] Last Admin: 02/17/17 08:10 Dose: Not Given Mometasone Furoate/Formoterol Fumar (Dulera 200-5 Mcg) 2 puff IH BID [facility] Last Admin: 02/17/17 00:56 Dose: Not Given Nystatin (Nystop) Confirm Administered Dose 15 gm .ROUTE .STK-MED ONE Stop: 02/17/17 00:59 Last Admin: 02/17/17 06:05 Dose: 1 applic Potassium Chloride (Klor-Con M20) 40 meq PO ONETIME ONE Stop: 02/17/17 02:01 Last Admin: 02/17/17 06:11 Dose: 40 meq Potassium Chloride (Klor-Con M20) Confirm Administered Dose 40 meq .ROUTE .STK- MED ONE Stop: 02/17/17 06:11 Last Admin: 02/17/17 07:19 Dose: Not Given - Exam Quality Assessment: supplemental oxygen General: alert, cooperative, no acute distress, lethargic HEENT: Pupils equal Neck: supple Lungs: Normal respiratory effort, Decreased breath sounds (mild both bases), Rales (few at the bases) Cardiovascular: Regular Rate, Regular Rhythm Abdomen: soft, no distension, tenderness (mild LLQ tenderness) Extremities: no edema, no cyanosis Skin: warm, dry Psy/Mental Status: alert, normal affect - Problem List Review Problem List Initiated/Reviewed/Updated: Yes - My Orders Last 24 Hours: My Active Orders 02/18/17 09:45 Doxycycline [Vibramycin] 100 mg PO Q12H Magnesium Sulfate/Water [Magnesium Sulfate 2 GM in Water 50 ML] 2 gm Premix Bag 1 bag IV Q6H 02/19/17 05:00 BASIC METABOLIC PANEL,BMP [CHEM] Timed BLOOD GAS ARTERIAL [BG] Timed CBC W/O DIFF,HEMOGRAM [HEME] Timed (1) - Plan Plan:: ASSESSMENT AND PLAN HYPOXIC AND HYPERCAPNIC RESPIRATORY FAILURE SECONDARY TO COPD EXACERBATION - this patient has a history of severe COPD requiring continuous oxygen at home. Still very lethargic. Oxygenation has been relatively stable. Declining noninvasive ventilation use most of the time. She does have a new fever today and respiratory infection is suspected, specifically bronchitis. White blood cell count is still significantly elevated but is slightly better today. -Noninvasive ventilation as needed -Start doxycycline -Nebulized albuterol and DuoNeb nebs -Solu-Medrol 40 mg IV every 8 hours -Maintain oxygen saturations in the 88-92 range to avoid further CO2 retention -Encourage regular use of her Trilogy home ventilator, to avoid further hospitalizations TYPE 2 DIABETES MELLITUS -Hold metformin until she is more alert and eating -4 times a day glucometers -Low-dose sliding scale NovoLog PERIPHERAL EDEMA - likely secondary to right sided heart failure -Continue diuresis MAINTENANCE ISSUES -DVT prophylaxis; enoxaparin 40 mg subcutaneous daily -GI prophylaxis;not indicated -Dixon catheter;not indicated -Nutrition;consistent carb diet, 2 g sodium diet DISPOSITION - anticipate discharge to home after the hospital stay. Donald Dominguez M.D.
[2017-02-18] MEDS: Magnesium Sulfate/Water 2 GM in Premix Bag 1 BAG IV SCH ×2 (09:46→15:47)
[2017-02-18] MEDS: Doxycycline 100 MG Cap PO SCH ×2 (09:49→21:18)
[2017-02-18] MEDS: Acetaminophen 325 MG Tab PO PRN (21:18)
[2017-02-18] MEDS: Simvastatin 20 MG Tab PO SCH (21:19)
[2017-02-19] MEDS: Enoxaparin 40 MG/0.4 ML Syringe SUBCUT SCH (05:24)
[2017-02-19] MEDS: methylPREDNISolone Sodium Succinate 40 MG/1 ML SDV IVPUSH SCH (06:19)
[2017-02-19] MEDS: Dimethicone 20%/Zinc Oxide 25% 56 GM Spray Bottle TOP SCH ×4 (06:25→23:27)
[2017-02-19] MEDS: Nystatin Topical Powder 15 GM Bottle TOP SCH ×5 (06:25→23:28)
[2017-02-19] MEDS: Tiotropium Inhaler 18 MCG Inhalation Powder Cap Kit of 5 INH SCH (07:04)
[2017-02-19] MEDS: Albuterol/Ipratropium 3.0-0.5 MG/3 ML Neb Soln NEB SCH ×4 (07:04→20:46)
[2017-02-19] MEDS: Formoterol/Mometasone 200-5 MCG 8.8 GM Inhaler IH SCH ×2 (07:04→20:46)
[2017-02-19] MEDS: Insulin Aspart 100 Units/ML 3 ML Pen SUBCUT SCH ×4 (08:11→20:57)
[2017-02-19] MEDS: Pregabalin 100 MG Cap PO SCH (09:00)
[2017-02-19] MEDS: BUPRENORPHINE HCL 2 MG SL SCH (09:00)
[2017-02-19] MEDS: Doxycycline 100 MG Cap PO SCH ×3 (09:01→23:27)
[2017-02-19] MEDS: Citalopram 10 MG Tab PO SCH (09:03)
--- NOTE | 2017-02-19 09:47 | PCM.PN ---
- General Info Date of Service: 02/19/17 Functional Status: Reports: pain controlled, urinating. Denies: ambulating - Review of Systems General: Reports: Weakness Pulmonary: Reports: shortness of breath Neurological: Reports: Confusion Systems Review Comment:: No acute events overnight. Didn't tolerate noninvasive ventilation for a while. Seems a little bit more alert today but still very lethargic. Mildly tachycardic but no fevers overnight. Still does not respond to questions completely appropriately and responds yes to most of my questions even when they are not yesterday questions. Is sitting up in the chair. Has been drinking a little bit of fluid. Blood cultures with no growth at 24 hours. - Patient Data Vitals - most recent: Last Vital Signs Temp 37.2 C 02/19/17 07:44 Pulse 114 H 02/19/17 07:44 Resp 24 H 02/19/17 07:44 BP 161/83 H 02/19/17 07:44 Pulse Ox 90 L 02/19/17 07:44 Weight - most recent: 67.4 kg I&O - last 24 hours: Intake & Output 02/18/17 02/19/17 02/19/17 22:59 06:59 14:59 Intake Total 50 100 Output Total 450 500 150 Balance -400 -400 -150 Lab Results last 24 hrs: Laboratory Results - last 24 hr 02/19/17 02/19/17 02/19/17 Range/Units 05:00 05:00 05:00 WBC 14.3 H (4.5-11.0) K/uL RBC 3.92 (3.30-5.50) M/uL Hgb 11.3 L (12.0-15.0) g/dL Hct 37.6 (36.0-48.0) % MCV 96 (80-98) fL MCH 29 (27-31) pg MCHC 30 L (32-36) % Plt Count 202 (150-400) K/uL Puncture Site Rt radial ABG pH 7.535 H (7.350-7.450) ABG pCO2 57.8 H (35.0-42.0) mmHg ABG pO2 48.0 L (75.0-100.0) mmHg ABG HCO3 48.7 H (22.0-26.0) mmol/L ABG Total CO2 43.4 H (21.0-25.0) mmol/L ABG O2 Saturation 87.7 L (95.0-98.0) % ABG O2 Content 13.5 L (15.0-23.0) %vol ABG Base Excess 22.0 mm/L ABG Hemoglobin 11.4 L (12.0-16.0) g/dL ABG Oxyhemoglobin 83.8 % ABG Carboxyhemoglobin 3.9 H (0.0-1.6) % ABG Methemoglobin 0.5 % Srikanth Test Passed O2 Delivery Device Nasal cannula Oxygen Flow Rate 2 L Sodium 138 L (140-148) mmol/L Potassium 3.3 L (3.6-5.2) mmol/L Chloride 90 L (100-108) mmol/L Carbon Dioxide 47 H (21-32) mmol/L Anion Gap 4.3 L (5.0-14.0) mmol/L BUN 17 (7-18) mg/dL Creatinine 0.3 L (0.6-1.0) mg/dL Est Cr Clr Drug Dosing 172.44 mL/min Estimated GFR (MDRD) > 60 (>60) Glucose 228 H (74-106) mg/dL Calcium 8.7 (8.5-10.1) mg/dL Med Orders - Current: Current Medications Acetaminophen (Tylenol) 650 mg PO Q4H PRN PRN Reason: Pain (Mild 1-3)/fever Last Admin: 02/18/17 21:18 Dose: 650 mg Albuterol (Proventil Neb Soln) 2.5 mg NEB Q4H PRN PRN Reason: Shortness Of Breath/wheezing Albuterol/Ipratropium (Duoneb 3.0-0.5 Mg/3 Ml) 3 ml NEB QIDRT [facility] Last Admin: 02/19/17 07:04 Dose: 3 ml Buprenorphine HCl (Buprenorphine Hcl) 12 mg SL ACBREAKFAST [facility] Last Admin: 02/19/17 09:00 Dose: 12 mg Citalopram Hydrobromide (Celexa) 10 mg PO DAILY [facility] Last Admin: 02/19/17 09:03 Dose: 10 mg Dextrose (Glutose 15) 15 gm PO ONETIME PRN PRN Reason: Hypoglycemia Dextrose/Water (Dextrose 50% In Water) 50 ml IV ONETIME PRN PRN Reason: Hypoglycemia Dimethicone/Zinc Oxide (Rash Relief-Zinc Oxide [place]) 0 gm TOP QID [facility] Last Admin: 02/19/17 09:01 Dose: 1 applic Docusate Sodium (Colace) 100 mg PO BID PRN PRN Reason: Constipation Doxycycline Hyclate (Vibramycin) 100 mg PO Q12H [facility] Last Admin: 02/19/17 09:01 Dose: 100 mg Enoxaparin Sodium (Lovenox) 40 mg SUBCUT Q24H [facility] Insulin Aspart (Novolog) 0 unit SUBCUT WITHMEALSANDBED [facility] PRN Reason: Protocol Magnesium Hydroxide (Milk Of Magnesia) 30 ml PO Q12H PRN PRN Reason: Constipation Methylprednisolone Sodium Succinate (Solu-Medrol) 40 mg IVPUSH Q8H [facility] Last Admin: 02/19/17 06:19 Dose: 40 mg Mometasone Furoate/Formoterol Fumar (Dulera 200-5 Mcg) 2 puff IH BIDRT [facility] Last Admin: 02/19/17 07:04 Dose: 2 puff Nystatin (Nystop) 0 gm TOP QID [facility] Last Admin: 02/19/17 09:01 Dose: 1 applic Ondansetron HCl (Zofran) 4 mg IV Q4H PRN PRN Reason: Nausea/Vomiting Oxycodone HCl (Oxycodone) 5 mg PO Q4H PRN PRN Reason: Pain (moderate 4-6) Last Admin: 02/18/17 00:01 Dose: 5 mg Polyethylene Glycol (Miralax) 17 gm PO DAILY PRN PRN Reason: Constipation Simvastatin (Zocor) 80 mg PO BEDTIME [facility] Last Admin: 02/18/17 21:19 Dose: 80 mg Sodium Chloride (Saline Flush) 10 ml FLUSH ASDIRECTED PRN PRN Reason: Keep Vein Open Tiotropium [place] (Spiriva Handihaler) 18 mcg INH DAILY@0700 [facility] Last Admin: 02/19/17 07:04 Dose: 1 cap Discontinued Medications Albuterol (Proventil Neb Soln) 2.5 mg NEB ONETIME ONE Stop: 02/16/17 21:28 Last Admin: 02/16/17 22:06 Dose: 2.5 mg Albuterol/Ipratropium (Duoneb 3.0-0.5 Mg/3 Ml) 3 ml NEB QID [facility] Last Admin: 02/17/17 07:17 Dose: 3 ml Dimethicone/Zinc Oxide (Rash Relief-Zinc Oxide [place]) 1 gm TOP QID [facility] Last Admin: 02/17/17 08:10 Dose: Not Given Enoxaparin Sodium (Lovenox) 40 mg SUBCUT DAILY [facility] Last Admin: 02/17/17 01:01 Dose: 40 mg Enoxaparin Sodium (Lovenox) 40 mg SUBCUT BEDTIME [facility] Last Admin: 02/19/17 05:24 Dose: 40 mg Furosemide (Lasix) 20 mg IVPUSH NOW ONE Stop: 02/16/17 23:10 Last Admin: 02/17/17 00:34 Dose: 20 mg Furosemide (Lasix) 20 mg IVPUSH NOW ONE Stop: 02/17/17 09:01 Last Admin: 02/17/17 08:44 Dose: 20 mg Furosemide (Lasix) 20 mg IVPUSH NOW ONE Stop: 02/18/17 07:01 Last Admin: 02/18/17 06:28 Dose: 20 mg Potassium Chloride 20 meq/ (Premix) 100 mls @ 50 mls/hr IV ONETIME ONE Stop: 02/17/17 00:00 Last Admin: 02/16/17 22:12 Dose: 50 mls/hr Potassium Chloride 40 meq/ (Premix) 100 mls @ 25 mls/hr IV ONETIME ONE Stop: 02/17/17 03:08 Last Admin: 02/17/17 00:28 Dose: 25 mls/hr Potassium Chloride (Kcl 20 Meq In Water 100 Ml) Confirm Administered Dose 200 mls @ as directed .ROUTE .STK-MED ONE Stop: 02/17/17 00:20 Last Admin: 02/17/17 00:57 Dose: Not Given Magnesium Sulfate 2 gm/ Premix 50 mls @ 25 mls/hr IV Q6H [facility] Stop: 02/17/17 16:59 Last Admin: 02/17/17 14:51 Dose: 25 mls/hr Magnesium Sulfate 2 gm/ Premix 50 mls @ 12.5 mls/hr IV Q6H [facility] Stop: 02/18/17 19:59 Last Admin: 02/18/17 15:47 Dose: 12.5 mls/hr Insulin Aspart (Novolog) 0 unit SUBCUT ASDIRECTED [facility] PRN Reason: Protocol Last Admin: 02/19/17 08:11 Dose: 2 units Lidocaine HCl (Xylocaine-Mpf 1%) Confirm Administered Dose 5 ml .ROUTE .STK-MED ONE Stop: 02/16/17 22:05 Last Admin: 02/16/17 22:26 Dose: Not Given Lidocaine HCl (Xylocaine-Mpf 1%) 2 ml INJECT ONETIME ONE Stop: 02/16/17 22:10 Last Admin: 02/16/17 22:57 Dose: 2 ml Lidocaine HCl (Xylocaine-Mpf 1%) Confirm Administered Dose 5 ml .ROUTE .STK-MED ONE Stop: 02/17/17 00:18 Last Admin: 02/17/17 00:57 Dose: Not Given Lidocaine HCl (Xylocaine 1%) 2 ml INJECT Q2H [place] Stop: 02/17/17 02:15 Last Admin: 02/17/17 21:22 Dose: 2 ml Methylprednisolone Sodium Succinate (Solu-Medrol) 125 mg IVPUSH ONETIME ONE Stop: 02/16/17 21:53 Last Admin: 02/16/17 22:12 Dose: 125 mg Methylprednisolone Sodium Succinate (Solu-Medrol) 40 mg IVPUSH Q8H [facility] Last Admin: 02/17/17 08:10 Dose: Not Given Mometasone Furoate/Formoterol Fumar (Dulera 200-5 Mcg) 2 puff IH BID [facility] Last Admin: 02/17/17 00:56 Dose: Not Given Nystatin (Nystop) Confirm Administered Dose 15 gm .ROUTE .STK-MED ONE Stop: 02/17/17 00:59 Last Admin: 02/17/17 06:05 Dose: 1 applic Potassium Chloride (Klor-Con M20) 40 meq PO ONETIME ONE Stop: 02/17/17 02:01 Last Admin: 02/17/17 06:11 Dose: 40 meq Potassium Chloride (Klor-Con M20) Confirm Administered Dose 40 meq .ROUTE .STK- MED ONE Stop: 02/17/17 06:11 Last Admin: 02/17/17 07:19 Dose: Not Given Pregabalin (Lyrica) 100 mg PO TID [facility] Last Admin: 02/19/17 09:00 Dose: 100 mg - Exam Quality Assessment: supplemental oxygen, urine catheter General: alert, cooperative, no acute distress, lethargic. No: oriented HEENT: Pupils equal Neck: supple Lungs: Normal respiratory effort, Decreased breath sounds (both bases), Rales ( rare right side) Cardiovascular: Regular Rhythm, Tachycardia Abdomen: soft, no tenderness, no distension Extremities: no edema, no cyanosis Skin: warm, dry Psy/Mental Status: alert, normal affect - Problem List Review Problem List Initiated/Reviewed/Updated: Yes - My Orders Last 24 Hours: My Active Orders 02/18/17 10:00 Doxycycline [Vibramycin] 100 mg PO Q12H 02/18/17 12:11 Blood Culture x2 Reflex Set [OM.PC] Urgent 02/18/17 12:50 CULTURE BLOOD [BC] Urgent 02/18/17 12:57 CULTURE BLOOD [BC] Urgent 02/19/17 08:38 Communication Order [RC] PRN Communication Order [RC] PRN 02/19/17 09:45 Potassium Chloride 20 MEQ,Lidocaine 1% 2 ML IN 100ML NS @ 50 MLS/HR Potassium Chloride 20 meq Lidocaine 1% [Xylocaine 1%] 2 ml Sodium Chloride 0.9% [Normal Saline] 100 ml IV Q2H 02/19/17 12:00 Insulin Aspart [NovoLOG] See Protocol SUBCUT WITHMEALSANDBED 02/19/17 14:00 Pregabalin [Lyrica] 50 mg PO TID 02/19/17 16:30 predniSONE 20 mg PO BIDAC 02/20/17 05:00 BASIC METABOLIC PANEL,BMP [CHEM] Timed BLOOD GAS ARTERIAL [BG] Timed CBC W/O DIFF,HEMOGRAM [HEME] Timed (1) - Plan Plan:: ASSESSMENT AND PLAN HYPOXIC AND HYPERCAPNIC RESPIRATORY FAILURE SECONDARY TO COPD EXACERBATION, PROBABLY SECONDARY TO BRONCHITIS - this patient has a history of severe COPD requiring continuous oxygen at home. Still lethargic but oxygenation stable. PCO2 down below 80 NPH is slightly alkalotic. Cultures negative so far. -Noninvasive ventilation as needed -Continue doxycycline -Nebulized albuterol and DuoNebs -Transition to prednisone -Maintain oxygen saturations in the 88-92 range to avoid further CO2 retention -Encourage regular use of her Trilogy home ventilator, to avoid further hospitalizations TYPE 2 DIABETES MELLITUS - sugars fairly high while on steroids -Restart metformin this afternoon -4 times a day glucometers - medium-dose sliding scale NovoLog PERIPHERAL EDEMA - likely secondary to right sided heart failure, resolved -Monitor MAINTENANCE ISSUES -DVT prophylaxis; enoxaparin 40 mg subcutaneous daily -GI prophylaxis;not indicated -Dixon catheter;not indicated -Nutrition;consistent carb diet, 2 g sodium diet DISPOSITION - anticipate discharge to home after the hospital stay. Donald Dominguez M.D.
[2017-02-19] MEDS: Potassium Chloride 20 MEQ, Lidocaine 1% 2 ML in Sodium Chloride 0.9% 100 ML IV SCH ×3 (10:49→15:22)
[2017-02-19] MEDS: Polyethylene Glycol 3350 Powder 17 GM Packet PO PRN (13:18)
[2017-02-19] MEDS: Magnesium Hydroxide 400 MG/5 ML Susp 30 ML Cup PO PRN (13:18)
[2017-02-19] MEDS: Acetaminophen 325 MG Tab PO PRN (13:41)
[2017-02-19] MEDS: Pregabalin 50 MG Cap PO SCH ×2 (13:41→20:46)
[2017-02-19] MEDS: predniSONE 20 MG Tab PO SCH (17:23)
[2017-02-19] MEDS: metFORMIN 500 MG Tab PO SCH (17:23)
[2017-02-19] MEDS: Simvastatin 20 MG Tab PO SCH (20:46)
[2017-02-19] MEDS: oxyCODONE 5 MG Tab PO PRN (23:25)
[2017-02-20] MEDS ORDERED: Dimethicone 20%/Zinc Oxide 25% 56 GM Spray Bottle TOP PRN (00:07)
[2017-02-20] MEDS ORDERED: Nystatin Topical Powder 15 GM Bottle TOP PRN (00:09)
[2017-02-20] MEDS: Acetaminophen 325 MG Tab PO PRN ×3 (01:26→22:25)
[2017-02-20] MEDS: Enoxaparin 40 MG/0.4 ML Syringe SUBCUT SCH (04:55)
[2017-02-20] MEDS: Albuterol/Ipratropium 3.0-0.5 MG/3 ML Neb Soln NEB SCH ×4 (07:06→21:25)
[2017-02-20] MEDS: Tiotropium Inhaler 18 MCG Inhalation Powder Cap Kit of 5 INH SCH (07:06)
[2017-02-20] MEDS: Formoterol/Mometasone 200-5 MCG 8.8 GM Inhaler IH SCH ×2 (07:06→21:31)
[2017-02-20] MEDS: Insulin Aspart 100 Units/ML 3 ML Pen SUBCUT SCH ×4 (08:00→21:26)
[2017-02-20] MEDS: predniSONE 20 MG Tab PO SCH ×2 (08:06→17:07)
[2017-02-20] MEDS: metFORMIN 500 MG Tab PO SCH ×2 (08:06→17:07)
[2017-02-20] MEDS: BUPRENORPHINE HCL 2 MG SL SCH (08:20)
[2017-02-20] MEDS: Doxycycline 100 MG Cap PO SCH ×2 (09:14→21:25)
[2017-02-20] MEDS: Pregabalin 50 MG Cap PO SCH ×3 (09:14→21:25)
[2017-02-20] MEDS: Citalopram 10 MG Tab PO SCH (09:14)
[2017-02-20] MEDS: Nystatin Topical Powder 15 GM Bottle TOP PRN (10:57)
[2017-02-20] MEDS: oxyCODONE 5 MG Tab PO PRN ×3 (11:13→22:26)
--- NOTE | 2017-02-20 17:35 | PCM.PN ---
- General Info Date of Service: 02/20/17 Functional Status: Reports: pain controlled, tolerating diet - Review of Systems General: Reports: Weakness Pulmonary: Reports: shortness of breath Systems Review Comment:: no acute events overnight. Patient is much more alert and oriented today. Appetite has improved. She remains very weak and requires a significant amount of assistance to get into and out of bed. She thinks that she is getting close to her baseline. She is doing some coughing. She thinks her shortness of breath is steadily improving. She did not have fevers overnight. - Patient Data Vitals - most recent: Last Vital Signs Temp 36.6 C 02/20/17 16:00 Pulse 102 H 02/20/17 16:00 Resp 21 H 02/20/17 16:00 BP 135/68 02/20/17 16:00 Pulse Ox 92 L 02/20/17 16:00 Weight - most recent: 67.4 kg I&O - last 24 hours: Intake & Output 02/20/17 02/20/17 02/20/17 06:59 14:59 22:59 Intake Total 600 200 Output Total 500 165 Balance 100 35 Lab Results last 24 hrs: Laboratory Results - last 24 hr 02/19/17 02/20/17 02/20/17 Range/Units 23:55 05:00 05:56 WBC 13.5 H (4.5-11.0) K/uL RBC 3.56 (3.30-5.50) M/uL Hgb 10.3 L (12.0-15.0) g/dL Hct 34.6 L (36.0-48.0) % MCV 97 (80-98) fL MCH 29 (27-31) pg MCHC 30 L (32-36) % Plt Count 202 (150-400) K/uL Puncture Site Rt brachial ABG pH 7.446 (7.350-7.450) ABG pCO2 67.3 H (35.0-42.0) mmHg ABG pO2 63.3 L (75.0-100.0) mmHg ABG HCO3 45.6 H (22.0-26.0) mmol/L ABG Total CO2 41.7 H (21.0-25.0) mmol/L ABG O2 Saturation 93.4 L (95.0-98.0) % ABG O2 Content 13.4 L (15.0-23.0) %vol ABG Base Excess 18.5 mm/L ABG Hemoglobin 10.6 L (12.0-16.0) g/dL ABG Oxyhemoglobin 90.2 % ABG Carboxyhemoglobin 2.9 H (0.0-1.6) % ABG Methemoglobin 0.5 % Srikanth Test Passed O2 Delivery Device Nasal cannula Sodium (140-148) mmol/L Potassium (3.6-5.2) mmol/L Chloride (100-108) mmol/L Carbon Dioxide (21-32) mmol/L Anion Gap (5.0-14.0) mmol/L BUN (7-18) mg/dL Creatinine (0.6-1.0) mg/dL Est Cr Clr Drug Dosing mL/min Estimated GFR (MDRD) (>60) Glucose (74-106) mg/dL Calcium (8.5-10.1) mg/dL Urine Color Yellow Urine Appearance Cloudy Urine pH 8.0 (4.5-8.0) Ur Specific [place] 1.015 (1.008-1.030) Urine Protein Negative (NEGATIVE) mg/dL Urine Glucose (UA) 1000 H (NEGATIVE) mg/dL Urine Ketones 15 H (NEGATIVE) mg/dL Urine Occult Blood Negative (NEGATIVE) Urine Nitrite Negative (NEGATIVE) Urine Bilirubin Negative (NEGATIVE) Urine Urobilinogen Normal (NORMAL) mg/dL Ur Leukocyte Esterase Negative (NEGATIVE) Urine RBC 0-5 (0-5) Urine WBC 0-5 (0-5) Ur Epithelial Cells Few Amorphous Sediment Not seen Urine Bacteria Few Urine Mucus Not seen Urine Other 02/20/17 Range/Units 05:56 WBC (4.5-11.0) K/uL RBC (3.30-5.50) M/uL Hgb (12.0-15.0) g/dL Hct (36.0-48.0) % MCV (80-98) fL MCH (27-31) pg MCHC (32-36) % Plt Count (150-400) K/uL Puncture Site ABG pH (7.350-7.450) ABG pCO2 (35.0-42.0) mmHg ABG pO2 (75.0-100.0) mmHg ABG HCO3 (22.0-26.0) mmol/L ABG Total CO2 (21.0-25.0) mmol/L ABG O2 Saturation (95.0-98.0) % ABG O2 Content (15.0-23.0) %vol ABG Base Excess mm/L ABG Hemoglobin (12.0-16.0) g/dL ABG Oxyhemoglobin % ABG Carboxyhemoglobin (0.0-1.6) % ABG Methemoglobin % Srikanth Test O2 Delivery Device Sodium 139 L (140-148) mmol/L Potassium 4.0 (3.6-5.2) mmol/L Chloride 96 L (100-108) mmol/L Carbon Dioxide 48 H (21-32) mmol/L Anion Gap 0.0 L (5.0-14.0) mmol/L BUN 16 (7-18) mg/dL Creatinine 0.4 L (0.6-1.0) mg/dL Est Cr Clr Drug Dosing 129.33 mL/min Estimated GFR (MDRD) > 60 (>60) Glucose 231 H (74-106) mg/dL Calcium 8.7 (8.5-10.1) mg/dL Urine Color Urine Appearance Urine pH (4.5-8.0) Ur Specific [place] (1.008-1.030) Urine Protein (NEGATIVE) mg/dL Urine Glucose (UA) (NEGATIVE) mg/dL Urine Ketones (NEGATIVE) mg/dL Urine Occult Blood (NEGATIVE) Urine Nitrite (NEGATIVE) Urine Bilirubin (NEGATIVE) Urine Urobilinogen (NORMAL) mg/dL Ur Leukocyte Esterase (NEGATIVE) Urine RBC (0-5) Urine WBC (0-5) Ur Epithelial Cells Amorphous Sediment Urine Bacteria Urine Mucus Urine Other Alfonso Results last 24 hrs: Microbiology 02/18/17 12:57 Aerobic Blood Culture - Preliminary Blood - Brach-Ceph NO GROWTH AFTER 2 DAYS Anaerobic Blood Culture - Preliminary NO GROWTH AFTER 2 DAYS 02/18/17 12:50 Aerobic Blood Culture - Preliminary Blood - Venous NO GROWTH AFTER 2 DAYS Anaerobic Blood Culture - Preliminary NO GROWTH AFTER 2 DAYS Med Orders - Current: Current Medications Acetaminophen (Tylenol) 650 mg PO Q4H PRN PRN Reason: Pain (Mild 1-3)/fever Last Admin: 02/20/17 10:07 Dose: 650 mg Albuterol (Proventil Neb Soln) 2.5 mg NEB Q4H PRN PRN Reason: Shortness Of Breath/wheezing Albuterol/Ipratropium (Duoneb 3.0-0.5 Mg/3 Ml) 3 ml NEB QIDRT [facility] Last Admin: 02/20/17 14:32 Dose: 3 ml Buprenorphine HCl (Buprenorphine Hcl) 12 mg SL ACBREAKFAST [facility] Last Admin: 02/20/17 08:20 Dose: 12 mg Citalopram Hydrobromide (Celexa) 10 mg PO DAILY [facility] Last Admin: 02/20/17 09:14 Dose: 10 mg Dextrose (Glutose 15) 15 gm PO ONETIME PRN PRN Reason: Hypoglycemia Dextrose/Water (Dextrose 50% In Water) 50 ml IV ONETIME PRN PRN Reason: Hypoglycemia Dimethicone/Zinc Oxide (Rash Relief-Zinc Oxide [place]) 1 gm TOP ASDIRECTED PRN PRN Reason: Rash Docusate Sodium (Colace) 100 mg PO BID PRN PRN Reason: Constipation Doxycycline Hyclate (Vibramycin) 100 mg PO Q12H [facility] Last Admin: 02/20/17 09:14 Dose: 100 mg Enoxaparin Sodium (Lovenox) 40 mg SUBCUT Q24H [facility] Last Admin: 02/20/17 04:55 Dose: 40 mg Insulin Aspart (Novolog) 0 unit SUBCUT WITHMEALSANDBED [facility] PRN Reason: Protocol Last Admin: 02/20/17 17:06 Dose: 8 units Magnesium Hydroxide (Milk Of Magnesia) 30 ml PO Q12H PRN PRN Reason: Constipation Last Admin: 02/19/17 13:18 Dose: 30 ml Metformin HCl (Glucophage) 1,000 mg PO BIDMEALS [facility] Last Admin: 02/20/17 17:07 Dose: 1,000 mg Mometasone Furoate/Formoterol Fumar (Dulera 200-5 Mcg) 2 puff IH BIDRT [facility] Last Admin: 02/20/17 07:06 Dose: 2 puff Nystatin (Nystop) 0 gm TOP QID PRN PRN Reason: groin reddness Last Admin: 02/20/17 10:57 Dose: 1 applic Ondansetron HCl (Zofran) 4 mg IV Q4H PRN PRN Reason: Nausea/Vomiting Oxycodone HCl (Oxycodone) 5 mg PO Q4H PRN PRN Reason: Pain (moderate 4-6) Last Admin: 02/20/17 15:38 Dose: 5 mg Polyethylene Glycol (Miralax) 17 gm PO DAILY PRN PRN Reason: Constipation Last Admin: 02/19/17 13:18 Dose: 17 gm Prednisone (Prednisone) 20 mg PO BIDMEALS [facility] Last Admin: 02/20/17 17:07 Dose: 20 mg Pregabalin (Lyrica) 50 mg PO TID [facility] Last Admin: 02/20/17 13:50 Dose: 50 mg Simvastatin (Zocor) 80 mg PO BEDTIME [facility] Last Admin: 02/19/17 20:46 Dose: 80 mg Sodium Chloride (Saline Flush) 10 ml FLUSH ASDIRECTED PRN PRN Reason: Keep Vein Open Tiotropium [place] (Spiriva Handihaler) 18 mcg INH DAILY@0700 [facility] Last Admin: 02/20/17 07:06 Dose: 1 cap Discontinued Medications Albuterol (Proventil Neb Soln) 2.5 mg NEB ONETIME ONE Stop: 02/16/17 21:28 Last Admin: 02/16/17 22:06 Dose: 2.5 mg Albuterol/Ipratropium (Duoneb 3.0-0.5 Mg/3 Ml) 3 ml NEB QID [facility] Last Admin: 02/17/17 07:17 Dose: 3 ml Dimethicone/Zinc Oxide (Rash Relief-Zinc Oxide [place]) 1 gm TOP QID [facility] Last Admin: 02/17/17 08:10 Dose: Not Given Dimethicone/Zinc Oxide (Rash Relief-Zinc Oxide [place]) 0 gm TOP QID [facility] Last Admin: 02/19/17 23:27 Dose: Not Given Enoxaparin Sodium (Lovenox) 40 mg SUBCUT DAILY [facility] Last Admin: 02/17/17 01:01 Dose: 40 mg Enoxaparin Sodium (Lovenox) 40 mg SUBCUT BEDTIME [facility] Last Admin: 02/19/17 05:24 Dose: 40 mg Furosemide (Lasix) 20 mg IVPUSH NOW ONE Stop: 02/16/17 23:10 Last Admin: 02/17/17 00:34 Dose: 20 mg Furosemide (Lasix) 20 mg IVPUSH NOW ONE Stop: 02/17/17 09:01 Last Admin: 02/17/17 08:44 Dose: 20 mg Furosemide (Lasix) 20 mg IVPUSH NOW ONE Stop: 02/18/17 07:01 Last Admin: 02/18/17 06:28 Dose: 20 mg Potassium Chloride 20 meq/ (Premix) 100 mls @ 50 mls/hr IV ONETIME ONE Stop: 02/17/17 00:00 Last Admin: 02/16/17 22:12 Dose: 50 mls/hr Potassium Chloride 40 meq/ (Premix) 100 mls @ 25 mls/hr IV ONETIME ONE Stop: 02/17/17 03:08 Last Admin: 02/17/17 00:28 Dose: 25 mls/hr Potassium Chloride (Kcl 20 Meq In Water 100 Ml) Confirm Administered Dose 200 mls @ as directed .ROUTE .STK-MED ONE Stop: 02/17/17 00:20 Last Admin: 02/17/17 00:57 Dose: Not Given Magnesium Sulfate 2 gm/ Premix 50 mls @ 25 mls/hr IV Q6H [facility] Stop: 02/17/17 16:59 Last Admin: 02/17/17 14:51 Dose: 25 mls/hr Magnesium Sulfate 2 gm/ Premix 50 mls @ 12.5 mls/hr IV Q6H [facility] Stop: 02/18/17 19:59 Last Admin: 02/18/17 15:47 Dose: 12.5 mls/hr Potassium Chloride 20 meq/Lidocaine HCl 2 ml/ Sodium Chloride 112 mls @ 55 mls/ hr IV Q2H [facility] Stop: 02/19/17 16:29 Last Admin: 02/19/17 15:22 Dose: 55 mls/hr Insulin Aspart (Novolog) 0 unit SUBCUT ASDIRECTED [facility] PRN Reason: Protocol Last Admin: 02/19/17 08:11 Dose: 2 units Lidocaine HCl (Xylocaine-Mpf 1%) Confirm Administered Dose 5 ml .ROUTE .STK-MED ONE Stop: 02/16/17 22:05 Last Admin: 02/16/17 22:26 Dose: Not Given Lidocaine HCl (Xylocaine-Mpf 1%) 2 ml INJECT ONETIME ONE Stop: 02/16/17 22:10 Last Admin: 02/16/17 22:57 Dose: 2 ml Lidocaine HCl (Xylocaine-Mpf 1%) Confirm Administered Dose 5 ml .ROUTE .STK-MED ONE Stop: 02/17/17 00:18 Last Admin: 02/17/17 00:57 Dose: Not Given Lidocaine HCl (Xylocaine 1%) 2 ml INJECT Q2H [facility] Stop: 02/17/17 02:15 Last Admin: 02/17/17 21:22 Dose: 2 ml Methylprednisolone Sodium Succinate (Solu-Medrol) 125 mg IVPUSH ONETIME ONE Stop: 02/16/17 21:53 Last Admin: 02/16/17 22:12 Dose: 125 mg Methylprednisolone Sodium Succinate (Solu-Medrol) 40 mg IVPUSH Q8H [facility] Last Admin: 02/17/17 08:10 Dose: Not Given Methylprednisolone Sodium Succinate (Solu-Medrol) 40 mg IVPUSH Q8H [facility] Last Admin: 02/19/17 06:19 Dose: 40 mg Mometasone Furoate/Formoterol Fumar (Dulera 200-5 Mcg) 2 puff IH BID [facility] Last Admin: 02/17/17 00:56 Dose: Not Given Nystatin (Nystop) Confirm Administered Dose 15 gm .ROUTE .STK-MED ONE Stop: 02/17/17 00:59 Last Admin: 02/17/17 06:05 Dose: 1 applic Nystatin (Nystop) 0 gm TOP QID [facility] Last Admin: 02/19/17 23:28 Dose: Not Given Nystatin (Nystop) 1 gm TOP QID PRN PRN Reason: groin reddness Potassium Chloride (Klor-Con M20) 40 meq PO ONETIME ONE Stop: 02/17/17 02:01 Last Admin: 02/17/17 06:11 Dose: 40 meq Potassium Chloride (Klor-Con M20) Confirm Administered Dose 40 meq .ROUTE .STK- MED ONE Stop: 02/17/17 06:11 Last Admin: 02/17/17 07:19 Dose: Not Given Pregabalin (Lyrica) 100 mg PO TID [facility] Last Admin: 02/19/17 09:00 Dose: 100 mg - Exam Quality Assessment: supplemental oxygen General: alert, oriented, cooperative, no acute distress Neck: supple Lungs: Clear to auscultation, Normal respiratory effort. No: Wheezing Cardiovascular: Regular Rhythm, Tachycardia Abdomen: soft, no distension Extremities: no edema, no cyanosis Skin: warm, dry Psy/Mental Status: alert, normal affect - Problem List Review Problem List Initiated/Reviewed/Updated: Yes - My Orders Last 24 Hours: My Active Orders 02/19/17 17:00 metFORMIN [Glucophage] 1,000 mg PO BIDMEALS predniSONE 20 mg PO BIDMEALS 02/20/17 00:07 Dimethicone/Zinc Oxide [Rash Relief-Zinc Oxide [place]] 1 gm TOP ASDIRECTED PRN 02/20/17 07:14 Nystatin [Nystop] 0 gm TOP QID PRN - Plan Plan:: ASSESSMENT AND PLAN HYPOXIC AND HYPERCAPNIC RESPIRATORY FAILURE SECONDARY TO COPD EXACERBATION, SECONDARY TO BRONCHITIS - this patient has a history of severe COPD requiring continuous oxygen at home. clinically much better today. Oxygenation has been stable. PH is normal today but PCO2 is elevated which is probably her baseline. Very weak and deconditioned. -Noninvasive ventilation as needed -Continue doxycycline -Nebulized albuterol and DuoNebs -continue prednisone -Maintain oxygen saturations in the 88-92 range to avoid further CO2 retention -Encourage regular use of her Trilogy home ventilator, to avoid further hospitalizations TYPE 2 DIABETES MELLITUS - sugars fairly high while on steroids -continue metformin -4 times a day glucometers -medium-dose sliding scale NovoLog PERIPHERAL EDEMA - likely secondary to right sided heart failure and has resolved with diuresis. -Monitor MAINTENANCE ISSUES -DVT prophylaxis; enoxaparin 40 mg subcutaneous daily -GI prophylaxis;not indicated -Dixon catheter;not indicated -Nutrition;consistent carb diet, 2 g sodium diet DISPOSITION - anticipate discharge to home after the hospital stay, we will ask for input from physical therapy to see if home or potentially the [facility] is the safest discharge plan. Donald Dominguez M.D.
[2017-02-20] MEDS: Simvastatin 20 MG Tab PO SCH (21:25)
[2017-02-21] MEDS: Enoxaparin 40 MG/0.4 ML Syringe SUBCUT SCH (05:08)
[2017-02-21] MEDS: Formoterol/Mometasone 200-5 MCG 8.8 GM Inhaler IH SCH ×2 (07:11→21:18)
[2017-02-21] MEDS: Albuterol/Ipratropium 3.0-0.5 MG/3 ML Neb Soln NEB SCH ×4 (07:11→21:21)
[2017-02-21] MEDS: Tiotropium Inhaler 18 MCG Inhalation Powder Cap Kit of 5 INH SCH (07:11)
[2017-02-21] MEDS: Insulin Aspart 100 Units/ML 3 ML Pen SUBCUT SCH ×4 (08:22→21:18)
[2017-02-21] MEDS: BUPRENORPHINE HCL 2 MG SL SCH (08:30)
[2017-02-21] MEDS: metFORMIN 500 MG Tab PO SCH ×2 (08:36→17:18)
[2017-02-21] MEDS: predniSONE 20 MG Tab PO SCH ×2 (08:37→17:18)
[2017-02-21] MEDS: Citalopram 10 MG Tab PO SCH (08:37)
[2017-02-21] MEDS: Pregabalin 50 MG Cap PO SCH ×3 (08:42→21:21)
--- NOTE | 2017-02-21 09:47 | PCM.PN ---
- General Info Date of Service: 02/21/17 Functional Status: Reports: pain controlled, tolerating diet - Review of Systems General: Reports: Weakness. Denies: Fever Pulmonary: Reports: shortness of breath Systems Review Comment:: No acute events overnight. Appetite continues to improve. Respiratory status has been stable. No complaints of abdominal pain. She continues to be very weak and requires the assistance of 2 people to get into and out of bed. She has not had any fevers. Tolerating antibiotics. - Patient Data Vitals - most recent: Last Vital Signs Temp 36.3 C 02/21/17 08:00 Pulse 106 H 02/21/17 08:00 Resp 20 02/21/17 08:00 BP 133/66 02/21/17 08:00 Pulse Ox 92 L 02/21/17 08:00 Weight - most recent: 67.4 kg I&O - last 24 hours: Intake & Output 02/20/17 02/21/17 02/21/17 22:59 06:59 14:59 Intake Total 300 Output Total 375 Balance -75 Alfonso Results last 24 hrs: Microbiology 02/18/17 12:57 Aerobic Blood Culture - Preliminary Blood - Brach-Ceph NO GROWTH AFTER 2 DAYS Anaerobic Blood Culture - Preliminary NO GROWTH AFTER 2 DAYS 02/18/17 12:50 Aerobic Blood Culture - Preliminary Blood - Venous NO GROWTH AFTER 2 DAYS Anaerobic Blood Culture - Preliminary NO GROWTH AFTER 2 DAYS Med Orders - Current: Current Medications Acetaminophen (Tylenol) 650 mg PO Q4H PRN PRN Reason: Pain (Mild 1-3)/fever Last Admin: 02/20/17 22:25 Dose: 650 mg Albuterol (Proventil Neb Soln) 2.5 mg NEB Q4H PRN PRN Reason: Shortness Of Breath/wheezing Albuterol/Ipratropium (Duoneb 3.0-0.5 Mg/3 Ml) 3 ml NEB QIDRT [facility] Last Admin: 02/21/17 07:11 Dose: 3 ml Buprenorphine HCl (Buprenorphine Hcl) 12 mg SL ACBREAKFAST [facility] Last Admin: 02/21/17 08:30 Dose: 12 mg Citalopram Hydrobromide (Celexa) 10 mg PO DAILY [facility] Last Admin: 02/21/17 08:37 Dose: 10 mg Dextrose (Glutose 15) 15 gm PO ONETIME PRN PRN Reason: Hypoglycemia Dextrose/Water (Dextrose 50% In Water) 50 ml IV ONETIME PRN PRN Reason: Hypoglycemia Dimethicone/Zinc Oxide (Rash Relief-Zinc Oxide [place]) 1 gm TOP ASDIRECTED PRN PRN Reason: Rash Docusate Sodium (Colace) 100 mg PO BID PRN PRN Reason: Constipation Doxycycline Hyclate (Vibramycin) 100 mg PO Q12H [facility] Last Admin: 02/20/17 21:25 Dose: 100 mg Enoxaparin Sodium (Lovenox) 40 mg SUBCUT Q24H [facility] Last Admin: 02/21/17 05:08 Dose: 40 mg Insulin Aspart (Novolog) 0 unit SUBCUT WITHMEALSANDBED [facility] PRN Reason: Protocol Last Admin: 02/21/17 08:22 Dose: 4 units Magnesium Hydroxide (Milk Of Magnesia) 30 ml PO Q12H PRN PRN Reason: Constipation Last Admin: 02/19/17 13:18 Dose: 30 ml Metformin HCl (Glucophage) 1,000 mg PO BIDMEALS [facility] Last Admin: 02/21/17 08:36 Dose: 1,000 mg Mometasone Furoate/Formoterol Fumar (Dulera 200-5 Mcg) 2 puff IH BIDRT [facility] Last Admin: 02/21/17 07:11 Dose: 2 puff Nystatin (Nystop) 0 gm TOP QID PRN PRN Reason: groin reddness Last Admin: 02/20/17 10:57 Dose: 1 applic Ondansetron HCl (Zofran) 4 mg IV Q4H PRN PRN Reason: Nausea/Vomiting Oxycodone HCl (Oxycodone) 5 mg PO Q4H PRN PRN Reason: Pain (moderate 4-6) Last Admin: 02/20/17 22:26 Dose: 5 mg Polyethylene Glycol (Miralax) 17 gm PO DAILY PRN PRN Reason: Constipation Last Admin: 02/19/17 13:18 Dose: 17 gm Prednisone (Prednisone) 20 mg PO BIDMEALS [facility] Last Admin: 02/21/17 08:37 Dose: 20 mg Pregabalin (Lyrica) 50 mg PO TID [facility] Last Admin: 02/21/17 08:42 Dose: 50 mg Simvastatin (Zocor) 80 mg PO BEDTIME [facility] Last Admin: 02/20/17 21:25 Dose: 80 mg Sodium Chloride (Saline Flush) 10 ml FLUSH ASDIRECTED PRN PRN Reason: Keep Vein Open Tiotropium [place] (Spiriva Handihaler) 18 mcg INH DAILY@0700 [facility] Last Admin: 02/21/17 07:11 Dose: 1 cap Discontinued Medications Albuterol (Proventil Neb Soln) 2.5 mg NEB ONETIME ONE Stop: 02/16/17 21:28 Last Admin: 02/16/17 22:06 Dose: 2.5 mg Albuterol/Ipratropium (Duoneb 3.0-0.5 Mg/3 Ml) 3 ml NEB QID [facility] Last Admin: 02/17/17 07:17 Dose: 3 ml Dimethicone/Zinc Oxide (Rash Relief-Zinc Oxide [place]) 1 gm TOP QID [facility] Last Admin: 02/17/17 08:10 Dose: Not Given Dimethicone/Zinc Oxide (Rash Relief-Zinc Oxide [place]) 0 gm TOP QID [facility] Last Admin: 02/19/17 23:27 Dose: Not Given Enoxaparin Sodium (Lovenox) 40 mg SUBCUT DAILY [facility] Last Admin: 02/17/17 01:01 Dose: 40 mg Enoxaparin Sodium (Lovenox) 40 mg SUBCUT BEDTIME [facility] Last Admin: 02/19/17 05:24 Dose: 40 mg Furosemide (Lasix) 20 mg IVPUSH NOW ONE Stop: 02/16/17 23:10 Last Admin: 02/17/17 00:34 Dose: 20 mg Furosemide (Lasix) 20 mg IVPUSH NOW ONE Stop: 02/17/17 09:01 Last Admin: 02/17/17 08:44 Dose: 20 mg Furosemide (Lasix) 20 mg IVPUSH NOW ONE Stop: 02/18/17 07:01 Last Admin: 02/18/17 06:28 Dose: 20 mg Potassium Chloride 20 meq/ (Premix) 100 mls @ 50 mls/hr IV ONETIME ONE Stop: 02/17/17 00:00 Last Admin: 02/16/17 22:12 Dose: 50 mls/hr Potassium Chloride 40 meq/ (Premix) 100 mls @ 25 mls/hr IV ONETIME ONE Stop: 02/17/17 03:08 Last Admin: 02/17/17 00:28 Dose: 25 mls/hr Potassium Chloride (Kcl 20 Meq In Water 100 Ml) Confirm Administered Dose 200 mls @ as directed .ROUTE .STK-MED ONE Stop: 02/17/17 00:20 Last Admin: 02/17/17 00:57 Dose: Not Given Magnesium Sulfate 2 gm/ Premix 50 mls @ 25 mls/hr IV Q6H [facility] Stop: 02/17/17 16:59 Last Admin: 02/17/17 14:51 Dose: 25 mls/hr Magnesium Sulfate 2 gm/ Premix 50 mls @ 12.5 mls/hr IV Q6H [facility] Stop: 02/18/17 19:59 Last Admin: 02/18/17 15:47 Dose: 12.5 mls/hr Potassium Chloride 20 meq/Lidocaine HCl 2 ml/ Sodium Chloride 112 mls @ 55 mls/ hr IV Q2H [facility] Stop: 02/19/17 16:29 Last Admin: 02/19/17 15:22 Dose: 55 mls/hr Insulin Aspart (Novolog) 0 unit SUBCUT ASDIRECTED [facility] PRN Reason: Protocol Last Admin: 02/19/17 08:11 Dose: 2 units Lidocaine HCl (Xylocaine-Mpf 1%) Confirm Administered Dose 5 ml .ROUTE .STK-MED ONE Stop: 02/16/17 22:05 Last Admin: 02/16/17 22:26 Dose: Not Given Lidocaine HCl (Xylocaine-Mpf 1%) 2 ml INJECT ONETIME ONE Stop: 02/16/17 22:10 Last Admin: 02/16/17 22:57 Dose: 2 ml Lidocaine HCl (Xylocaine-Mpf 1%) Confirm Administered Dose 5 ml .ROUTE .STK-MED ONE Stop: 02/17/17 00:18 Last Admin: 02/17/17 00:57 Dose: Not Given Lidocaine HCl (Xylocaine 1%) 2 ml INJECT Q2H [facility] Stop: 02/17/17 02:15 Last Admin: 02/17/17 21:22 Dose: 2 ml Methylprednisolone Sodium Succinate (Solu-Medrol) 125 mg IVPUSH ONETIME ONE Stop: 02/16/17 21:53 Last Admin: 02/16/17 22:12 Dose: 125 mg Methylprednisolone Sodium Succinate (Solu-Medrol) 40 mg IVPUSH Q8H [facility] Last Admin: 02/17/17 08:10 Dose: Not Given Methylprednisolone Sodium Succinate (Solu-Medrol) 40 mg IVPUSH Q8H [facility] Last Admin: 02/19/17 06:19 Dose: 40 mg Mometasone Furoate/Formoterol Fumar (Dulera 200-5 Mcg) 2 puff IH BID [facility] Last Admin: 02/17/17 00:56 Dose: Not Given Nystatin (Nystop) Confirm Administered Dose 15 gm .ROUTE .STK-MED ONE Stop: 02/17/17 00:59 Last Admin: 02/17/17 06:05 Dose: 1 applic Nystatin (Nystop) 0 gm TOP QID [facility] Last Admin: 02/19/17 23:28 Dose: Not Given Nystatin (Nystop) 1 gm TOP QID PRN PRN Reason: groin reddness Potassium Chloride (Klor-Con M20) 40 meq PO ONETIME ONE Stop: 02/17/17 02:01 Last Admin: 02/17/17 06:11 Dose: 40 meq Potassium Chloride (Klor-Con M20) Confirm Administered Dose 40 meq .ROUTE .STK- MED ONE Stop: 02/17/17 06:11 Last Admin: 02/17/17 07:19 Dose: Not Given Pregabalin (Lyrica) 100 mg PO TID [facility] Last Admin: 02/19/17 09:00 Dose: 100 mg - Exam Quality Assessment: supplemental oxygen. No: urine catheter General: alert, oriented, cooperative, no acute distress Neck: supple Lungs: Clear to auscultation, Normal respiratory effort. No: Wheezing Cardiovascular: Regular Rhythm, Tachycardia Abdomen: soft, no distension Extremities: normal pulses, no cyanosis, edema (trace bilateral ankle edema) Skin: warm, dry Psy/Mental Status: alert, normal affect - Problem List Review Problem List Initiated/Reviewed/Updated: Yes - My Orders Last 24 Hours: My Active Orders 02/21/17 09:43 Transfer Patient (Change bed) [ADT] Routine 02/21/17 09:45 Discontinue Telemetry Monitoring [Cardiac Monitoring Discontinue] [RC] Click to Edit 02/21/17 09:46 Consult to Case Management [CONS] Routine 02/22/17 05:00 BASIC METABOLIC PANEL,BMP [CHEM] Timed CBC W/O DIFF,HEMOGRAM [HEME] Timed (1) - Plan Plan:: ASSESSMENT AND PLAN HYPOXIC AND HYPERCAPNIC RESPIRATORY FAILURE SECONDARY TO COPD EXACERBATION, SECONDARY TO BRONCHITIS - this patient has a history of severe COPD requiring continuous oxygen at home. Ongoing respiratory improvement and she probably is nearing her baseline. She is extremely weak after repeated hospitalizations and infections. She has not required noninvasive ventilation the past 2 days. -Continue doxycycline for total of 7 days -Nebulized albuterol and DuoNebs -continue prednisone, start taper tomorrow -Maintain oxygen saturations in the 88-92 range to avoid further CO2 retention -Encourage regular use of her Trilogy home ventilator, to avoid further hospitalizations TYPE 2 DIABETES MELLITUS - sugars stable, Hopefully will improve with decreasing steroids. -continue metformin -4 times a day glucometers -medium-dose sliding scale NovoLog PERIPHERAL EDEMA - likely secondary to right sided heart failure and has resolved with diuresis. -Monitor MAINTENANCE ISSUES -DVT prophylaxis; enoxaparin 40 mg subcutaneous daily -GI prophylaxis;not indicated -Dixon catheter;not indicated -Nutrition;consistent carb diet, 2 g sodium diet DISPOSITION - anticipate discharge to the [facility] for [facility] after the hospital stay. Patient should be medically stable for discharge tomorrow if a bed is available. Donald Dominguez M.D.
[2017-02-21] MEDS: Doxycycline 100 MG Cap PO SCH ×2 (11:10→21:18)
[2017-02-21] MEDS: oxyCODONE 5 MG Tab PO PRN (16:55)
[2017-02-21] MEDS: Magnesium Hydroxide 400 MG/5 ML Susp 30 ML Cup PO PRN (16:58)
[2017-02-21] MEDS: Simvastatin 20 MG Tab PO SCH (21:19)
[2017-02-22] MEDS: Acetaminophen 325 MG Tab PO PRN (02:05)
[2017-02-22] MEDS: oxyCODONE 5 MG Tab PO PRN ×2 (02:06→10:18)
[2017-02-22] MEDS: Enoxaparin 40 MG/0.4 ML Syringe SUBCUT SCH (04:02)
[2017-02-22] MEDS: Magnesium Hydroxide 400 MG/5 ML Susp 30 ML Cup PO PRN (04:02)
[2017-02-22] MEDS: Polyethylene Glycol 3350 Powder 17 GM Packet PO PRN (04:02)
[2017-02-22] MEDS: Albuterol/Ipratropium 3.0-0.5 MG/3 ML Neb Soln NEB SCH ×2 (07:04→11:10)
[2017-02-22] MEDS: Tiotropium Inhaler 18 MCG Inhalation Powder Cap Kit of 5 INH SCH (07:04)
[2017-02-22] MEDS: Formoterol/Mometasone 200-5 MCG 8.8 GM Inhaler IH SCH (07:04)
[2017-02-22 08:59] VITALS: BP 117/80
[2017-02-22] MEDS: BUPRENORPHINE HCL 2 MG SL SCH (09:30)
[2017-02-22] MEDS: Nystatin Topical Powder 15 GM Bottle TOP PRN (09:31)
[2017-02-22] MEDS: Insulin Aspart 100 Units/ML 3 ML Pen SUBCUT SCH ×2 (09:32→12:44)
[2017-02-22] MEDS: metFORMIN 500 MG Tab PO SCH (09:32)
[2017-02-22] MEDS: Doxycycline 100 MG Cap PO SCH (09:32)
[2017-02-22] MEDS: predniSONE 20 MG Tab PO SCH (09:33)
[2017-02-22] MEDS: Citalopram 10 MG Tab PO SCH (09:33)
[2017-02-22] MEDS: Pregabalin 50 MG Cap PO SCH (09:39)
--- NOTE | 2017-02-22 11:38 | PCM.DCSUM1 ---
Discharge Summary - Hospital Course Brief History: 61-year-old female with history of severe oxygen dependent COPD and tobacco dependence who presented with weakness and lethargy and was admitted for management of a COPD exacerbation with hypercapnic and hypoxic respiratory failure. - Discharge Data Discharge Date: 02/22/17 Discharge Disposition: DC/Tfer to SNF 03 Condition: Fair - Discharge Diagnosis/Problem(s) (1) Acute bronchitis SNOMED Code(s): 64560054 ICD Code: J20.9 - ACUTE BRONCHITIS, UNSPECIFIED Status: Acute Current Visit: No Qualifiers: Bronchitis organism: unspecified organism Qualified Code(s): J20.9 - Acute bronchitis, unspecified (2) Acute exacerbation of chronic obstructive pulmonary disease (COPD) SNOMED Code(s): 998552304 ICD Code: J44.1 - CHRONIC OBSTRUCTIVE PULMONARY DISEASE W (ACUTE) EXACERBATION Status: Acute Current Visit: No (3) Acute respiratory failure with hypoxia and hypercapnia SNOMED Code(s): 13588240, 767908490 ICD Code: J96.01 - ACUTE RESPIRATORY FAILURE WITH HYPOXIA; J96.02 - ACUTE RESPIRATORY FAILURE WITH HYPERCAPNIA Status: Acute Current Visit: No (4) Generalized weakness SNOMED Code(s): 36062067 ICD Code: R53.1 - WEAKNESS Status: Acute Current Visit: No (5) Hypokalemia SNOMED Code(s): 79827631 ICD Code: E87.6 - HYPOKALEMIA Status: Acute Current Visit: Yes - Patient Summary/Data Consults: Consultations 02/17/17 09:28 Consult to Physical Therapy [PT Evaluation and Treatment] [CONS] Routine Please Evaluate and Treat. PT Reason for Consult: Strengthening This query below is only for informational purposes and is not editable. Admission Diagnosis/Problem: COPD, Severe chronic obstructive pulmonary disease 02/21/17 09:46 Consult to Case Management [CONS] Routine Comment: Physician Instructions: pt interested in senior living placement Quantity: Hospital Course: Una presented to the emergency room with weakness and lethargy. She was obtunded and unable to provide any history at the time of presentation. Workup in the emergency room was suggestive of a COPD exacerbation with wheezing and arterial blood gases showed significant CO2 retention and hypoxia. Initially the thought was that this was related to the patient not using her home ventilation system and there is no strong evidence for infection at the time of admission. She was started on noninvasive ventilation as well as IV steroids and admitted to the intensive care unit for further management. Over the next couple of days she did so some improvement in her clinical status and arterial blood gases. Her PCO2 did remain elevated but her pH normalized and I suspect that her baseline PCO2 is in the 70s. I did decrease her pregabalin with persistent somnolence despite normalization of her pH and significant improvement in her PCO2. On hospital day 2 she also developed low-grade fevers and was coughing more so I initiated doxycycline therapy to treat presumed bronchitis with a normal chest x-ray. Over the next 24 hours she showed significant improvement in her mental status. Her appetite improved. She remained extremely weak and required a large amount of assistance from 2 people to get from the bed to the chair. She has shown steady improvement clinically as far as her mental status and respiratory status. She's no longer having any fevers. Her white blood cell count is trending down. We have been able to wean her steroids down. She would benefit from 2-1/2 additional days of doxycycline therapy and a 10 day prednisone taper with 20 mg daily for 5 days then 10 mg daily for 5 days. She will need to continue to use her supplemental oxygen at 2- 3 L/m with goal oxygen saturations 88-92%. Her big [place] at this time is significant generalized weakness. She is unable to get out of bed without the assistance of 2 people. She would benefit from subacute rehabilitation and will be discharged to the senior living. She will benefit from physical and occupational therapy evaluations and treatment. - Patient Instructions Diet: Regular Diet as Tolerated Activity: As Tolerated Driving: Do Not Drive (while taking pain medications) Showering/Bathing: May Shower Notify Provider of: Fever, Increased Pain, Nausea and/or Vomiting Other/Special Instructions: 1. You were in the hospital for management of acute bronchitis that caused a COPD exacerbation and hypercapnic respiratory failure ( elevated carbon dioxide). Your breathing has improved with the use of doxycycline (antibiotic) as well as steroids and breathing treatments. I do recommend. 2-1/2 more days of antibiotics and a 10 day prednisone taper (20 mg daily for 5 days then 10 mg daily for 5 days then stop). I recommend scheduled DuoNeb's and as needed albuterol nebulizers. 2. You have become weak because of repeated hospitalizations with COPD exacerbations. I recommend senior living placement for subacute rehabilitation so you can receive both physical and occupational therapy. 3. I have decreased your dose of pregabalin (Lyrica) slightly because of excessive somnolence noted during the hospital stay. 4. Referral to physical therapy and occupational therapy for strengthening. 5. Supplemental oxygen use with 2-3 L/m. Goal oxygen saturations 88-92%. 6. CODE STATUS is DO NOT RESUSCITATE and DO NOT INTUBATE. 7. Please seek medical attention if you develop fever greater than 101, have sudden worsening of your shortness of breath or you develop severe chest pain - Discharge Plan Prescriptions/Med Rec: Acetaminophen [Tylenol] 650 mg PO Q4H PRN #100 tablet PRN Reason: Pain/Fever Albuterol [IJD: Albuterol] 2.5 mg NEB Q4H PRN #60 nebule PRN Reason: shortness of breath Albuterol/Ipratropium [DuoNeb 3.0-0.5 MG/3 ML] 3 ml NEB QIDRT #120 neb Doxycycline Calcium [IMW: Doxycycline] 100 mg PO Q12H #5 capsule LORazepam 1 mg PO BEDTIME PRN #30 tablet PRN Reason: Sleep Prednisone [IJD: predniSONE] 20 mg PO ASDIRECTED #8 tablet Pregabalin [Lyrica] 75 mg PO TID #90 cap oxyCODONE 5 mg PO Q4H PRN #120 tab PRN Reason: Pain (Moderate 4-6) Home Medications: Home Meds Albuterol Sulfate [Proair Respiclick] 90 mcg IH Q4HR 12/01/16 [History] Budesonide/Formoterol [Symbicort 160-4.5 MCG] 2 puff INH BID 12/01/16 [History] Buprenorphine HCl [Buprenorphine] 12 mg SL ACBREAKFAST 12/01/16 [History] Citalopram [Citalopram HBr] 10 mg PO DAILY 12/01/16 [History] Ibuprofen 400 mg PO Q6HR PRN 12/01/16 [History] Simvastatin [Zocor] 80 mg PO BEDTIME 12/01/16 [History] Tiotropium [Spiriva Handihaler] 1 puff INH DAILY 12/01/16 [History] metFORMIN [Glucophage] 1,000 mg PO BIDMEALS 12/01/16 [History] Acetaminophen [Tylenol] 650 mg PO Q4H PRN #100 tablet 02/22/17 [Rx] Albuterol [IJD: Albuterol] 2.5 mg NEB Q4H PRN #60 nebule 02/22/17 [Rx] Albuterol/Ipratropium [DuoNeb 3.0-0.5 MG/3 ML] 3 ml NEB QIDRT #120 neb 02/22/17 [Rx] Doxycycline Calcium [IMW: Doxycycline] 100 mg PO Q12H #5 capsule 02/22/17 [Rx] LORazepam 1 mg PO BEDTIME PRN #30 tablet 02/22/17 [Rx] Prednisone [IJD: predniSONE] 20 mg PO ASDIRECTED #8 tablet 02/22/17 [Rx] Pregabalin [Lyrica] 75 mg PO TID #90 cap 02/22/17 [Rx] oxyCODONE 5 mg PO Q4H PRN #120 tab 02/22/17 [Rx] Patient Handouts: Chronic Obstructive Pulmonary Disease Exacerbation, Doxycycline tablets or capsules Referrals: PCP,None [Primary Care Provider] - (f/u as needed after the hospital stay ) - Discharge Summary/Plan Comment DC Time >30 min.: Yes (45 - new senior living discharge) - Patient Data Vitals - Most Recent: Last Vital Signs Temp 36.9 C 02/22/17 08:55 Pulse 98 02/22/17 11:10 Resp 14 02/22/17 08:55 BP 117/80 02/22/17 08:55 Pulse Ox 91 L 02/22/17 08:55 Weight - Most Recent: 67.4 kg I&O - Last 24 hours: Intake & Output 02/21/17 02/22/17 02/22/17 22:59 06:59 14:59 Intake Total 360 Output Total 400 275 Balance -400 85 Lab Results - Last 24 hrs: Laboratory Results - last 24 hr 02/22/17 02/22/17 Range/Units 05:45 05:45 WBC 9.4 (4.5-11.0) K/uL RBC 3.78 (3.30-5.50) M/uL Hgb 11.0 L (12.0-15.0) g/dL Hct 36.5 (36.0-48.0) % MCV 97 (80-98) fL MCH 29 (27-31) pg MCHC 30 L (32-36) % Plt Count 250 (150-400) K/uL Sodium 138 L (140-148) mmol/L Potassium 4.2 (3.6-5.2) mmol/L Chloride 95 L (100-108) mmol/L Carbon Dioxide 48 H (21-32) mmol/L Anion Gap -0.8 L (5.0-14.0) mmol/L BUN 14 (7-18) mg/dL Creatinine 0.4 L (0.6-1.0) mg/dL Est Cr Clr Drug Dosing 129.33 mL/min Estimated GFR (MDRD) > 60 (>60) Glucose 209 H (74-106) mg/dL Calcium 9.0 (8.5-10.1) mg/dL AELXIS Results - Last 24 hrs: Microbiology 02/18/17 12:57 Aerobic Blood Culture - Preliminary Blood - Brach-Ceph NO GROWTH AFTER 3 DAYS Anaerobic Blood Culture - Preliminary NO GROWTH AFTER 3 DAYS 02/18/17 12:50 Aerobic Blood Culture - Preliminary Blood - Venous NO GROWTH AFTER 3 DAYS Anaerobic Blood Culture - Preliminary NO GROWTH AFTER 3 DAYS Med Orders - Current: Current Medications Acetaminophen (Tylenol) 650 mg PO Q4H PRN PRN Reason: Pain (Mild 1-3)/fever Last Admin: 02/22/17 02:05 Dose: 650 mg Albuterol (Proventil Neb Soln) 2.5 mg NEB Q4H PRN PRN Reason: Shortness Of Breath/wheezing Albuterol/Ipratropium (Duoneb 3.0-0.5 Mg/3 Ml) 3 ml NEB QIDRT [facility] Last Admin: 02/22/17 11:10 Dose: 3 ml Buprenorphine HCl (Buprenorphine Hcl) 12 mg SL ACBREAKFAST [facility] Last Admin: 02/22/17 09:30 Dose: 12 mg Citalopram Hydrobromide (Celexa) 10 mg PO DAILY [facility] Last Admin: 02/22/17 09:33 Dose: 10 mg Dextrose (Glutose 15) 15 gm PO ONETIME PRN PRN Reason: Hypoglycemia Dextrose/Water (Dextrose 50% In Water) 50 ml IV ONETIME PRN PRN Reason: Hypoglycemia Dimethicone/Zinc Oxide (Rash Relief-Zinc Oxide [place]) 1 gm TOP ASDIRECTED PRN PRN Reason: Rash Docusate Sodium (Colace) 100 mg PO BID PRN PRN Reason: Constipation Last Admin: 02/22/17 02:06 Dose: 100 mg Doxycycline Hyclate (Vibramycin) 100 mg PO Q12H [facility] Last Admin: 02/22/17 09:32 Dose: 100 mg Enoxaparin Sodium (Lovenox) 40 mg SUBCUT Q24H [facility] Last Admin: 02/22/17 04:02 Dose: 40 mg Insulin Aspart (Novolog) 0 unit SUBCUT WITHMEALSANDBED [facility] PRN Reason: Protocol Last Admin: 02/22/17 09:32 Dose: 2 units Magnesium Hydroxide (Milk Of Magnesia) 30 ml PO Q12H PRN PRN Reason: Constipation Last Admin: 02/22/17 04:02 Dose: 30 ml Metformin HCl (Glucophage) 1,000 mg PO BIDMEALS [facility] Last Admin: 02/22/17 09:32 Dose: 1,000 mg Mometasone Furoate/Formoterol Fumar (Dulera 200-5 Mcg) 2 puff IH BIDRT [facility] Last Admin: 02/22/17 07:04 Dose: 2 puff Nystatin (Nystop) 0 gm TOP QID PRN PRN Reason: groin reddness Last Admin: 02/22/17 09:31 Dose: 1 applic Ondansetron HCl (Zofran) 4 mg IV Q4H PRN PRN Reason: Nausea/Vomiting Oxycodone HCl (Oxycodone) 5 mg PO Q4H PRN PRN Reason: Pain (moderate 4-6) Last Admin: 02/22/17 10:18 Dose: 5 mg Polyethylene Glycol (Miralax) 17 gm PO DAILY PRN PRN Reason: Constipation Last Admin: 02/22/17 04:02 Dose: 17 gm Prednisone (Prednisone) 20 mg PO BIDMEALS [facility] Last Admin: 02/22/17 09:33 Dose: 20 mg Pregabalin (Lyrica) 50 mg PO TID [facility] Last Admin: 02/22/17 09:39 Dose: 50 mg Simvastatin (Zocor) 80 mg PO BEDTIME [facility] Last Admin: 02/21/17 21:19 Dose: 80 mg Sodium Chloride (Saline Flush) 10 ml FLUSH ASDIRECTED PRN PRN Reason: Keep Vein Open Tiotropium [place] (Spiriva Handihaler) 18 mcg INH DAILY@0700 [facility] Last Admin: 02/22/17 07:04 Dose: 1 cap Discontinued Medications Albuterol (Proventil Neb Soln) 2.5 mg NEB ONETIME ONE Stop: 02/16/17 21:28 Last Admin: 02/16/17 22:06 Dose: 2.5 mg Albuterol/Ipratropium (Duoneb 3.0-0.5 Mg/3 Ml) 3 ml NEB QID [facility] Last Admin: 02/17/17 07:17 Dose: 3 ml Dimethicone/Zinc Oxide (Rash Relief-Zinc Oxide [place]) 1 gm TOP QID [facility] Last Admin: 02/17/17 08:10 Dose: Not Given Dimethicone/Zinc Oxide (Rash Relief-Zinc Oxide [place]) 0 gm TOP QID [facility] Last Admin: 02/19/17 23:27 Dose: Not Given Enoxaparin Sodium (Lovenox) 40 mg SUBCUT DAILY [facility] Last Admin: 02/17/17 01:01 Dose: 40 mg Enoxaparin Sodium (Lovenox) 40 mg SUBCUT BEDTIME [facility] Last Admin: 02/19/17 05:24 Dose: 40 mg Furosemide (Lasix) 20 mg IVPUSH NOW ONE Stop: 02/16/17 23:10 Last Admin: 02/17/17 00:34 Dose: 20 mg Furosemide (Lasix) 20 mg IVPUSH NOW ONE Stop: 02/17/17 09:01 Last Admin: 02/17/17 08:44 Dose: 20 mg Furosemide (Lasix) 20 mg IVPUSH NOW ONE Stop: 02/18/17 07:01 Last Admin: 02/18/17 06:28 Dose: 20 mg Potassium Chloride 20 meq/ (Premix) 100 mls @ 50 mls/hr IV ONETIME ONE Stop: 02/17/17 00:00 Last Admin: 02/16/17 22:12 Dose: 50 mls/hr Potassium Chloride 40 meq/ (Premix) 100 mls @ 25 mls/hr IV ONETIME ONE Stop: 02/17/17 03:08 Last Admin: 02/17/17 00:28 Dose: 25 mls/hr Potassium Chloride (Kcl 20 Meq In Water 100 Ml) Confirm Administered Dose 200 mls @ as directed .ROUTE .STK-MED ONE Stop: 02/17/17 00:20 Last Admin: 02/17/17 00:57 Dose: Not Given Magnesium Sulfate 2 gm/ Premix 50 mls @ 25 mls/hr IV Q6H [facility] Stop: 02/17/17 16:59 Last Admin: 02/17/17 14:51 Dose: 25 mls/hr Magnesium Sulfate 2 gm/ Premix 50 mls @ 12.5 mls/hr IV Q6H [facility] Stop: 02/18/17 19:59 Last Admin: 02/18/17 15:47 Dose: 12.5 mls/hr Potassium Chloride 20 meq/Lidocaine HCl 2 ml/ Sodium Chloride 112 mls @ 55 mls/ hr IV Q2H [facility] Stop: 02/19/17 16:29 Last Admin: 02/19/17 15:22 Dose: 55 mls/hr Insulin Aspart (Novolog) 0 unit SUBCUT ASDIRECTED [facility] PRN Reason: Protocol Last Admin: 02/19/17 08:11 Dose: 2 units Lidocaine HCl (Xylocaine-Mpf 1%) Confirm Administered Dose 5 ml .ROUTE .STK-MED ONE Stop: 02/16/17 22:05 Last Admin: 02/16/17 22:26 Dose: Not Given Lidocaine HCl (Xylocaine-Mpf 1%) 2 ml INJECT ONETIME ONE Stop: 02/16/17 22:10 Last Admin: 02/16/17 22:57 Dose: 2 ml Lidocaine HCl (Xylocaine-Mpf 1%) Confirm Administered Dose 5 ml .ROUTE .STK-MED ONE Stop: 02/17/17 00:18 Last Admin: 02/17/17 00:57 Dose: Not Given Lidocaine HCl (Xylocaine 1%) 2 ml INJECT Q2H [facility] Stop: 02/17/17 02:15 Last Admin: 02/17/17 21:22 Dose: 2 ml Methylprednisolone Sodium Succinate (Solu-Medrol) 125 mg IVPUSH ONETIME ONE Stop: 02/16/17 21:53 Last Admin: 02/16/17 22:12 Dose: 125 mg Methylprednisolone Sodium Succinate (Solu-Medrol) 40 mg IVPUSH Q8H [facility] Last Admin: 02/17/17 08:10 Dose: Not Given Methylprednisolone Sodium Succinate (Solu-Medrol) 40 mg IVPUSH Q8H [facility] Last Admin: 02/19/17 06:19 Dose: 40 mg Mometasone Furoate/Formoterol Fumar (Dulera 200-5 Mcg) 2 puff IH BID [facility] Last Admin: 02/17/17 00:56 Dose: Not Given Nystatin (Nystop) Confirm Administered Dose 15 gm .ROUTE .STK-MED ONE Stop: 02/17/17 00:59 Last Admin: 02/17/17 06:05 Dose: 1 applic Nystatin (Nystop) 0 gm TOP QID [place] Last Admin: 02/19/17 23:28 Dose: Not Given Nystatin (Nystop) 1 gm TOP QID PRN PRN Reason: groin reddness Potassium Chloride (Klor-Con M20) 40 meq PO ONETIME ONE Stop: 02/17/17 02:01 Last Admin: 02/17/17 06:11 Dose: 40 meq Potassium Chloride (Klor-Con M20) Confirm Administered Dose 40 meq .ROUTE .STK- MED ONE Stop: 02/17/17 06:11 Last Admin: 02/17/17 07:19 Dose: Not Given Pregabalin (Lyrica) 100 mg PO TID [facility] Last Admin: 02/19/17 09:00 Dose: 100 mg *Q Meaningful Use (DIS) - VTE *Q VTE Criteria *Q: - Stroke *Q Stroke Criteria *Q: - AMI *Q AMI Criteria *Q:
== END 2017-02-22 12:44 | DRG 190 ==
LOC: JP.ED 21:14 → JP.ICU 22:37 → JP.MS 02-21 14:06
PROVIDERS: ADMIT Hospitalist; ATTEND Internal Medicine
DX: J44.0 Chronic obstructive pulmonary disease with (acute) lower respiratory infection (principal); J96.01 Acute respiratory failure with hypoxia; J96.02 Acute respiratory failure with hypercapnia; J20.9 Acute bronchitis, unspecified; J44.1 Chronic obstructive pulmonary disease with (acute) exacerbation; I10 Essential (primary) hypertension; E11.9 Type 2 diabetes mellitus without complications; F17.210 Nicotine dependence, cigarettes, uncomplicated; Z66 Do not resuscitate; E87.6 Hypokalemia; R53.1 Weakness; Z99.81 Dependence on supplemental oxygen; R53.83 Other fatigue; R06.02 Shortness of breath; Z79.52 Long term (current) use of systemic steroids; Z79.84 Long term (current) use of oral hypoglycemic drugs; R60.9 Edema, unspecified; E78.00 Pure hypercholesterolemia, unspecified; Z87.440 Personal history of urinary (tract) infections; M54.9 Dorsalgia, unspecified; G89.29 Other chronic pain; F32.9 Major depressive disorder, single episode, unspecified
CPT/HCPCS: 36415; 36600; 71010 ×2; 80053; 82803; 83880; 85025; 94640; 96361; 96374; 99285; J2930; J3480; 80048; 81001; 82962; 83735; 85027; 87040; 94660; 97162-GP; 97530-GP; A9270-GY; J0571; J1650; J1940; J2920; J3475; J7030; J7620

== ENCOUNTER 2017-03-25 18:51 | Inpatient (IN) | payer MEDICARE, MEDICAID, OTHER ==
--- NOTE | 2017-03-25 19:09 | EDM.PDOC ---
ED HPI GENERAL MEDICAL PROBLEM - General Chief Complaint: Back Pain or Injury Stated Complaint: [facility] Time Seen by Provider: 03/25/17 19:09 Source of Information: Reports: Patient, Old Records, RN Notes Reviewed History Limitations: Reports: No Limitations - History of Present Illness INITIAL COMMENTS - FREE TEXT/NARRATIVE: EMS arrival Chief complaint Fall, low back pain History of present illness 61-year-old female who recently moved to [place] from [place], previously was living with her daughter now living with her son Her legs gave way when she was walking at home and she fell partly on the walker and probably her low back. Immediate pain in the low back. Unable to get up so the evidence was called. First responders were there but were unable to get her up. They waited about 2 hours before the eminence could arrive because of other patients they helped her and transported her here. Albuterol given at home by nebulizer prior to arrival. O2 dependent COPD with several admissions to hospital recently including December 01, January 10, January 28, and February 16. Because of weakness she has had several falls at home, has had fractured ribs, has had fractured coccyx. After her last admission she was transferred to the senior care for rehabilitation. She was discharged yesterday as she couldn't afford the $164 co- pay for further care. She found beneficial in her strength had improved. No numbness or paresthesias. Her breathing is no worse than usual. However for the last 3 days she's felt worse than usual including malaise fatigue decreased appetite. No nausea or vomiting. Some diarrhea prior to arrival. No urinary symptoms. She still takes oxycodone for her rib pain, her last dose was 10 mg at noon today. Lower Back Pain Score (Numeric/FACES): 10 - Related Data Allergies Allergy/AdvReac Type Severity Reaction Status Date / Time No Known Allergies Allergy Verified 03/25/17 19:00 Home Meds: Home Meds Albuterol Sulfate [Proair Respiclick] 90 mcg IH Q4HR PRN 12/01/16 [History] Budesonide/Formoterol [Symbicort 160-4.5 MCG] 2 puff INH BID 12/01/16 [History] Buprenorphine HCl [Buprenorphine] 12 mg SL ACBREAKFAST 12/01/16 [History] Citalopram [Citalopram HBr] 10 mg PO DAILY 12/01/16 [History] Ibuprofen 400 mg PO Q6HR PRN 12/01/16 [History] Simvastatin [Zocor] 80 mg PO BEDTIME 12/01/16 [History] Tiotropium [Spiriva Handihaler] 1 puff INH DAILY 12/01/16 [History] metFORMIN [Glucophage] 1,000 mg PO BIDMEALS 12/01/16 [History] Acetaminophen [Tylenol] 650 mg PO Q4H PRN #100 tablet 02/22/17 [Rx] Albuterol [IJD: Albuterol] 2.5 mg NEB Q4H PRN #60 nebule 02/22/17 [Rx] Albuterol/Ipratropium [DuoNeb 3.0-0.5 MG/3 ML] 3 ml NEB QIDRT #120 neb 02/22/17 [Rx] LORazepam 1 mg PO BEDTIME PRN #30 tablet 02/22/17 [Rx] Pregabalin [Lyrica] 75 mg PO TID #90 cap 02/22/17 [Rx] oxyCODONE 10 mg PO Q4H PRN 03/25/17 [History] Past Medical History Cardiovascular History: Reports: High Cholesterol, Hypertension Other Cardiovascular History: enlarged right Respiratory History: Reports: Asthma, COPD, Intubation, Previous Genitourinary History: Reports: UTI, Recurrent [employer] History: Reports: Musculoskeletal History: Reports: Back Pain, Chronic Other Musculoskeletal History: uses w/c at home and walker Psychiatric History: Reports: Depression Endocrine/Metabolic History: Reports: Diabetes, Type II - Past Surgical History Female Surgical History: Reports: Hysterectomy Social & Family History - Family History Family Medical History: Unobtainable - Tobacco Use Smoking Status *Q: Current Every Day Smoker Years of Tobacco use: 50 Packs/Tins Daily: 0.5 Second Hand Smoke Exposure: No - Caffeine Use Caffeine Use: Reports: Coffee - Recreational Drug Use Recreational Drug Use: No Recreational Drug Type: Reports: Oxycodone ED ROS GENERAL - Review of Systems Review Of Systems: See Below Constitutional: Reports: Malaise, Weakness, Fatigue, Decreased Appetite. Denies : Fever, Chills, Diaphoresis HEENT: Reports: No Symptoms Respiratory: Reports: Shortness of Breath (chronic), Wheezing. Denies: Cough ( chronic), Sputum Cardiovascular: Reports: Chest Pain (minimal currently, from broken ribs). Denies: Lightheadedness, Syncope GI/Abdominal: Reports: Diarrhea, Decreased Appetite. Denies: Abdominal Pain, Nausea, Vomiting : Reports: No Symptoms Musculoskeletal: Reports: Back Pain. Denies: Arm Pain, Leg Pain Skin: Reports: Bruising (from previous falls) Neurological: Reports: No Symptoms. Denies: Numbness, Tingling Psychiatric: Reports: Anxiety Hematologic/Lymphatic: Reports: No Symptoms Immunologic: Reports: No Symptoms ED EXAM,LOWER BACK PAIN/INJURY - Physical Exam Exam: See Below General Appearance: Alert, Moderate Distress (moaning in pain), Other (vital signs show mild tachycardia and normal blood pressure despite initial reading was low, no difficulty speaking) Eye Exam: Bilateral Eye: Normal Inspection Ears: Normal External Exam Nose: Normal Inspection Throat/Mouth: Normal Inspection, Normal Oropharynx, Normal Voice Head: Atraumatic, Normocephalic Neck: Normal Inspection, Supple Respiratory/Chest: No Respiratory Distress, Rhonchi, Wheezing, Other (on oxygen by nasal cannula) Cardiovascular: Normal Peripheral Pulses, Regular Rate, Rhythm GI/Abdominal: Normal Bowel Sounds, Soft, Non-Tender Extremities: Normal Range of Motion, Non-Tender, Other (some bruising from recent falls) Neurological: Alert, Normal Reflexes, No Motor/Sensory Deficits, Other (able to sit forward but moaning in pain, very tender hyperesthesia across the low back in the lumbar spine paralumbar and sacral area) Psychiatric: Anxious Skin Exam: Warm, Dry, No Rash, Ecchymosis Lymphatic: No Adenopathy Course - Vital Signs Last Recorded V/S: Last Vital Signs Temp 37.3 C 03/26/17 02:27 Pulse 117 H 03/26/17 02:27 Resp 20 03/26/17 02:27 BP 127/69 03/26/17 02:27 Pulse Ox 97 03/26/17 02:27 - Orders/Labs/Meds Orders: Active Orders 24 hr Category Date Time Status Oxygen Therapy [RC] ASDIRECTED Care 03/25/17 19:20 Active Lumbar Spine wo Cont [CT] Stat Exams 03/25/17 19:29 Taken Medication Orders Acetaminophen (Tylenol) 650 mg PO Q4H PRN PRN Reason: Pain Albuterol (Proventil Neb Soln) 2.5 mg NEB Q4H PRN PRN Reason: shortness of breath Last Admin: 03/26/17 02:23 Dose: 2.5 mg Albuterol (Ventolin Hfa) 0 gm INH Q4H PRN PRN Reason: Shortness of Breath Albuterol/Ipratropium (Duoneb 3.0-0.5 Mg/3 Ml) 3 ml NEB QIDRT [facility] Last Admin: 03/25/17 23:30 Dose: 3 ml Citalopram Hydrobromide (Celexa) 10 mg PO DAILY [facility] Hydromorphone HCl (Dilaudid) 1 mg IVPUSH Q3H PRN PRN Reason: Pain (severe 7-10) Last Admin: 03/25/17 23:36 Dose: 1 mg Sodium Chloride (Normal Saline) 1,000 mls @ 100 mls/hr IV ASDIRECTED [facility] Last Admin: 03/25/17 23:56 Dose: 100 mls/hr Insulin Aspart (Novolog) 0 unit SUBCUT ASDIRECTED [facility] PRN Reason: Protocol Lorazepam (Ativan) 1 mg PO BEDTIME PRN PRN Reason: Sleep Last Admin: 03/25/17 23:57 Dose: 1 mg Metformin HCl (Glucophage) 1,000 mg PO BIDMEALS [facility] Mometasone Furoate/Formoterol Fumar (Dulera 200-5 Mcg) 2 puff IH BIDRT [facility] Last Admin: 03/26/17 00:20 Dose: Not Given Nicotine (Habitrol) 14 mg TRDERM DAILY@2100 [facility] Oxycodone HCl (Oxycodone) 10 mg PO Q4H PRN PRN Reason: Pain (moderate 4-6) Last Admin: 03/25/17 23:57 Dose: 10 mg Pantoprazole Sodium (Protonix) 40 mg PO ACBREAKFAST [facility] Pregabalin (Lyrica) 75 mg PO TID [facility] Simvastatin (Zocor) 80 mg PO BEDTIME [facility] Tiotropium Beatty (Spiriva Handihaler) 18 mcg INH DAILY [facility] Labs: Laboratory Tests 03/25/17 03/25/17 Range/Units 19:30 19:30 WBC 10.6 (4.5-11.0) K/uL RBC 3.72 (3.30-5.50) M/uL Hgb 10.5 L (12.0-15.0) g/dL Hct 35.6 L (36.0-48.0) % MCV 96 (80-98) fL MCH 28 (27-31) pg MCHC 30 L (32-36) % Plt Count 466 H (150-400) K/uL Sodium 143 (140-148) mmol/L Potassium 3.9 (3.6-5.2) mmol/L Chloride 97 L (100-108) mmol/L Carbon Dioxide 46 H (21-32) mmol/L Anion Gap 3.9 L (5.0-14.0) mmol/L BUN 7 (7-18) mg/dL Creatinine 0.5 L (0.6-1.0) mg/dL Est Cr Clr Drug Dosing 91.08 mL/min Estimated GFR (MDRD) > 60 (>60) Glucose 150 H (74-106) mg/dL Calcium 8.7 (8.5-10.1) mg/dL Meds: Medications Generic Name Dose Route Start Last Admin Trade Name Freq PRN Reason Stop Dose Admin Acetaminophen 650 mg 03/26/17 01:05 Tylenol PO Q4H PRN Pain Albuterol 2.5 mg 03/25/17 23:18 03/26/17 02:23 Proventil Neb Soln NEB 2.5 mg Q4H PRN Administration shortness of breath Albuterol 0 gm 03/26/17 01:11 Ventolin Hfa INH Q4H PRN Shortness of Breath Albuterol/Ipratropium 3 ml 03/26/17 07:00 03/25/17 23:30 Duoneb 3.0-0.5 Mg/3 Ml NEB 3 ml QIDRT [facility] Administration Citalopram Hydrobromide 10 mg 03/26/17 09:00 Celexa PO DAILY [facility] Hydromorphone HCl 1 mg 03/25/17 23:18 03/25/17 23:36 Dilaudid IVPUSH 1 mg Q3H PRN Administration Pain (severe 7-10) Sodium Chloride 1,000 mls @ 100 mls/hr 03/25/17 23:18 03/25/17 23:56 Normal Saline IV 100 mls/hr ASDIRECTED [facility] Administration Insulin Aspart 0 unit 03/25/17 23:18 Novolog SUBCUT ASDIRECTED [facility] Protocol Lorazepam 1 mg 03/25/17 23:18 03/25/17 23:57 Ativan PO 1 mg BEDTIME PRN Administration Sleep Metformin HCl 1,000 mg 03/26/17 08:00 Glucophage PO BIDMEALS [facility] Mometasone Furoate/Formoterol Fumar 2 puff 03/25/17 23:45 03/26/17 00:20 Dulera 200-5 Mcg IH Not Given BIDRT [facility] Nicotine 14 mg 03/26/17 21:00 Habitrol TRDERM DAILY@2100 [facility] Oxycodone HCl 10 mg 03/25/17 23:18 03/25/17 23:57 Oxycodone PO 10 mg Q4H PRN Administration Pain (moderate 4-6) Pantoprazole Sodium 40 mg 03/26/17 07:30 Protonix PO ACBREAKFAST [facility] Pregabalin 75 mg 03/26/17 09:00 Lyrica PO TID [facility] Simvastatin 80 mg 03/26/17 21:00 Zocor PO BEDTIME [facility] Tiotropium [facility] 18 mcg 03/26/17 09:00 Spiriva Handihaler INH DAILY [facility] Discontinued Medications Generic Name Dose Route Start Last Admin Trade Name Freq PRN Reason Stop Dose Admin Acetaminophen 1,000 mg 03/26/17 01:03 03/26/17 01:36 Tylenol PO 03/26/17 01:04 Not Given NOW ONE Acetaminophen Confirm 03/26/17 01:21 03/26/17 01:26 Tylenol Extra Strength Administered 03/26/17 01:22 1,000 mg Dose Administration 1,000 mg .ROUTE .STK-MED ONE Albuterol 0 gm 03/25/17 23:30 03/25/17 23:38 Ventolin Hfa INH Not Given Q4H [facility] Albuterol/Ipratropium Confirm 03/25/17 23:28 03/25/17 23:41 Duoneb 3.0-0.5 Mg/3 Ml Administered 03/25/17 23:29 Not Given Dose 3 ml .ROUTE .STK-MED ONE Fentanyl 100 mcg 03/25/17 19:19 03/25/17 19:24 Sublimaze IVPUSH 03/25/17 19:20 100 mcg ONETIME ONE Administration Fentanyl 50 mcg 03/25/17 21:51 03/25/17 22:39 Sublimaze IVPUSH 03/25/17 21:52 50 mcg ONETIME ONE Administration Hydromorphone HCl Confirm 03/25/17 23:28 03/25/17 23:41 Dilaudid Administered 03/25/17 23:29 Not Given Dose 1 mg .ROUTE .STK-MED ONE Nicotine 14 mg 03/25/17 23:30 03/25/17 23:40 Habitrol TRDERM 03/25/17 23:31 Not Given ONETIME ONE Prednisone 20 mg 03/25/17 23:18 Prednisone PO ASDIRECTED [facility] Pregabalin 75 mg 03/26/17 01:04 03/26/17 01:26 Lyrica PO 03/26/17 01:05 75 mg ONETIME ONE Administration Sodium Chloride 10 ml 03/25/17 19:19 03/25/17 19:26 Saline Flush FLUSH 10 ml ASDIRECTED PRN Administration Keep Vein Open Zolpidem Tartrate 5 mg 03/26/17 01:02 03/26/17 02:26 Ambien PO 03/26/17 01:03 Not Given ONETIME ONE - Re-Assessments/Exams Free Text/Narrative Re-Assessment/Exam: 03/25/17 19:28 61-year-old with chronic COPD, O2 dependent, generalized weakness, normally uses a walker to get around, legs gave way and she fell to the floor sustaining low back pain. From review of chart she has had "chronic low back pain" previously but denies any recent back pain until she fell today. Intravenous established, fentanyl 100 g IV 03/25/17 21:52 although she had good relief of the pain, with waking up after the pain has worn off she is again insignificant discomfort and is unlikely be able to be discharged home Fentanyl [address] scan shows a new but minimal acute fracture L3, compression type continues to have significant discomfort Admit to hospitalist 03/26/17 03:29 Departure - Departure Time of Disposition: 21:53 Disposition: Refer to Observation Condition: Fair Clinical Impression: O2 dependent Compression fracture of lumbar vertebra Qualifiers: Encounter type: initial encounter Lumbar vertebra fracture level: L3 Fracture type: closed Qualified Code(s): S32.030A - Wedge compression fracture of third lumbar vertebra, initial encounter for closed fracture COPD (chronic obstructive pulmonary disease) Qualifiers: COPD type: chronic bronchitis Chronic bronchitis type: unspecified Qualified Code(s): J42 - Unspecified chronic bronchitis - Discharge Information - My Orders Last 24 Hours: My Active Orders 03/25/17 19:20 Oxygen Therapy [RC] ASDIRECTED 03/25/17 19:29 Lumbar Spine wo Cont [CT] Stat - Assessment/Plan Last 24 Hours: My Active Orders 03/25/17 19:20 Oxygen Therapy [RC] ASDIRECTED 03/25/17 19:29 Lumbar Spine wo Cont [CT] Stat
[2017-03-25] MEDS ORDERED: fentaNYL 100 MCG/2 ML SDV IVPUSH ONE ×2 (19:19→21:51)
[2017-03-25] MEDS ORDERED: Sodium Chloride 0.9% 10 ML Syringe FLUSH PRN (19:19)
--- NOTE | 2017-03-25 22:37 | PCM.HP ---
H&P History of Present Illness - General Date of Service: 03/25/17 Admit Problem/Dx: Admission Diagnosis/Problem Admission Diagnosis/Problem Compression fracture of lumbar spine Source of Information: Patient History Limitations: Reports: No Limitations - History of Present Illness Initial Comments - Free Text/Narative: <EMS arrival Chief complaint Fall, low back pain History of present illness 61-year-old female who recently moved to [place] from [place], previously was living with her daughter now living with her son Her legs gave way when she was walking at home and she fell partly on the walker and probably her low back. Immediate pain in the low back. Unable to get up, the Ambulance was called. First responders were there but were unable to get her up. They waited about 2 hours before the Ambulance could arrive because of other patients. They helped her and transported her here. Albuterol given at home by nebulizer prior to arrival. O2 dependent COPD with several admissions to hospital recently including December 01, January 10, January 28, and February 16. Because of weakness she has had several falls at home, has had fractured ribs, has had fractured coccyx. After her last admission she was transferred to the alf for rehabilitation. She was discharged yesterday as she couldn't afford the $164 co- pay for further care. She found beneficial in her strength had improved. No numbness or paresthesias. Her breathing is no worse than usual. However for the last 3 days she's felt worse than usual including malaise fatigue decreased appetite. No nausea or vomiting. Some diarrhea prior to arrival. No urinary symptoms. She still takes oxycodone for her rib pain, her last dose was 10 mg at noon today. Onset of Symptoms: Reports: Today Symptom Onset Date: 03/25/17 Duration of Symptoms: Reports: Hour(s): Location: Reports: Back Quality: Reports: Sharp, Throbbing Severity: Severe Improves with: Reports: Immobilization Worsens with: Reports: Movement Context: Reports: Other (fall at home) Associated Symptoms: Reports: Weakness Lower Back Pain Score (Numeric/FACES): 10 - Related Data Allergies/Adverse Reactions: Allergies Allergy/AdvReac Type Severity Reaction Status Date / Time No Known Allergies Allergy Verified 03/25/17 19:00 Home Medications: Home Meds Albuterol Sulfate [Proair Respiclick] 90 mcg IH Q4HR PRN 12/01/16 [History] Budesonide/Formoterol [Symbicort 160-4.5 MCG] 2 puff INH BID 12/01/16 [History] Buprenorphine HCl [Buprenorphine] 12 mg SL ACBREAKFAST 12/01/16 [History] Citalopram [Citalopram HBr] 10 mg PO DAILY 12/01/16 [History] Ibuprofen 400 mg PO Q6HR PRN 12/01/16 [History] Simvastatin [Zocor] 80 mg PO BEDTIME 12/01/16 [History] Tiotropium [Spiriva Handihaler] 1 puff INH DAILY 12/01/16 [History] metFORMIN [Glucophage] 1,000 mg PO BIDMEALS 12/01/16 [History] Acetaminophen [Tylenol] 650 mg PO Q4H PRN #100 tablet 02/22/17 [Rx] Albuterol [IJD: Albuterol] 2.5 mg NEB Q4H PRN #60 nebule 02/22/17 [Rx] Albuterol/Ipratropium [DuoNeb 3.0-0.5 MG/3 ML] 3 ml NEB QIDRT #120 neb 02/22/17 [Rx] LORazepam 1 mg PO BEDTIME PRN #30 tablet 02/22/17 [Rx] Prednisone [IJD: predniSONE] 20 mg PO ASDIRECTED #8 tablet 02/22/17 [Rx] Pregabalin [Lyrica] 75 mg PO TID #90 cap 02/22/17 [Rx] oxyCODONE 10 mg PO Q4H PRN 03/25/17 [History] Past Medical History Cardiovascular History: Reports: High Cholesterol, Hypertension Other Cardiovascular History: enlarged right Respiratory History: Reports: Asthma, COPD, Intubation, Previous Genitourinary History: Reports: UTI, Recurrent 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: Musculoskeletal History: Reports: Back Pain, Chronic Other Musculoskeletal History: uses w/c at home and walker Psychiatric History: Reports: Depression Endocrine/Metabolic History: Reports: Diabetes, Type II - Infectious Disease History Infectious Disease History: Reports: Chicken Pox - Past Surgical History Female Surgical History: Reports: Hysterectomy Social & Family History - Family History Family Medical History: Unobtainable - Tobacco Use Smoking Status *Q: Current Every Day Smoker Years of Tobacco use: 50 Packs/Tins Daily: 0.5 Used Tobacco, but Quit: No Second Hand Smoke Exposure: No - Caffeine Use Caffeine Use: Reports: Coffee - Recreational Drug Use Recreational Drug Use: No Recreational Drug Type: Reports: Oxycodone H&P Review of Systems - Review of Systems: Review Of Systems: See Below General: Reports: Weakness, Fatigue, Decreased Appetite HEENT: Reports: No Symptoms Pulmonary: Reports: Other (chronic severe COPD with oxygen dependence) Cardiovascular: Reports: No Symptoms Gastrointestinal: Reports: No Symptoms Genitourinary: Reports: Frequency, Burning, Pain, Urgency Musculoskeletal: Reports: Back Pain, Muscle Pain Skin: Reports: Bruising, Other (multi skin tear) Psychiatric: Reports: No Symptoms Neurological: Reports: No Symptoms Hematologic/Lymphatic: Reports: No Symptoms Immunologic: Reports: No Symptoms Exam - Exam Exam: See Below - Vital Signs Vital Signs: Last Vital Signs Temp 36.6 C 03/25/17 19:14 Pulse 112 H 03/25/17 20:00 Resp 20 03/25/17 19:14 BP 114/61 03/25/17 20:00 Pulse Ox 87 L 03/25/17 20:00 Weight: 66.678 kg - Exam Quality Assessment: Supplemental Oxygen (2 liter via NC) General: Alert, Oriented, Cooperative, Moderate Distress (crying out and moaning in ashlee) HEENT: PERRLA, Conjunctiva Clear, EACs Clear, EOMI, Hearing Intact, Mucosa Moist & [place], Nares Patent, Normal Nasal Septum, Posterior Pharynx Clear, Pupils Equal, Pupils Reactive Neck: Supple, Trachea Midline Lungs: Clear to Auscultation, Normal Respiratory Effort, Decreased Breath Sounds Cardiovascular: Regular Rate, Regular Rhythm GI/Abdominal Exam: Normal Bowel Sounds, Soft, Non-Tender, Pelvis Stable (Female) Exam: Deferred Rectal (Female) Exam: Deferred Back Exam: Normal Inspection (no bruising noted. ), Muscle Spasm, Other (crying out in pain when sitting patient upright) Extremities: Pedal Edema (2+ edema to knee; chronic) Skin: Warm, Dry, Other (multi tiny skin tear to forearms) Neurological: Reflexes Equal Bilateral, Strength Equal Bilateral, Normal Speech Neuro Extensive - Mental Status: Alert, Oriented x3, Normal Mood/Affect, Normal Cognition, Memory Intact Psychiatric: Alert, Normal Affect, Normal Mood - Patient Data Lab Results Last 24 hrs: Laboratory Results - last 24 hr 03/25/17 03/25/17 Range/Units 19:30 19:30 WBC 10.6 (4.5-11.0) K/uL RBC 3.72 (3.30-5.50) M/uL Hgb 10.5 L (12.0-15.0) g/dL Hct 35.6 L (36.0-48.0) % MCV 96 (80-98) fL MCH 28 (27-31) pg MCHC 30 L (32-36) % Plt Count 466 H (150-400) K/uL Sodium 143 (140-148) mmol/L Potassium 3.9 (3.6-5.2) mmol/L Chloride 97 L (100-108) mmol/L Carbon Dioxide 46 H (21-32) mmol/L Anion Gap 3.9 L (5.0-14.0) mmol/L BUN 7 (7-18) mg/dL Creatinine 0.5 L (0.6-1.0) mg/dL Est Cr Clr Drug Dosing 91.08 mL/min Estimated GFR (MDRD) > 60 (>60) Glucose 150 H (74-106) mg/dL Calcium 8.7 (8.5-10.1) mg/dL Result Diagrams: 03/25/17 19:30 03/25/17 19:30 *Q Meaningful Use (ADM) - VTE *Q VTE Criteria *Q: - Stroke *Q Stroke Criteria *Q: - AMI *Q AMI Criteria *Q: - Problem List (1) COPD (chronic obstructive pulmonary disease) SNOMED Code(s): 25007106 ICD Code: J44.9 - CHRONIC OBSTRUCTIVE PULMONARY DISEASE, UNSPECIFIED Status : Acute Priority: High Current Visit: Yes Qualifiers: COPD type: chronic bronchitis Chronic bronchitis type: unspecified Qualified Code(s): J42 - Unspecified chronic bronchitis (2) Compression fracture of lumbar vertebra SNOMED Code(s): 206467651 ICD Code: S32.000A - WEDGE COMPRESSION FRACTURE OF UNSP LUMBAR VERTEBRA, INIT Status: Acute Priority: High Current Visit: Yes Qualifiers: Encounter type: initial encounter Lumbar vertebra fracture level: L3 Fracture type: closed Qualified Code(s): S32.030A - Wedge compression fracture of third lumbar vertebra, initial encounter for closed fracture (3) Tobacco use disorder, continuous SNOMED Code(s): 709784115 ICD Code: F17.209 - NICOTINE DEPENDENCE, UNSP, W UNSP NICOTINE-INDUCED DISORDERS Status: Acute Current Visit: Yes Problem List Initiated/Reviewed/Updated: Yes Orders Last 24hrs: Active Orders 24 hr Category Date Time Status Patient Status Manage Transfer [TRANSFER] Routine ADT 03/25/17 22:02 Active Oxygen Therapy [RC] ASDIRECTED Care 03/25/17 19:20 Active Lumbar Spine wo Cont [CT] Stat Exams 03/25/17 19:29 Taken UA W/MICROSCOPIC [URIN] Stat Lab 03/25/17 19:19 Uncollected Sodium Chloride 0.9% [Saline Flush] Med 03/25/17 19:19 Active 10 ml FLUSH ASDIRECTED PRN Saline Lock Insert [OM.PC] Routine Oth 03/25/17 19:19 Ordered Resuscitation Status Routine Resus Stat 03/25/17 22:04 Ordered Medication Orders Sodium Chloride (Saline Flush) 10 ml FLUSH ASDIRECTED PRN PRN Reason: Keep Vein Open Last Admin: 03/25/17 19:26 Dose: 10 ml Assessment/Plan Comment:: Assessment/Plan Comment:: Assessment and plan - History of present illness 61-year-old female who recently moved to [place] from [place], previously was living with her daughter now living with her son Her legs gave way when she was walking at home and she fell partly on the walker and probably her low back. Immediate pain in the low back. Unable to get up, the Ambulance was called. First responders were there but were unable to get her up. They waited about 2 hours before the Ambulance could arrive because of other patients. They helped her and transported her here. Albuterol given at home by nebulizer prior to arrival. O2 dependent COPD with several admissions to hospital recently including December 01, January 10, January 28, and February 16. Because of weakness she has had several falls at home, has had fractured ribs, has had fractured coccyx. After her last admission she was transferred to the alf for rehabilitation. She was discharged yesterday as she couldn't afford the $164 co- pay for further care. She found beneficial in her strength had improved. No numbness or paresthesias. Her breathing is no worse than usual. However for the last 3 days she's felt worse than usual including malaise fatigue decreased appetite. No nausea or vomiting. Some diarrhea prior to arrival. No urinary symptoms. She still takes oxycodone for her rib pain, her last dose was 10 mg at noon today. -Admit for pain control, has chronic pain management at home -Tylenol every 4 hours prn -Oxcodone 10 mg po every 4 hour prn -IV Dilaudid 1 mg every 3 hours prn -Lyrica 75mg po bid -Ambien 5mg at hs prn -consultation for OT and PT intervention tomorrow Diabetes Type 2 -continue Metformin po bid -low dose sliding scale insulin -blood glucose check before meals and bedtime. COPD -order nebulizer and inhaler -dependent oxygen 2 liter per NC Depression/anxiety -continue Ativan 1mg at hs and prn -continue Celexa Tobacco Use -Nicotine patch 14 mcg daily. Maintenance issues - - DVT prophylaxis - SCD - GI prophylaxis - PPI, Protonix 40mg po daily - Nutrition - consistent carb - Dixon catheter - not indicated CODE STATUS - FULL CODE Admission justification - This patient will be admitted for inpatient services and is medically appropriate meeting medical necessity for inpatient admission as outlined in my documentation. I reasonably expect the patient will require inpatient services that span a period time over 2 midnights. I reasonably expect this patient to be discharged or transferred within 96 hours [facility] Disposition - anticipate discharge back home after the hospital stay Primary care physician - not listed. Hospitialist: Navin Fisher M.D.
[2017-03-25] MEDS ORDERED: oxyCODONE 5 MG Tab PO PRN (23:18)
[2017-03-25] MEDS ORDERED: Insulin Aspart 100 Units/ML 3 ML Pen SUBCUT SCH (23:18)
[2017-03-25] MEDS ORDERED: predniSONE 20 MG Tab PO SCH (23:18)
[2017-03-25] MEDS ORDERED: LORazepam 1 MG Tab PO PRN (23:18)
[2017-03-25] MEDS ORDERED: Sodium Chloride 0.9% 1,000 ML IV SCH (23:18)
[2017-03-25] MEDS ORDERED: Albuterol/Ipratropium 3.0-0.5 MG/3 ML Neb Soln ONE (23:28)
[2017-03-25] MEDS ORDERED: HYDROmorphone 1 MG/ML Syringe ONE (23:28)
[2017-03-25] MEDS ORDERED: Nicotine 14 MG/24 Hr Patch TRDERM ONE (23:30)
[2017-03-25] MEDS: Albuterol/Ipratropium 3.0-0.5 MG/3 ML Neb Soln NEB SCH (23:30)
[2017-03-25] MEDS ORDERED: Albuterol 8 GM Inhaler INH SCH (23:30)
[2017-03-25] MEDS: HYDROmorphone 1 MG/ML Syringe IVPUSH PRN (23:36)
[2017-03-26] MEDS: Formoterol/Mometasone 200-5 MCG 8.8 GM Inhaler IH SCH ×4 (00:20→21:18)
[2017-03-26] MEDS ORDERED: Zolpidem 5 MG Tab PO ONE (01:02)
[2017-03-26] MEDS ORDERED: Acetaminophen 325 MG Tab PO ONE (01:03)
[2017-03-26] MEDS ORDERED: Pregabalin 75 MG Cap PO ONE (01:04)
[2017-03-26] MEDS ORDERED: Albuterol 8 GM Inhaler INH PRN (01:11)
[2017-03-26] MEDS ORDERED: Acetaminophen 500 MG Tab ONE (01:21)
[2017-03-26] MEDS: HYDROmorphone 1 MG/ML Syringe IVPUSH PRN (02:21)
[2017-03-26] MEDS: Albuterol 0.083% 2.5 MG/3 ML Neb Soln NEB PRN ×2 (02:23→04:33)
[2017-03-26] MEDS ORDERED: Naloxone 0.4 MG/ML SDV ONE (04:01)
[2017-03-26] MEDS ORDERED: Furosemide 40 MG/4 ML VIAL IVPUSH STA (04:09)
--- NOTE | 2017-03-26 05:43 | PCM.SN ---
- Free Text/Narrative Note: call from [address] [place] [address] at 03:03; Mrs. Lauren is having low oxygen saturation , need to come and evaluate. o; vital signs; p 120 rr 20 oxygen sat 82%, IV fluids at 125ml/hr Mrs. Lauren is sedated, awaken to name. breathing is labored, lungs; coarse breath sounds with wheezing, heart rate tachy. a; respiratory distress p; Mrs. Lauren was given Lasix 40mg IV, IV fluids discontinued. abernathy cath placed.
[2017-03-26] MEDS: Albuterol/Ipratropium 3.0-0.5 MG/3 ML Neb Soln NEB SCH ×4 (06:38→21:16)
[2017-03-26] MEDS: Pregabalin 75 MG Cap PO SCH ×3 (08:37→21:29)
[2017-03-26] MEDS: metFORMIN 500 MG Tab PO SCH ×2 (08:37→17:37)
[2017-03-26] MEDS: Pantoprazole 40 MG Tab.CR PO SCH (08:37)
[2017-03-26] MEDS: Citalopram 10 MG Tab PO SCH ×2 (08:37→17:38)
[2017-03-26] MEDS ORDERED: Tiotropium Inhaler 18 MCG Inhalation Powder Cap Kit of 5 INH SCH (09:00)
[2017-03-26] MEDS: Tiotropium Inhaler 18 MCG Inhalation Powder Cap Kit of 5 INH SCH (09:36)
--- NOTE | 2017-03-26 15:18 | PCM.PN ---
- General Info Date of Service: 03/26/17 Functional Status: Reports: Pain Controlled, Tolerating Diet, Urinating - Review of Systems General: Reports: Weakness. Denies: Fever, Chills Pulmonary: Reports: Shortness of Breath. Denies: Cough, Sputum, Wheezing Cardiovascular: Reports: Dyspnea on Exertion. Denies: Chest Pain, Palpitations , Edema Gastrointestinal: Reports: No Symptoms Systems Review Comment:: Ms. Lauren is a 61-year-old woman with severe oxygen-dependent COPD and significant CO2 retention. She fell at home yesterday experiencing a spinal compression fracture and came in with acute on chronic respiratory failure with hypoxia and hypercapnia. She is been stable overnight with use of BiPAP and reports that her current pain control has been adequate. - Patient Data Vitals - Most Recent: Last Vital Signs Temp 97.7 F 03/26/17 08:38 Pulse 107 H 03/26/17 14:48 Resp 16 03/26/17 08:38 BP 137/80 03/26/17 08:38 Pulse Ox 95 03/26/17 14:46 Weight - Most Recent: 143 lb 1.28 oz I&O - Last 24 Hours: Intake & Output 03/26/17 03/26/17 03/26/17 06:59 14:59 22:59 Intake Total 649 Output Total 850 800 Balance -201 -800 Lab Results Last 24 Hours: Laboratory Results - last 24 hr 03/26/17 03/26/17 03/26/17 Range/Units 01:29 04:20 04:20 WBC 9.1 (4.5-11.0) K/uL RBC 3.42 (3.30-5.50) M/uL Hgb 10.0 L (12.0-15.0) g/dL Hct 32.8 L (36.0-48.0) % MCV 96 (80-98) fL MCH 29 (27-31) pg MCHC 31 L (32-36) % Plt Count 436 H (150-400) K/uL Neut % (Auto) 77 H (36-66) % Lymph % (Auto) 16 L (24-44) % [place] % (Auto) 7 H (2-6) % Eos % (Auto) 0 L (2-4) % Baso % (Auto) 0 (0-1) % Puncture Site ABG pH (7.350-7.450) ABG pCO2 (35.0-42.0) mmHg ABG pO2 (75.0-100.0) mmHg ABG HCO3 (22.0-26.0) mmol/L ABG Total CO2 (21.0-25.0) mmol/L ABG O2 Saturation (95.0-98.0) % ABG O2 Content (15.0-23.0) %vol ABG Base Excess mm/L ABG Hemoglobin (12.0-16.0) g/dL ABG Oxyhemoglobin % ABG Carboxyhemoglobin (0.0-1.6) % ABG Methemoglobin % Srikanth Test O2 Delivery Device Oxygen Flow Rate L Sodium 142 (140-148) mmol/L Potassium 3.7 (3.6-5.2) mmol/L Chloride 99 L (100-108) mmol/L Carbon Dioxide 45 H (21-32) mmol/L Anion Gap 1.7 L (5.0-14.0) mmol/L BUN 7 (7-18) mg/dL Creatinine 0.4 L (0.6-1.0) mg/dL Est Cr Clr Drug Dosing 113.85 mL/min Estimated GFR (MDRD) > 60 (>60) Glucose 129 H (74-106) mg/dL Calcium 8.3 L (8.5-10.1) mg/dL Urine Color Yellow Urine Appearance Cloudy Urine pH 8.0 (4.5-8.0) Ur Specific [place] 1.015 (1.008-1.030) Urine Protein Negative (NEGATIVE) mg/dL Urine Glucose (UA) Normal (NEGATIVE) mg/dL Urine Ketones 15 H (NEGATIVE) mg/dL Urine Occult Blood Negative (NEGATIVE) Urine Nitrite Negative (NEGATIVE) Urine Bilirubin Negative (NEGATIVE) Urine Urobilinogen Normal (NORMAL) mg/dL Ur Leukocyte Esterase Small (NEGATIVE) Urine RBC 0-5 (0-5) Urine WBC 5-10 H (0-5) Ur Epithelial Cells Moderate Amorphous Sediment Few Urine Bacteria Moderate Urine Mucus Not seen 03/26/17 03/26/17 Range/Units 04:40 07:05 WBC (4.5-11.0) K/uL RBC (3.30-5.50) M/uL Hgb (12.0-15.0) g/dL Hct (36.0-48.0) % MCV (80-98) fL MCH (27-31) pg MCHC (32-36) % Plt Count (150-400) K/uL Neut % (Auto) (36-66) % Lymph % (Auto) (24-44) % [place] % (Auto) (2-6) % Eos % (Auto) (2-4) % Baso % (Auto) (0-1) % Puncture Site L radial Rt radial ABG pH 7.271 L 7.347 L (7.350-7.450) ABG pCO2 101.0 H* 89.6 H* (35.0-42.0) mmHg ABG pO2 135.0 H 67.3 L (75.0-100.0) mmHg ABG HCO3 45.1 H 47.8 H (22.0-26.0) mmol/L ABG Total CO2 43.1 H 45.1 H (21.0-25.0) mmol/L ABG O2 Saturation 98.8 H 92.3 L (95.0-98.0) % ABG O2 Content 13.7 L 12.4 L (15.0-23.0) %vol ABG Base Excess 15.3 19.1 mm/L ABG Hemoglobin 10.0 L 9.9 L (12.0-16.0) g/dL ABG Oxyhemoglobin 95.1 88.9 % ABG Carboxyhemoglobin 3.1 H 3.1 H (0.0-1.6) % ABG Methemoglobin 0.6 0.6 % Srikanth Test Ok Passed O2 Delivery Device Nasal cannula Bipap Oxygen Flow Rate 3 L Sodium (140-148) mmol/L Potassium (3.6-5.2) mmol/L Chloride (100-108) mmol/L Carbon Dioxide (21-32) mmol/L Anion Gap (5.0-14.0) mmol/L BUN (7-18) mg/dL Creatinine (0.6-1.0) mg/dL Est Cr Clr Drug Dosing mL/min Estimated GFR (MDRD) (>60) Glucose (74-106) mg/dL Calcium (8.5-10.1) mg/dL Urine Color Urine Appearance Urine pH (4.5-8.0) Ur Specific [place] (1.008-1.030) Urine Protein (NEGATIVE) mg/dL Urine Glucose (UA) (NEGATIVE) mg/dL Urine Ketones (NEGATIVE) mg/dL Urine Occult Blood (NEGATIVE) Urine Nitrite (NEGATIVE) Urine Bilirubin (NEGATIVE) Urine Urobilinogen (NORMAL) mg/dL Ur Leukocyte Esterase (NEGATIVE) Urine RBC (0-5) Urine WBC (0-5) Ur Epithelial Cells Amorphous Sediment Urine Bacteria Urine Mucus Med Orders - Current: Current Medications Acetaminophen (Tylenol) 650 mg PO Q4H PRN PRN Reason: Pain Albuterol (Proventil Neb Soln) 2.5 mg NEB Q4H PRN PRN Reason: shortness of breath Last Admin: 03/26/17 04:33 Dose: 2.5 mg Albuterol (Ventolin Hfa) 0 gm INH Q4H PRN PRN Reason: Shortness of Breath Albuterol/Ipratropium (Duoneb 3.0-0.5 Mg/3 Ml) 3 ml NEB QIDRT [facility] Last Admin: 03/26/17 14:45 Dose: 3 ml Citalopram Hydrobromide (Celexa) 10 mg PO DAILY [facility] Last Admin: 03/26/17 08:37 Dose: Not Given Insulin Aspart (Novolog) 0 unit SUBCUT ASDIRECTED [facility] PRN Reason: Protocol Metformin HCl (Glucophage) 1,000 mg PO BIDMEALS [facility] Last Admin: 03/26/17 08:37 Dose: Not Given Mometasone Furoate/Formoterol Fumar (Dulera 200-5 Mcg) 2 puff IH BIDRT [facility] Last Admin: 03/26/17 09:36 Dose: Not Given Nicotine (Habitrol) 14 mg TRDERM DAILY@2100 [facility] Oxycodone HCl (Oxycodone) 5 mg PO Q4H PRN PRN Reason: Pain Pantoprazole Sodium (Protonix) 40 mg PO ACBREAKFAST [facility] Last Admin: 03/26/17 08:37 Dose: Not Given Pregabalin (Lyrica) 75 mg PO TID [facility] Last Admin: 03/26/17 08:37 Dose: Not Given Simvastatin (Zocor) 80 mg PO BEDTIME [facility] Tiotropium [place] (Spiriva Handihaler) 18 mcg INH DAILYRT [facility] Last Admin: 03/26/17 09:36 Dose: Not Given Discontinued Medications Acetaminophen (Tylenol) 1,000 mg PO NOW ONE Stop: 03/26/17 01:04 Last Admin: 03/26/17 01:36 Dose: Not Given Acetaminophen (Tylenol Extra Strength) Confirm Administered Dose 1,000 mg .ROUTE .STK-MED ONE Stop: 03/26/17 01:22 Last Admin: 03/26/17 01:26 Dose: 1,000 mg Albuterol (Ventolin Hfa) 0 gm INH Q4H [facility] Last Admin: 03/25/17 23:38 Dose: Not Given Albuterol/Ipratropium (Duoneb 3.0-0.5 Mg/3 Ml) Confirm Administered Dose 3 ml .ROUTE .STK-MED ONE Stop: 03/25/17 23:29 Last Admin: 03/25/17 23:41 Dose: Not Given Fentanyl (Sublimaze) 100 mcg IVPUSH ONETIME ONE Stop: 03/25/17 19:20 Last Admin: 03/25/17 19:24 Dose: 100 mcg Fentanyl (Sublimaze) 50 mcg IVPUSH ONETIME ONE Stop: 03/25/17 21:52 Last Admin: 03/25/17 22:39 Dose: 50 mcg Furosemide (Lasix) 40 mg IVPUSH ONETIME STA Stop: 03/26/17 04:10 Last Admin: 03/26/17 04:16 Dose: 40 mg Hydromorphone HCl (Dilaudid) 1 mg IVPUSH Q3H PRN PRN Reason: Pain (severe 7-10) Last Admin: 03/25/17 23:36 Dose: 1 mg Hydromorphone HCl (Dilaudid) Confirm Administered Dose 1 mg .ROUTE .STK-MED ONE Stop: 03/25/17 23:29 Last Admin: 03/25/17 23:41 Dose: Not Given Sodium Chloride (Normal Saline) 1,000 mls @ 100 mls/hr IV ASDIRECTED [facility] Last Admin: 03/25/17 23:56 Dose: 100 mls/hr Lorazepam (Ativan) 1 mg PO BEDTIME PRN PRN Reason: Sleep Last Admin: 03/25/17 23:57 Dose: 1 mg Mometasone Furoate/Formoterol Fumar (Dulera 200-5 Mcg) 2 puff IH BIDRT [facility] Last Admin: 03/26/17 00:20 Dose: Not Given Naloxone HCl (Narcan) Confirm Administered Dose 0.4 mg .ROUTE .STK-MED ONE Stop: 03/26/17 04:02 Last Admin: 03/26/17 04:15 Dose: Not Given Nicotine (Habitrol) 14 mg TRDERM ONETIME ONE Stop: 03/25/17 23:31 Last Admin: 03/25/17 23:40 Dose: Not Given Oxycodone HCl (Oxycodone) 10 mg PO Q4H PRN PRN Reason: Pain (moderate 4-6) Last Admin: 03/25/17 23:57 Dose: 10 mg Prednisone (Prednisone) 20 mg PO ASDIRECTED [facility] Pregabalin (Lyrica) 75 mg PO ONETIME ONE Stop: 03/26/17 01:05 Last Admin: 03/26/17 01:26 Dose: 75 mg Sodium Chloride (Saline Flush) 10 ml FLUSH ASDIRECTED PRN PRN Reason: Keep Vein Open Last Admin: 03/25/17 19:26 Dose: 10 ml Zolpidem Tartrate (Ambien) 5 mg PO ONETIME ONE Stop: 03/26/17 01:03 Last Admin: 03/26/17 02:26 Dose: Not Given - Exam Quality Assessment: Supplemental Oxygen, Urine Catheter, DVT Prophylaxis Lungs: Clear to Auscultation, Normal Respiratory Effort, Decreased Breath Sounds. No: Crackles, Rales, Rhonchi, Wheezing Cardiovascular: Regular Rate, Regular Rhythm, No Murmurs GI/Abdominal Exam: Normal Bowel Sounds, Soft, Non-Tender, No Distention Extremities: Normal Inspection, Non-Tender Skin: Warm, Dry, Intact - Problem List Review Problem List Initiated/Reviewed/Updated: Yes - My Orders Last 24 Hours: My Active Orders 03/26/17 15:11 Remove Dixon Catheter [Urinary Catheter Removal] [RC] Per Unit Routine Convert IV to Saline Lock [OM.PC] Routine 03/26/17 15:12 oxyCODONE 5 mg PO Q4H PRN 03/27/17 05:00 BLOOD GAS ARTERIAL [BG] Timed 03/27/17 07:30 GLUCOSE POC LAB TO COLLECT [POC] QIDACANDBED 03/27/17 11:30 GLUCOSE POC LAB TO COLLECT [POC] QIDACANDBED 03/27/17 16:30 GLUCOSE POC LAB TO COLLECT [POC] QIDACANDBED 03/27/17 21:00 GLUCOSE POC LAB TO COLLECT [POC] QIDACANDBED - Plan Plan:: Assessment and plan Spinal compression fracture following a fall -Tylenol every 4 hours prn -Oxcodone 5 mg po every 4 hour prn -Lyrica 75mg po bid -consultation for OT and PT intervention Diabetes Type 2 -continue Metformin po bid -low dose sliding scale insulin -blood glucose check before meals and bedtime. Acute on chronic respiratory failure with hypoxia and hypercapnia-has in stage COPD requires use of oxygen and home ventilator -Noninvasive positive pressure ventilation -Recheck ABGs in a.m. -order nebulizer and inhaler -dependent oxygen 2 liter per NC Depression/anxiety -continue Celexa Tobacco Use -Nicotine patch 14 mcg daily. Maintenance issues - - DVT prophylaxis - SCD - GI prophylaxis - PPI, Protonix 40mg po daily - Nutrition - consistent carb - Dixon catheter - not indicated CODE STATUS - FULL CODE Admission justification - This patient will be admitted for inpatient services and is medically appropriate meeting medical necessity for inpatient admission as outlined in my documentation. I reasonably expect the patient will require inpatient services that span a period time over 2 midnights. I reasonably expect this patient to be discharged or transferred within 96 hours [facility]. Disposition - anticipate discharge back home after the hospital stay Primary care physician - not listed. Hospitialist: Navin Fisher M.D.
[2017-03-26] MEDS: oxyCODONE 5 MG Tab PO PRN ×2 (16:56→21:16)
[2017-03-26] MEDS: Acetaminophen 325 MG Tab PO PRN (21:17)
[2017-03-26] MEDS: Nicotine 14 MG/24 Hr Patch TRDERM SCH (21:20)
[2017-03-26] MEDS: Simvastatin 20 MG Tab PO SCH (21:21)
[2017-03-27] MEDS: oxyCODONE 5 MG Tab PO PRN ×5 (01:37→21:23)
[2017-03-27] MEDS: Acetaminophen 325 MG Tab PO PRN (01:37)
[2017-03-27] MEDS: Albuterol/Ipratropium 3.0-0.5 MG/3 ML Neb Soln NEB SCH ×4 (07:38→21:23)
[2017-03-27] MEDS: metFORMIN 500 MG Tab PO SCH ×2 (08:13→17:01)
[2017-03-27] MEDS: Pantoprazole 40 MG Tab.CR PO SCH (08:13)
[2017-03-27] MEDS: Citalopram 10 MG Tab PO SCH (08:16)
[2017-03-27] MEDS: Tiotropium Inhaler 18 MCG Inhalation Powder Cap Kit of 5 INH SCH (08:16)
[2017-03-27] MEDS: Pregabalin 75 MG Cap PO SCH ×3 (08:16→21:22)
[2017-03-27] MEDS: Formoterol/Mometasone 200-5 MCG 8.8 GM Inhaler IH SCH ×2 (08:16→21:23)
--- NOTE | 2017-03-27 17:06 | PCM.PN ---
- General Info Date of Service: 03/27/17 Functional Status: Reports: Pain Controlled, Tolerating Diet, Urinating - Review of Systems General: Reports: Weakness. Denies: Fever, Chills Pulmonary: Reports: Shortness of Breath, Wheezing. Denies: Cough, Sputum Cardiovascular: Reports: Dyspnea on Exertion. Denies: Chest Pain, Palpitations , Orthopnea, PND, Edema Gastrointestinal: Reports: No Symptoms Systems Review Comment:: Ms. Lauren is much more alert and interactive today, blood gases from this morning show persistent and chronic hypercapnia consistent with her end-stage COPD. Back pain is well controlled with regular use of oxycodone. We have discussed ongoing management concerning her end-stage COPD and she is currently interested in discussing hospice care. - Patient Data Vitals - Most Recent: Last Vital Signs Temp 99.1 F 03/27/17 15:27 Pulse 105 H 03/27/17 15:27 Resp 20 03/27/17 15:27 BP 118/67 03/27/17 15:27 Pulse Ox 86 L 03/27/17 15:27 Weight - Most Recent: 143 lb 1.28 oz I&O - Last 24 Hours: Intake & Output 03/27/17 03/27/17 03/27/17 06:59 14:59 22:59 Intake Total 240 200 Output Total 300 300 Balance -60 -300 200 Lab Results Last 24 Hours: Laboratory Results - last 24 hr 03/27/17 Range/Units 06:10 Puncture Site L brachial ABG pH 7.349 L (7.350-7.450) ABG pCO2 85.8 H* (35.0-42.0) mmHg ABG pO2 67.7 L (75.0-100.0) mmHg ABG HCO3 46.0 H (22.0-26.0) mmol/L ABG Total CO2 43.3 H (21.0-25.0) mmol/L ABG O2 Saturation 92.2 L (95.0-98.0) % ABG O2 Content 12.4 L (15.0-23.0) %vol ABG Base Excess 17.5 mm/L ABG Hemoglobin 9.8 L (12.0-16.0) g/dL ABG Oxyhemoglobin 89.7 % ABG Carboxyhemoglobin 2.1 H (0.0-1.6) % ABG Methemoglobin 0.6 % O2 Delivery Device Bipap Oxygen Flow Rate 5 L Med Orders - Current: Current Medications Acetaminophen (Tylenol) 650 mg PO Q4H PRN PRN Reason: Pain Last Admin: 03/27/17 01:37 Dose: 650 mg Albuterol (Proventil Neb Soln) 2.5 mg NEB Q4H PRN PRN Reason: shortness of breath Last Admin: 03/26/17 04:33 Dose: 2.5 mg Albuterol (Ventolin Hfa) 0 gm INH Q4H PRN PRN Reason: Shortness of Breath Albuterol/Ipratropium (Duoneb 3.0-0.5 Mg/3 Ml) 3 ml NEB QIDRT [facility] Last Admin: 03/27/17 15:01 Dose: 3 ml Citalopram Hydrobromide (Celexa) 10 mg PO DAILY [facility] Last Admin: 03/27/17 08:16 Dose: 10 mg Insulin Aspart (Novolog) 0 unit SUBCUT ASDIRECTED [facility] PRN Reason: Protocol Metformin HCl (Glucophage) 1,000 mg PO BIDMEALS [facility] Last Admin: 03/27/17 08:13 Dose: 1,000 mg Mometasone Furoate/Formoterol Fumar (Dulera 200-5 Mcg) 2 puff IH BIDRT [facility] Last Admin: 03/27/17 08:16 Dose: 2 puff Nicotine (Habitrol) 14 mg TRDERM DAILY@2100 [facility] Last Admin: 03/26/17 21:20 Dose: Not Given Oxycodone HCl (Oxycodone) 5 mg PO Q4H PRN PRN Reason: Pain Last Admin: 03/27/17 12:20 Dose: 5 mg Pantoprazole Sodium (Protonix) 40 mg PO ACBREAKFAST [facility] Last Admin: 03/27/17 08:13 Dose: 40 mg Pregabalin (Lyrica) 75 mg PO TID [facility] Last Admin: 03/27/17 14:01 Dose: 75 mg Simvastatin (Zocor) 80 mg PO BEDTIME [facility] Last Admin: 03/26/17 21:21 Dose: 80 mg Tiotropium Vance (Spiriva Handihaler) 18 mcg INH DAILYRT [facility] Last Admin: 03/27/17 08:16 Dose: 18 mcg Discontinued Medications Acetaminophen (Tylenol) 1,000 mg PO NOW ONE Stop: 03/26/17 01:04 Last Admin: 03/26/17 01:36 Dose: Not Given Acetaminophen (Tylenol Extra Strength) Confirm Administered Dose 1,000 mg .ROUTE .STK-MED ONE Stop: 03/26/17 01:22 Last Admin: 03/26/17 01:26 Dose: 1,000 mg Albuterol (Ventolin Hfa) 0 gm INH Q4H [facility] Last Admin: 03/25/17 23:38 Dose: Not Given Albuterol/Ipratropium (Duoneb 3.0-0.5 Mg/3 Ml) Confirm Administered Dose 3 ml .ROUTE .STK-MED ONE Stop: 03/25/17 23:29 Last Admin: 03/25/17 23:41 Dose: Not Given Fentanyl (Sublimaze) 100 mcg IVPUSH ONETIME ONE Stop: 03/25/17 19:20 Last Admin: 03/25/17 19:24 Dose: 100 mcg Fentanyl (Sublimaze) 50 mcg IVPUSH ONETIME ONE Stop: 03/25/17 21:52 Last Admin: 03/25/17 22:39 Dose: 50 mcg Furosemide (Lasix) 40 mg IVPUSH ONETIME STA Stop: 03/26/17 04:10 Last Admin: 03/26/17 04:16 Dose: 40 mg Hydromorphone HCl (Dilaudid) 1 mg IVPUSH Q3H PRN PRN Reason: Pain (severe 7-10) Last Admin: 03/25/17 23:36 Dose: 1 mg Hydromorphone HCl (Dilaudid) Confirm Administered Dose 1 mg .ROUTE .STK-MED ONE Stop: 03/25/17 23:29 Last Admin: 03/25/17 23:41 Dose: Not Given Sodium Chloride (Normal Saline) 1,000 mls @ 100 mls/hr IV ASDIRECTED [facility] Last Admin: 03/25/17 23:56 Dose: 100 mls/hr Lorazepam (Ativan) 1 mg PO BEDTIME PRN PRN Reason: Sleep Last Admin: 03/25/17 23:57 Dose: 1 mg Mometasone Furoate/Formoterol Fumar (Dulera 200-5 Mcg) 2 puff IH BIDRT [facility] Last Admin: 03/26/17 18:17 Dose: Not Given Naloxone HCl (Narcan) Confirm Administered Dose 0.4 mg .ROUTE .STK-MED ONE Stop: 03/26/17 04:02 Last Admin: 03/26/17 04:15 Dose: Not Given Nicotine (Habitrol) 14 mg TRDERM ONETIME ONE Stop: 03/25/17 23:31 Last Admin: 03/25/17 23:40 Dose: Not Given Oxycodone HCl (Oxycodone) 10 mg PO Q4H PRN PRN Reason: Pain (moderate 4-6) Last Admin: 03/25/17 23:57 Dose: 10 mg Prednisone (Prednisone) 20 mg PO ASDIRECTED [facility] Pregabalin (Lyrica) 75 mg PO ONETIME ONE Stop: 03/26/17 01:05 Last Admin: 03/26/17 01:26 Dose: 75 mg Sodium Chloride (Saline Flush) 10 ml FLUSH ASDIRECTED PRN PRN Reason: Keep Vein Open Last Admin: 03/25/17 19:26 Dose: 10 ml Zolpidem Tartrate (Ambien) 5 mg PO ONETIME ONE Stop: 03/26/17 01:03 Last Admin: 03/26/17 02:26 Dose: Not Given - Exam Quality Assessment: Supplemental Oxygen, DVT Prophylaxis General: Alert, Oriented, Cooperative, Mild Distress Lungs: Decreased Breath Sounds, Wheezing. No: Rales, Rhonchi Cardiovascular: Regular Rate, Regular Rhythm, No Murmurs GI/Abdominal Exam: Normal Bowel Sounds, Soft, Non-Tender, No Distention Extremities: Normal Inspection, No Pedal Edema Skin: Warm, Dry, Intact - Problem List Review Problem List Initiated/Reviewed/Updated: Yes - My Orders Last 24 Hours: My Active Orders 03/27/17 21:00 GLUCOSE POC LAB TO COLLECT [POC] QIDACANDBED 03/28/17 07:30 GLUCOSE POC LAB TO COLLECT [POC] QIDACANDBED 03/28/17 11:30 GLUCOSE POC LAB TO COLLECT [POC] QIDACANDBED 03/28/17 16:30 GLUCOSE POC LAB TO COLLECT [POC] QIDACANDBED 03/28/17 21:00 GLUCOSE POC LAB TO COLLECT [POC] QIDACANDBED - Plan Plan:: Assessment and plan Spinal compression fracture following a fall -Tylenol every 4 hours prn -Oxcodone 5 mg po every 4 hour prn -Lyrica 75mg po bid -consultation for OT and PT intervention Diabetes Type 2 -continue Metformin po bid -low dose sliding scale insulin -blood glucose check before meals and bedtime. Acute on chronic respiratory failure with hypoxia and hypercapnia-has end stage COPD requires use of oxygen and home ventilator -Noninvasive positive pressure ventilation -Hospice consult in a.m. -order nebulizer and inhaler -dependent oxygen 2 liter per NC Depression/anxiety -continue Celexa Tobacco Use -Nicotine patch 14 mcg daily. Maintenance issues - - DVT prophylaxis - SCD - GI prophylaxis - PPI, Protonix 40mg po daily - Nutrition - consistent carb - Dixon catheter - not indicated CODE STATUS - FULL CODE Admission justification - This patient will be admitted for inpatient services and is medically appropriate meeting medical necessity for inpatient admission as outlined in my documentation. I reasonably expect the patient will require inpatient services that span a period time over 2 midnights. I reasonably expect this patient to be discharged or transferred within 96 hours [facility]. Disposition - anticipate discharge to group home with hospice care Primary care physician - not listed. Hospitialist: Navin Fisher M.D.
[2017-03-27] MEDS: Simvastatin 20 MG Tab PO SCH (21:24)
[2017-03-27] MEDS: Nicotine 14 MG/24 Hr Patch TRDERM SCH (21:24)
[2017-03-28] MEDS: Acetaminophen 325 MG Tab PO PRN (00:14)
[2017-03-28] MEDS ORDERED: LORazepam 1 MG Tab PO PRN (00:19)
[2017-03-28] MEDS: oxyCODONE 5 MG Tab PO PRN ×3 (04:43→15:53)
[2017-03-28] MEDS: metFORMIN 500 MG Tab PO SCH (07:27)
[2017-03-28] MEDS: Pantoprazole 40 MG Tab.CR PO SCH (07:27)
[2017-03-28] MEDS: Albuterol/Ipratropium 3.0-0.5 MG/3 ML Neb Soln NEB SCH ×3 (07:34→14:45)
[2017-03-28] MEDS: Tiotropium Inhaler 18 MCG Inhalation Powder Cap Kit of 5 INH SCH (07:34)
[2017-03-28] MEDS: Formoterol/Mometasone 200-5 MCG 8.8 GM Inhaler IH SCH (07:35)
[2017-03-28] MEDS: Pregabalin 75 MG Cap PO SCH ×2 (08:46→13:45)
[2017-03-28] MEDS: Citalopram 10 MG Tab PO SCH (08:46)
--- NOTE | 2017-03-28 12:44 | PCM.DCSUM1 ---
Discharge Summary - Hospital Course Brief History: Ms. Lauren is a 61-year-old woman with end-stage COPD, she was admitted through the emergency department after falling at home and experiencing severe back pain secondary to an L3 spinal compression fracture. - Discharge Data Discharge Date: 03/28/17 Discharge Disposition: DC/Tfer to SNF 03 Condition: Poor - Discharge Diagnosis/Problem(s) (1) Hypoxia SNOMED Code(s): 507757951, 555623017 ICD Code: R09.02 - HYPOXEMIA Status: Acute Current Visit: Yes (2) Hypercapnic respiratory failure, chronic Status: Acute Current Visit: Yes (3) Compression fracture of lumbar vertebra SNOMED Code(s): 180073815 ICD Code: S32.000A - WEDGE COMPRESSION FRACTURE OF UNSP LUMBAR VERTEBRA, INIT Status: Acute Priority: High Current Visit: Yes Qualifiers: Encounter type: initial encounter Lumbar vertebra fracture level: L3 Fracture type: closed Qualified Code(s): S32.030A - Wedge compression fracture of third lumbar vertebra, initial encounter for closed fracture (4) COPD (chronic obstructive pulmonary disease) SNOMED Code(s): 72817592 ICD Code: J44.9 - CHRONIC OBSTRUCTIVE PULMONARY DISEASE, UNSPECIFIED Status : Chronic Current Visit: No - Patient Summary/Data Consults: Consultations 03/25/17 23:18 Consult to Case Management [CONS] Routine Comment: Physician Instructions: Quantity: Reason for Consult: discharge planning Consult to Wheel Fitter [CONS] Routine Comment: Physician Instructions: OT Evaluation and Treatment [CONS] Routine Please Evaluate and Treat. OT Reason for Consult: Discharge Planning This query below is only for informational purposes and is not editable. PT Evaluation and Treatment [CONS] Routine Please Evaluate and Treat. PT Reason for Consult: Strengthening Special Instructions: new lumbar L3 compression fracture This query below is only for informational purposes and is not editable. Respiratory Care Assess and Treatment [CONS] Routine Comment: Physician Instructions: 03/27/17 22:31 Consult to Spiritual Care [CONS] Routine Special Instructions: information regarding advanced directive Hospital Course: Ms. Lauren is a 61-year-old woman with a known history of end-stage COPD and associated chronic hypoxia and hypercapnia. She had been discharged from the care home on the day prior to admission, unfortunately on the day of admission she fell at home experiencing severe lower back pain. She was brought into the emergency department for further evaluation, CT scan of the lumbar spine documented a new spinal compression fracture at L3. She was admitted to the hospital and given pain medication for management of the severe discomfort. Unfortunately with use of IV narcotics she became sedated and developed respiratory compromise with increased CO2 retention. She was placed on BiPAP which manage her respiratory compromise and over the next few days became more alert and interactive. By the time of discharge her pain was well managed and she was not experiencing significant sedation. We discussed options for ongoing management and at the present time she would like to pursue comfort cares only and hospice admission. She will be discharged back to the care home, activity will be as tolerated and she will resume her usual diet. Follow-up the care home will be as needed with primary care. She is planning on pursuing hospice admission as soon as insurance issues are resolved. - Patient Instructions Diet: Usual Diet as Tolerated Activity: As Tolerated - Discharge Plan Prescriptions/Med Rec: oxyCODONE 10 mg PO Q4H #40 tablet Home Medications: Home Meds Albuterol Sulfate [Proair Respiclick] 90 mcg IH Q4HR PRN 12/01/16 [History] Budesonide/Formoterol [Symbicort 160-4.5 MCG] 2 puff INH BID 12/01/16 [History] Buprenorphine HCl [Buprenorphine] 12 mg SL ACBREAKFAST 12/01/16 [History] Citalopram [Citalopram HBr] 10 mg PO DAILY 12/01/16 [History] Ibuprofen 400 mg PO Q6HR PRN 12/01/16 [History] Simvastatin [Zocor] 80 mg PO BEDTIME 12/01/16 [History] Tiotropium [Spiriva Handihaler] 1 puff INH DAILY 12/01/16 [History] metFORMIN [Glucophage] 1,000 mg PO BIDMEALS 12/01/16 [History] Acetaminophen [Tylenol] 650 mg PO Q4H PRN #100 tablet 02/22/17 [Rx] Albuterol [IJD: Albuterol] 2.5 mg NEB Q4H PRN #60 nebule 02/22/17 [Rx] Albuterol/Ipratropium [DuoNeb 3.0-0.5 MG/3 ML] 3 ml NEB QIDRT #120 neb 02/22/17 [Rx] LORazepam 1 mg PO BEDTIME PRN #30 tablet 02/22/17 [Rx] Pregabalin [Lyrica] 75 mg PO TID #90 cap 02/22/17 [Rx] oxyCODONE 10 mg PO Q4H #40 tablet 03/28/17 [Rx] Referrals: PCP,None [Primary Care Provider] - - Patient Data Vitals - Most Recent: Last Vital Signs Temp 99 F 03/28/17 11:45 Pulse 106 H 03/28/17 11:45 Resp 18 03/28/17 11:45 BP 134/66 03/28/17 11:45 Pulse Ox 87 L 03/28/17 11:45 Weight - Most Recent: 143 lb 1.28 oz I&O - Last 24 hours: Intake & Output 03/27/17 03/28/17 03/28/17 22:59 06:59 14:59 Intake Total 1030 400 120 Output Total 350 800 Balance 680 -400 120 Med Orders - Current: Current Medications Acetaminophen (Tylenol) 650 mg PO Q4H PRN PRN Reason: Pain Last Admin: 03/28/17 00:14 Dose: 650 mg Albuterol (Proventil Neb Soln) 2.5 mg NEB Q4H PRN PRN Reason: shortness of breath Last Admin: 03/26/17 04:33 Dose: 2.5 mg Albuterol (Ventolin Hfa) 0 gm INH Q4H PRN PRN Reason: Shortness of Breath Albuterol/Ipratropium (Duoneb 3.0-0.5 Mg/3 Ml) 3 ml NEB QIDRT [facility] Last Admin: 03/28/17 11:12 Dose: Not Given Citalopram Hydrobromide (Celexa) 10 mg PO DAILY [facility] Last Admin: 03/28/17 08:46 Dose: 10 mg Insulin Aspart (Novolog) 0 unit SUBCUT ASDIRECTED [facility] PRN Reason: Protocol Lorazepam (Ativan) 1 mg PO BEDTIME PRN PRN Reason: Sleep Last Admin: 03/28/17 00:28 Dose: 1 mg Metformin HCl (Glucophage) 1,000 mg PO BIDMEALS [facility] Last Admin: 03/28/17 07:27 Dose: 1,000 mg Mometasone Furoate/Formoterol Fumar (Dulera 200-5 Mcg) 2 puff IH BIDRT [facility] Last Admin: 03/28/17 07:35 Dose: 2 puff Nicotine (Habitrol) 14 mg TRDERM DAILY@2100 [facility] Last Admin: 03/27/17 21:24 Dose: Not Given Oxycodone HCl (Oxycodone) 5 mg PO Q4H PRN PRN Reason: Pain Last Admin: 03/28/17 11:50 Dose: 5 mg Pantoprazole Sodium (Protonix) 40 mg PO ACBREAKFAST [facility] Last Admin: 03/28/17 07:27 Dose: 40 mg Pregabalin (Lyrica) 75 mg PO TID [facility] Last Admin: 03/28/17 08:46 Dose: 75 mg Simvastatin (Zocor) 80 mg PO BEDTIME [facility] Last Admin: 03/27/17 21:24 Dose: 80 mg Tiotropium [place] (Spiriva Handihaler) 18 mcg INH DAILYRT [facility] Last Admin: 03/28/17 07:34 Dose: 18 mcg Discontinued Medications Acetaminophen (Tylenol) 1,000 mg PO NOW ONE Stop: 03/26/17 01:04 Last Admin: 03/26/17 01:36 Dose: Not Given Acetaminophen (Tylenol Extra Strength) Confirm Administered Dose 1,000 mg .ROUTE .STK-MED ONE Stop: 03/26/17 01:22 Last Admin: 03/26/17 01:26 Dose: 1,000 mg Albuterol (Ventolin Hfa) 0 gm INH Q4H [facility] Last Admin: 03/25/17 23:38 Dose: Not Given Albuterol/Ipratropium (Duoneb 3.0-0.5 Mg/3 Ml) Confirm Administered Dose 3 ml .ROUTE .STK-MED ONE Stop: 03/25/17 23:29 Last Admin: 03/25/17 23:41 Dose: Not Given Fentanyl (Sublimaze) 100 mcg IVPUSH ONETIME ONE Stop: 03/25/17 19:20 Last Admin: 03/25/17 19:24 Dose: 100 mcg Fentanyl (Sublimaze) 50 mcg IVPUSH ONETIME ONE Stop: 03/25/17 21:52 Last Admin: 03/25/17 22:39 Dose: 50 mcg Furosemide (Lasix) 40 mg IVPUSH ONETIME [facility] Stop: 03/26/17 04:10 Last Admin: 03/26/17 04:16 Dose: 40 mg Hydromorphone HCl (Dilaudid) 1 mg IVPUSH Q3H PRN PRN Reason: Pain (severe 7-10) Last Admin: 03/25/17 23:36 Dose: 1 mg Hydromorphone HCl (Dilaudid) Confirm Administered Dose 1 mg .ROUTE .STK-MED ONE Stop: 03/25/17 23:29 Last Admin: 03/25/17 23:41 Dose: Not Given Sodium Chloride (Normal Saline) 1,000 mls @ 100 mls/hr IV ASDIRECTED [facility] Last Admin: 03/25/17 23:56 Dose: 100 mls/hr Lorazepam (Ativan) 1 mg PO BEDTIME PRN PRN Reason: Sleep Last Admin: 03/25/17 23:57 Dose: 1 mg Mometasone Furoate/Formoterol Fumar (Dulera 200-5 Mcg) 2 puff IH BIDRT [facility] Last Admin: 03/26/17 18:17 Dose: Not Given Naloxone HCl (Narcan) Confirm Administered Dose 0.4 mg .ROUTE .STK-MED ONE Stop: 03/26/17 04:02 Last Admin: 03/26/17 04:15 Dose: Not Given Nicotine (Habitrol) 14 mg TRDERM ONETIME ONE Stop: 03/25/17 23:31 Last Admin: 03/25/17 23:40 Dose: Not Given Oxycodone HCl (Oxycodone) 10 mg PO Q4H PRN PRN Reason: Pain (moderate 4-6) Last Admin: 03/25/17 23:57 Dose: 10 mg Prednisone (Prednisone) 20 mg PO ASDIRECTED [facility] Pregabalin (Lyrica) 75 mg PO ONETIME ONE Stop: 03/26/17 01:05 Last Admin: 03/26/17 01:26 Dose: 75 mg Sodium Chloride (Saline Flush) 10 ml FLUSH ASDIRECTED PRN PRN Reason: Keep Vein Open Last Admin: 03/25/17 19:26 Dose: 10 ml Zolpidem Tartrate (Ambien) 5 mg PO ONETIME ONE Stop: 03/26/17 01:03 Last Admin: 03/26/17 02:26 Dose: Not Given *Q Meaningful Use (DIS) - VTE *Q VTE Criteria *Q: - Stroke *Q Stroke Criteria *Q: - AMI *Q AMI Criteria *Q:
[2017-03-28 15:34] VITALS: BP 124/67
[2017-03-28] MEDS ORDERED: Cefdinir 300 MG Cap PO ONE (16:36)
== END 2017-03-28 16:49 | DRG 189 ==
LOC: JP.ED 18:51 → UNDOADMIN 22:02 → JP.MS 22:02 → UNDOADMIN 23:11 → JP.MS 23:11 → UNDOADMIN 23:18 → JP.MS 23:18 → UNDODISIN 03-28 16:49
PROVIDERS: ADMIT Hospitalist; ATTEND Hospitalist
PROC: 5A09457 Assistance with Respiratory Ventilation, 24-96 Consecutive Hours, Continuous Positive Airway Pressure (ICD-10-PCS; principal; 2017-03-26)
DX: J96.22 Acute and chronic respiratory failure with hypercapnia (principal); S32.030A Wedge compression fracture of third lumbar vertebra, initial encounter for closed fracture; J96.21 Acute and chronic respiratory failure with hypoxia; J44.9 Chronic obstructive pulmonary disease, unspecified; Z99.81 Dependence on supplemental oxygen; Z51.5 Encounter for palliative care; I10 Essential (primary) hypertension; E78.00 Pure hypercholesterolemia, unspecified; F32.9 Major depressive disorder, single episode, unspecified; Z79.52 Long term (current) use of systemic steroids; F17.210 Nicotine dependence, cigarettes, uncomplicated; W19.XXXA Unspecified fall, initial encounter; E11.9 Type 2 diabetes mellitus without complications; Z79.84 Long term (current) use of oral hypoglycemic drugs
CPT/HCPCS: 36415; 72131; 80048; 85027; 96374; 99285 ×2; J3010; J7050; 36600; 81001; 82803; 82962; 85025; 94640; 94640-76; 94660; 94664; 94762; 96376; 97162-GP; 97165-GO; A9270-GY; J1170; J1940; J7040; J7620

== ENCOUNTER 2017-04-14 12:30 | Inpatient (IN) | payer MEDICARE, MEDICAID, OTHER ==
--- NOTE | 2017-04-14 12:43 | EDM.PDOC ---
ED HPI GENERAL MEDICAL PROBLEM - General Chief Complaint: Respiratory Problem Stated Complaint: MEDICAL VIA TRI Time Seen by Provider: 04/14/17 12:30 Source of Information: Reports: Patient, EMS, Family History Limitations: Reports: Respiratory Distress - History of Present Illness INITIAL COMMENTS - FREE TEXT/NARRATIVE: 61-year-old female with COPD, local care home resident who is still smoking has had a significant cough and shortness of breath over the past 4 days. She was seen by a nurse practitioner 3 days ago and started on prednisone but is not improving. This morning she felt worse, was starting to become distressed, hypoxic, so the care home sent her in by ambulance to be evaluated. She has a significant cough productive of yellow sputum, no fevers or chills. No hemoptysis Onset: Gradual (Over the past 4-6 days) Location: Reports: Chest (Some chest discomfort with cough) Severity: Moderate Worsens with: Reports: Other (Coughing) Associated Symptoms: Reports: Chest Pain, Cough, Shortness of Breath, Weakness Back Pain Score (Numeric/FACES): 5 - Related Data Allergies Allergy/AdvReac Type Severity Reaction Status Date / Time No Known Allergies Allergy Verified 03/25/17 19:00 Home Meds: Home Meds Albuterol Sulfate [Proair Respiclick] 90 mcg IH Q4HR PRN 12/01/16 [History] Budesonide/Formoterol [Symbicort 160-4.5 MCG] 2 puff INH BID 12/01/16 [History] Citalopram [Citalopram HBr] 10 mg PO DAILY 12/01/16 [History] Ibuprofen 400 mg PO Q6HR PRN 12/01/16 [History] Simvastatin [Zocor] 80 mg PO BEDTIME 12/01/16 [History] Tiotropium [Spiriva Handihaler] 1 puff INH DAILY 12/01/16 [History] metFORMIN [Glucophage] 1,000 mg PO BIDMEALS 12/01/16 [History] Acetaminophen [Tylenol] 650 mg PO Q4H PRN #100 tablet 02/22/17 [Rx] Albuterol [IJD: Albuterol] 2.5 mg NEB Q4H PRN #60 nebule 02/22/17 [Rx] Albuterol/Ipratropium [DuoNeb 3.0-0.5 MG/3 ML] 3 ml NEB QIDRT #120 neb 02/22/17 [Rx] LORazepam 1 mg PO BEDTIME PRN #30 tablet 02/22/17 [Rx] Pregabalin [Lyrica] 75 mg PO TID #90 cap 02/22/17 [Rx] oxyCODONE 10 mg PO Q4H #40 tablet 03/28/17 [Rx] Budesonide/Formoterol [Symbicort 160-4.5 MCG] 2 puff INH BID 04/14/17 [History] Melatonin 5 mg PO BEDTIME 04/14/17 [History] oxyCODONE HCl [Oxycontin] 10 mg PO BID 04/14/17 [History] Past Medical History HEENT History: Reports: Cataract, Impaired Vision Cardiovascular History: Reports: High Cholesterol, Hypertension Other Cardiovascular History: enlarged right Respiratory History: Reports: Asthma, COPD, Intubation, Previous Gastrointestinal History: Reports: Chronic Constipation, Chronic Diarrhea Genitourinary History: Reports: UTI, 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: Musculoskeletal History: Reports: Back Pain, Chronic Other Musculoskeletal History: uses w/c at home and walker Psychiatric History: Reports: Depression Endocrine/Metabolic History: Reports: Diabetes, Type II - Infectious Disease History Infectious Disease History: Reports: Chicken Pox - Past Surgical History HEENT Surgical History: Reports: Cataract Surgery GI Surgical History: Reports: Appendectomy, Cholecystectomy Female Surgical History: Reports: Hysterectomy Dermatological Surgical History: Reports: None Social & Family History - Family History Family Medical History: Unobtainable - Tobacco Use Smoking Status *Q: Unknown Ever Smoked Years of Tobacco use: 50 Packs/Tins Daily: 0.5 Used Tobacco, but Quit: No Second Hand Smoke Exposure: No - Caffeine Use Caffeine Use: Reports: Coffee Caffeine Use Comment: 1-3 cups/day - Recreational Drug Use Recreational Drug Use: No Recreational Drug Type: Reports: Oxycodone Other Recreational Drug Type: has been on buprenorphine - Recreational Drug Use Frequency: Daily ED ROS GENERAL - Review of Systems Review Of Systems: See Below Constitutional: Reports: Chills, Malaise, Weakness HEENT: Reports: No Symptoms Respiratory: Reports: Shortness of Breath, Cough, Sputum Cardiovascular: Reports: Chest Pain (With cough) GI/Abdominal: Denies: Abdominal Pain : Reports: No Symptoms Skin: Reports: Bruising (Bruises easily) Neurological: Reports: Weakness. Denies: Headache ED EXAM, GENERAL - Physical Exam Exam: See Below Exam Limited By: Respiratory Distress (Patient arrived with O2 saturations of 78 %) General Appearance: Alert, Mild Distress Eye Exam: Bilateral Eye: EOMI Respiratory/Chest: Respiratory Distress, Other (Diffuse expiratory wheezes along with bibasilar rales) Cardiovascular: Regular Rate, Rhythm, Tachycardia GI/Abdominal: Non-Tender Neurological: Alert, Oriented Psychiatric: Anxious Skin Exam: Warm, Dry, Other (Numerous bruises on the arms) Course - Vital Signs Last Recorded V/S: Last Vital Signs Temp 98.1 F 04/14/17 19:45 Pulse 120 H 04/14/17 18:00 Resp 25 H 04/14/17 20:15 BP 0/0 L 04/14/17 20:28 Pulse Ox 75 L 04/14/17 20:15 - Orders/Labs/Meds Orders: Active Orders 24 hr Category Date Time Status Chest 1V Frontal [CR] Stat Exams 04/14/17 12:40 Taken CULTURE BLOOD [BC] Urgent Lab 04/14/17 13:00 Received CULTURE BLOOD [BC] Urgent Lab 04/14/17 13:28 Received Blood Culture x2 Reflex Set [OM.PC] Urgent Oth 04/14/17 13:17 Ordered Labs: Laboratory Tests 04/14/17 04/14/17 04/14/17 Range/Units 12:40 13:04 13:04 WBC 12.6 H (4.5-11.0) K/uL RBC 3.70 (3.30-5.50) M/uL Hgb 10.3 L (12.0-15.0) g/dL Hct 34.8 L (36.0-48.0) % MCV 94 (80-98) fL MCH 28 (27-31) pg MCHC 30 L (32-36) % Plt Count 314 (150-400) K/uL Neut % (Auto) 87 H (36-66) % Lymph % (Auto) 7 L (24-44) % [place] % (Auto) 6 (2-6) % Eos % (Auto) 0 L (2-4) % Baso % (Auto) 0 (0-1) % Puncture Site Rt brachial ABG pH 7.296 L (7.350-7.450) ABG pCO2 84.5 H* (35.0-42.0) mmHg ABG pO2 107.0 H (75.0-100.0) mmHg ABG HCO3 39.9 H (22.0-26.0) mmol/L ABG Total CO2 37.7 H (21.0-25.0) mmol/L ABG O2 Saturation 98.2 H (95.0-98.0) % ABG O2 Content 14.0 L (15.0-23.0) %vol ABG Base Excess 11.2 mm/L ABG Hemoglobin 10.5 L (12.0-16.0) g/dL ABG Oxyhemoglobin 94.0 % ABG Carboxyhemoglobin 3.7 H (0.0-1.6) % ABG Methemoglobin 0.6 % Srikanth Test Passed O2 Delivery Device Non rebr mask Sodium 138 L (140-148) mmol/L Potassium 4.0 (3.6-5.2) mmol/L Chloride 98 L (100-108) mmol/L Carbon Dioxide 42 H (21-32) mmol/L Anion Gap 2.0 L (5.0-14.0) mmol/L BUN 18 D (7-18) mg/dL Creatinine 0.5 L (0.6-1.0) mg/dL Est Cr Clr Drug Dosing TNP Estimated GFR (MDRD) > 60 (>60) Glucose 177 H (74-106) mg/dL Calcium 9.0 (8.5-10.1) mg/dL Total Bilirubin 0.3 (0.2-1.0) mg/dL AST 12 L (15-37) U/L ALT 11 L (12-78) U/L Alkaline Phosphatase 118 H (46-116) U/L Troponin I < 0.017 (0.000-0.056) ng/mL Kse-N-Ulmbedngafv Pept 1213 H (5-125) pg/mL Total Protein 7.3 (6.4-8.2) g/dL Albumin 2.6 L (3.4-5.0) g/dL Globulin 4.7 H (2.3-3.5) g/dL Albumin/Globulin Ratio 0.6 L (1.2-2.2) Meds: Medications Discontinued Medications Generic Name Dose Route Start Last Admin Trade Name Freq PRN Reason Stop Dose Admin Acetaminophen 650 mg 04/14/17 15:29 Tylenol PO Q4H PRN Pain (Mild 1-3)/fever Albuterol 2.5 mg 04/14/17 15:29 Proventil Neb Soln NEB Q4H PRN Shortness Of Breath/wheezing Albuterol/Ipratropium 3 ml 04/14/17 16:00 04/14/17 16:15 Duoneb 3.0-0.5 Mg/3 Ml NEB 3 ml QIDRT [facility] Administration Citalopram Hydrobromide 10 mg 04/15/17 09:00 Celexa PO DAILY [facility] Dextrose 15 gm 04/14/17 15:29 Glutose 15 PO ASDIRECTED PRN Hypoglycemia Dextrose/Water 50 ml 04/14/17 15:29 Dextrose 50% In Water IV ASDIRECTED PRN Hypoglycemia Docusate Sodium 100 mg 04/14/17 15:29 Colace PO BID PRN Constipation Enoxaparin Sodium 40 mg 04/14/17 18:00 04/14/17 18:39 Lovenox SUBCUT Not Given DAILY@1800 [facility] Cefepime HCl 1 gm/ Sodium 50 mls @ 100 mls/hr 04/14/17 13:30 04/14/17 13:31 Chloride IV 04/14/17 13:59 100 mls/hr ONETIME ONE Administration Lactated Ringer's 1,000 mls @ 125 mls/hr 04/14/17 15:29 04/14/17 15:41 Ringers, Lactated IV 125 mls/hr ASDIRECTED [facility] Administration Levofloxacin/Dextrose 750 mg/ 150 mls @ 100 mls/hr 04/14/17 16:00 04/14/17 16 :20 Premix IV 100 mls/hr Q24H [facility] Administration Cefepime HCl 1 gm/ Sodium 50 mls @ 100 mls/hr 04/14/17 22:00 Chloride IV Q8H [facility] Insulin Aspart 0 unit 04/14/17 17:00 04/14/17 18:34 Novolog SUBCUT Not Given QIDACANDBED [facility] Protocol Lorazepam 1 mg 04/14/17 13:24 04/14/17 13:31 Ativan IVPUSH 04/14/17 13:25 1 mg ONETIME ONE Administration Lorazepam Confirm 04/14/17 13:25 04/14/17 13:31 Ativan Administered 04/14/17 13:26 Not Given Dose 2 mg .ROUTE .STK-MED ONE Magnesium Hydroxide 30 ml 04/14/17 15:29 Milk Of Magnesia PO Q12H PRN Constipation Melatonin 6 mg 04/14/17 21:00 Melatonin PO BEDTIME [facility] Methylprednisolone Sodium Succinate 40 mg 04/14/17 16:00 04/14/17 16:17 Solu-Medrol IVPUSH 40 mg Q6H [facility] Administration Mometasone Furoate/Formoterol Fumar 2 puff 04/14/17 21:00 Dulera 200-5 Mcg IH BID [facility] Mometasone Furoate/Formoterol Fumar 2 puff 04/14/17 21:00 Dulera 200-5 Mcg IH BIDRT [facility] Ondansetron HCl 4 mg 04/14/17 15:29 Zofran IV Q4H PRN Nausea/Vomiting Oxycodone HCl 5 mg 04/14/17 15:29 Oxycodone PO Q4H PRN Pain (moderate 4-6) Polyethylene Glycol 17 gm 04/14/17 15:29 Miralax PO DAILY PRN Constipation Pregabalin 75 mg 04/14/17 21:00 Lyrica PO TID [facility] Simvastatin 80 mg 04/14/17 21:00 Zocor PO BEDTIME [facility] Sodium Chloride 10 ml 04/14/17 13:12 04/14/17 13:31 Saline Flush IV 10 ml ASDIRECTED PRN Administration LINE MAINTENCE Sodium Chloride 10 ml 04/14/17 15:29 Saline Flush FLUSH ASDIRECTED PRN Keep Vein Open Tiotropium [place] 18 mcg 04/15/17 07:00 Spiriva Handihaler INH DAILYRT [facility] - Re-Assessments/Exams Free Text/Narrative Re-Assessment/Exam: 04/14/17 12:47 Patient was initially given nasal cannula oxygen. It was difficult maintaining sats above 90 so she was given a nonrebreather, this maintaining saturations in the high 90s. ABGs were done, a portable chest x-ray as well as CBC BMP and CMP. 04/14/17 13:11 ABGs revealed a critical value of CO2 of 84. Chest x-ray showed diffuse pulmonary infiltrates, right greater than left. She has no cardiac history so this is likely pneumonia. A sputum culture was attempted to be collected, and 1 g of cefepime was ordered IV. The patient does not want CPR or intubation but I explained to her that she may fall asleep and not wake up without extrapulmonary support so she agreed to BiPAP. Respiratory therapy was called to set this up. Departure - Departure Time of Disposition: 15:45 Disposition: Admitted As Inpatient 64 Condition: Poor Clinical Impression: Acute on chronic respiratory failure with hypoxia and hypercapnia Pneumonia Qualifiers: Pneumonia type: due to unspecified organism Laterality: bilateral - Discharge Information - My Orders Last 24 Hours: My Active Orders 04/14/17 12:40 Chest 1V Frontal [CR] Stat 04/14/17 13:00 CULTURE BLOOD [BC] Urgent 04/14/17 13:17 Blood Culture x2 Reflex Set [OM.PC] Urgent 04/14/17 13:28 CULTURE BLOOD [BC] Urgent - Assessment/Plan Last 24 Hours: My Active Orders 04/14/17 12:40 Chest 1V Frontal [CR] Stat 04/14/17 13:00 CULTURE BLOOD [BC] Urgent 04/14/17 13:17 Blood Culture x2 Reflex Set [OM.PC] Urgent 04/14/17 13:28 CULTURE BLOOD [BC] Urgent
[2017-04-14] MEDS ORDERED: Cefepime 1 GM in Sodium Chloride 0.9% 50 ML IV ONE ×2 (13:04→13:30)
[2017-04-14] MEDS ORDERED: Sodium Chloride 0.9% 10 ML Syringe IV PRN (13:12)
[2017-04-14] MEDS ORDERED: LORazepam 2 MG/ML MDV IVPUSH ONE (13:24)
[2017-04-14] MEDS ORDERED: LORazepam 2 MG/ML MDV ONE (13:25)
--- NOTE | 2017-04-14 14:27 | PCM.HP ---
H&P History of Present Illness - General Date of Service: 04/14/17 Source of Information: [facility], Provider, RN Notes Reviewed History Limitations: Reports: Respiratory Distress (Severe hypercapnia resulting in lethargy and sedation) - History of Present Illness Initial Comments - Free Text/Narative: Ms. Lauren is a 61-year-old woman who is well known to me from several previous admissions. She has known end-stage COPD with chronic hypoxia and hypercapnia. She developed respiratory compromise over the past few days, was started on increased dose of oral steroids but despite this experienced worsening shortness of breath with increase in lethargy. At the time of her last discharge she had requested comfort cares only and was planning to proceed with hospice admission. Apparently the hospice admission was never accomplished. [facility] staff contacted patient's son who requested that she be brought into the emergency department for further management. On evaluation emergency room department was noted to have hypoxia with significant hypercapnia and respiratory compromise. Chest x-ray shows evidence of a right lung infiltrate with elevated white blood cell count consistent with pneumonia. Blood cultures have been obtained, sputum cultures ordered. Because of significant CO2 retention with lethargy and hypercapnic encephalopathy she is unable to provide significant history concerning recent symptoms or events. She is also unable to relay her current wishes concerning ongoing management and CODE STATUS. Back Pain Score (Numeric/FACES): 5 - Related Data Allergies/Adverse Reactions: Allergies Allergy/AdvReac Type Severity Reaction Status Date / Time No Known Allergies Allergy Verified 03/25/17 19:00 Home Medications: Home Meds Albuterol Sulfate [Proair Respiclick] 90 mcg IH Q4HR PRN 12/01/16 [History] Budesonide/Formoterol [Symbicort 160-4.5 MCG] 2 puff INH BID 12/01/16 [History] Citalopram [Citalopram HBr] 10 mg PO DAILY 12/01/16 [History] Ibuprofen 400 mg PO Q6HR PRN 12/01/16 [History] Simvastatin [Zocor] 80 mg PO BEDTIME 12/01/16 [History] Tiotropium [Spiriva Handihaler] 1 puff INH DAILY 12/01/16 [History] metFORMIN [Glucophage] 1,000 mg PO BIDMEALS 12/01/16 [History] Acetaminophen [Tylenol] 650 mg PO Q4H PRN #100 tablet 02/22/17 [Rx] Albuterol [IJD: Albuterol] 2.5 mg NEB Q4H PRN #60 nebule 02/22/17 [Rx] Albuterol/Ipratropium [DuoNeb 3.0-0.5 MG/3 ML] 3 ml NEB QIDRT #120 neb 02/22/17 [Rx] LORazepam 1 mg PO BEDTIME PRN #30 tablet 02/22/17 [Rx] Pregabalin [Lyrica] 75 mg PO TID #90 cap 02/22/17 [Rx] oxyCODONE 10 mg PO Q4H #40 tablet 03/28/17 [Rx] Budesonide/Formoterol [Symbicort 160-4.5 MCG] 2 puff INH BID 04/14/17 [History] Melatonin 5 mg PO BEDTIME 04/14/17 [History] oxyCODONE HCl [Oxycontin] 10 mg PO BID 04/14/17 [History] Past Medical History HEENT History: Reports: Cataract, Impaired Vision Cardiovascular History: Reports: High Cholesterol, Hypertension Other Cardiovascular History: enlarged right Respiratory History: Reports: Asthma, COPD, Intubation, Previous Gastrointestinal History: Reports: Chronic Constipation, Chronic Diarrhea Genitourinary History: Reports: UTI, 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: Musculoskeletal History: Reports: Back Pain, Chronic Other Musculoskeletal History: uses w/c at home and walker Psychiatric History: Reports: Depression Endocrine/Metabolic History: Reports: Diabetes, Type II - Infectious Disease History Infectious Disease History: Reports: Chicken Pox - Past Surgical History HEENT Surgical History: Reports: Cataract Surgery GI Surgical History: Reports: Appendectomy, Cholecystectomy Female Surgical History: Reports: Hysterectomy Dermatological Surgical History: Reports: None Social & Family History - Family History Family Medical History: Unobtainable - Tobacco Use Smoking Status *Q: Unknown Ever Smoked Years of Tobacco use: 50 Packs/Tins Daily: 0.5 Used Tobacco, but Quit: No Second Hand Smoke Exposure: No - Caffeine Use Caffeine Use: Reports: Coffee Caffeine Use Comment: 1-3 cups/day - Recreational Drug Use Recreational Drug Use: No Recreational Drug Type: Reports: Oxycodone Other Recreational Drug Type: has been on buprenorphine - Recreational Drug Use Frequency: Daily H&P Review of Systems - Review of Systems: Review Of Systems: Unable To Obtain General: Reports: ROS unobtainable (Secondary to hypercapnia and severe respiratory compromise) Exam - Exam Exam: See Below - Vital Signs Vital Signs: Last Vital Signs Temp 99.8 F 04/14/17 12:33 Pulse 131 H 04/14/17 14:00 Resp 18 04/14/17 14:00 BP 141/72 H 04/14/17 14:00 Pulse Ox 90 L 04/14/17 14:00 Weight: 143 lb 1.28 oz - Exam Quality Assessment: Supplemental Oxygen, DVT Prophylaxis General: Obtunded HEENT: Conjunctiva Clear, Normal Nasal Septum, Posterior Pharynx Clear, Pupils Equal. No: Mucosa Moist & [place] Neck: Supple, Trachea Midline, +2 Carotid Pulse wo Bruit Lungs: Decreased Breath Sounds, Rales, Rhonchi, Wheezing. No: Crackles, Rub Cardiovascular: Regular Rhythm, Normal S1, Normal S2, Tachycardia. No: Systolic Murmur, Diastolic Murmur GI/Abdominal Exam: Normal Bowel Sounds, Soft, Non-Tender, No Distention Extremities: Non-Tender, Pedal Edema Skin: Warm, Dry, Intact Neuro Extensive - Mental Status: Withdraws to Pain - Patient Data Lab Results Last 24 hrs: Laboratory Results - last 24 hr 04/14/17 04/14/17 04/14/17 Range/Units 12:40 13:04 13:04 WBC 12.6 H (4.5-11.0) K/uL RBC 3.70 (3.30-5.50) M/uL Hgb 10.3 L (12.0-15.0) g/dL Hct 34.8 L (36.0-48.0) % MCV 94 (80-98) fL MCH 28 (27-31) pg MCHC 30 L (32-36) % Plt Count 314 (150-400) K/uL Neut % (Auto) 87 H (36-66) % Lymph % (Auto) 7 L (24-44) % [place] % (Auto) 6 (2-6) % Eos % (Auto) 0 L (2-4) % Baso % (Auto) 0 (0-1) % Puncture Site Rt brachial ABG pH 7.296 L (7.350-7.450) ABG pCO2 84.5 H* (35.0-42.0) mmHg ABG pO2 107.0 H (75.0-100.0) mmHg ABG HCO3 39.9 H (22.0-26.0) mmol/L ABG Total CO2 37.7 H (21.0-25.0) mmol/L ABG O2 Saturation 98.2 H (95.0-98.0) % ABG O2 Content 14.0 L (15.0-23.0) %vol ABG Base Excess 11.2 mm/L ABG Hemoglobin 10.5 L (12.0-16.0) g/dL ABG Oxyhemoglobin 94.0 % ABG Carboxyhemoglobin 3.7 H (0.0-1.6) % ABG Methemoglobin 0.6 % Srikanth Test Passed O2 Delivery Device Non rebr mask Sodium 138 L (140-148) mmol/L Potassium 4.0 (3.6-5.2) mmol/L Chloride 98 L (100-108) mmol/L Carbon Dioxide 42 H (21-32) mmol/L Anion Gap 2.0 L (5.0-14.0) mmol/L BUN 18 D (7-18) mg/dL Creatinine 0.5 L (0.6-1.0) mg/dL Est Cr Clr Drug Dosing TNP Estimated GFR (MDRD) > 60 (>60) Glucose 177 H (74-106) mg/dL Calcium 9.0 (8.5-10.1) mg/dL Total Bilirubin 0.3 (0.2-1.0) mg/dL AST 12 L (15-37) U/L ALT 11 L (12-78) U/L Alkaline Phosphatase 118 H (46-116) U/L Troponin I < 0.017 (0.000-0.056) ng/mL Nye-P-Jiepkvfgnsa Pept 1213 H (5-125) pg/mL Total Protein 7.3 (6.4-8.2) g/dL Albumin 2.6 L (3.4-5.0) g/dL Globulin 4.7 H (2.3-3.5) g/dL Albumin/Globulin Ratio 0.6 L (1.2-2.2) Result Diagrams: 04/14/17 13:04 04/14/17 13:04 *Q Meaningful Use (ADM) - VTE *Q VTE Criteria *Q: - VTE Risk Assess *Q Each Risk Factor Represents 1 Point: Serious Lung Disease Including Pneumonia, Less than 1 Month, Abnormal Pulmonary Function (COPD) Total Score 1 Point Risk Factors: 2 Each Risk Factor Represents 2 Points: Age 60 - 74 Years Total Score 2 Point Risk Factors: 2 Each Risk Factor Represents 3 Points: None Total Score 3 Point Risk Factors: 0 Each Risk Factor Represents 5 Points: None Total Score 5 Point Risk Factors: 0 Venous Thromboembolism Risk Factor Score *Q: 4 - Stroke *Q Stroke Criteria *Q: - AMI *Q AMI Criteria *Q: Problem List Initiated/Reviewed/Updated: Yes Orders Last 24hrs: Active Orders 24 hr Category Date Time Status Chest 1V Frontal [CR] Stat Exams 04/14/17 12:40 Taken CULTURE BLOOD [BC] Urgent Lab 04/14/17 13:00 Received CULTURE BLOOD [BC] Urgent Lab 04/14/17 13:28 Received CULTURE RESPIRATORY + SMEAR [RM] Stat Lab 04/14/17 13:17 Uncollected Sodium Chloride 0.9% [Saline Flush] Med 04/14/17 13:12 Active 10 ml IV ASDIRECTED PRN Blood Culture x2 Reflex Set [OM.PC] Urgent Oth 04/14/17 13:17 Ordered Medication Orders Sodium Chloride (Saline Flush) 10 ml IV ASDIRECTED PRN PRN Reason: LINE MAINTENCE Last Admin: 04/14/17 13:31 Dose: 10 ml Assessment/Plan Comment:: ASSESSMENT AND PLAN RIGHT LUNG PNEUMONIA-symptoms of increased respiratory compromise present over the past few days. Heart rate is elevated likely secondary to respiratory compromise rather than sepsis. No other evidence of sepsis has been identified. -Blood cultures 2 -Sputum Gram stain and culture -Expanded IV antibiotic coverage for pneumonia secondary to recent history of antibiotic use as well as steroid use; cefepime and levofloxacin HYPOXIC AND HYPERCAPNIC RESPIRATORY FAILURE SECONDARY TO PNEUMONIA AND UNDERLYING END-STAGE COPD- patient has a history of severe COPD requiring continuous oxygen at home. She has had recurrent admissions over the past few months for COPD exacerbation with respiratory failure and often underlying respiratory infection. Chest x-ray today shows evidence of right lung pneumonia , elevated white count. -Noninvasive positive pressure ventilation -Nebulized albuterol and DuoNeb nebs -Solu-Medrol 40 mg IV every 6 hours -Maintain oxygen saturations in the upper 80s to avoid further CO2 retention TYPE 2 DIABETES MELLITUS -Hold metformin -4 times a day glucometers -Low-dose sliding scale NovoLog PERIPHERAL EDEMA-likely secondary to right sided heart failure -Lasix 20 mg IV now and in a.m. PALLIATIVE CARE-Ms. Lauren has been adamant about not wanting intubation or mechanical ventilation over her past several hospitalizations. During last hospitalization requested comfort care only and was interested in pursuing hospice admission. POLST form was signed during last admission indicating her request for comfort cares only. When she was noted to have significant respiratory compromise this morning, correction contacted her family, they requested that she be brought in for further management. She currently is on BiPAP but still not doing well with significant respiratory compromise. I did have a discussion with the patient's son this evening, he initially requested that she be placed on mechanical ventilation. I explained to him that his mother was of sound mind when she requested comfort cares only and that even with current interventions we are being more aggressive than she had requested that the time of her last conversation. We will plan to continue current interventions but if she declines further from her respiratory status she will not be intubated and we will not proceed with mechanical ventilation. Comfort measures will be used as needed. MAINTENANCE ISSUES -DVT prophylaxis;Lovenox 40 mg subcutaneous daily -GI prophylaxis;not indicated -Dixon catheter;not indicated -Nutrition;consistent carb diet, 2 g sodium diet -Nicotine dependence;not required CODE STATUS-full code ADMISSION STATUS-patient will be admitted to inpatient status, expect at least a 2 night hospital stay for evaluation and management of problems as outlined above. At the time of this admission I do not reasonably expected evaluation and management of this problem will require more than a 96 hour hospital stay. DISPOSITION-anticipate discharge to home after the hospital stay. PRIMARY CARE- Dr. You
[2017-04-14] MEDS ORDERED: Albuterol 0.083% 2.5 MG/3 ML Neb Soln NEB PRN (15:29)
[2017-04-14] MEDS ORDERED: oxyCODONE 5 MG Tab PO PRN (15:29)
[2017-04-14] MEDS ORDERED: Docusate Sodium 100 MG Cap PO PRN (15:29)
[2017-04-14] MEDS ORDERED: Sodium Chloride 0.9% 10 ML Syringe FLUSH PRN (15:29)
[2017-04-14] MEDS ORDERED: Glucose Gel 15 GM in 37.5 GM Tube PO PRN (15:29)
[2017-04-14] MEDS ORDERED: Ondansetron 4 MG/2 ML SDV IV PRN (15:29)
[2017-04-14] MEDS ORDERED: Acetaminophen 325 MG Tab PO PRN (15:29)
[2017-04-14] MEDS ORDERED: Lactated Ringers 1,000 ML IV SCH (15:29)
[2017-04-14] MEDS ORDERED: Polyethylene Glycol 3350 Powder 17 GM Packet PO PRN (15:29)
[2017-04-14] MEDS ORDERED: 50% Dextrose in Water 50 ML Syringe IV PRN (15:29)
[2017-04-14] MEDS ORDERED: Magnesium Hydroxide 400 MG/5 ML Susp 30 ML Cup PO PRN (15:29)
[2017-04-14] MEDS ORDERED: methylPREDNISolone Sodium Succinate 40 MG/1 ML SDV IVPUSH SCH (16:00)
[2017-04-14] MEDS ORDERED: Levofloxacin/Dextrose 5%-Water 750 MG in Premix Bag 1 BAG IV SCH (16:00)
[2017-04-14] MEDS ORDERED: Albuterol/Ipratropium 3.0-0.5 MG/3 ML Neb Soln NEB SCH (16:00)
[2017-04-14] MEDS ORDERED: Melatonin 3 MG Tab PO SCH ×2 (16:15→21:00)
[2017-04-14] MEDS ORDERED: Insulin Aspart 100 Units/ML 3 ML Pen SUBCUT SCH (17:00)
[2017-04-14] MEDS ORDERED: Enoxaparin 40 MG/0.4 ML Syringe SUBCUT SCH (18:00)
[2017-04-14] MEDS ORDERED: Pregabalin 75 MG Cap PO SCH (21:00)
[2017-04-14] MEDS ORDERED: Simvastatin 20 MG Tab PO SCH (21:00)
[2017-04-14] MEDS ORDERED: Formoterol/Mometasone 200-5 MCG 8.8 GM Inhaler IH SCH ×3 (21:00)
--- NOTE | 2017-04-14 21:07 | PCM.DCSUM1 ---
Discharge Summary - Hospital Course Brief History: Ms. Lauren was a 61-year-old woman with a known history of severe oxygen-dependent COPD and chronic CO2 retention. She was admitted through the emergency department with acute on chronic respiratory failure secondary to COPD exacerbation and right lung pneumonia. - Discharge Data Discharge Date: 04/14/17 Discharge Disposition: 20 Preliminary Cause of *Q: Respiratory Failure Condition: - Discharge Diagnosis/Problem(s) (1) Pneumonia SNOMED Code(s): 362254598 ICD Code: J18.9 - PNEUMONIA, UNSPECIFIED ORGANISM Status: Acute Current Visit: Yes (2) Acute on chronic respiratory failure with hypoxia and hypercapnia SNOMED Code(s): 80787306, 868176264 ICD Code: J96.21 - ACUTE AND CHRONIC RESPIRATORY FAILURE WITH HYPOXIA; J96.22 - ACUTE AND CHRONIC RESPIRATORY FAILURE WITH HYPERCAPNIA Status: Acute Current Visit: Yes (3) O2 dependent SNOMED Code(s): 157297165537 ICD Code: Z99.81 - DEPENDENCE ON SUPPLEMENTAL OXYGEN Status: Acute Current Visit: No (4) COPD (chronic obstructive pulmonary disease) SNOMED Code(s): 40437683 ICD Code: J44.9 - CHRONIC OBSTRUCTIVE PULMONARY DISEASE, UNSPECIFIED Status : Acute Priority: High Current Visit: No Qualifiers: COPD type: chronic bronchitis Chronic bronchitis type: unspecified Qualified Code(s): J42 - Unspecified chronic bronchitis (5) Tobacco use disorder SNOMED Code(s): 621437813, 258042003 ICD Code: F17.200 - NICOTINE DEPENDENCE, UNSPECIFIED, UNCOMPLICATED Status : Acute Current Visit: No (6) Type 2 diabetes mellitus SNOMED Code(s): 68654123 ICD Code: E11.9 - TYPE 2 DIABETES MELLITUS WITHOUT COMPLICATIONS Status: Acute Current Visit: Yes (7) Palliative care status SNOMED Code(s): 071475902 ICD Code: Z51.5 - ENCOUNTER FOR PALLIATIVE CARE Status: Acute Current Visit: Yes - Patient Summary/Data Hospital Course: Ms. Lauren was a 61-year-old woman with a known history of severe oxygen- dependent COPD and CO2 retention. She had a history of several recent hospital admissions for respiratory compromise. During her last admission had requested comfort cares only and no further hospital admissions. She had plan to proceed with hospice admission, but this was never accomplished. She was at the care home and was noted to have decreased level of consciousness with hypoxia, family was contacted and instructed the care home to have her brought in for further evaluation and management. In the emergency department was noted to have a right lung pneumonia with acute on chronic toxic and hypercapnic respiratory failure. Family was not available to discuss the situation further so she was admitted to the intensive care unit on BiPAP with supplemental oxygen. Blood cultures were obtained, she was given IV fluids for hydration, and started on broad-spectrum IV antibiotics with cefepime and levofloxacin. She continued to deteriorate after admission, when her son was available we had a long discussion concerning the patient's wishes compared to our current interventions. The son requested that we continue BiPAP but understood that we would not proceed to intubation or mechanical ventilation given the patient's previously expressed wishes. She became progressively more hypoxic despite respiratory support with the BiPAP. She in the evening and no attempts were made at resuscitation per her previously expressed wishes. - Discharge Plan Home Medications: Home Meds Albuterol Sulfate [Proair Respiclick] 90 mcg IH Q4HR PRN 12/01/16 [History] Budesonide/Formoterol [Symbicort 160-4.5 MCG] 2 puff INH BID 12/01/16 [History] Citalopram [Citalopram HBr] 10 mg PO DAILY 12/01/16 [History] Ibuprofen 400 mg PO Q6HR PRN 12/01/16 [History] Simvastatin [Zocor] 80 mg PO BEDTIME 12/01/16 [History] Tiotropium [Spiriva Handihaler] 1 puff INH DAILY 12/01/16 [History] metFORMIN [Glucophage] 1,000 mg PO BIDMEALS 12/01/16 [History] Acetaminophen [Tylenol] 650 mg PO Q4H PRN #100 tablet 02/22/17 [Rx] Albuterol [IJD: Albuterol] 2.5 mg NEB Q4H PRN #60 nebule 02/22/17 [Rx] Albuterol/Ipratropium [DuoNeb 3.0-0.5 MG/3 ML] 3 ml NEB QIDRT #120 neb 02/22/17 [Rx] LORazepam 1 mg PO BEDTIME PRN #30 tablet 02/22/17 [Rx] Pregabalin [Lyrica] 75 mg PO TID #90 cap 02/22/17 [Rx] oxyCODONE 10 mg PO Q4H #40 tablet 03/28/17 [Rx] Budesonide/Formoterol [Symbicort 160-4.5 MCG] 2 puff INH BID 04/14/17 [History] Melatonin 5 mg PO BEDTIME 04/14/17 [History] oxyCODONE HCl [Oxycontin] 10 mg PO BID 04/14/17 [History] - Patient Data Vitals - Most Recent: Last Vital Signs Temp 98.6 F 04/14/17 15:37 Pulse 120 H 04/14/17 18:00 Resp 12 04/14/17 18:00 BP 133/48 L 04/14/17 18:00 Pulse Ox 88 L 04/14/17 18:00 Weight - Most Recent: 143 lb 1.28 oz I&O - Last 24 hours: Intake & Output 04/14/17 04/14/17 04/14/17 06:59 14:59 22:59 Intake Total 271 Balance 271 Lab Results - Last 24 hrs: Laboratory Results - last 24 hr 04/14/17 04/14/17 Range/Units 15:38 16:32 Puncture Site Lt radial Lt radial ABG pH 7.038 L* 7.032 L* (7.350-7.450) ABG pCO2 163.0 H* 168.0 H* (35.0-42.0) mmHg ABG pO2 93.3 29.8 L* (75.0-100.0) mmHg ABG HCO3 41.8 H 42.4 H (22.0-26.0) mmol/L ABG Total CO2 42.4 H 43.6 H (21.0-25.0) mmol/L ABG O2 Saturation 93.8 L 39.3 L (95.0-98.0) % ABG O2 Content 14.0 L 5.9 L (15.0-23.0) %vol ABG Base Excess 6.6 6.8 mm/L ABG Hemoglobin 10.8 L 10.9 L (12.0-16.0) g/dL ABG Oxyhemoglobin 91.1 38.2 % ABG Carboxyhemoglobin 2.3 H 1.9 H (0.0-1.6) % ABG Methemoglobin 0.6 0.9 % Srikanth Test Pass Pass O2 Delivery Device Bipap Bipap Oxygen Flow Rate L Med Orders - Current: Current Medications Acetaminophen (Tylenol) 650 mg PO Q4H PRN PRN Reason: Pain (Mild 1-3)/fever Albuterol (Proventil Neb Soln) 2.5 mg NEB Q4H PRN PRN Reason: Shortness Of Breath/wheezing Albuterol/Ipratropium (Duoneb 3.0-0.5 Mg/3 Ml) 3 ml NEB QIDRT [facility] Last Admin: 04/14/17 16:15 Dose: 3 ml Citalopram Hydrobromide (Celexa) 10 mg PO DAILY [facility] Dextrose (Glutose 15) 15 gm PO ASDIRECTED PRN PRN Reason: Hypoglycemia Dextrose/Water (Dextrose 50% In Water) 50 ml IV ASDIRECTED PRN PRN Reason: Hypoglycemia Docusate Sodium (Colace) 100 mg PO BID PRN PRN Reason: Constipation Enoxaparin Sodium (Lovenox) 40 mg SUBCUT DAILY@1800 [facility] Last Admin: 04/14/17 18:39 Dose: Not Given Lactated Ringer's (Ringers, Lactated) 1,000 mls @ 125 mls/hr IV ASDIRECTED [facility] Last Admin: 04/14/17 15:41 Dose: 125 mls/hr Levofloxacin/Dextrose 750 mg/ (Premix) 150 mls @ 100 mls/hr IV Q24H [facility] Last Admin: 04/14/17 16:20 Dose: 100 mls/hr Cefepime HCl 1 gm/ Sodium (Chloride) 50 mls @ 100 mls/hr IV Q8H [facility] Insulin Aspart (Novolog) 0 unit SUBCUT QIDACANDBED [facility] PRN Reason: Protocol Last Admin: 04/14/17 18:34 Dose: Not Given Magnesium Hydroxide (Milk Of Magnesia) 30 ml PO Q12H PRN PRN Reason: Constipation Melatonin (Melatonin) 6 mg PO BEDTIME [facility] Methylprednisolone Sodium Succinate (Solu-Medrol) 40 mg IVPUSH Q6H [facility] Last Admin: 04/14/17 16:17 Dose: 40 mg Mometasone Furoate/Formoterol Fumar (Dulera 200-5 Mcg) 2 puff IH BIDRT [facility] Ondansetron HCl (Zofran) 4 mg IV Q4H PRN PRN Reason: Nausea/Vomiting Oxycodone HCl (Oxycodone) 5 mg PO Q4H PRN PRN Reason: Pain (moderate 4-6) Polyethylene Glycol (Miralax) 17 gm PO DAILY PRN PRN Reason: Constipation Pregabalin (Lyrica) 75 mg PO TID [facility] Simvastatin (Zocor) 80 mg PO BEDTIME [facility] Sodium Chloride (Saline Flush) 10 ml FLUSH ASDIRECTED PRN PRN Reason: Keep Vein Open Tiotropium [place] (Spiriva Handihaler) 18 mcg INH DAILYRT [facility] Discontinued Medications Cefepime HCl 1 gm/ Sodium (Chloride) 50 mls @ 100 mls/hr IV ONETIME ONE Stop: 04/14/17 13:59 Last Admin: 04/14/17 13:31 Dose: 100 mls/hr Lorazepam (Ativan) 1 mg IVPUSH ONETIME ONE Stop: 04/14/17 13:25 Last Admin: 04/14/17 13:31 Dose: 1 mg Lorazepam (Ativan) Confirm Administered Dose 2 mg .ROUTE .STK-MED ONE Stop: 04/14/17 13:26 Last Admin: 04/14/17 13:31 Dose: Not Given Mometasone Furoate/Formoterol Fumar (Dulera 200-5 Mcg) 2 puff IH BID [facility] Sodium Chloride (Saline Flush) 10 ml IV ASDIRECTED PRN PRN Reason: 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
[2017-04-14] MEDS ORDERED: Cefepime 1 GM in Sodium Chloride 0.9% 50 ML IV SCH (22:00)
[2017-04-14 22:12] VITALS: BP 0/0
[2017-04-15] MEDS ORDERED: Tiotropium Inhaler 18 MCG Inhalation Powder Cap Kit of 5 INH SCH (07:00)
[2017-04-15] MEDS ORDERED: Citalopram 10 MG Tab PO SCH (09:00)
--- NOTE | 2017-04-15 10:48 | CR ---
Chest 1V Frontal INDICATION: hypoxia FINDINGS: Comparison 02/16/2017. Pulmonary venous hypertension and prominence of the interstitium has i ncreased since prior exam. New small right pleural effusion. Infiltrate in the right lung base. Findi ngs suggest CHF. Superimposed pneumonia not excluded.
== END 2017-04-14 22:33 | disposition expired | DRG 193 ==
LOC: JP.ED 12:30 → JP.ICU 15:10
PROVIDERS: ADMIT Hospitalist; ATTEND Hospitalist
DX: J18.9 Pneumonia, unspecified organism (principal); J96.22 Acute and chronic respiratory failure with hypercapnia; J96.21 Acute and chronic respiratory failure with hypoxia; E87.2 Acidosis; J44.1 Chronic obstructive pulmonary disease with (acute) exacerbation; F17.210 Nicotine dependence, cigarettes, uncomplicated; I10 Essential (primary) hypertension; E11.9 Type 2 diabetes mellitus without complications; Z79.84 Long term (current) use of oral hypoglycemic drugs; Z66 Do not resuscitate; Z51.5 Encounter for palliative care; Z99.81 Dependence on supplemental oxygen; F32.9 Major depressive disorder, single episode, unspecified; M54.9 Dorsalgia, unspecified; G89.29 Other chronic pain; E78.00 Pure hypercholesterolemia, unspecified; H54.7 Unspecified visual loss; Z87.440 Personal history of urinary (tract) infections
CPT/HCPCS: 36415; 36600; 71010 ×2; 80053; 82803; 83880; 84484; 85025; 87040 ×2; 96365; 96375; 99285; J0692; J2060; J7050 ×2; 94660; A9270-GY; J1956; J2920; J7120; J7620